=== PATIENT | female | born 1955 | race Caucasian/White ===

== ENCOUNTER → 2016-04-15 | Outpatient (CLI) | payer OTHER ==
--- NOTE | 2016-04-21 11:27 | MM ---
Reason for exam: screening (asymptomatic). Last mammogram was performed 3 years and 8 months ago. History: Patient is postmenopausal and is nulliparous. Benign excisional biopsy of the left breast, 2009. Physical Findings: A clinical breast exam by your physician is recommended on an annual basis and results should be correlated with mammographic findings. MG Screening Mammo w CAD Bilateral CC and MLO view(s) were taken. Prior study comparison: August 11, 2012, mammogram, performed at [place]. September 19, 2009, mammogram, performed at [place]. There are scattered fibroglandular densities. There is chronic nodularity in the right breast. No significant changes when compared with prior studies. ASSESSMENT: Benign, BI-RAD 2 RECOMMENDATION: Routine screening mammogram of both breasts in 1 year. Manage patient on a clinical basis.
== END ==
LOC: RADMAMWWP 14:51
PROVIDERS: ATTEND Family Medicine
DX: Z12.31 Encounter for screening mammogram for malignant neoplasm of breast (principal)

== ENCOUNTER → 2018-05-10 | Outpatient (CLI) | payer OTHER ==
--- NOTE | 2018-05-12 09:20 | MM ---
Reason for exam: screening (asymptomatic). Last mammogram was performed 2 years and 1 month ago. History: Patient is postmenopausal and is nulliparous. Benign excisional biopsy of the left breast, 2009. Physical Findings: A clinical breast exam by your physician is recommended on an annual basis and results should be correlated with mammographic findings. MG Screening Mammo w CAD Bilateral CC and MLO view(s) were taken. Prior study comparison: April 15, 2016, bilateral MG screening mammo w CAD. August 11, 2012, mammogram, performed at [place]. There are scattered fibroglandular densities. Previous mammotome biopsy in the left breast. There is chronic nodularity bilaterally. No significant changes when compared with prior studies. ASSESSMENT: Negative, BI-RAD 1 RECOMMENDATION: Routine screening mammogram of both breasts in 1 year.
== END | disposition home or self-care (01) ==
LOC: RADMAMWWP 13:57
PROVIDERS: ATTEND Family Medicine
DX: Z12.31 Encounter for screening mammogram for malignant neoplasm of breast (principal)
CPT/HCPCS: 77067

== ENCOUNTER 2020-08-26 09:48 | Day surgery (SDC) | payer OTHER ==
[2020-08-22 15:06] VITALS: BMI 38.0
[~2020-08-26 09:48] MED LIST: LACTATED RINGERS 1,000 ML IV SCH; LIDOCAINE 1% (10MG/ML) FOR IV START INTRADERMA PRN; ONDANSETRON 4 MG/2 ML VIAL IVP PRN
[2020-08-26 10:42] VITALS: TEMP 98.9
[2020-08-26] MEDS ORDERED: LIDOCAINE 1% (10MG/ML) FOR IV START INTRADERMA ONE (10:46)
[2020-08-26] MEDS ORDERED: LIDOCAINE 1% INJ 10MG/ML (20 ML MDV) ONE (11:03)
[2020-08-26] MEDS ORDERED: PROPOFOL 10 MG/ML 20 ML VIAL IV ONE (11:03)
--- NOTE | 2020-08-26 11:39 | P.PCN ---
Date of Procedure: 08/26/20 Description of Procedure: BRIEF HISTORY: Patient is a 64-year-old female presents for outpatient colonoscopy for evaluation of symptoms of hemorrhage of the anus and rectum. No prior colonoscopy. No family history of colon cancer. She reports intermittent bright red blood per rectum. PROCEDURE PERFORMED: Colonoscopy with polypectomy . PREOPERATIVE DIAGNOSIS: Hemorrhage of the anus and rectum normal, no prior colonoscopy. ESTIMATED BLOOD LOSS: Minimal. IV sedation per Anesthesia. PROCEDURE: After informed consent was obtained, the patient, was brought into the endoscopy unit. IV sedation was administered by Anesthesia under continuous monitoring. Digital rectal examination was normal, With nonthrombosed external hemorrhoids seen. Initially the Olympus CF-190 flexible video colonoscope was then inserted in the rectum, gradually advanced into the cecum without any difficulty. Careful examination was performed as the scope was gradually being withdrawn. Ileocecal valve and the appendiceal orifice were visualized and appeared normal. Prep was excellent. Mucosa of the cecum, ascending colon, transverse colon, descending colon, sigmoid colon, and rectum appeared normal, A few small diverticula noted in the sigmoid colon. A flat 4 mm ascending colon polyp was removed with cold snare polypectomy. Retroflexion was performed in the rectum and no lesions were seen, Moderate internal hemorrhoids noted. The patient tolerated the procedure well. IMPRESSION: Descending colon polyp removed with cold snare polypectomy. Mild sigmoid diverticulosis. Internal and external hemorrhoids. RECOMMENDATIONS: Findings of this examination were discussed with the patient and her family. Okay to resume diet. Okay to resume medications. Await pathology from polypectomy. Recommend repeat colonoscopy in 7 years for colon polyps pending pathology from polypectomy.
[2020-08-26 11:55] VITALS: BP 115/78; PULSE 67; RESP 18
== END 2020-08-26 12:22 | disposition home or self-care (01) ==
LOC: ORWHC2ENDO 09:48
PROVIDERS: ATTEND Internal Medicine
DX: K63.5 Polyp of colon (principal); K57.30 Diverticulosis of large intestine without perforation or abscess without bleeding; K64.4 Residual hemorrhoidal skin tags; K64.8 Other hemorrhoids; I48.91 Unspecified atrial fibrillation; I10 Essential (primary) hypertension; E78.5 Hyperlipidemia, unspecified; J44.9 Chronic obstructive pulmonary disease, unspecified; K21.9 Gastro-esophageal reflux disease without esophagitis; Z86.73 Personal history of transient ischemic attack (TIA), and cerebral infarction without residual deficits; G43.909 Migraine, unspecified, not intractable, without status migrainosus; I25.2 Old myocardial infarction; Z87.891 Personal history of nicotine dependence; F41.9 Anxiety disorder, unspecified; F32.9 Major depressive disorder, single episode, unspecified; F43.10 Post-traumatic stress disorder, unspecified; Z98.51 Tubal ligation status; Z98.890 Other specified postprocedural states; Z79.51 Long term (current) use of inhaled steroids; Z79.01 Long term (current) use of anticoagulants; Z79.82 Long term (current) use of aspirin; Z79.52 Long term (current) use of systemic steroids; Z79.899 Other long term (current) drug therapy
CPT/HCPCS: 88305; 45385; J2001; J2704

== ENCOUNTER → 2020-11-14 | Outpatient (CLI) | payer OTHER ==
--- NOTE | 2020-11-18 08:27 | MM ---
Reason for exam: screening (asymptomatic). Last mammogram was performed 2 years and 6 months ago. History: Patient is postmenopausal and is nulliparous. Benign excisional biopsy of the left breast, 2009. Physical Findings: A clinical breast exam by your physician is recommended on an annual basis and results should be correlated with mammographic findings. MG Screening Mammo w CAD Bilateral CC and MLO view(s) were taken. Prior study comparison: May 10, 2018, bilateral MG screening mammo w CAD. April 15, 2016, bilateral MG screening mammo w CAD. There are scattered fibroglandular densities. Previous mammotome biopsy in the left breast. No significant changes when compared with prior studies. ASSESSMENT: Benign, BI-RAD 2 RECOMMENDATION: Routine screening mammogram of both breasts in 1 year.
== END | disposition home or self-care (01) ==
LOC: RADMAMWWP 09:56
PROVIDERS: ATTEND Family Medicine
DX: Z12.31 Encounter for screening mammogram for malignant neoplasm of breast (principal); Z78.0 Asymptomatic menopausal state
CPT/HCPCS: 77067

== ENCOUNTER → 2022-02-15 | Outpatient (CLI) | payer OTHER ==
--- NOTE | 2022-02-15 10:39 | US ---
EXAMINATION TYPE: US duplex aorta DATE OF EXAM: 02/15/2022 COMPARISON: NONE CLINICAL HISTORY: Z13.6 SCREENING FOR CARDIOVASCULAR DISORDERS. TECHNIQUE: Multiple sonographic images of the abdominal aorta are obtained. 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 IMPRESSION: No visualized abdominal aortic aneurysm. Limited evaluation with nonvisualization of the bifurcation.
--- NOTE | 2022-02-15 10:40 | US ---
EXAMINATION TYPE: US carotid duplex BILAT DATE OF EXAM: 02/15/2022 COMPARISON: NONE CLINICAL HISTORY: Z13.6,R51.9 HEADACHE, UNSPECIFIED. TECHNIQUE: Carotid duplex ultrasound examination. Indirect Doppler criteria was utilized. 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 No elevated velo cities IMPRESSION: No ultrasound evidence of hemodynamically significant stenosis. Criteria for Assigning % of Stenosis / Diameter reduction (Estimation based on the indirect measurements of the internal carotid artery velocities (ICA PSV). 1. Normal (no stenosis)=ICA PSV < 125 cm/s: ratio < 2.0: ICA EDV<40 cm/s. 2. Less than 50% stenosis=ICA PSV < 125 cm/s: ratio < 2.0: ICA EDV<40 cm/s. 3. 50 to 69% stenosis=ICA PSV of 125 to 230 cm/s: ration 2.0 ? 4.0: ICA EDV 40-100 cm/s. 4. Greater than 70% stenosis to near occlusion= ICA PSV > 230 cm/s: ratio > 4.0: ICA EDV > 100 cm/s. 5. Near occlusion= ICA PSV velocities may be low or undetectable: variable ratio and ICA EDV. 6. Total occlusion=unable to detect flow.
== END | disposition home or self-care (01) ==
LOC: RADUSWWP 09:04
PROVIDERS: ATTEND Family Medicine
DX: Z13.6 Encounter for screening for cardiovascular disorders (principal); R51.9 Headache, unspecified
CPT/HCPCS: 93880; 93979

== ENCOUNTER 2022-03-13 13:15 | Inpatient (IN) | payer OTHER, MEDICARE ==
[2022-03-13] MEDS ORDERED: SODIUM CHLORIDE 0.9% 1,000 ML IV STA ×3 (13:23→17:59)
[2022-03-13] MEDS ORDERED: PANTOPRAZOLE 40 MG/10 ML VIAL IVP STA (13:23)
--- NOTE | 2022-03-13 13:37 | ED ---
General Adult HPI - General Chief complaint: Shortness of Breath Stated complaint: SOB Time Seen by Provider: 03/13/22 13:23 Source: patient, EMS, RN notes reviewed, old records reviewed Mode of arrival: EMS Limitations: no limitations - History of Present Illness Initial comments: Patient is a 66-year-old female with past medical history remarkable for atrial fibrillation on Xeralto, COPD, hypertension, CAD with prior IA who presents emergency Department complaining of one week history of multiple episodes of nonbloody diarrhea per day as well as increased coughing and mild shortness of breath. He is not on oxygen at home. Has been taking her medications. Endorses a productive cough of a dark simpson sputum. This is been ongoing for 1 week in addition to having diarrhea. Denies nausea or vomiting. Denies abdominal pain. Denies chest pain. Endorses some weakness and feels dehydrated. Hasn't been eating much due to lack of appetite. States she was vaccinated for COVID-19 flu, however has not tested herself recently. No known sick contacts. No fevers at home. States she is having up to 5 episodes of nonbloody diarrhea per day. Denies any urinary or vaginal complaints at this time. Presents for further evaluation at this time over concern for dehydration. - Related Data Home Medications Medication Instructions Recorded Confirmed Albuterol Inhaler [Ventolin Hfa 2 puff INHALATION RT-QID PRN 08/22/20 03/13/22 Inhaler] Aspirin [Adult Low Dose Aspirin EC] 81 mg PO DAILY 08/22/20 03/13/22 Atorvastatin [Lipitor] 40 mg PO HS 08/22/20 03/13/22 Budesonide/Formoterol Fumarate 2 puff INHALATION RT-BID 08/22/20 03/13/22 [Symbicort 80-4.5 Mcg Inhaler] Metoprolol Succinate [Toprol XL] 100 mg PO DAILY 08/22/20 03/13/22 Potassium Chloride [Klor-Con 20] 20 meq PO BID 08/22/20 03/13/22 Rivaroxaban [Xarelto] 20 mg PO W/SUPPER 08/22/20 03/13/22 Tiotropium 2.5 Mcg/Puff [Spiriva 2 puff INHALATION RT-DAILY 08/22/20 03/13/22 Respimat 2.5 Mcg] Triamterene-Hctz 37.5-25Mg 1 tab PO DAILY 08/22/20 03/13/22 [Maxzide 37.5-25] captopriL [Captopril] 50 mg PO BID 08/22/20 03/13/22 Acetaminophen [Tylenol Extra 1,000 mg PO Q6H PRN 03/13/22 03/13/22 Strength] amLODIPine [Norvasc] 5 mg PO DAILY 03/13/22 03/13/22 Allergies Allergy/AdvReac Type Severity Reaction Status Date / Time fluticasone AdvReac Cough Verified 03/13/22 15:48 [From [facility]] salmeterol AdvReac Cough Verified 03/13/22 15:48 [From [employer] [facility]] Review of Systems ROS Statement: Those systems with pertinent positive or pertinent negative responses have been documented in the HPI. Review of Systems: CONST: Denies fever EYES: Denies blurry vision ENT: Denies nasal congestion C/V: Denies Chest pain RESP: Endorses shortness of breath GI: Endorses diarrhea : Denies dysuria SKIN: Denies rash. MSK: Denies joint pain. NEURO: Denies headache ROS Other: All systems not noted in ROS Statement are negative. Past Medical History Past Medical History: Atrial Fibrillation, Asthma, Coronary Artery Disease (CAD), COPD, GERD/Reflux, Hyperlipidemia, Hypertension, Myocardial Infarction (IA), Osteoarthritis (OA), Skin Disorder Additional Past Medical History / Comment(s): migraines, stroke 2003-no residual effects, IBS, osteoporosis, psoriasis, "prediabetic"- dr watching, lower back pain, left shoulder torn rotator cuff Last Myocardial Infarction Date:: 1985 History of Any Multi-Drug Resistant Organisms: None Reported Past Surgical History: Heart Catheterization, Tubal Ligation Past Anesthesia/Blood Transfusion Reactions: No Reported Reaction Past Psychological History: Anxiety, Depression, PTSD Smoking Status: Former smoker Past Alcohol Use History: Occasional Past Drug Use History: None Reported - Past Family History Brother(s) Family Medical History: Cancer Sister(s) Family Medical History: Cancer, Deep Vein Thrombosis (DVT) Mother Family Medical History: Pulmonary Embolus General Exam - General Exam Comments Initial Comments: General: Appears in no acute distress. HEAD: Normal with no signs of head trauma. EYES: PERRLA, EOMI, conjunctiva normal, no discharge. ENT: Hearing grossly intact, normal oropharynx. Dry mucous membranes. RESPIRATORY: Bilateral end expiratory wheezing. No increased work of breathing. Saturating well on 6 L nasal cannula, and we'll continue to titrate her down. C/V: Irregular rate and rhythm. S1 and S2 auscultated. Mild bilateral symmetrical lower extremity pitting edema. Peripheral pulses are 2+ and intact throughout. ABD: Abd is soft, nontender, nondistended EXT: Normal range of motion, no obvious deformity SKIN: No rashes or lesions observed on exposed skin. NEURO: Alert and oriented 4. Limitations: no limitations Course Vital Signs 03/13/22 03/13/22 03/13/22 13:18 13:27 13:32 Temperature 98.0 F Pulse Rate 109 H 101 H Respiratory 20 18 18 Rate Blood Pressure 103/68 94/65 O2 Sat by Pulse 100 98 Oximetry 03/13/22 03/13/22 03/13/22 14:02 14:13 14:20 Temperature Pulse Rate 101 H 98 96 Respiratory 18 18 Rate Blood Pressure 91/63 102/66 O2 Sat by Pulse 98 82 L Oximetry 03/13/22 03/13/22 03/13/22 14:30 15:38 16:53 Temperature Pulse Rate 100 105 H 89 Respiratory 18 18 Rate Blood Pressure 94/69 81/64 O2 Sat by Pulse 94 L 95 Oximetry Medical Decision Making - Medical Decision Making Based on the patient's presentation and physical exam, I'm concerned for infectious process for current symptoms. Cannot rule out Covid or other intra- abdominal viral etiology for her current symptoms. Also appears to be having a COPD exacerbation. Appears to be in atrial fibrillation which she does have a history of. We will obtain broad workup, treatment for COPD exacerbation, and provide her with IV fluids as she is clinically dehydrated. She was in agreement this plan. EMS all ready provide the patient with 125 mg of Solu- Medrol, as well as a DuoNeb breathing treatment. She is saturating well at this time, we will continue to titrate her down off oxygen and she at baseline is not on oxygen. She was in agreement this plan. Vital signs within acceptable limits. Patient was evaluated in trauma bay 1. EKG shows atrial fibrillation with no signs of acute ischemia.Chest x-ray as interpreted by myself reveals suspected bilateral diffuse infiltrates that resembles an atypical pneumonia. Radiology concurs with this evaluation. Laboratory studies are remarkable for an undetectable troponin, BNP within acceptable limits, and a negative Covid and flu. Urinalysis still pending at this time. On reevaluation, patient is feeling improved, however still requiring 2 L nasal cannula oxygen. She did drop down with a good waveform to 80%'s when off oxygen, and therefore after discussion with the patient and her possibly missing some dosing of her blood thinning medication we will obtain a CT PE to rule out pulmonary embolism at this time. This also less further evaluate her lungs. She was in agreement with this plan. CT PE is interpreted by myself reveals no evidence of pulmonary embolism. The bilateral infiltrates are redemonstrated. On reevaluation, patient still has mildly soft blood pressures and still appears significantly dehydrated and therefore she will be given an additional liter fluid bolus. Her wheezing is improving. I discussed results with her. We will send an RSV swab which is still pending but she'll be covered for pneumonia at this time with Rocephin and azithromycin. We will continue to treat her COPD exacerbation with IV steroids as well as breathing treatments. We will closely monitor her fluid status, as she does have a history of heart failure and we do not want to volume overload her, however clinically she does appear significantly dehydrated. She was in agreement with this plan. Urine is still pending at this time. She requires admission to the hospital. I spoke with the admitting physician, Dr. Chi who was in agreement this plan. Pulmonology was consulted for the COPD exacerbation. Patient was admitted in stable condition. - Lab Data Result diagrams: 03/13/22 13:30 03/13/22 13:30 Lab Results 03/13/22 03/13/22 03/13/22 Range/Units 13:30 13:30 13:30 WBC 6.4 (3.8-10.6) k/uL RBC 4.23 (3.80-5.40) m/uL Hgb 14.8 (11.4-16.0) gm/dL Hct 44.9 (34.0-46.0) % MCV 106.0 H (80.0-100.0) fL MCH 35.0 (25.0-35.0) pg MCHC 33.1 (31.0-37.0) g/dL RDW 14.0 (11.5-15.5) % Plt Count 121 L (150-450) k/uL MPV 9.4 Neutrophils % 71 % Lymphocytes % 11 % Monocytes % 11 % Eosinophils % 1 % Basophils % 2 % Neutrophils # 4.5 (1.3-7.7) k/uL Lymphocytes # 0.7 L (1.0-4.8) k/uL Monocytes # 0.7 (0-1.0) k/uL Eosinophils # 0.0 (0-0.7) k/uL Basophils # 0.1 (0-0.2) k/uL Macrocytosis Moderate PT (9.0-12.0) sec INR (<1.2) APTT (22.0-30.0) sec Sodium 135 L (137-145) mmol/L Potassium 3.5 (3.5-5.1) mmol/L Chloride 95 L (98-107) mmol/L Carbon Dioxide 35 H (22-30) mmol/L Anion Gap 5 mmol/L BUN 33 H (7-17) mg/dL Creatinine 0.69 (0.52-1.04) mg/dL Est GFR (CKD-EPI)AfAm >90 (>60 ml/min/1.73 sqM) Est GFR (CKD-EPI)NonAf >90 (>60 ml/min/1.73 sqM) Glucose 110 H (74-99) mg/dL Plasma Lactic Acid Jerry 1.2 (0.7-2.0) mmol/L Calcium 8.1 L (8.4-10.2) mg/dL Total Bilirubin 0.9 (0.2-1.3) mg/dL AST 45 H (14-36) U/L ALT 26 (4-34) U/L Alkaline Phosphatase 63 (38-126) U/L Troponin I (0.000-0.034) ng/mL NT-Pro-B Natriuret Pep pg/mL Total Protein 6.2 L (6.3-8.2) g/dL Albumin 3.6 (3.5-5.0) g/dL Amylase 45 (30-110) U/L Lipase 144 (23-300) U/L Coronavirus (PCR) (Not Detectd) Influenza Type A RNA (Not Detectd) Influenza Type B (PCR) (Not Detectd) 03/13/22 03/13/22 03/13/22 Range/Units 13:30 13:30 13:30 WBC (3.8-10.6) k/uL RBC (3.80-5.40) m/uL Hgb (11.4-16.0) gm/dL Hct (34.0-46.0) % MCV (80.0-100.0) fL MCH (25.0-35.0) pg MCHC (31.0-37.0) g/dL RDW (11.5-15.5) % Plt Count (150-450) k/uL MPV Neutrophils % % Lymphocytes % % Monocytes % % Eosinophils % % Basophils % % Neutrophils # (1.3-7.7) k/uL Lymphocytes # (1.0-4.8) k/uL Monocytes # (0-1.0) k/uL Eosinophils # (0-0.7) k/uL Basophils # (0-0.2) k/uL Macrocytosis PT 10.5 (9.0-12.0) sec INR 1.0 (<1.2) APTT 24.9 (22.0-30.0) sec Sodium (137-145) mmol/L Potassium (3.5-5.1) mmol/L Chloride (98-107) mmol/L Carbon Dioxide (22-30) mmol/L Anion Gap mmol/L BUN (7-17) mg/dL Creatinine (0.52-1.04) mg/dL Est GFR (CKD-EPI)AfAm (>60 ml/min/1.73 sqM) Est GFR (CKD-EPI)NonAf (>60 ml/min/1.73 sqM) Glucose (74-99) mg/dL Plasma Lactic Acid Jerry (0.7-2.0) mmol/L Calcium (8.4-10.2) mg/dL Total Bilirubin (0.2-1.3) mg/dL AST (14-36) U/L ALT (4-34) U/L Alkaline Phosphatase (38-126) U/L Troponin I <0.012 (0.000-0.034) ng/mL NT-Pro-B Natriuret Pep pg/mL Total Protein (6.3-8.2) g/dL Albumin (3.5-5.0) g/dL Amylase (30-110) U/L Lipase (23-300) U/L Coronavirus (PCR) (Not Detectd) Influenza Type A RNA Not Detected (Not Detectd) Influenza Type B (PCR) Not Detected (Not Detectd) 03/13/22 03/13/22 Range/Units 13:30 13:30 WBC (3.8-10.6) k/uL RBC (3.80-5.40) m/uL Hgb (11.4-16.0) gm/dL Hct (34.0-46.0) % MCV (80.0-100.0) fL MCH (25.0-35.0) pg MCHC (31.0-37.0) g/dL RDW (11.5-15.5) % Plt Count (150-450) k/uL MPV Neutrophils % % Lymphocytes % % Monocytes % % Eosinophils % % Basophils % % Neutrophils # (1.3-7.7) k/uL Lymphocytes # (1.0-4.8) k/uL Monocytes # (0-1.0) k/uL Eosinophils # (0-0.7) k/uL Basophils # (0-0.2) k/uL Macrocytosis PT (9.0-12.0) sec INR (<1.2) APTT (22.0-30.0) sec Sodium (137-145) mmol/L Potassium (3.5-5.1) mmol/L Chloride (98-107) mmol/L Carbon Dioxide (22-30) mmol/L Anion Gap mmol/L BUN (7-17) mg/dL Creatinine (0.52-1.04) mg/dL Est GFR (CKD-EPI)AfAm (>60 ml/min/1.73 sqM) Est GFR (CKD-EPI)NonAf (>60 ml/min/1.73 sqM) Glucose (74-99) mg/dL Plasma Lactic Acid Jerry (0.7-2.0) mmol/L Calcium (8.4-10.2) mg/dL Total Bilirubin (0.2-1.3) mg/dL AST (14-36) U/L ALT (4-34) U/L Alkaline Phosphatase (38-126) U/L Troponin I (0.000-0.034) ng/mL NT-Pro-B Natriuret Pep 438 pg/mL Total Protein (6.3-8.2) g/dL Albumin (3.5-5.0) g/dL Amylase (30-110) U/L Lipase (23-300) U/L Coronavirus (PCR) Not Detected (Not Detectd) Influenza Type A RNA (Not Detectd) Influenza Type B (PCR) (Not Detectd) - EKG Data -: EKG Interpreted by Me EKG Comments: 12-lead Electrocardiogram Interpretation Note EKG was reviewed and interpreted by myself. 12-lead ECG performed at 1320 is interpreted by me as revealing atrial fibrillation at a rate of 101 beats per minute. [place] is normal. QRS durations 81 ms, QTc is 384 ms.. There were no ST or T wave abnormalities to suggest myocardial ischemia or injury. R wave progression across the precordium was satisfactory. By my interpretation this EKG is non-diagnostic for acute ischemia. No prior EKG in our EMR for comparison. Critical Care Time Critical Care Time: Yes Total Critical Care Time: 35 Critical Care Time: Upon my evaluation, this patient had a high probability of imminent or life- threatening deterioration due to COPD exacerbation, dehydration, pneumonia, which required my direct attention, intervention, and personal management. I have personally provided 35 minutes of critical care time exclusive of time spent on separately billable procedures. Time includes review of laboratory data, radiology results, discussion with consultants, and monitoring for potential decompensation. Interventions were performed as documented in my note. Disposition Clinical Impression: Pneumonia, Diarrhea, COPD exacerbation, Dehydration Disposition: ADMITTED IP TO THIS HOSP Condition: Stable Is patient prescribed a controlled substance at d/c from ED?: No Time of Disposition: 16:20
[2022-03-13] MEDS ORDERED: IPRATROPIUM-ALBUTEROL 3 ML NEB INHALATION STA (13:40)
[2022-03-13] MEDS ORDERED: ASPIRIN 81 MG PO STA (13:40)
[2022-03-13 13:46] LABS: Basophils # (A) 0.1 k/uL (0-0.2); Basophils % (A) 2 %; Eosinophils % (A) 1 %; HCT 44.9 % (34.0-46.0); HGB 14.8 gm/dL (11.4-16.0); Lymphocytes # (A) 0.7 k/uL (1.0-4.8); Lymphocytes % (A) 11 %; MCHC 33.1 g/dL (31.0-37.0); Macrocytosis Moderate; Mean Platelet Volume 9.4; Monocytes # (A) 0.7 k/uL (0-1.0); Monocytes % (A) 11 %; Neutrophils # (A) 4.5 k/uL (1.3-7.7); Neutrophils % (A) 71 %; Platelet Count 121 k/uL (150-450); RBC 4.23 m/uL (3.80-5.40); WBC 6.4 k/uL (3.8-10.6)
--- NOTE | 2022-03-13 13:56 | XR ---
EXAMINATION TYPE: XR chest 2V DATE OF EXAM: 03/13/2022 1:42 PM COMPARISON: None TECHNIQUE: XR chest 2V Frontal and lateral views of the chest. CLINICAL INDICATION:Female, 66 years old with history of abdominal pain; FINDINGS: Lungs/Pleura: Low lung volumes are present. There is no evidence of pleural effusion, focal consolida tion, or pneumothorax. Pulmonary vascularity: Diffuse haziness of lungs Heart/mediastinum: Cardiomediastinal silhouette is unremarkable. Musculoskeletal: No acute osseous pathology. IMPRESSION: Diffuse haziness of lungs which could be due to atelectasis versus atypical pneumonia versus pulmonar y vascular congestion.
[2022-03-13 13:58] LABS: Partial Thromboplastin Time 24.9 sec (22.0-30.0); Prothrombin Time 10.5 sec (9.0-12.0)
[2022-03-13 14:05] LABS: ALT 26 U/L (4-34); AST 45 U/L (14-36); African American GFR (CKD) >90 (>60 ml/min/1.73 sqM); Albumin 3.6 g/dL (3.5-5.0); Alkaline Phosphatase 63 U/L (38-126); Amylase 45 U/L (30-110); Anion Gap 5 mmol/L; Blood Urea Nitrogen 33 mg/dL (7-17); Calcium 8.1 mg/dL (8.4-10.2); Carbon Dioxide 35 mmol/L (22-30); Chloride 95 mmol/L (98-107); Glucose 110 mg/dL (74-99); Lipase 144 U/L (23-300); Non-African American GFR(CKD) >90 (>60 ml/min/1.73 sqM); Potassium 3.5 mmol/L (3.5-5.1); Sodium 135 mmol/L (137-145); Total Bilirubin 0.9 mg/dL (0.2-1.3); Total Protein 6.2 g/dL (6.3-8.2)
[2022-03-13] MEDS ORDERED: SODIUM CHLORIDE 0.9% 500 ML 500 ML IV STA ×2 (15:13→17:59)
--- NOTE | 2022-03-13 16:13 | CT ---
EXAMINATION TYPE: CT chest angio for PE DATE OF EXAM: 03/13/2022 COMPARISON: None HISTORY: Dyspnea, hypoxia, off thinners, hx asthma, copd. Pt states she has been sick for [address] DLP: 421.1 mGycm Automated exposure control for dose reduction was used. CONTRAST: Performed with IV Contrast, patient injected with 100 mL of Isovue 370. There are Three-D postprocessed images. There is coarsening of the pulmonary interstitial markings. No pleural effusion. Heart size is fairly normal. No pericardial effusion. There is some mild atelectasis at the posterior lung bases. There is no evidence of filling defect in the pulmonary arteries. There is normal contrast opacificat ion of the pulmonary arteries. Thoracic aorta is intact. No aneurysm or dissection. The ascending aorta measures 3.6 cm. There are a few enlarged mediastinal bronchial lymph nodes up to 1.5 cm. The thoracic spine is intact. No compression fracture. IMPRESSION: Interstitial infiltrates and atelectasis. Mild mediastinal and bronchial adenopathy is likely inflamm atory. This could be sarcoidosis. No evidence of pulmonary embolism.
[2022-03-13] MEDS ORDERED: NALOXONE 0.4 MG/ML 1 ML VIAL IV PRN (16:28)
[2022-03-13] MEDS ORDERED: SODIUM CHLORIDE 0.9% 1,000 ML IV SCH (16:30)
[2022-03-13] MEDS ORDERED: ALBUTEROL NEBULIZED 2.5 MG/3 ML INHALATION PRN (17:08)
[2022-03-13] MEDS: AZITHROMYCIN 500 MG in SODIUM CHLORIDE 0.9% 250 ML IVPB SCH (17:52)
[2022-03-13] MEDS: RIVAROXABAN 20 MG TAB PO SCH (17:59)
[2022-03-13] MEDS ORDERED: SODIUM CHLORIDE 0.9% 500 ML 500 ML IV ONE (18:02)
[2022-03-13] MEDS: IPRATROPIUM-ALBUTEROL 3 ML NEB INHALATION SCH ×3 (18:26→23:58)
[2022-03-13] MEDS: SYMBICORT 80-4.5 MCG INHALER INHALATION SCH (20:35)
[2022-03-13] MEDS ORDERED: methylPREDNISolone SOD SUCCI 40 MG/ML 1 ML VIAL IV SCH (21:00)
--- NOTE | 2022-03-13 21:40 | HP ---
HISTORY AND PHYSICAL CHIEF COMPLAINTS: Multiple chief complaints including weakness, shortness of breath, cough, and diarrhea. HISTORY OF PRESENT ILLNESS: This 66-year-old woman with a past history of asthma, CAD, COPD, GERD, being followed by [facility] in [place]. She was not feeling well over the past 1 week. The patient had cough, sputum, extreme weakness, diarrhea, dehydration. The patient came to [facility] and was admitted for evaluation and treatment. Chest x-ray showed interstitial infiltrate, possible viral pneumonia. RSV testing is pending at this time. There is no history of any fever, rigor, or chills at this time. PAST MEDICAL HISTORY: Atrial fibrillation, asthma, CAD, COPD. Rest of the history and rest of the chart is also reviewed. HOME MEDICATIONS: Also reviewed include Xarelto. Doses and rest of medications reviewed. ALLERGIES: Reviewed include fluticasone. FAMILY HISTORY: History of cancer. SOCIAL HISTORY: Previous history of smoking. Occasional alcohol intake. REVIEW OF SYSTEMS: A 14-point review is negative except as mentioned earlier. PHYSICAL EXAMINATION: VITAL SIGNS: Pulse is 105, blood pressure 94 to 69, and respirations 18. HEENT: Conjunctivae normal. NECK: No jugular venous distention. CARDIOVASCULAR: S1, S2 muffled RESPIRATIONS: Diminished at the bases, bilateral scattered rhonchi and crackles. ABDOMEN: Soft, obese. LEGS: No edema. NERVOUS SYSTEM: No focal deficits. LABS: WBC 6.2, hemoglobin 14.6 other labs are noted. ASSESSMENT: 1. Asthma, chronic obstructive pulmonary disease acute exacerbation with possible bilateral interstitial pneumonia. 2. Possible viral pneumonia. 3. Diarrhea, possible acute diarrheal disease. 4. History of asthma. 5. Gastroesophageal reflux disease. 6. Hypertension. 7. Hyperlipidemia. 8. Multiple medical issues. RECOMMENDATIONS: This 66-year-old woman presents with multiple complex medical issues, we will monitor the patient closely. Initiated intensive bronchodilators, steroids, and empiric antibiotics. Pulmonary consultation, otherwise resume the home medications once they are confirmed. PROGNOSIS: Guarded because of multiple complex medical issues. See orders for details. Further recommendations to follow. MMODL / IJN: [id number] /
[2022-03-13] MEDS: ATORVASTATIN 40 MG TAB PO SCH (21:48)
[2022-03-14] MEDS: IPRATROPIUM-ALBUTEROL 3 ML NEB INHALATION SCH ×6 (03:35→23:46)
[2022-03-14 04:01] LABS: Appearance,Urine Clear (Clear); Bilirubin,Urine Negative (Negative); Blood,Urine Negative (Negative); Color,Urine Yellow; Glucose,Urine (UA) Negative (Negative); Ketones,Urine Negative (Negative); Leukocyte Esterase,Urine Negative (Negative); Nitrite,Urine Negative (Negative); PH, Urine 6.5 (5.0-8.0); Protein,Urine Trace (Negative); Urobilinogen,Urine <2.0 mg/dL (<2.0)
[2022-03-14 04:15] LABS: Specific Gravity,Urine >1.050 (1.001-1.035)
[2022-03-14] MEDS: SYMBICORT 80-4.5 MCG INHALER INHALATION SCH ×2 (07:18→20:26)
[2022-03-14] MEDS ORDERED: TIOTROPIUM INHALATION SCH (08:00)
[2022-03-14 09:11] LABS: HCT 43.9 % (37.2-46.3); HGB 13.5 g/dL (12.0-15.0); MCH 33.7 pg (27.0-32.0); MCHC 30.8 g/dL (32.0-37.0); MCV 109.5 fL (80.0-97.0); Mean Platelet Volume 11.1 fL (9.5-12.2); NRBC Per 100 WBC 0 /100 WBCS (0.0-0.0); Platelet Count 108 X 10*3/uL (140-440); RBC 4.01 X 10*6/uL (4.10-5.20); RDW 14.1 % (11.5-14.5); WBC 3.91 X 10*3/uL (4.50-10.00)
[2022-03-14] MEDS: TRIAMTERENE-HCTZ 37.5-25MG 1 EACH TAB PO SCH (09:18)
[2022-03-14] MEDS: ASPIRIN 81 MG PO SCH (09:20)
[2022-03-14] MEDS: METOPROLOL SUCCINATE (ER) 100 MG TAB.ER.24H PO SCH (09:20)
[2022-03-14 10:14] LABS: Basophils # (A) 0.01 X 10*3/uL (0.00-0.10); Basophils % (A) 0.3 %; Eosinophils # (A) 0 X 10*3/uL (0.04-0.35); Eosinophils % (A) 0 %; Immature Grans, Automated 0.3 %; Lymphocytes # (A) 0.54 X 10*3/uL (0.90-5.00); Lymphocytes % (A) 13.8 %; Macrocytosis (M) 2+; Monocytes # (A) 0.18 X 10*3/uL (0.20-1.00); Monocytes % (A) 4.6 %; Neutrophils # (A) 3.17 X 10*3/uL (1.80-7.70)
[2022-03-14 10:30] LABS: African American GFR (CKD) 107.7 (60.0-200.0); Anion Gap 11.3 mmol/L (10.00-18.00); BUN/Creat Ratio 32.69 Ratio (12.00-20.00); Blood Urea Nitrogen 21.9 mg/dL (9.0-27.0); Calcium 7.9 mg/dL (8.7-10.3); Carbon Dioxide 24.4 mmol/L (20.0-27.5); Non-African American GFR(CKD) 92.9 (60.0-200.0); Potassium 4.2 mmol/L (3.5-5.5)
[2022-03-14] MEDS: AZITHROMYCIN 500 MG in SODIUM CHLORIDE 0.9% 250 ML IVPB SCH (10:39)
[2022-03-14] MEDS: amLODIPine 5 MG TAB PO SCH (12:03)
--- NOTE | 2022-03-14 16:02 | P.CNPUL ---
History of Present Illness Consult date: 03/14/22 Reason for consult: dyspnea, cough, COPD Chief complaint: Shortness of breath, cough, and weakness. History of present illness: Maintained on Xarelto, history of COPD, hypertension, previous [place] and history of coronary artery disease, patient presented to the hospital with 1 week history of multiple complaints including cough wheezing, shortness of breath, off as productive with slightly yellow phlegm, patient also had some intermittent episodes of nonbloody diarrhea. Patient denied any nausea or vomiting denied an y abdominal pain, denies any chest pain. She did feel weak and dehydrated. Patient has not had any recent contact with any sick individuals, workup in the ER included a CT angiogram of the chest, showed nonspecific interstitial changes and atelectasis, again the findings are very nonspecific. Patient had a relatively normal CBC normal WBC count, normal electrolytes, negative screening for COVID-19, negative screening for RSV and influenza A as well as influenza B. Patient was admitted and this consult was initiated. When I evaluated the patient clearly the patient had acute exacerbation of COPD, she had diffuse rhonchi and wheezes I laterally upon physical examination. Patient has been a heavy smoker and she continues to smoke. Never seen by a air cargo specialist in the past. Pro-calcitonin level is pending. Review of Systems CONST: Denies fever EYES: Denies blurry vision ENT: Denies nasal congestion C/V: Denies Chest pain RESP as noted in HPI GI: As noted in HPI : Denies dysuria SKIN: Denies rash. MSK: Denies joint pain. NEURO: Generalized weakness Past Medical History Past Medical History: Atrial Fibrillation, Asthma, Coronary Artery Disease (CAD), COPD, GERD/Reflux, Hyperlipidemia, Hypertension, Myocardial Infarction ([place]), Osteoarthritis (OA), Skin Disorder Additional Past Medical History / Comment(s): migraines, stroke 2004-no residual effects, IBS, osteoporosis, psoriasis, "prediabetic"- dr watching, lower back pain, left shoulder torn rotator cuff Last Myocardial Infarction Date:: 1985 History of Any Multi-Drug Resistant Organisms: None Reported Past Surgical History: Heart Catheterization, Tubal Ligation Past Anesthesia/Blood Transfusion Reactions: No Reported Reaction Past Psychological History: Anxiety, Depression, PTSD Smoking Status: Current some day smoker Past Alcohol Use History: Occasional Additional Past Alcohol Use History / Comment(s): quit smoking < 1 yr ago, smoked since age 20, 1 1/2 PPD Past Drug Use History: None Reported - Past Family History Brother(s) Family Medical History: Cancer Sister(s) Family Medical History: Cancer, Deep Vein Thrombosis (DVT) Mother Family Medical History: Pulmonary Embolus Medications and Allergies Home Medications Medication Instructions Recorded Confirmed Type Albuterol Inhaler [Ventolin Hfa 2 puff INHALATION RT-QID PRN 08/22/20 03/13/22 History Inhaler] Aspirin [Adult Low Dose Aspirin EC] 81 mg PO DAILY 08/22/20 03/13/22 History Atorvastatin [Lipitor] 40 mg PO HS 08/22/20 03/13/22 History Budesonide/Formoterol Fumarate 2 puff INHALATION RT-BID 08/22/20 03/13/22 History [Symbicort 80-4.5 Mcg Inhaler] Metoprolol Succinate [Toprol XL] 100 mg PO DAILY 08/22/20 03/13/22 History Potassium Chloride [Klor-Con 20] 20 meq PO BID 08/22/20 03/13/22 History Rivaroxaban [Xarelto] 20 mg PO W/SUPPER 08/22/20 03/13/22 History Tiotropium 2.5 Mcg/Puff [Spiriva 2 puff INHALATION RT-DAILY 08/22/20 03/13/22 History Respimat 2.5 Mcg] Triamterene-Hctz 37.5-25Mg 1 tab PO DAILY 08/22/20 03/13/22 History [Maxzide 37.5-25] captopriL [Captopril] 50 mg PO BID 08/22/20 03/13/22 History Acetaminophen [Tylenol Extra 1,000 mg PO Q6H PRN 03/13/22 03/13/22 History Strength] amLODIPine [Norvasc] 5 mg PO DAILY 03/13/22 03/13/22 History Allergies Allergy/AdvReac Type Severity Reaction Status Date / Time fluticasone AdvReac Cough Verified 03/13/22 15:48 [From [facility]hub] salmeterol AdvReac Cough Verified 03/13/22 15:48 [From [facility]] Physical Exam Vitals: Vital Signs Temp Pulse Pulse Resp BP BP Pulse Ox 03/14/22 15:44 90 03/14/22 15:36 93 L 03/14/22 15:32 96 03/14/22 11:39 97.8 F 99 18 90/60 90 L 03/14/22 11:37 94 03/14/22 11:22 90 03/14/22 09:14 91 115/72 90 L 03/14/22 07:36 94 03/14/22 07:21 93 L 03/14/22 07:19 85 03/14/22 05:00 97.7 F 87 16 95/56 91 L 03/14/22 03:50 100 03/14/22 03:40 102 H 03/14/22 00:15 101 H 03/13/22 23:58 95 03/13/22 21:00 16 03/13/22 20:42 98.4 F 95 16 93/63 97 03/13/22 20:35 97 03/13/22 19:37 84 22 96/62 94 L 03/13/22 18:47 97 03/13/22 18:28 96 03/13/22 17:49 96 18 86/59 95 03/13/22 16:53 89 18 81/64 95 Intake and Output 03/14/22 03/14/22 03/14/22 06:59 14:59 22:59 Intake Total 590 Balance 590 Intake: Oral 590 Other: Voiding Method Bedside Commode # Voids 2 Physical Exam: Revealed a 66-year-old female in no distress Head: Atraumatic normocephalic HEENT:[Neck is supple.] [No neck masses.] [No thyromegaly.] [No JVD.] Chest: Diffuse rhonchi and wheezes noted bilaterally Cardiac Exam: Irregular irregular rhythm. [Normal S1 and S2, no S3 gallop, no murmur.] Abdomen: [Soft, nontender, no megaly, no rebound, no guarding, normal bowel sounds.] Extremities: [No clubbing, no edema, no cyanosis.] Neurological Exam: [No focal neurologic deficit.] Alert oriented 3, no gross focal deficits. Psychiatric: Normal mood affect and normal mental status examination. Results - Laboratory Findings CBC and BMP: 03/14/22 04:50 03/14/22 04:50 PT/INR, D-dimer PT 10.5 sec (9.0-12.0) 03/13/22 13:30 INR 1.0 (<1.2) 03/13/22 13:30 Abnormal lab findings: Abnormal Labs 03/13/22 03/13/22 03/14/22 13:30 13:30 03:40 WBC RBC MCV 106.0 H MCH MCHC Plt Count 121 L Plt Count Comment Lymphocytes # 0.7 L Monocytes # Eosinophils # Sodium 135 L Chloride 95 L Carbon Dioxide 35 H BUN 33 H BUN/Creatinine Ratio Glucose 110 H Calcium 8.1 L AST 45 H Total Protein 6.2 L Ur Specific [place] >1.050 H Urine Protein Trace H 03/14/22 03/14/22 04:50 04:50 WBC 3.91 L RBC 4.01 L MCV 109.5 H MCH 33.7 H MCHC 30.8 L Plt Count 108 L Plt Count Comment DECREASED A Lymphocytes # 0.54 L Monocytes # 0.18 L Eosinophils # 0 L Sodium Chloride Carbon Dioxide BUN BUN/Creatinine Ratio 32.69 H Glucose 147 H Calcium 7.9 L AST Total Protein Ur Specific [place] Urine Protein - Diagnostic Findings CT scan - chest: image reviewed (As noted in HPI, nonspecific findings noted) Assessment and Plan Assessment: Impression: Acute hypoxic respiratory failure secondary to acute exacerbation of COPD Chronic atrial fibrillation Doubt underlying pneumonia Acute gastroenteritis GERD without esophagitis Benign essential hypertension Dyslipidemia recommendation: Agree with the present course of treatment including bronchodilators, Continue antibiotics empirically awaiting pro calcitonin level Check urine Legionella antigen Continue methylprednisolone Resume home meds DVT prophylaxis and GI prophylaxis We'll continue to follow. Time with Patient: Greater than 30
[2022-03-14] MEDS: methylPREDNISolone SOD SUCCI 40 MG/ML 1 ML VIAL IV SCH ×2 (17:07→23:26)
[2022-03-14] MEDS: RIVAROXABAN 20 MG TAB PO SCH (17:07)
[2022-03-14] MEDS: POTASSIUM CHLORIDE ER 20 MEQ TAB.ER PO SCH (19:59)
[2022-03-14] MEDS: ATORVASTATIN 40 MG TAB PO SCH (20:00)
--- NOTE | 2022-03-15 00:59 | PN ---
PROGRESS NOTE CHIEF COMPLAINT: Shortness of breath. HISTORY OF PRESENT ILLNESS: This 66-year-old woman was admitted with COPD and possible pneumonia, is being closely monitored. All the viral titers are negative including RSV, COVID, and influenza. Breathing is slightly better today. No chest pain. No palpitation. OBJECTIVE: VITAL SIGNS: Pulse is 99, blood pressure 90/50, respirations 18. HEENT: Conjunctivae normal. NECK: No JVD. CARDIOVASCULAR: S1, S2. RESPIRATIONS: Bilateral scattered rhonchi. ABDOMEN: Soft. NERVOUS SYSTEM: Nonfocal. LABS: Reviewed. ASSESSMENT: 1. Asthma/COPD acute exacerbation with possible bilateral interstitial pneumonia. 2. Possible viral pneumonia. 3. Diarrhea, possible acute diarrheal disease. 4. History of asthma. 5. GERD. 6. Hypertension. 7. Hyperlipidemia. 8. Multiple medical issues. RECOMMENDATIONS: Recommend to continue current management and continue the empiric antibiotics. Continue with steroids and bronchodilators. Repeat labs in the morning. Resume the home medications and prognosis guarded. Further recommendations to follow. MMODL / IJN: [id number] /
[2022-03-15] MEDS: IPRATROPIUM-ALBUTEROL 3 ML NEB INHALATION SCH ×5 (03:47→19:49)
[2022-03-15] MEDS: SYMBICORT 80-4.5 MCG INHALER INHALATION SCH ×2 (07:28→19:50)
[2022-03-15] MEDS ORDERED: FUROSEMIDE 10 MG/ML 4 ML VIAL IV STA (08:01)
--- NOTE | 2022-03-15 08:37 | P.PN ---
Subjective Progress Note Date: 03/15/22 Principal diagnosis: Shortness of breath. Maintained on Xarelto, history of COPD, hypertension, previous [place] and history of coronary artery disease, patient presented to the hospital with 1 week history of multiple complaints including cough wheezing, shortness of breath, off as productive with slightly yellow phlegm, patient also had some intermittent episodes of nonbloody diarrhea. Patient denied any nausea or vomiting denied any abdominal pain, denies any chest pain. She did feel weak and dehydrated. Patient has not had any recent contact with any sick individuals, workup in the ER included a CT angiogram of the chest, showed nonspecific interstitial changes and atelectasis, again the findings are very nonspecific. Patient had a relatively normal CBC normal WBC count, normal electrolytes, negative screening for COVID-19, negative screening for RSV and influenza A as well as influenza B. Patient was admitted and this consult was initiated. When I evaluated the patient clearly the patient had acute exacerbation of COPD, she had diffuse rhonchi and wheezes I laterally upon physical examination. Patient has been a heavy smoker and she continues to smoke. Never seen by a clinical documentation improvement specialist in the past. Pro-calcitonin level is pending. Progress note dated 03/15/2022. 66-year-old female admitted with a COPD exacerbation. She does have a history of COPD, hypertension, myocardial infarction, and coronary disease. Currently, the patient's on 2 L of oxygen. She does not receive any IV fluids currently. She is seen at the [facility] in [place], [place]. She is feeling better today. Not quite back to baseline. No new laboratory data today. The laboratory data from March 14 is reviewed. Blood cultures are negative. Objective - Vital Signs Vital signs: Vital Signs Temp 98 F 03/15/22 04:50 Pulse 96 03/15/22 07:41 Resp 16 03/15/22 04:50 BP 135/82 03/15/22 04:50 Pulse Ox 93 L 03/15/22 04:50 FiO2 Intake & Output 03/14/22 03/15/22 03/15/22 18:59 06:59 18:59 Intake Total 600 Balance 600 Intake: Oral 600 Other: Voiding Method Bedside Commode Bedside Commode # Voids 1 2 - Exam No acute distress, oriented 3. No audible wheezing or use of accessory mu scles. HEENT examination is grossly unremarkable. Neck supple. Full range of motion. No adenopathy thyromegaly or neck vein distention. Cardiovascular examination reveals regular rhythm rate. S1-S2 normal. No S3 or S4. No discernible murmur noted. Heart sounds are distant. Heart rate 90 bpm. Lungs reveal scattered bilateral rhonchi and expiratory wheezes. No crackles. Breath sounds equal. 2 L saturation is 93%. Abdomen soft bowel sounds are heard. No masses or tenderness. Extremities are intact. No cyanosis clubbing or edema. Skin is without rash or lesion. Neurologic examination is brief but nonfocal. - Labs CBC & Chem 7: 03/14/22 04:50 03/14/22 04:50 Labs: Abnormal Lab Results - Last 24 Hours (Table) 03/14/22 03/14/22 Range/Units 04:50 04:50 WBC 3.91 L (4.50-10.00) X 10*3/uL RBC 4.01 L (4.10-5.20) X 10*6/uL MCV 109.5 H (80.0-97.0) fL MCH 33.7 H (27.0-32.0) pg MCHC 30.8 L (32.0-37.0) g/dL Plt Count 108 L (140-440) X 10*3/uL Plt Count Comment DECREASED A Lymphocytes # 0.54 L (0.90-5.00) X 10*3/uL Monocytes # 0.18 L (0.20-1.00) X 10*3/uL Eosinophils # 0 L (0.04-0.35) X 10*3/uL BUN/Creatinine Ratio 32.69 H (12.00-20.00) Ratio Glucose 147 H (70-110) mg/dL Calcium 7.9 L (8.7-10.3) mg/dL Microbiology - Last 24 Hours (Table) 03/13/22 17:10 Blood Culture - Preliminary Blood No Growth after 24 hours 03/13/22 16:55 Blood Culture - Preliminary Blood No Growth after 24 hours Assessment and Plan Assessment: Acute exacerbation of COPD. Chronic atrial fibrillation. Possible underlying pneumonia. Acute gastroenteritis. GERD, without esophagitis. Essential hypertension. Hyperlipidemia. Plan: Plan dated 03/15/2022. The patient's currently on Symbicort, updrafts, with albuterol sulfate and ipratropium bromide, and also is on Solu-Medrol. In addition, the patient is on azithromycin, and Rocephin. Additional recommendations and suggestions are forthcoming. Hopeful discharge within the next 24-48 hours. She asked about home oxygen. That will be determined prior to discharge. Time with Patient: Less than 30
[2022-03-15 09:20] LABS: African American GFR (CKD) 106.1 (60.0-200.0); Albumin 3.6 g/dL (3.8-4.9); Albumin/Globulin Ratio 1.64 (1.60-3.17); Anion Gap 8.5 mmol/L (10.00-18.00); BUN/Creat Ratio 30.43 Ratio (12.00-20.00); Blood Urea Nitrogen 21.3 mg/dL (9.0-27.0); Calcium 9.1 mg/dL (8.7-10.3); Carbon Dioxide 28.5 mmol/L (20.0-27.5); Globulin 2.2 g/dL (1.6-3.3); Non-African American GFR(CKD) 91.6 (60.0-200.0); Potassium 4.4 mmol/L (3.5-5.5); Total Bilirubin 0.3 mg/dL (0.30-1.20); Total Protein 5.8 g/dL (6.2-8.2)
[2022-03-15 09:46] LABS: Basophils # (A) 0.02 X 10*3/uL (0.00-0.10); Basophils % (A) 0.2 %; Eosinophils # (A) 0 X 10*3/uL (0.04-0.35); Eosinophils % (A) 0 %; HCT 43.9 % (37.2-46.3); HGB 13.4 g/dL (12.0-15.0); Immature Grans, Automated 0.4 %; Lymphocytes # (A) 0.82 X 10*3/uL (0.90-5.00); Lymphocytes % (A) 9.1 %; MCH 33.6 pg (27.0-32.0); MCHC 30.5 g/dL (32.0-37.0); Monocytes # (A) 0.34 X 10*3/uL (0.20-1.00); Monocytes % (A) 3.8 %; NRBC Per 100 WBC 0 /100 WBCS (0.0-0.0); Neutrophils # (A) 7.82 X 10*3/uL (1.80-7.70); Neutrophils % (A) 86.5 %; Platelet Count 123 X 10*3/uL (140-440); RBC 3.99 X 10*6/uL (4.10-5.20); RDW 13.8 % (11.5-14.5); WBC 9.04 X 10*3/uL (4.50-10.00)
[2022-03-15] MEDS: amLODIPine 5 MG TAB PO SCH (10:09)
[2022-03-15] MEDS: POTASSIUM CHLORIDE ER 20 MEQ TAB.ER PO SCH ×2 (10:09→20:10)
[2022-03-15] MEDS: ASPIRIN 81 MG PO SCH (10:09)
[2022-03-15] MEDS: methylPREDNISolone SOD SUCCI 40 MG/ML 1 ML VIAL IV SCH ×2 (10:09→16:05)
[2022-03-15] MEDS: TRIAMTERENE-HCTZ 37.5-25MG 1 EACH TAB PO SCH (10:10)
[2022-03-15] MEDS: METOPROLOL SUCCINATE (ER) 100 MG TAB.ER.24H PO SCH (10:10)
[2022-03-15] MEDS: AZITHROMYCIN 500 MG in SODIUM CHLORIDE 0.9% 250 ML IVPB SCH (11:39)
--- NOTE | 2022-03-15 15:44 | P.PN ---
Subjective Progress Note Date: 03/15/22 This is a 66-year-old female who was recently admitted with shortness of breath with COPD acute exacerbation with possible pneumonia and being closely monitored. Testing has been negative and patient is maintained on IV steroids along with DuoNeb treatments and inhalers with pulmonary following. Patient is continued on 2 L via nasal cannula and reports she does not wear any oxygen at home. Patient reports she does not want to return home with oxygen as well. Patient does have an incentive spirometer at the bedside and encourage the patient to continue using at least 10 times every hour while awake. Education provided as patient was improperly using the incentive spirometer device. Patient is afebrile denies chest pain or worsening shortness of breath. Patient denies nausea or vomiting and is tolerating diet. Patient reports she has been up and walking around and encouraged increased activity as tolerated. Review of systems: Constitutional: No reports of fatigue, fever, or chills Cardiovascular: No reports of chest pain or palpitations Respiratory: reports of shortness of breath and cough GI: No reports of nausea, no reports of of vomiting, no diarrhea : No reports of dysuria or retention Neurovascular: No reports of generalized weakness All medications have been reviewed Active Medications Albuterol Sulfate (Albuterol Nebulized 2.5 Mg/3 Ml) 2.5 mg INHALATION RT-QID PRN PRN Reason: Shortness Of Breath Albuterol/Ipratropium (Ipratropium-Albuterol 3 Ml Neb) 3 ml INHALATION RT-Q4H [facility] Last Admin: 03/15/22 11:05 Dose: 3 ml Amlodipine Besylate (Amlodipine 5 Mg Tab) 5 mg PO DAILY [facility] Last Admin: 03/15/22 10:09 Dose: 5 mg Aspirin (Aspirin 81 Mg) 81 mg PO DAILY [facility] Last Admin: 03/15/22 10:09 Dose: 81 mg Atorvastatin Calcium (Atorvastatin 40 Mg Tab) 40 mg PO HS [facility] Last Admin: 03/14/22 20:00 Dose: 40 mg Budesonide/Formoterol Fumarate (Symbicort 80-4.5 Mcg Inhaler) 2 puff INHALATION RT-BID [facility] Last Admin: 03/15/22 07:28 Dose: 2 puff Captopril (Captopril 50 Mg Tab) 50 mg PO AC-BID [facility] Last Admin: 03/15/22 10:20 Dose: 50 mg Ceftriaxone Sodium 2 gm/ (Sodium Chloride) 50 mls @ 100 mls/hr IVPB Q24HR [facility]; Protocol Last Admin: 03/15/22 10:08 Dose: 100 mls/hr Methylprednisolone Sodium Succinate (Methylprednisolone Sod Succi 40 Mg/Ml 1 Ml Vial) 40 mg IV Q8HR [facility] Last Admin: 03/15/22 10:09 Dose: 40 mg Metoprolol Succinate (Metoprolol Succinate (Er) 100 Mg Tab.Er.24h) 100 mg PO DAILY [facility] Last Admin: 03/15/22 10:10 Dose: 100 mg Naloxone HCl (Naloxone 0.4 Mg/Ml 1 Ml Vial) 0.2 mg IV Q2M PRN PRN Reason: Opioid Reversal Potassium Chloride (Potassium Chloride Er 20 Meq Tab.Er) 20 meq PO BID [facility] Last Admin: 03/15/22 10:09 Dose: 20 meq Rivaroxaban (Rivaroxaban 20 Mg Tab) 20 mg PO W/SUPPER [facility]; Protocol Last Admin: 03/14/22 17:07 Dose: 20 mg Triamterene/Hydrochlorothiazide (Triamterene-Hctz 37.5-25mg 1 Each Tab) 1 each PO DAILY [facility] Last Admin: 03/15/22 10:10 Dose: 1 each PHYSICAL EXAMINATION: GENERAL: The patient is alert and oriented x4, Well developed, well nourished. HEENT: Pupils are round and equally reacting to light. EOMI. no scleral icterus. No conjunctival pallor. Normocephalic, atraumatic. No pharyngeal erythema. No thyromegaly. CARDIOVASCULAR: S1 and S2 muffled PULMONARY: diminished breath sounds bilaterally with scattered rhonchi and inspiratory and expiratory wheezing noted ABDOMEN: soft. Nontender on exam. obese. non-distended, normoactive bowel sounds. No palpable organomegaly. MUSCULOSKELETAL: No joint swelling or deformity. EXTREMITIES: No cyanosis, clubbing, or pedal edema. NEUROLOGICAL: Gross neurological examination did not reveal any focal deficits. SKIN: No rashes. Assessment: Asthma/COPD, acute exacerbation with possible bilateral interstitial pneumonia Possible viral pneumonia Diarrhea, possible acute diarrheal disease History of asthma Gastroesophageal reflux disease Hypertension Hyperlipidemia GI prophylaxis DVT prophylaxis Full code Plan: Recommend to continue with current medications and management with pulmonary services following closely. Patient is continued on DuoNeb treatments along with IV steroids showing some clinical improvement although continues to be dyspneic and continued on 2 L via nasal cannula. Patient does not wear oxygen in the outpatient setting. Will evaluate for home O2 although patient is refusing to have home O2 as she has not required it before. Patient also refusing any form of CPAP device. Patient does have a nebulizer at home and reports she is unsure if she follows with a pulmonary doctor outpatient. Will refer her to golf course superintendent on discharge. Encouraged increased activity as tolerated and continuing to use the incentive spirometer at least 10 times every hour while awake. Due to multiple complex medical issues, prognosis is guarded. Possible discharge in the next 24-48 hours. The impression and plan of care has been dictated by Nataliia Schmidt, Nurse Practitioner as directed. Dr. Romel MD I have performed a history and examination and MDM of this patient, discussed the same with the dictator, and agree with the dictator's assessment and plan as written ,documented as a scribe. Based on total visit time, I have performed more than 50% of the visit. Objective - Vital Signs Vital signs: Vital Signs Temp 98 F 03/15/22 04:50 Pulse 96 03/15/22 07:41 Resp 16 03/15/22 08:00 BP 135/82 03/15/22 04:50 Pulse Ox 93 L 03/15/22 04:50 FiO2 Intake & Output 03/14/22 03/15/22 03/15/22 18:59 06:59 18:59 Intake Total 600 Output Total 600 Balance 600 -600 Intake: Oral 600 Output: Urine 600 Other: Voiding Method Bedside Commode Bedside Commode # Voids 1 2 1 - Labs CBC & Chem 7: 03/15/22 05:03 03/15/22 05:03 Labs: Abnormal Lab Results - Last 24 Hours (Table) 03/15/22 03/15/22 Range/Units 05:03 05:03 RBC 3.99 L (4.10-5.20) X 10*6/uL MCV 110.0 H (80.0-97.0) fL MCH 33.6 H (27.0-32.0) pg MCHC 30.5 L (32.0-37.0) g/dL Plt Count 123 L (140-440) X 10*3/uL Neutrophils # 7.82 H (1.80-7.70) X 10*3/uL Lymphocytes # 0.82 L (0.90-5.00) X 10*3/uL Eosinophils # 0 L (0.04-0.35) X 10*3/uL Sodium 134 L (135-145) mmol/L Carbon Dioxide 28.5 H (20.0-27.5) mmol/L Anion Gap 8.50 L (10.00-18.00) mmol/L BUN/Creatinine Ratio 30.43 H (12.00-20.00) Ratio Glucose 136 H (70-110) mg/dL Total Protein 5.8 L (6.2-8.2) g/dL Albumin 3.6 L (3.8-4.9) g/dL Microbiology - Last 24 Hours (Table) 03/13/22 17:10 Blood Culture - Preliminary Blood No Growth after 24 hours 03/13/22 16:55 Blood Culture - Preliminary Blood No Growth after 24 hours
[2022-03-15] MEDS: RIVAROXABAN 20 MG TAB PO SCH (17:35)
[2022-03-15] MEDS ORDERED: guaiFENesin SYRUP 100MG/5ML 200 MG/10 ML CUP PO PRN (17:42)
[2022-03-15] MEDS: ATORVASTATIN 40 MG TAB PO SCH (20:10)
[2022-03-16] MEDS: methylPREDNISolone SOD SUCCI 40 MG/ML 1 ML VIAL IV SCH ×4 (00:05→23:20)
[2022-03-16] MEDS: IPRATROPIUM-ALBUTEROL 3 ML NEB INHALATION SCH ×7 (00:42→23:47)
[2022-03-16] MEDS: SYMBICORT 80-4.5 MCG INHALER INHALATION SCH ×2 (07:20→20:18)
--- NOTE | 2022-03-16 08:05 | P.PN ---
Subjective Progress Note Date: 03/16/22 Principal diagnosis: Shortness of breath. Maintained on Xarelto, history of COPD, hypertension, previous [place] and history of coronary artery disease, patient presented to the hospital with 1 week history of multiple complaints including cough wheezing, shortness of breath, off as productive with slightly yellow phlegm, patient also had some intermittent episodes of nonbloody diarrhea. Patient denied any nausea or vomiting denied any abdominal pain, denies any chest pain. She did feel weak and dehydrated. Patient has not had any recent contact with any sick individuals, workup in the ER included a CT angiogram of the chest, showed nonspecific interstitial changes and atelectasis, again the findings are very nonspecific. Patient had a relatively normal CBC normal WBC count, normal electrolytes, negative screening for COVID-19, negative screening for RSV and influenza A as well as influenza B. Patient was admitted and this consult was initiated. When I evaluated the patient clearly the patient had acute exacerbation of COPD, she had diffuse rhonchi and wheezes I laterally upon physical examination. Patient has been a heavy smoker and she continues to smoke. Never seen by a [employer] policy specialist in the past. Pro-calcitonin level is pending. Progress note dated 03/15/2022. 66-year-old female admitted with a COPD exacerbation. She does have a history of COPD, hypertension, myocardial infarction, and coronary disease. Currently, the patient's on 2 L of oxygen. She does not receive any IV fluids currently. She is seen at the [facility] in [place], [place]. She is feeling better today. Not quite back to baseline. No new laboratory data today. The laboratory data from March 14 is reviewed. Blood cultures are negative. Progress note dated 03/16/2022. Patient is seen today in room 520. She appears in no distress. She continues on 2 L. No IV fluids. The patient's pro-calcitonin level was 0.03. Antibiotics are discontinued. From our perspective, the patient could be considered for possible discharge today. She has no new complaints today. No new labs today. Laboratory data from March 15 was reviewed. Blood cultures are negative. Objective - Vital Signs Vital signs: Vital Signs Temp 97.5 F L 03/16/22 04:10 Pulse 80 03/16/22 07:37 Resp 16 03/16/22 04:10 BP 135/90 03/16/22 04:10 Pulse Ox 98 03/16/22 04:10 FiO2 Intake & Output 03/15/22 03/16/22 03/16/22 18:59 06:59 18:59 Intake Total 600 Output Total 600 Balance -600 600 Intake: Oral 600 Output: Urine 600 Other: Voiding Method Bedside Commode # Voids 1 2 # Bowel Movements 1 - Exam No acute distress, oriented 3. No audible wheezing or use of accessory muscle s. HEENT examination is grossly unremarkable. Neck supple. Full range of motion. No adenopathy thyromegaly or neck vein distention. Cardiovascular examination reveals regular rhythm rate. S1-S2 normal. No S3 or S4. No discernible murmur noted. Heart sounds are distant. Heart rate 80 bpm. Lungs reveal scattered bilateral rhonchi and expiratory wheezes. No crackles. Breath sounds equal. 2 L saturation is 98 %. Abdomen soft bowel sounds are heard. No masses or tenderness. Extremities are intact. No cyanosis clubbing or edema. Skin is without rash or lesion. Neurologic examination is brief but nonfocal. - Labs CBC & Chem 7: 03/15/22 05:03 03/15/22 05:03 Labs: Abnormal Lab Results - Last 24 Hours (Table) 03/15/22 03/15/22 Range/Units 05:03 05:03 RBC 3.99 L (4.10-5.20) X 10*6/uL MCV 110.0 H (80.0-97.0) fL MCH 33.6 H (27.0-32.0) pg MCHC 30.5 L (32.0-37.0) g/dL Plt Count 123 L (140-440) X 10*3/uL Neutrophils # 7.82 H (1.80-7.70) X 10*3/uL Lymphocytes # 0.82 L (0.90-5.00) X 10*3/uL Eosinophils # 0 L (0.04-0.35) X 10*3/uL Sodium 134 L (135-145) mmol/L Carbon Dioxide 28.5 H (20.0-27.5) mmol/L Anion Gap 8.50 L (10.00-18.00) mmol/L BUN/Creatinine Ratio 30.43 H (12.00-20.00) Ratio Glucose 136 H (70-110) mg/dL Total Protein 5.8 L (6.2-8.2) g/dL Albumin 3.6 L (3.8-4.9) g/dL Microbiology - Last 24 Hours (Table) 03/13/22 17:10 Blood Culture - Preliminary Blood No Growth after 48 hours 03/13/22 16:55 Blood Culture - Preliminary Blood No Growth after 48 hours Assessment and Plan Assessment: Acute exacerbation of COPD. Chronic atrial fibrillation. Doubt underlying pneumonia, pro-calcitonin level is 0.03. Acute gastroenteritis. GERD, without esophagitis. Essential hypertension. Hyperlipidemia. Plan: Plan dated 03/15/2022. The patient's currently on Symbicort, updrafts, with albuterol sulfate and ipratropium bromide, and also is on Solu-Medrol. In addition, the patient is on azithromycin, and Rocephin. Additional recommendations and suggestions are forthcoming. Hopeful discharge within the next 24-48 hours. She asked about home oxygen. That will be determined prior to discharge. Plan dated 03/16/2022. The patient's pro-calcitonin level was 0.03. Antibiotics can be discontinued. The patient's on 2 L. Very comfortable. The patient could be considered for discharge. We'll leave that up to the primary service. Labs, x-rays, and medications are reviewed. Follow-up in our office would be appropriate. Time with Patient: Less than 30
[2022-03-16] MEDS: amLODIPine 5 MG TAB PO SCH (09:11)
[2022-03-16] MEDS: POTASSIUM CHLORIDE ER 20 MEQ TAB.ER PO SCH ×2 (09:12→21:04)
[2022-03-16] MEDS: TRIAMTERENE-HCTZ 37.5-25MG 1 EACH TAB PO SCH (09:12)
[2022-03-16] MEDS: ASPIRIN 81 MG PO SCH (09:12)
[2022-03-16] MEDS: METOPROLOL SUCCINATE (ER) 100 MG TAB.ER.24H PO SCH (09:12)
[2022-03-16] MEDS: RIVAROXABAN 20 MG TAB PO SCH (18:04)
[2022-03-16] MEDS: ATORVASTATIN 40 MG TAB PO SCH (21:04)
--- NOTE | 2022-03-17 04:40 | P.PN ---
Subjective Progress Note Date: 03/16/22 This is a 66-year-old female who was recently admitted with shortness of breath with COPD acute exacerbation with possible pneumonia and being closely monitored. Testing has been negative and patient is maintained on IV steroids along with DuoNeb treatments and inhalers with pulmonary following. Patient is continued on 2 L via nasal cannula and reports she does not wear any oxygen at home. Patient reports she does not want to return home with oxygen as well. Patient does have an incentive spirometer at the bedside and encourage the patient to continue using at least 10 times every hour while awake. Education provided as patient was improperly using the incentive spirometer device. Patient is afebrile denies chest pain or worsening shortness of breath. Patient denies nausea or vomiting and is tolerating diet. Patient reports she has been up and walking around and encouraged increased activity as tolerated. 03/16/2022 Patient is seen in follow up and continues on duonebs along with IV steroids and pulmonary following. Procalcitonin is normal and antibiotics being discontinued. Patient has received 4 doses. Patient continues to be short of breath with exertion and continued on 2L via [place]. Will need home o2 eval. Patient reports she does not want oxygen on discharge. Encouraged increased activity and continued incentive spirometer use. Patient is afebrile and denies chest pain or palpitations. Patient is requesting social work assistance and case management is following. Review of systems: Constitutional: No reports of fatigue, fever, or chills Cardiovascular: No reports of chest pain or palpitations Respiratory: reports of shortness of breath with exertion GI: No reports of nausea, no reports of of vomiting, no diarrhea : No reports of dysuria or retention Neurovascular: No reports of generalized weakness All medications have been reviewed PHYSICAL EXAMINATION: GENERAL: The patient is alert and oriented x4, Well developed, well nourished. HEENT: Pupils are round and equally reacting to light. EOMI. no scleral icterus. No conjunctival pallor. Normocephalic, atraumatic. No pharyngeal erythema. No thyromegaly. CARDIOVASCULAR: S1 and S2 muffled PULMONARY: diminished breath sounds bilaterally with scattered rhonchi and faint expiratory wheezing noted ABDOMEN: soft. Nontender on exam. obese. non-distended, normoactive bowel sounds. No palpable organomegaly. MUSCULOSKELETAL: No joint swelling or deformity. EXTREMITIES: No cyanosis, clubbing, or pedal edema. NEUROLOGICAL: Gross neurological examination did not reveal any focal deficits. SKIN: No rashes. Assessment: Asthma/COPD, acute exacerbation Possible viral pneumonia, although suspicion is low procalcitonin is 0.03 Diarrhea, possible acute diarrheal disease, resolved History of asthma Gastroesophageal reflux disease Hypertension Hyperlipidemia anxiety/depression Continued tobacco use GI prophylaxis DVT prophylaxis Full code Plan: Recommend to continue with current medications and management with pulmonary services following closely. Patient is continued on DuoNeb treatments along with IV steroids showing some clinical improvement although continues to be dyspneic and continued on 2 L via nasal cannula. Patient does not wear oxygen in the outpatient setting. Will evaluate for home O2 although patient is refusing to have home O2 as she has not required it before. Patient will need a nebulizer at home on discharge to manage COPD as patient is continued on duonebs qid. Will refer her to home coordinator on discharge. Encouraged increa sed activity as tolerated and continuing to use the incentive spirometer at least 10 times every hour while awake. Due to multiple complex medical issues, prognosis is guarded. Patient having some social issues with her [employer] benefits and requesting social work assistance. Case management is following. Possible discharge in the next 24-48 hours. The impression and plan of care has been dictated by Nataliia Schmidt, Nurse Practitioner as directed. Dr. Romel MD I have performed a history and examination and MDM of this patient, discussed the same with the dictator, and agree with the dictator's assessment and plan as written ,documented as a scribe. Based on total visit time, I have performed more than 50% of the visit. Objective - Vital Signs Vital signs: Vital Signs Temp 98.4 F 03/16/22 18:59 Pulse 96 03/16/22 20:32 Resp 16 03/16/22 18:59 BP 116/70 03/16/22 18:59 Pulse Ox 93 L 03/16/22 18:59 FiO2 Intake & Output 03/16/22 03/16/22 03/17/22 06:59 18:59 06:59 Intake Total 600 Balance 600 Intake: Oral 600 Other: Voiding Method Bedside Commode Bedside Commode # Voids 2 1 1 # Bowel Movements 1 - Labs CBC & Chem 7: 03/15/22 05:03 03/15/22 05:03 Labs: Microbiology - Last 24 Hours (Table) 03/13/22 16:55 Blood Culture - Preliminary Blood No Growth after 72 hours 03/13/22 17:10 Blood Culture - Preliminary Blood No Growth after 72 hours
[2022-03-17] MEDS: IPRATROPIUM-ALBUTEROL 3 ML NEB INHALATION SCH ×5 (05:30→19:30)
[2022-03-17] MEDS: SYMBICORT 80-4.5 MCG INHALER INHALATION SCH ×2 (07:20→19:34)
[2022-03-17] MEDS: methylPREDNISolone SOD SUCCI 40 MG/ML 1 ML VIAL IV SCH ×3 (09:41→23:44)
[2022-03-17] MEDS: POTASSIUM CHLORIDE ER 20 MEQ TAB.ER PO SCH ×2 (09:41→20:40)
[2022-03-17] MEDS: ASPIRIN 81 MG PO SCH (09:41)
[2022-03-17] MEDS: amLODIPine 5 MG TAB PO SCH (09:41)
[2022-03-17] MEDS: TRIAMTERENE-HCTZ 37.5-25MG 1 EACH TAB PO SCH (09:43)
[2022-03-17] MEDS: METOPROLOL SUCCINATE (ER) 100 MG TAB.ER.24H PO SCH (09:43)
--- NOTE | 2022-03-17 11:09 | P.PN ---
Subjective Progress Note Date: 03/17/22 Principal diagnosis: Shortness of breath. Maintained on Xarelto, history of COPD, hypertension, previous [place] and history of coronary artery disease, patient presented to the hospital with 1 week history of multiple complaints including cough wheezing, shortness of breath, off as productive with slightly yellow phlegm, patient also had some intermittent episodes of nonbloody diarrhea. Patient denied any nausea or vomiting denied any abdominal pain, denies any chest pain. She did feel weak and dehydrated. Patient has not had any recent contact with any sick individuals, workup in the ER included a CT angiogram of the chest, showed nonspecific interstitial changes and atelectasis, again the findings are very nonspecific. Patient had a relatively normal CBC normal WBC count, normal electrolytes, negative screening for COVID-19, negative screening for RSV and influenza A as well as influenza B. Patient was admitted and this consult was initiated. When I evaluated the patient clearly the patient had acute exacerbation of COPD, she had diffuse rhonchi and wheezes I laterally upon physical examination. Patient has been a heavy smoker and she continues to smoke. Never seen by a emission specialist in the past. Pro-calcitonin level is pending. Progress note dated 03/15/2022. 66-year-old female admitted with a COPD exacerbation. She does have a history of COPD, hypertension, myocardial infarction, and coronary disease. Currently, the patient's on 2 L of oxygen. She does not receive any IV fluids currently. She is seen at the [facility] in [place], [place]. She is feeling better today. Not quite back to baseline. No new laboratory data today. The laboratory data from March 14 is reviewed. Blood cultures are negative. Progress note dated 03/16/2022. Patient is seen today in room 520. She appears in no distress. She continues on 2 L. No IV fluids. The patient's pro-calcitonin level was 0.03. Antibiotics are discontinued. From our perspective, the patient could be considered for possible discharge today. She has no new complaints today. No new labs today. Laboratory data from March 15 was reviewed. Blood cultures are negative. Progress note dated 03/17/2022. The patient is seen in room 520. The patient has no acute distress. She is on 2 L of oxygen. No IV fluids. Her pro-calcitonin level was very low. In my opinion, the patient could be considered for discharge. No new labs today. No recent chest x-ray to report. Objective - Vital Signs Vital signs: Vital Signs Temp 97.8 F 03/17/22 04:28 Pulse 80 03/17/22 10:56 Resp 15 03/17/22 04:28 BP 135/88 03/17/22 09:43 Pulse Ox 97 03/17/22 10:56 FiO2 Intake & Output 03/16/22 03/17/22 03/17/22 18:59 06:59 18:59 Other: Voiding Method Bedside Commode # Voids 1 1 # Bowel Movements 1 1 - Exam No acute distress, oriented 3. No audible wheezing or use of accessory muscles. Currently on 2 L of oxygen. HEENT examination is grossly unremarkable. Neck supple. Full range of motion. No adenopathy thyromegaly or neck vein distention. Cardiovascular examination reveals regular rhythm rate. S1-S2 normal. No S3 or S4. No discernible murmur noted. Heart sounds are distant. Heart rate 81 bpm. Lungs reveal scattered bilateral rhonchi and expiratory wheezes. No crackles. Breath sounds equal. 2 L saturation is 97 %. Abdomen soft bowel sounds are heard. No masses or tenderness. Extremities are intact. No cyanosis clubbing or edema. Skin is without rash or lesion. Neurologic examination is brief but nonfocal. - Labs CBC & Chem 7: 03/15/22 05:03 03/15/22 05:03 Labs: Microbiology - Last 24 Hours (Table) 03/13/22 16:55 Blood Culture - Preliminary Blood No Growth after 72 hours 03/13/22 17:10 Blood Culture - Preliminary Blood No Growth after 72 hours Assessment and Plan Assessment: Acute exacerbation of COPD. Chronic atrial fibrillation. Doubt underlying pneumonia, pro-calcitonin level is 0.03. Acute gastroenteritis. GERD, without esophagitis. Essential hypertension. Hyperlipidemia. Plan: Plan dated 03/15/2022. The patient's currently on Symbicort, updrafts, with albuterol sulfate and ipratropium bromide, and also is on Solu-Medrol. In addition, the patient is on azithromycin, and Rocephin. Additional recommendations and suggestions are forthcoming. Hopeful discharge within the next 24-48 hours. She asked about home oxygen. That will be determined prior to discharge. Plan dated 03/16/2022. The patient's pro-calcitonin level was 0.03. Antibiotics can be discontinued. The patient's on 2 L. Very comfortable. The patient could be considered for discharge. We'll leave that up to the primary service. Labs, x-rays, and medications are reviewed. Follow-up in our office would be appropriate. Plan dated 03/17/2022. I'm surprised the patient is still inpatient. In my opinion, she could've been discharged yesterday. Antibiotics were discontinued because of pro-calcitonin level was quite low. The patient remains on 2 L. Labs, x-rays, medications are reviewed. No additional recommendations are made. Prognosis is guarded. Time with Patient: Less than 30
[2022-03-17] MEDS: RIVAROXABAN 20 MG TAB PO SCH (16:37)
--- NOTE | 2022-03-17 19:33 | P.PN ---
Subjective Progress Note Date: 03/17/22 This is a 66-year-old female who was recently admitted with shortness of breath with COPD acute exacerbation with possible pneumonia and being closely monitored. Testing has been negative and patient is maintained on IV steroids along with DuoNeb treatments and inhalers with pulmonary following. Patient is continued on 2 L via nasal cannula and reports she does not wear any oxygen at home. Patient reports she does not want to return home with oxygen as well. Patient does have an incentive spirometer at the bedside and encourage the patient to continue using at least 10 times every hour while awake. Education provided as patient was improperly using the incentive spirometer device. Patient is afebrile denies chest pain or worsening shortness of breath. Patient denies nausea or vomiting and is tolerating diet. Patient reports she has been up and walking around and encouraged increased activity as tolerated. 03/16/2022 Patient is seen in follow up and continues on duonebs along with IV steroids and pulmonary following. Procalcitonin is normal and antibiotics being discontinued. Patient has received 4 doses. Patient continues to be short of breath with exertion and continued on 2L via NC. Will need home o2 eval. Patient reports she does not want oxygen on discharge. Encouraged increased activity and continued incentive spirometer use. Patient is afebrile and denies chest pain or palpitations. Patient is requesting social work assistance and case management is following. 03/17/2022 Patient is seen and evaluated in follow-up today continues to be followed by pulmonary. Patient continues on 2 L and per nursing documentation home O2 assessment patient will qualify for 2 L via nasal cannula to manage her COPD. Case management working on discharge planning and arrangements as patient goes to the [facility] and will require authorization for a nebulizer along with home oxygen to manage her COPD. Patient is afebrile denies chest pain or worsening shortness of breath. Review of systems: Constitutional: No reports of fatigue, fever, or chills Cardiovascular: No reports of chest pain or palpitations Respiratory: reports of shortness of breath with exertion GI: No reports of nausea, no reports of of vomiting, no diarrhea : No reports of dysuria or retention Neurovascular: No reports of generalized weakness All medications have been reviewed PHYSICAL EXAMINATION: GENERAL: The patient is alert and oriented x4, Well developed, well nourished. HEENT: Pupils are round and equally reacting to light. EOMI. no scleral icterus. No conjunctival pallor. Normocephalic, atraumatic. No pharyngeal erythema. No thyromegaly. CARDIOVASCULAR: S1 and S2 muffled PULMONARY: diminished breath sounds bilaterally with scattered rhonchi and noted ABDOMEN: soft. Nontender on exam. obese. non-distended, normoactive bowel sounds. No palpable organomegaly. MUSCULOSKELETAL: No joint swelling or deformity. EXTREMITIES: No cyanosis, clubbing, or pedal edema. NEUROLOGICAL: Gross neurological examination did not reveal any focal deficits. SKIN: No rashes. Assessment: Asthma/COPD, acute exacerbation Possible viral pneumonia, although suspicion is low procalcitonin is 0.03 Diarrhea, possible acute diarrheal disease, resolved History of asthma Gastroesophageal reflux disease Hypertension Hyperlipidemia anxiety/depression Continued tobacco use GI prophylaxis DVT prophylaxis Full code Plan: Recommend to continue with current medications and management with pulmonary services following closely. Patient is continued on DuoNeb treatments along with IV steroids showing some clinical improvement although continues to be dyspneic and continued on 2 L via nasal cannula. Patient does not wear oxygen in the outpatient setting. Will need home O2 on discharge of 2L to manage COPD. Patient will need a nebulizer at home on discharge to manage COPD as patient is continued on duonebs qid. Will refer her to export freight specialist on discharge. En couraged increased activity as tolerated and continuing to use the incentive spirometer at least 10 times every hour while awake. Due to multiple complex medical issues, prognosis is guarded. Case management is following and submitting paperwork to [facility] for oxygen and nebulizer. Patient will require paper scripts on discharge to fax to [facility] as well. Possible discharge in the next 24 hours. The impression and plan of care has been dictated by Nataliia Schmidt, Nurse Practitioner as directed. Dr. Romel MD I have performed a history and examination and MDM of this patient, discussed the same with the dictator, and agree with the dictator's assessment and plan as written ,documented as a scribe. Based on total visit time, I have performed more than 50% of the visit. Objective - Vital Signs Vital signs: Vital Signs Temp 97.8 F 03/17/22 04:28 Pulse 84 03/17/22 09:43 Resp 15 03/17/22 04:28 BP 135/88 03/17/22 09:43 Pulse Ox 94 L 03/17/22 04:28 FiO2 Intake & Output 03/16/22 03/17/22 03/17/22 18:59 06:59 18:59 Other: Voiding Method Bedside Commode # Voids 1 1 # Bowel Movements 1 1 - Labs CBC & Chem 7: 03/15/22 05:03 03/15/22 05:03 Labs: Microbiology - Last 24 Hours (Table) 03/13/22 16:55 Blood Culture - Preliminary Blood No Growth after 72 hours 03/13/22 17:10 Blood Culture - Preliminary Blood No Growth after 72 hours
[2022-03-17] MEDS ORDERED: ACETAMINOPHEN TAB 325 MG TAB PO PRN (20:26)
[2022-03-17] MEDS: ATORVASTATIN 40 MG TAB PO SCH (20:40)
--- NOTE | 2022-03-18 06:31 | P.PN ---
Subjective Progress Note Date: 03/18/22 Principal diagnosis: Shortness of breath. Maintained on Xarelto, history of COPD, hypertension, previous CO and history of coronary artery disease, patient presented to the hospital with 1 week history of multiple complaints including cough wheezing, shortness of breath, off as productive with slightly yellow phlegm, patient also had some intermittent episodes of nonbloody diarrhea. Patient denied any nausea or vomiting denied any abdominal pain, denies any chest pain. She did feel weak and dehydrated. Patient has not had any recent contact with any sick individuals, workup in the ER included a CT angiogram of the chest, showed nonspecific interstitial changes and atelectasis, again the findings are very nonspecific. Patient had a relatively normal CBC normal WBC count, normal electrolytes, negative screening for COVID-19, negative screening for RSV and influenza A as well as influenza B. Patient was admitted and this consult was initiated. When I evaluated the patient clearly the patient had acute exacerbation of COPD, she had diffuse rhonchi and wheezes I laterally upon physical examination. Patient has been a heavy smoker and she continues to smoke. Never seen by a environmental specialist in the past. Pro-calcitonin level is pending. Progress note dated 03/15/2022. 66-year-old female admitted with a COPD exacerbation. She does have a history of COPD, hypertension, myocardial infarction, and coronary disease. Currently, the patient's on 2 L of oxygen. She does not receive any IV fluids currently. She is seen at the [facility] in [place], [place]. She is feeling better today. Not quite back to baseline. No new laboratory data today. The laboratory data from March 14 is reviewed. Blood cultures are negative. Progress note dated 03/16/2022. Patient is seen today in room 520. She appears in no distress. She continues on 2 L. No IV fluids. The patient's pro-calcitonin level was 0.03. Antibiotics are discontinued. From our perspective, the patient could be considered for possible discharge today. She has no new complaints today. No new labs today. Laboratory data from March 15 was reviewed. Blood cultures are negative. Progress note dated 03/17/2022. The patient is seen in room 520. The patient has no acute distress. She is on 2 L of oxygen. No IV fluids. Her pro-calcitonin level was very low. In my opinion, the patient could be considered for discharge. No new labs today. No recent chest x-ray to report. Progress note dated 03/18/2022. The patient is again seen today in room 520. The nurse is present as well. This is a patient in my opinion who could've been discharged 2 days ago. She's very stable on 2 L. Apparently the hold up his been arranging for home oxygen. She's clinically stable. No significant shortness of breath, cough, wheezing, or phlegm production. She's not receiving any IV fluids. No new laboratory data. Blood cultures are negative. Objective - Vital Signs Vital signs: Vital Signs Temp 97.8 F 03/18/22 04:22 Pulse 90 03/18/22 04:22 Resp 16 03/18/22 04:22 BP 155/90 03/18/22 04:22 Pulse Ox 98 03/18/22 04:22 FiO2 Intake & Output 03/17/22 03/17/22 03/18/22 06:59 18:59 06:59 Output Total 2 Balance -2 Output: Urine 2 Other: Voiding Method Bedside Commode Bedside Commode # Voids 1 3 # Bowel Movements 1 - Exam No acute distress, oriented 3. No audible wheezing or use of accessory muscles. Currently on 2 L of oxygen. HEENT examination is grossly unremarkable. Neck supple. Full range of motion. No adenopathy thyromegaly or neck vein distention. Cardiovascular examination reveals regular rhythm rate. S1-S2 normal. No S3 or S4. No discernible murmur noted. Heart sounds are distant. Heart rate 90 bpm. Lungs reveal scattered bilateral rhonchi and expiratory wheezes. Breath sounds are much improved. Breath sounds are diminished throughout. No crackles. Breath sounds equal. 2 L saturation is 98 %. Abdomen soft bowel sounds are heard. No masses or tenderness. Extremities are intact. No cyanosis clubbing or edema. Skin is without rash or lesion. Neurologic examination is brief but nonfocal. - Labs CBC & Chem 7: 03/15/22 05:03 03/15/22 05:03 Labs: Microbiology - Last 24 Hours (Table) 03/13/22 17:10 Blood Culture - Preliminary Blood No Growth after 96 hours 03/13/22 16:55 Blood Culture - Preliminary Blood No Growth after 96 hours Assessment and Plan Assessment: Acute exacerbation of COPD. Chronic atrial fibrillation. Doubt underlying pneumonia, pro-calcitonin level is 0.03. Acute gastroenteritis. GERD, without esophagitis. Essential hypertension. Hyperlipidemia. Plan: Plan dated 03/15/2022. The patient's currently on Symbicort, updrafts, with albuterol sulfate and ipratropium bromide, and also is on Solu-Medrol. In addition, the patient is on azithromycin, and Rocephin. Additional recommendations and suggestions are forthcoming. Hopeful discharge within the next 24-48 hours. She asked about home oxygen. That will be determined prior to discharge. Plan dated 03/16/2022. The patient's pro-calcitonin level was 0.03. Antibiotics can be discontinued. The patient's on 2 L. Very comfortable. The patient could be considered for discharge. We'll leave that up to the primary service. Labs, x-rays, and medications are reviewed. Follow-up in our office would be appropriate. Plan dated 03/17/2022. I'm surprised the patient is still inpatient. In my opinion, she could've been discharged yesterday. Antibiotics were discontinued because of pro-calcitonin level was quite low. The patient remains on 2 L. Labs, x-rays, medications are reviewed. No additional recommendations are made. Prognosis is guarded. Plan dated 03/18/2022. The patient could be discharged. The patient's currently on Symbicort, albuterol sulfate and ipratropium bromide, and Solu-Medrol. I will convert the Solu-Medrol to prednisone 30 mg/d. Additional recommendations and suggestions are forthcoming. Again, no reason for this patient to still be in the hospital. Time with Patient: Less than 30
[2022-03-18] MEDS ORDERED: SYMBICORT 160-4.5 MCG INHALER INHALATION SCH (08:00)
[2022-03-18] MEDS: IPRATROPIUM-ALBUTEROL 3 ML NEB INHALATION SCH ×3 (08:23→15:52)
[2022-03-18] MEDS ORDERED: predniSONE 10 MG TAB PO SCH (09:00)
[2022-03-18] MEDS: ASPIRIN 81 MG PO SCH (09:03)
[2022-03-18] MEDS: TRIAMTERENE-HCTZ 37.5-25MG 1 EACH TAB PO SCH (09:04)
[2022-03-18] MEDS: POTASSIUM CHLORIDE ER 20 MEQ TAB.ER PO SCH (09:04)
[2022-03-18] MEDS: amLODIPine 5 MG TAB PO SCH (09:04)
[2022-03-18] MEDS: METOPROLOL SUCCINATE (ER) 100 MG TAB.ER.24H PO SCH (09:04)
[2022-03-18 11:37] VITALS: BP 133/88; RESP 18; TEMP 97.5
[2022-03-18 16:06] VITALS: PULSE 87
--- NOTE | 2022-03-21 15:37 | P.DS ---
Providers Date of admission: 03/13/22 16:30 Expected date of discharge: 03/18/22 Attending physician: Birdie Chi Consults: 03/13/22 16:28 Consult Physician Routine Consulting Provider: Brittany Jacob Consult Reason/Comments: pneumonia, copd exacerbation Do you want consulting provider notified?: Yes, Notify in am Primary care physician: [facility] Course: Final diagnosis Asthma/COPD, acute exacerbation Acute hypoxic respiratory failure secondary to above Possible viral pneumonia, although suspicion is low procalcitonin is 0.03 Diarrhea, possible acute diarrheal disease, resolved History of asthma Gastroesophageal reflux disease Hypertension Hyperlipidemia anxiety/depression Continued tobacco use GI prophylaxis DVT prophylaxis Full code Discharge disposition Patient is being discharged in a stable condition with guarded prognosis to home. Patient will follow-up with [facility] in the outpatient setting upon discharge. Patient is to follow up with pulmonary outpatient as scheduled. Patient will continue with 02 on discharge to manage her COPD. Total time taken is greater than 35 minutes. Hospital course This is a 66-year-old female who was recently admitted with shortness of breath with copd exacerbation. Patient was monitored and followed closely by pulmonary and will see her in the outpatient setting. Continue with 2L via NC and ne bulizers. Patient also encouraged to avoid tobacco use and exposure. Currently no reports of chest pain, worsening shortness of breath, or palpitations. Patient is afebrile. No reports of nausea or vomiting and patient is tolerating diet. Patient will be discharged home today with guarded prognosis. Physical exam: Gen: This is a 66 year old female who is awake alert and oriented x3 well de veloped, well nourished, obese. HEENT: Head is atraumatic, normocephalic. Pupils equal, round. Sclerae is anicteric. NECK: Supple. No JVD. No lymphadenopathy. No thyromegaly. LUNGS: diminished breath sounds bilaterally with course rhonchi. No intercostal retractions. HEART: Regular rate and rhythm. No murmur. ABDOMEN: Soft. Bowel sounds are present. No masses. No tenderness. EXTREMITIES: No pedal edema. No calf tenderness. NEUROLOGICAL: Patient is awake, alert and oriented x3. Cranial nerves 2 through 12 are grossly intact. Please refer to medication reconciliation sheet for a list of medications. The impression and plan of care has been dictated by Nataliia Schmidt, Nurse Practitioner as directed. Dr. Romel MD I have performed a history and examination and MDM of this patient, discussed the same with the dictator, and agree with the dictator's assessment and plan as written ,documented as a scribe. Based on total visit time, I have performed more than 50% of the visit. Patient Condition at Discharge: Stable Plan - Discharge Summary Discharge Rx Participant: No New Discharge Prescriptions: New Ipratropium-Albuterol Nebulize [Duoneb 0.5 mg-3 mg/3 ml Soln] 3 ml INHALATION RT-QID 30 Days #120 each predniSONE 10 mg PO DIRECTED #24 tab guaiFENesin SYRUP 100MG/5ML [Robitussin] 200 mg PO Q6HR PRN #120 ml PRN Reason: Cough Continue Rivaroxaban [Xarelto] 20 mg PO W/SUPPER Potassium Chloride [Klor-Con 20] 20 meq PO BID captopriL [Captopril] 50 mg PO BID Triamterene-Hctz 37.5-25Mg [Maxzide 37.5-25] 1 tab PO DAILY Atorvastatin [Lipitor] 40 mg PO HS Aspirin [Adult Low Dose Aspirin EC] 81 mg PO DAILY Albuterol Inhaler [Ventolin Hfa Inhaler] 2 puff INHALATION RT-QID PRN PRN Reason: Shortness Of Breath Metoprolol Succinate [Toprol XL] 100 mg PO DAILY Budesonide/Formoterol Fumarate [Symbicort 80-4.5 Mcg Inhaler] 2 puff INHALATION RT-BID Tiotropium 2.5 Mcg/Puff [Spiriva Respimat 2.5 Mcg] 2 puff INHALATION RT-DAILY amLODIPine [Norvasc] 5 mg PO DAILY Acetaminophen [Tylenol Extra Strength] 1,000 mg PO Q6H PRN PRN Reason: Fever And/ Or Pain Discharge Medication List Albuterol Inhaler [Ventolin Hfa Inhaler] 2 puff INHALATION RT-QID PRN 08/22/20 [History] Aspirin [Adult Low Dose Aspirin EC] 81 mg PO DAILY 08/22/20 [History] Atorvastatin [Lipitor] 40 mg PO HS 08/22/20 [History] Budesonide/Formoterol Fumarate [Symbicort 80-4.5 Mcg Inhaler] 2 puff INHALATION RT-BID 08/22/20 [History] Metoprolol Succinate [Toprol XL] 100 mg PO DAILY 08/22/20 [History] Potassium Chloride [Klor-Con 20] 20 meq PO BID 08/22/20 [History] Rivaroxaban [Xarelto] 20 mg PO W/SUPPER 08/22/20 [History] Tiotropium 2.5 Mcg/Puff [Spiriva Respimat 2.5 Mcg] 2 puff INHALATION RT-DAILY 08/22/20 [History] Triamterene-Hctz 37.5-25Mg [Maxzide 37.5-25] 1 tab PO DAILY 08/22/20 [History] captopriL [Captopril] 50 mg PO BID 08/22/20 [History] Acetaminophen [Tylenol Extra Strength] 1,000 mg PO Q6H PRN 03/13/22 [History] amLODIPine [Norvasc] 5 mg PO DAILY 03/13/22 [History] Ipratropium-Albuterol Nebulize [Duoneb 0.5 mg-3 mg/3 ml Soln] 3 ml INHALATION RT-QID 30 Days #120 each 03/18/22 [Rx] guaiFENesin SYRUP 100MG/5ML [Robitussin] 200 mg PO Q6HR PRN #120 ml 03/18/22 [Rx] predniSONE 10 mg PO DIRECTED #24 tab 03/18/22 [Rx] Follow up Appointment(s)/Referral(s): Brittany Jacob MD [STAFF PHYSICIAN] - 03/26/22 2:15 pm [facility] [NON-STAFF] - 1 Week [facility] [NON-STAFF] - 1 Week Nonstaff,Physician [REFERRING] - 1-2 days Patient Instructions/Handouts: Prednisone (By mouth), COPD (Chronic Obstructive Pulmonary Disease) (DC) Activity/Diet/Wound Care/Special Instructions: [employer] [place] will be setting pt up with home o2. PT must make an appt with the [employer] [facility] and keep the appt - pt has not been seen in the office for 3 years and in order for the pt to be eligible for benefits must be seen in the office. Discharge/Stand Alone Forms: Who Do I Call?, Community Resources, Help In The Home, Personal Manager Hris Discharge Disposition: HOME SELF-CARE
--- NOTE | 2022-03-21 22:24 | CDI ---
Documentation Clarification Form Date: 03/21/2022 10:17:01 PM From: Shante Dye Phone: Admit Date: 03/13/2022 04:30:00 PM Patient Name: Maria Del Carmen Ford Visit Number: [id number] Discharge Date: 03/18/2022 07:23:00 PM ATTENTION: The Clinical Documentation Specialists (CDI) and [facility] Coding Staff appreciate your assistance in clarifying documentation. Please respond to the clarification below the line at the bottom and electronically sign. The CDI & [facility] Coding staff will review the response and follow-up if needed. Please note: Queries are made part of the Legal Health Record. If you have any questions, please contact the author of this message via ITS. Dr. Jefry Eaton Your patient has the documented diagnosis of unspecified CHF ED Note. Additional information regarding the type and acuity of CHF is requested. History/Risk Factors: 83yo F, Asthma/AECOPD, AHRF, GERD, HTN, HLD, anxiety, depression, Hx smoker Clinical Indicators: VS/Pulse OX: 90 BNP: 438 Chest x ray: Heart/mediastinum: Cardiomediastinal silhouette is unremarkable. Treatment: closely monitor her fluid status; we do not want to volume overload her, however clinically she does appear significantly dehydrated. In your professional opinion, can you please clarify the type and acuity of CHF if known? [ ] Chronic Systolic Heart Failure (reduced EF) [ ] Chronic Diastolic Heart Failure (preserved EF) [ ] Chronic Systolic & Diastolic Heart Failure [ ] Other, please specify [ x ] Unable to determine (Template Last Revised: May 2020) MTDD
== END 2022-03-18 19:23 | disposition home or self-care (01) | DRG 190 ==
LOC: EC 13:15 → 4SSUR 16:30 → 5NMEDONC 18:15
PROVIDERS: ADMIT Hospitalist; ATTEND Hospitalist
DX: J44.1 Chronic obstructive pulmonary disease with (acute) exacerbation (principal); J96.01 Acute respiratory failure with hypoxia; I48.20 Chronic atrial fibrillation, unspecified; I11.0 Hypertensive heart disease with heart failure; E66.9 Obesity, unspecified; F32.A Depression, unspecified; Z68.39 Body mass index [BMI] 39.0-39.9, adult; I50.9 Heart failure, unspecified; E78.5 Hyperlipidemia, unspecified; E86.0 Dehydration; I25.10 Atherosclerotic heart disease of native coronary artery without angina pectoris; R63.0 Anorexia; K52.9 Noninfective gastroenteritis and colitis, unspecified; K21.9 Gastro-esophageal reflux disease without esophagitis; F41.9 Anxiety disorder, unspecified; Z20.822 Contact with and (suspected) exposure to COVID-19; Z79.899 Other long term (current) drug therapy; I25.2 Old myocardial infarction; Z79.82 Long term (current) use of aspirin; Z79.51 Long term (current) use of inhaled steroids; Z79.01 Long term (current) use of anticoagulants; Z88.8 Allergy status to other drugs, medicaments and biological substances; Z86.73 Personal history of transient ischemic attack (TIA), and cerebral infarction without residual deficits; Z87.891 Personal history of nicotine dependence
CPT/HCPCS: 36415; 71046; 71275; 80048; 80053; 81003; 82150; 83605; 83690; 83880; 84145; 84484; 85025; 85610; 85730; 87040; 87449; 87502; 87634; 87635; 93005; 94640; 94760; 96361; 96365; 96366; 96367; 96368; 96375; 99291

== ENCOUNTER → 2023-01-26 | Outpatient (CLI) | payer MEDICARE, OTHER ==
[2023-01-26 15:17] LABS: African American GFR (CKD) >90 (>60 ml/min/1.73 sqM); Blood Urea Nitrogen 18 mg/dL (7-17); Non-African American GFR(CKD) >90 (>60 ml/min/1.73 sqM)
--- NOTE | 2023-01-31 13:31 | CT ---
EXAMINATION TYPE: CT chest w con DATE OF EXAM: 01/26/2023 COMPARISON: 03/13/2022 HISTORY: 67-year-old female R5 9.0, Enlarged lymph nodes TECHNIQUE: Contiguous axial scanning of the chest after the administration of 100 cc mL of Isovue 300 . Coronal/sagittal reconstructions performed. CT DLP: 411.8mGycm. Automatic exposure control utilized for a dose reduction. FINDINGS: The heart is borderline enlarged without pericardial effusion. LAD and circumflex coronary calcificat ions are present. Ectatic ascending aorta at 3.8 cm. Mild atherosclerotic arch calcifications with conventional arch ve ssel branching anatomy. 9 mm hypodense nodule right lobe of the thyroid gland. Lower right paratracheal lymph node 1.4 cm versus 1.3 cm, previously. Right hilar node 1.5 cm, unchanged. Subcarinal node 1.0 cm, not significantly changed. Right-sided bronchial nodes measuring up to 1.4 cm, unchanged. Otherwise, no progressive thoracic lymphadenopathy is identified. Mild to moderate diffuse bronchial wall thickening. Moderate emphysematous change primarily in the up per lungs. Unchanged 4 mm right midlung pulmonary nodule. Unchanged 5 mm peripheral right basilar pulmonary nodule. Strandy areas of scarring or atelectasis in the lower lungs. No consolidation or pleural effusion. Visualized upper abdomen shows an arterial blush along the anterior left liver lobe suggesting vascul ar shunting. Bones: Mild to moderate degenerative disc disease mid to lower thoracic spine. IMPRESSION: 1. COPD with moderate emphysema. Bronchial wall thickening could reflect a prominent component of chr onic bronchitis versus superimposed acute bronchitis. 2. Scattered nonenlarged and borderline to mildly enlarged mediastinal and right hilar lymph nodes, r elatively unchanged, measuring up to 1.5 cm. Probably reactive/post inflammatory. Recommend additiona l annual surveillance follow-up. 3. A couple pulmonary nodules measuring up to 5 mm are also unchanged suggestive of a benign etiology .
== END | disposition home or self-care (01) ==
LOC: RADCTMAIN 14:13
PROVIDERS: ATTEND Internal Medicine
DX: J43.9 Emphysema, unspecified (principal); J98.09 Other diseases of bronchus, not elsewhere classified; R91.8 Other nonspecific abnormal finding of lung field; R59.0 Localized enlarged lymph nodes
CPT/HCPCS: 71260; 82565; 84520

== ENCOUNTER 2023-10-01 01:45 | Inpatient (IN) | payer OTHER, MEDICARE ==
--- NOTE | 2023-10-01 01:59 | ED ---
SOB HPI - General Chief Complaint: Shortness of Breath Stated Complaint: SHONDA Time Seen by Provider: 10/01/23 01:57 Source: patient, EMS, RN notes reviewed, old records reviewed Mode of arrival: EMS Limitations: no limitations - History of Present Illness Initial Comments: This is a 67-year-old female to ER for severe shortness of breath unable to catch her breath at home with low oxygen levels. Patient's oxygen continue to decline over the last 4 days she became more significantly tired and feels like she was working really hard to breathe. She herself has no chest pain or fevers. No travel history or sick contacts. No other complaint MD Complaint: shortness of breath, cough, "asthma attack" -: hour(s) Severity: severe Severity scale (1-10): 9 Quality: aching Consistency: constant Improves With: nothing Worsens With: nothing Known History Of: COPD, asthma Context: recent URI, recent illness Associated Symptoms: cough Treatments Prior to Arrival: none - Related Data Home Oxygen Therapy: Yes Home Medications Medication Instructions Recorded Confirmed Albuterol Inhaler [Ventolin Hfa 2 puff INHALATION RT-QID PRN 08/22/20 10/01/23 Inhaler] Aspirin [Adult Low Dose Aspirin EC] 81 mg PO DAILY 08/22/20 10/01/23 Budesonide/Formoterol Fumarate 2 puff INHALATION RT-BID 08/22/20 10/01/23 [Symbicort 80-4.5 Mcg Inhaler] Potassium Chloride [Klor-Con 20] 20 meq PO BID 08/22/20 10/01/23 Rivaroxaban [Xarelto] 20 mg PO W/SUPPER 08/22/20 10/01/23 Tiotropium 2.5 Mcg/Puff [Spiriva 2 puff INHALATION RT-DAILY 08/22/20 10/01/23 Respimat 2.5 Mcg] Acetaminophen [Tylenol Extra 1,000 mg PO Q6H PRN 03/13/22 10/01/23 Strength] Atorvastatin [Lipitor] 40 mg PO DAILY 10/01/23 10/01/23 PARoxetine HCL 40 mg PO HS 10/01/23 10/01/23 Previous Rx's Medication Instructions Recorded Empagliflozin [Jardiance] 10 mg PO DAILY #30 tablet 10/04/23 Empagliflozin [Jardiance] 10 mg PO DAILY #30 tablet 10/04/23 Furosemide [Lasix] 40 mg PO DAILY #30 tablet 10/04/23 Ipratropium-Albuterol Nebulize 3 ml INHALATION RT-Q2H PRN each 10/04/23 [Duoneb 0.5 mg-3 mg/3 ml Soln] Metoprolol Succinate (ER) [Toprol 100 mg PO DAILY #0 tab 10/04/23 XL] predniSONE See Taper PO DIRECTED #30 tab 10/04/23 Allergies Allergy/AdvReac Type Severity Reaction Status Date / Time fluticasone AdvReac Cough Verified 10/01/23 12:14 [From [facility]] salmeterol AdvReac Cough Verified 10/01/23 12:14 [From [facility]] Review of Systems ROS Statement: Those systems with pertinent positive or pertinent negative responses have been documented in the HPI. ROS Other: All systems not noted in ROS Statement are negative. Past Medical History Past Medical History: Atrial Fibrillation, Asthma, Coronary Artery Disease (CAD), COPD, GERD/Reflux, Hyperlipidemia, Hypertension, Myocardial Infarction ([place]), Osteoarthritis (OA), Skin Disorder Additional Past Medical History / Comment(s): migraines, stroke 2003-no residual effects, IBS, osteoporosis, psoriasis, "prediabetic"- dr watching, lower back pain, left shoulder torn rotator cuff Last Myocardial Infarction Date:: 1985 History of Any Multi-Drug Resistant Organisms: None Reported Past Surgical History: Heart Catheterization, Tubal Ligation Past Anesthesia/Blood Transfusion Reactions: No Reported Reaction Past Psychological History: Anxiety, Depression, PTSD Smoking Status: Current some day smoker Past Alcohol Use History: Occasional Past Drug Use History: None Reported - Past Family History Brother(s) Family Medical History: Cancer Sister(s) Family Medical History: Cancer, Deep Vein Thrombosis (DVT) Mother Family Medical History: Pulmonary Embolus General Exam Limitations: no limitations General appearance: alert, anxious, in distress Head exam: Present: atraumatic, normocephalic, normal inspection Eye exam: Present: normal appearance, PERRL, EOMI. Absent: scleral icterus, conjunctival injection, periorbital swelling ENT exam: Present: normal exam, mucous membranes moist Neck exam: Present: normal inspection. Absent: tenderness, meningismus, lymphadenopathy Respiratory exam: Present: respiratory distress, wheezes, accessory muscle use, decreased breath sounds, prolonged expiratory. Absent: rales, rhonchi, stridor Cardiovascular Exam: Present: regular rate, normal rhythm, normal heart sounds. Absent: systolic murmur, diastolic murmur, rubs, gallop, clicks GI/Abdominal exam: Present: soft, normal bowel sounds. Absent: distended, tend erness, guarding, rebound, rigid Extremities exam: Present: normal inspection, full ROM, normal capillary refill. Absent: tenderness, pedal edema, joint swelling, calf tenderness Back exam: Present: normal inspection Neurological exam: Present: alert, oriented X3, CN II-XII intact Psychiatric exam: Present: normal affect, normal mood Skin exam: Present: warm, dry, intact, normal color. Absent: rash Course Vital Signs 10/01/23 10/01/23 10/01/23 01:47 01:55 02:39 Temperature 97.6 F Pulse Rate 88 90 75 Respiratory 20 20 20 Rate Blood Pressure 119/83 103/68 O2 Sat by Pulse 96 98 92 L Oximetry 10/01/23 10/01/23 10/01/23 02:44 02:54 02:55 Temperature Pulse Rate 80 82 85 Respiratory Rate Blood Pressure O2 Sat by Pulse 92 L Oximetry 10/01/23 10/01/23 10/01/23 03:04 03:26 04:00 Temperature Pulse Rate 87 75 80 Respiratory 20 18 Rate Blood Pressure 114/71 139/91 O2 Sat by Pulse 92 L 94 L Oximetry 10/01/23 10/01/23 10/01/23 04:46 04:54 05:50 Temperature Pulse Rate 84 84 80 Respiratory 20 Rate Blood Pressure 132/90 O2 Sat by Pulse 92 L Oximetry 10/01/23 10/01/23 10/01/23 06:55 07:29 07:32 Temperature Pulse Rate 76 86 Respiratory 20 Rate Blood Pressure 114/82 O2 Sat by Pulse 93 L 95 Oximetry 10/01/23 10/01/23 10/01/23 07:39 08:00 10:00 Temperature Pulse Rate 81 77 92 Respiratory 20 27 H Rate Blood Pressure 116/91 116/91 O2 Sat by Pulse 94 L 94 L Oximetry 10/01/23 10/01/23 10/01/23 11:07 11:09 11:16 Temperature Pulse Rate 80 76 Respiratory Rate Blood Pressure O2 Sat by Pulse 95 Oximetry 10/01/23 10/01/23 12:00 13:49 Temperature Pulse Rate 83 82 Respiratory 12 18 Rate Blood Pressure 95/65 108/97 O2 Sat by Pulse 94 L 94 L Oximetry - Reevaluation(s) Reevaluation #1: 10/01/23 02:35 Records reviewed Reevaluation #2: 10/01/23 02:35 Symptoms unchanged 10/01/23 02:35 Both significant short of breath with hypoxia Reevaluation #3: 10/01/23 02:36 Patient informed of results questions answered Reevaluation #4: Was pt. sent in by a medical professional or institution (, [facility], [facility] POINTER, urgent care, hospital, or [place] [facility] facility...) When possible be specific @ -no Did you speak to anyone other than the patient for history (EMS, parent, family, police, friend...)? What history was obtained from this source @ -no Did you review nursing and triage notes (agree or disagree)? Why? @ -agree Are old charts reviewed (outside hosp., previous admission, EMS record, old EKG, old radiological studies, urgent care reports/EKG's, [place] [facility] facility records)? Report findings @ -yes Differential Diagnosis (chest pain, altered mental status, abdominal pain women, abdominal pain men, vaginal bleeding, weakness, fever, dyspnea, syncope, headac he, dizziness, GI bleed, back pain, seizure, CVA, palpatations, mental health, musculoskeletal)? @ -prior EKG interpreted by me (3pts min.). @ -yes X-rays interpreted by me (1pt min.). @ -yes negative for acute disease CT interpreted by me (1pt min.). @ -no U/S interpreted by me (1pt. min.). @ -no What testing was considered but not performed or refused? (CT, X-rays, U/S, labs)? Why? @ -none What meds were considered but not given or refused? Why? @ -none Did you discuss the management of the patient with other professionals (professionals i.e. [facility] Chu, [facility] POINTER, lab, RT, psych nurse, addiction social worker, online merchandiser, teacher, branch officer, case preparer and liner)? Give summary @ -no Was smoking cessation discussed for >3mins.? @ -no Was critical care preformed (if so, how long)? @ -yes31 Were there social determinants of health that impacted care today? How? (Homelessness, low income, unemployed, alcoholism, drug addiction, transportation, low edu. Level, literacy, decrease access to med. care, care home, rehab)? @ -none Was there de-escalation of care discussed even if they declined (Discuss DNR or withdrawal of care, Hospice)? DNR status @ -no What co-morbidities impacted this encounter? (DM, HTN, Smoking, COPD, CAD, Cancer, CVA, ARF, Chemo, Hep., AIDS, mental health diagnosis, sleep apnea, mo rbid obesity)? @ -none Was patient admitted / discharged? Hospital course, mention meds given and r oute, prescriptions, significant lab abnormalities, going to OR and other pertinent info. @ - 68 female to ER for evaluation of severe COPD exacerbation. Patient is in acute respiratory distress and will admit for further evaluation and monitoring Admitted Undiagnosed new problem with uncertain prognosis? @ -no Drug Therapy requiring intensive monitoring for toxicity (Heparin, Nitro, Insulin, Cardizem)? @ -no Were any procedures done? @ -no Diagnosis/symptom? @ -COPD exacerbation acute respiratory distress Acute, or Chronic, or Acute on Chronic? @ -Acute Uncomplicated (without systemic symptoms) or Complicated (systemic symptoms)? @ -Complicated Side effects of treatment? @ -no Exacerbation, Progression, or Severe Exacerbation? @ -exacerbation Poses a threat to life or bodily function? How? (Chest pain, [place], [place], pneumonia, PE, COPD, DKA, ARF, appy, cholecystitis, CVA, Diverticulitis, Homicidal, Suicidal, threat to staff... and all critical care pts) @ -yes significant respiratory distress Reevaluation #5: Differential Dyspnea: Coronary syndrome, arrhythmia, tamponade, asthma, COPD, pulmonary embolism, pneumonia, pneumothorax, pulmonary effusion, anaphylaxis, diabetic ketoacidosis, flailed chest, pulmonary contusion, diaphragmatic rupture, anemia, neuromuscular, this is not meant to be an all-inclusive list. - Consultations Consultation #1: Spoke with sound who agrees to admit this patient Medical Decision Making - Medical Decision Making 68 female to ER for evaluation of severe COPD exacerbation. Patient is in acute respiratory distress and will admit for further evaluation and monitoring - Lab Data Result diagrams: 10/04/23 07:05 10/04/23 07:05 Lab Results 10/01/23 10/01/23 10/01/23 Range/Units 02:00 02:00 02:00 WBC 10.1 (3.8-10.6) k/uL RBC 3.52 L (3.80-5.40) m/uL Hgb 11.7 (11.4-16.0) gm/dL Hct 37.1 (34.0-46.0) % MCV 105.3 H (80.0-100.0) fL MCH 33.2 (25.0-35.0) pg MCHC 31.6 (31.0-37.0) g/dL RDW 14.8 (11.5-15.5) % Plt Count 217 (150-450) k/uL MPV 9.0 Neutrophils % 81 % Lymphocytes % 9 % Monocytes % 6 % Eosinophils % 4 % Basophils % 0 % Neutrophils # 8.1 H (1.3-7.7) k/uL Lymphocytes # 0.9 L (1.0-4.8) k/uL Monocytes # 0.6 (0-1.0) k/uL Eosinophils # 0.4 (0-0.7) k/uL Basophils # 0.0 (0-0.2) k/uL Hypochromasia Slight Macrocytosis Moderate PT 14.9 H (10.0-12.5) sec INR 1.4 H (<1.2) APTT 33.7 H (22.0-30.0) sec Sodium 139 (137-145) mmol/L Potassium 4.2 (3.5-5.1) mmol/L Chloride 108 H (98-107) mmol/L Carbon Dioxide 26 (22-30) mmol/L Anion Gap 5 mmol/L BUN 30 H (7-17) mg/dL Creatinine 0.69 (0.52-1.04) mg/dL Est GFR (CKD-EPI)AfAm >90 (>60 ml/min/1.73 sqM) Est GFR (CKD-EPI)NonAf >90 (>60 ml/min/1.73 sqM) Glucose 119 H (74-99) mg/dL Plasma Lactic Acid Jerry (0.7-2.0) mmol/L Calcium 8.3 L (8.4-10.2) mg/dL Magnesium 1.9 (1.6-2.3) mg/dL Total Bilirubin 1.1 (0.2-1.3) mg/dL AST 29 (14-36) U/L ALT 25 (4-34) U/L Alkaline Phosphatase 86 (38-126) U/L Troponin I (0.000-0.034) ng/mL NT-Pro-B Natriuret Pep 1640 pg/mL Total Protein 6.5 (6.3-8.2) g/dL Albumin 4.1 (3.5-5.0) g/dL 10/01/23 10/01/23 Range/Units 02:12 02:12 WBC (3.8-10.6) k/uL RBC (3.80-5.40) m/uL Hgb (11.4-16.0) gm/dL Hct (34.0-46.0) % MCV (80.0-100.0) fL MCH (25.0-35.0) pg MCHC (31.0-37.0) g/dL RDW (11.5-15.5) % Plt Count (150-450) k/uL MPV Neutrophils % % Lymphocytes % % Monocytes % % Eosinophils % % Basophils % % Neutrophils # (1.3-7.7) k/uL Lymphocytes # (1.0-4.8) k/uL Monocytes # (0-1.0) k/uL Eosinophils # (0-0.7) k/uL Basophils # (0-0.2) k/uL Hypochromasia Macrocytosis PT (10.0-12.5) sec INR (<1.2) APTT (22.0-30.0) sec Sodium (137-145) mmol/L Potassium (3.5-5.1) mmol/L Chloride (98-107) mmol/L Carbon Dioxide (22-30) mmol/L Anion Gap mmol/L BUN (7-17) mg/dL Creatinine (0.52-1.04) mg/dL Est GFR (CKD-EPI)AfAm (>60 ml/min/1.73 sqM) Est GFR (CKD-EPI)NonAf (>60 ml/min/1.73 sqM) Glucose (74-99) mg/dL Plasma Lactic Acid Jerry 0.8 (0.7-2.0) mmol/L Calcium (8.4-10.2) mg/dL Magnesium (1.6-2.3) mg/dL Total Bilirubin (0.2-1.3) mg/dL AST (14-36) U/L ALT (4-34) U/L Alkaline Phosphatase (38-126) U/L Troponin I <0.012 (0.000-0.034) ng/mL NT-Pro-B Natriuret Pep pg/mL Total Protein (6.3-8.2) g/dL Albumin (3.5-5.0) g/dL - EKG Data -: EKG Interpreted by Me (EKG is A-fib 83 QRS 95 QTc 402) - Radiology Data Radiology results: report reviewed (Chest x-ray is negative for acute disease), image reviewed Critical Care Time Critical Care Time: Yes Total Critical Care Time: 31 Disposition Clinical Impression: COPD exacerbation, Acute respiratory distress syndrome in adult Disposition: ADMITTED IP TO THIS HOSP Condition: Stable Is patient prescribed a controlled substance at d/c from ED?: No
[2023-10-01] MEDS: SODIUM CHLORIDE 0.9% 1,000 ML IV STA (02:36)
[2023-10-01] MEDS: SODIUM CHLORIDE 0.9% 500 ML 500 ML IV STA (02:37)
[2023-10-01] MEDS ORDERED: NALOXONE 0.4 MG/ML 1 ML VIAL IV PRN (02:37)
[2023-10-01] MEDS ORDERED: NALOXONE 0.4 MG/ML 1 ML VIAL IVP PRN (02:37)
[2023-10-01] MEDS ORDERED: ONDANSETRON 4 MG/2 ML VIAL IVP PRN (02:37)
[2023-10-01] MEDS ORDERED: MORPHINE SULFATE 4 MG/ML SYRINGE IV PRN (02:37)
[2023-10-01 02:41] LABS: Basophils % (A) 0 %; Eosinophils # (A) 0.4 k/uL (0-0.7); Eosinophils % (A) 4 %; HCT 37.1 % (34.0-46.0); HGB 11.7 gm/dL (11.4-16.0); Hypochromasia Slight; Lymphocytes # (A) 0.9 k/uL (1.0-4.8); Lymphocytes % (A) 9 %; MCH 33.2 pg (25.0-35.0); MCHC 31.6 g/dL (31.0-37.0); MCV 105.3 fL (80.0-100.0); Macrocytosis Moderate; Monocytes # (A) 0.6 k/uL (0-1.0); Monocytes % (A) 6 %; Neutrophils # (A) 8.1 k/uL (1.3-7.7); Neutrophils % (A) 81 %; Platelet Count 217 k/uL (150-450); RBC 3.52 m/uL (3.80-5.40); RDW 14.8 % (11.5-15.5); WBC 10.1 k/uL (3.8-10.6)
[2023-10-01] MEDS: IPRATROPIUM-ALBUTEROL 3 ML NEB INHALATION STA (02:43)
[2023-10-01] MEDS: IPRATROPIUM 0.5 MG/2.5 ML NEBU INHALATION STA (02:43)
[2023-10-01] MEDS: ALBUTEROL NEBULIZED 2.5 MG/3 ML INHALATION STA (02:43)
[2023-10-01 02:44] LABS: ALT 25 U/L (4-34); AST 29 U/L (14-36); African American GFR (CKD) >90 (>60 ml/min/1.73 sqM); Albumin 4.1 g/dL (3.5-5.0); Alkaline Phosphatase 86 U/L (38-126); Anion Gap 5 mmol/L; Blood Urea Nitrogen 30 mg/dL (7-17); Calcium 8.3 mg/dL (8.4-10.2); Carbon Dioxide 26 mmol/L (22-30); Chloride 108 mmol/L (98-107); Glucose 119 mg/dL (74-99); INR 1.4 (<1.2); Magnesium 1.9 mg/dL (1.6-2.3); Non-African American GFR(CKD) >90 (>60 ml/min/1.73 sqM); Partial Thromboplastin Time 33.7 sec (22.0-30.0); Potassium 4.2 mmol/L (3.5-5.1); Prothrombin Time 14.9 sec (10.0-12.5); Sodium 139 mmol/L (137-145); Total Bilirubin 1.1 mg/dL (0.2-1.3); Total Protein 6.5 g/dL (6.3-8.2)
[2023-10-01] MEDS: methylPREDNISolone SOD SUCCI 125 MG/2 ML VIAL IV STA (02:47)
[2023-10-01] MEDS: SODIUM CHLORIDE 0.9% 1,000 ML IV SCH (02:50)
[2023-10-01 02:53] LABS: NT-Pro-B-Type Natriuretic Pept 1640 pg/mL
--- NOTE | 2023-10-01 02:54 | XR ---
EXAM: XR Chest, 1 View CLINICAL HISTORY: ITS.REASON XR Reason: sob TECHNIQUE: Frontal view of the chest. COMPARISON: No relevant prior studies available. FINDINGS: Lungs: Pulmonary vascular congestion. Cardiomegaly. Small bilateral pleural effusions. No consolidation. Pleural space: See above. Heart: Cardiomegaly. Mediastinum: Unremarkable. Normal mediastinal contour. Bones/joints: Unremarkable. No acute fracture. IMPRESSION: Pulmonary vascular congestion. Cardiomegaly. Small bilateral pleural effusions.
--- NOTE | 2023-10-01 04:19 | P.HPIM ---
History of Present Illness H&P Date: 10/01/23 Patient is a 67-year-old female with a PMH of COPD with chronic hypoxic respiratory failure on 2 L nasal cannula oxygen continuously at home, A-fib on Xarelto, hypertension, hyperlipidemia, CAD who presents to the emergency room with complaints of shortness of breath. Patient reports she has been feeling progressively more short of breath over the past 4 to 5 days and checked her SpO2 which was 64% at home. She denied experiencing chest discomfort, fever, chills, cough, nausea, vomiting, abdominal pain, diarrhea. Reports compliance with all her inhalers at home. The patient also reported noticing some lower extremity edema over the past several weeks. Chest x-ray in the emergency room revealed pulmonary vascular congestion with cardiomegaly with EKG showing A-fib at [address]/T wave changes noted as reviewed by me. Laboratory evaluation was remarkable for MCV 105.3, BUN 30, glucose 100, proBNP 1640, and troponin less than 0.012. ED documentation reviewed and case discussed with ED provider. Review of systems: Pertinent positives and negatives as discussed in HPI, a complete review of systems was performed and all other systems are negative. Physical examination: Vital signs reviewed General: non toxic, no distress, appears at stated age, morbidly obese Derm: no unusual rashes/lesions, warm Head: atraumatic, normocephalic, symmetric Eyes: EOMI, no lid lag, anicteric sclera, pupils equal round reactive to light ENT: Nose and ears atraumatic Neck: No cervical lymphadenopathy, trachea midline, supple Mouth: no lip lesion, mucus membranes moist Cardiovascular: S1S2 reg, no murmur, positive dorsalis pedis pulse bilateral, 1+ bilateral lower extremity pitting edema Lungs: Wheezing with bibasilar rales appreciated, no accessory muscle use Abdominal: soft, nontender to palpation, no guarding Ext: muscle strength 5 out of 5 in all 4 extremities grossly, no gross muscle atrophy, no contractures, Neuro: CN II-XI grossly intact, no gross focal neuro deficits Psych: Alert, oriented, appropriate affect Assessment: Acute on chronic hypoxic respiratory failure, likely multifactorial secondary to acute COPD and CHF exacerbations Fluid overload, likely newly diagnosed CHF Macrocytosis Chronic conditions: A-fib, hypertension, hyperlipidemia, CAD Imaging: Chest x-ray in the emergency room revealed pulmonary vascular congestion with cardiomegaly with EKG showing A-fib at [address]/T wave changes noted as reviewed by me. Data Review: Laboratory evaluation was remarkable for MCV 105.3, BUN 30, glucose 100, proBNP 1640, and troponin less than 0.012. Plan: Continue with Solu-Medrol 60 mg every 8 hourly for now Initiate Lasix 40 mg IV every 12 hourly Obtain echocardiogram Cardiac monitoring Hold off on IV fluids DuoNebs [id number] and as needed Cardiology and pulmonary consulted Intake and output Daily weights Check B12 and folate levels Resume home medications once reconciled DVT prophylaxis: Xarelto The patient is admitted with an anticipated greater than 2 midnight stay for evaluation of hypoxic respiratory failure CODE STATUS: Full Code Discussed with: Patient Anticipated discharge place: Home Past Medical History Past Medical History: Atrial Fibrillation, Asthma, Coronary Artery Disease (CAD), COPD, GERD/Reflux, Hyperlipidemia, Hypertension, Myocardial Infarction ([place]), Osteoarthritis (OA), Skin Disorder Additional Past Medical History / Comment(s): migraines, stroke 2003-no residual effects, IBS, osteoporosis, psoriasis, "prediabetic"- dr watching, lower back pain, left shoulder torn rotator cuff Last Myocardial Infarction Date:: 1985 History of Any Multi-Drug Resistant Organisms: None Reported Past Surgical History: Heart Catheterization, Tubal Ligation Past Anesthesia/Blood Transfusion Reactions: No Reported Reaction Past Psychological History: Anxiety, Depression, PTSD Smoking Status: Current some day smoker Past Alcohol Use History: Occasional Past Drug Use History: None Reported - Past Family History Brother(s) Family Medical History: Cancer Sister(s) Family Medical History: Cancer, Deep Vein Thrombosis (DVT) Mother Family Medical History: Pulmonary Embolus Medications and Allergies Home Medications Medication Instructions Recorded Confirmed Type Albuterol Inhaler [Ventolin Hfa 2 puff INHALATION RT-QID PRN 08/22/20 03/13/22 History Inhaler] Aspirin [Adult Low Dose Aspirin EC] 81 mg PO DAILY 08/22/20 03/13/22 History Atorvastatin [Lipitor] 40 mg PO HS 08/22/20 03/13/22 History Budesonide/Formoterol Fumarate 2 puff INHALATION RT-BID 08/22/20 03/13/22 History [Symbicort 80-4.5 Mcg Inhaler] Metoprolol Succinate [Toprol XL] 100 mg PO DAILY 08/22/20 03/13/22 History Potassium Chloride [Klor-Con 20] 20 meq PO BID 08/22/20 03/13/22 History Rivaroxaban [Xarelto] 20 mg PO W/SUPPER 08/22/20 03/13/22 History Tiotropium 2.5 Mcg/Puff [Spiriva 2 puff INHALATION RT-DAILY 08/22/20 03/13/22 History Respimat 2.5 Mcg] Triamterene-Hctz 37.5-25Mg 1 tab PO DAILY 08/22/20 03/13/22 History [Maxzide 37.5-25] captopriL [Captopril] 50 mg PO BID 08/22/20 03/13/22 History Acetaminophen [Tylenol Extra 1,000 mg PO Q6H PRN 03/13/22 03/13/22 History Strength] amLODIPine [Norvasc] 5 mg PO DAILY 03/13/22 03/13/22 History Ipratropium-Albuterol Nebulize 3 ml INHALATION RT-QID 30 Days 03/18/22 Rx [Duoneb 0.5 mg-3 mg/3 ml Soln] #120 each guaiFENesin SYRUP 100MG/5ML 200 mg PO Q6HR PRN #120 ml 03/18/22 Rx [Robitussin] predniSONE 10 mg PO DIRECTED #24 tab 03/18/22 Rx Allergies Allergy/AdvReac Type Severity Reaction Status Date / Time fluticasone AdvReac Cough Verified 03/13/22 15:48 [facility] sal[facility]ol AdvReac Cough [facility]/13[facility]22 15[facility] Physical Exam Vitals: Vital Signs Temp Pulse Resp BP Pulse Ox 10/01/23 03:26 75 20 114/71 92 L 10/01/23 03:04 87 10/01/23 02:55 85 10/01/23 02:54 82 10/01/23 02:44 80 10/01/23 02:39 75 20 103/68 92 L 10/01/23 01:55 90 20 98 10/01/23 01:47 97.6 F 88 20 119/83 96 Intake and Output 09/30/23 09/30/23 10/01/23 14:59 22:59 06:59 Other: Weight 93.894 kg Results CBC & Chem 7: 10/01/23 02:00 10/01/23 02:00 Labs: Abnormal Lab Results - Last 24 Hours (Table) 10/01/23 10/01/23 10/01/23 Range/Units 02:00 02:00 02:00 RBC 3.52 L (3.80-5.40) m/uL MCV 105.3 H (80.0-100.0) fL Neutrophils # 8.1 H (1.3-7.7) k/uL Lymphocytes # 0.9 L (1.0-4.8) k/uL PT 14.9 H (10.0-12.5) sec INR 1.4 H (<1.2) APTT 33.7 H (22.0-30.0) sec Chloride 108 H (98-107) mmol/L BUN 30 H (7-17) mg/dL Glucose 119 H (74-99) mg/dL Calcium 8.3 L (8.4-10.2) mg/dL
[2023-10-01] MEDS: ALBUTEROL NEBULIZED 2.5 MG/3 ML INHALATION SCH (04:45)
[2023-10-01] MEDS: FUROSEMIDE 10 MG/ML 4 ML VIAL IV SCH (04:51)
[2023-10-01] MEDS ORDERED: methylPREDNISolone SOD SUCCI 125 MG/2 ML VIAL IV SCH (06:00)
[2023-10-01] MEDS ORDERED: IPRATROPIUM-ALBUTEROL 3 ML NEB INHALATION PRN (08:20)
[2023-10-01] MEDS: PANTOPRAZOLE 40 MG/10 ML VIAL IV SCH (08:43)
[2023-10-01] MEDS: methylPREDNISolone SOD SUCCI 125 MG/2 ML VIAL IV SCH (08:47)
[2023-10-01] MEDS: METOPROLOL SUCCINATE (ER) 100 MG TAB.ER.24H PO SCH (10:01)
[2023-10-01] MEDS: ALPRAZolam 0.5 MG TAB PO STA (10:01)
[2023-10-01] MEDS: DAPAGLIFLOZIN PROPANEDIOL 10 MG TABLET PO SCH (10:02)
--- NOTE | 2023-10-01 10:16 | P.CRDCN ---
History of Present Illness History of present illness: HISTORY OF PRESENT ILLNESS: This is a 67-year-old female with a past medical history significant for COPD with home oxygen use, coronary artery disease, atrial fibrillation, CVA, congestive heart failure, and former nicotine dependence. Patient does not follow with a spring upholsterer. We have been asked to see the patient in consultation for congestive heart failure. Patient examined at the bedside in the emergency room. Patient states she presented to the hospital with a chief complaint of shortness of breath. She states that she checked her oxygen levels at home and they were in the 60s. She states her shortness of breath has been worse with exertion. She also states that has been worse over the past few days secondary to the heat and humidity outside. She states she is usually compliant with a low-sodium diet but over the past week she states that she has not been cooking and just eating sandwiches with lunch meat that are high in sodium. The patient was started on IV Lasix and also IV Solu-Medrol. Patient's vital signs are stable. Bedside telemetry reveals atrial fibrillation with controlled ventricular rate. The patient states she is a former cigarette smoker and quit smoking a few months ago. DIAGNOSTICS: - EKG reveals atrial fibrillation with controlled ventricular rate. - Chest xray pulmonary vascular congestion. Cardiomegaly. Small bilateral pleural effusions.. - Laboratory data: WBC 10.1. Hemoglobin 11.7. Platelet count 217. Sodium 139. Potassium 4.2. BUN 30. Creatinine 0.69. Troponin negative x 2. proBNP 1640. - Current home cardiac medication list has not been updated at the time of dictation REVIEW OF SYSTEMS: At the time of my exam: CONSTITUTIONAL: Denies fever or chills. HEENT: Denies blurred vision, vision changes, or eye pain. Denies hemoptysis CARDIOVASCULAR: Denies chest pain. Denies orthopnea. Denies PND. Denies palp itations RESPIRATORY: Reports shortness of breath. GASTROINTESTINAL: Denies abdominal pain. Denies nausea or vomiting. HEMATOLOGIC: Denies bleeding disorders. GENITOURINARY: Denies any blood in urine. SKIN: Denies pruitis. Denies rash. PHYSICAL EXAM: VITAL SIGNS: Reviewed. GENERAL: Well-developed in no acute distress. HEENT: Head is normocephalic. Pupils are equal, round. Sclerae anicteric. Mucous membranes of the mouth are moist. Neck supple. No JVD or thyromegaly LUNGS: Respirations even and unlabored. Lungs with decreased air exchange and bibasilar crackles HEART: Irregular rate and rhythm. S1 and S2 heard. Soft systolic murmur noted. ABDOMEN: Soft. Nondistended. Nontender. EXTREMITIES: Normal range of motion. No clubbing or cyanosis. Peripheral pulses intact. 1-2+ bilateral pitting lower extremity edema NEUROLOGIC: Awake and alert. Oriented x 3. ASSESSMENT: Shortness of breath Acute on chronic heart failure, type unknown, echo pending, suspect preserved EF Acute exacerbation of COPD Chronic hypoxic respiratory failure on home oxygen History of nonobstructive CAD, per patient, details unknown History of myocardial infarction without stenting, 1985 per patient History of CVA Former nicotine dependence, patient states she quit smoking a few months ago Noncompliance with low-sodium/cardiac diet Morbid obesity: BMI 40.4 PLAN: Obtain 2D echo to assess cardiac structure and function Continue IV Lasix 40 mg every 12 hours Daily weights, accurate intake and output, and monitoring of kidney function Resume Xarelto, metoprolol, and atorvastatin Add Farxiga 10 mg daily Compliance with low-sodium diet reinforced Further recommendations pending patient course Nurse practitioner note has been reviewed by physician. Signing provider agrees with the documented findings, assessment, and plan of care documented by DIRECTOR OF PATIENT CARE as a scribe. Past Medical History Past Medical History: Atrial Fibrillation, Asthma, Coronary Artery Disease (CAD), COPD, GERD/Reflux, Hyperlipidemia, Hypertension, Myocardial Infarction ([place]), Osteoarthritis (OA), Skin Disorder Additional Past Medical History / Comment(s): migraines, stroke 2003-no residual effects, IBS, osteoporosis, psoriasis, "prediabetic"- dr watching, lower back pain, left shoulder torn rotator cuff Last Myocardial Infarction Date:: 1985 History of Any Multi-Drug Resistant Organisms: None Reported Past Surgical History: Heart Catheterization, Tubal Ligation Past Anesthesia/Blood Transfusion Reactions: No Reported Reaction Past Psychological History: Anxiety, Depression, PTSD Smoking Status: Current some day smoker Past Alcohol Use History: Occasional Past Drug Use History: None Reported - Past Family History Brother(s) Family Medical History: Cancer Sister(s) Family Medical History: Cancer, Deep Vein Thrombosis (DVT) Mother Family Medical History: Pulmonary Embolus Medications and Allergies Home Medications Medication Instructions Recorded Confirmed Type Albuterol Inhaler [Ventolin Hfa 2 puff INHALATION RT-QID PRN 08/22/20 03/13/22 History Inhaler] Aspirin [Adult Low Dose Aspirin EC] 81 mg PO DAILY 08/22/20 03/13/22 History Atorvastatin [Lipitor] 40 mg PO HS 08/22/20 03/13/22 History Budesonide/Formoterol Fumarate 2 puff INHALATION RT-BID 08/22/20 03/13/22 History [Symbicort 80-4.5 Mcg Inhaler] Metoprolol Succinate [Toprol XL] 100 mg PO DAILY 08/22/20 03/13/22 History Potassium Chloride [Klor-Con 20] 20 meq PO BID 08/22/20 03/13/22 History Rivaroxaban [Xarelto] 20 mg PO W/SUPPER 08/22/20 03/13/22 History Tiotropium 2.5 Mcg/Puff [Spiriva 2 puff INHALATION RT-DAILY 08/22/20 03/13/22 History Respimat 2.5 Mcg] Triamterene-Hctz 37.5-25Mg 1 tab PO DAILY 08/22/20 03/13/22 History [Maxzide 37.5-25] captopriL [Captopril] 50 mg PO BID 08/22/20 03/13/22 History Acetaminophen [Tylenol Extra 1,000 mg PO Q6H PRN 03/13/22 03/13/22 History Strength] amLODIPine [Norvasc] 5 mg PO DAILY 03/13/22 03/13/22 History Ipratropium-Albuterol Nebulize 3 ml INHALATION RT-QID 30 Days 03/18/22 Rx [Duoneb 0.5 mg-3 mg/3 ml Soln] #120 each guaiFENesin SYRUP 100MG/5ML 200 mg PO Q6HR PRN #120 ml 03/18/22 Rx [Robitussin] predniSONE 10 mg PO DIRECTED #24 tab 03/18/22 Rx Allergies Allergy/AdvReac Type Severity Reaction Status Date / Time fluticasone AdvReac Cough Verified 03/13/22 15:48 [From [facility]] salmeterol AdvReac Cough Verified 03/13/22 15:48 [From [facility]] Physical Exam Vitals: Vital Signs Temp Pulse Resp BP Pulse Ox 06/22/24 08:00 77 20 116/91 94 L 10/01/23 07:39 81 10/01/23 07:32 95 10/01/23 07:29 86 10/01/23 06:55 76 20 114/82 93 L 10/01/23 05:50 80 20 132/90 92 L 10/01/23 04:54 84 10/01/23 04:46 84 10/01/23 04:00 80 18 139/91 94 L 10/01/23 03:26 75 20 114/71 92 L 10/01/23 03:04 87 10/01/23 02:55 85 10/01/23 02:54 82 10/01/23 02:44 80 92 L 10/01/23 02:39 75 20 103/68 92 L 10/01/23 01:55 90 20 98 10/01/23 01:47 97.6 F 88 20 119/83 96 Intake and Output 09/30/23 10/01/23 10/01/23 22:59 06:59 14:59 Other: Weight 93.894 kg Results 10/01/23 02:00 10/01/23 02:00 Cardiac Enzymes 10/01/23 10/01/23 10/01/23 Range/Units 02:00 02:12 04:20 AST 29 (14-36) U/L Troponin I <0.012 <0.012 (0.000-0.034) ng/mL Coagulation 10/01/23 Range/Units 02:00 PT 14.9 H (10.0-12.5) sec APTT 33.7 H (22.0-30.0) sec CBC 10/01/23 Range/Units 02:00 WBC 10.1 (3.8-10.6) k/uL RBC 3.52 L (3.80-5.40) m/uL Hgb 11.7 (11.4-16.0) gm/dL Hct 37.1 (34.0-46.0) % Plt Count 217 (150-450) k/uL Comprehensive Metabolic Panel 10/01/23 Range/Units 02:00 Sodium 139 (137-145) mmol/L Potassium 4.2 (3.5-5.1) mmol/L Chloride 108 H (98-107) mmol/L Carbon Dioxide 26 (22-30) mmol/L BUN 30 H (7-17) mg/dL Creatinine 0.69 (0.52-1.04) mg/dL Glucose 119 H (74-99) mg/dL Calcium 8.3 L (8.4-10.2) mg/dL AST 29 (14-36) U/L ALT 25 (4-34) U/L Alkaline Phosphatase 86 (38-126) U/L Total Protein 6.5 (6.3-8.2) g/dL Albumin 4.1 (3.5-5.0) g/dL Current Medications Generic Name Dose Route Start Last Admin Trade Name Freq PRN Reason Stop Dose Admin Albuterol/Ipratropium 3 ml 10/01/23 12:00 Ipratropium-Albuterol 3 Ml Neb INHALATION RT-QID CARLITA Albuterol/Ipratropium 3 ml 10/01/23 08:20 Ipratropium-Albuterol 3 Ml Neb INHALATION RT-Q2H PRN Shortness Of Breath Or Wheezing Budesonide/Formoterol Fumarate 2 puff 10/01/23 20:00 Symbicort 160-4.5 Mcg Inhaler INHALATION RT-BID CARLITA Furosemide 40 mg 10/01/23 04:18 10/01/23 08:51 Furosemide 10 Mg/Ml 4 Ml Vial IV 40 mg Q12HR CARLITA Administration Methylprednisolone Sodium Succinate 60 mg 10/01/23 09:00 10/01/23 08:47 Methylprednisolone Sod Succi 125 Mg/2 Ml Vial IV 60 mg Q8H CARLITA Administration Morphine Sulfate 4 mg 10/01/23 02:37 Morphine Sulfate 4 Mg/Ml Syringe IV Q4HR PRN Severe Pain (Scale 7 to 10) Naloxone HCl 0.2 mg 10/01/23 02:37 Naloxone 0.4 Mg/Ml 1 Ml Vial IV Q2M PRN Opioid Reversal Naloxone HCl 0.2 mg 10/01/23 02:37 Naloxone 0.4 Mg/Ml 1 Ml Vial IVP Q2M PRN Opioid Reversal Ondansetron HCl 4 mg 10/01/23 02:37 Ondansetron 4 Mg/2 Ml Vial IVP Q8HR PRN Nausea And Vomiting Pantoprazole Sodium 40 mg 10/01/23 09:00 10/01/23 08:43 Pantoprazole 40 Mg/10 Ml Vial IV 40 mg DAILY CARLITA Administration Intake and Output 09/30/23 10/01/23 10/01/23 22:59 06:59 14:59 Other: Weight 93.894 kg 10/01/23 02:00 10/01/23 02:00
[2023-10-01] MEDS: IPRATROPIUM-ALBUTEROL 3 ML NEB INHALATION SCH (11:07)
--- NOTE | 2023-10-01 12:24 | P.CNPUL ---
History of Present Illness Consult date: 10/01/23 Requesting physician: Sofía Greco Reason for consult: dyspnea, COPD, hypoxemia Chief complaint: Shortness of breath, hypoxemia History of present illness: This is a pleasant 67-year-old female patient who has a known history of oxygen dependent chronic obstructive pulmonary disease, former heavy smoker, obesity, atrial fibrillation anticoagulated with Xarelto, coronary artery disease, hyp ertension, hyperlipidemia. She presented to the emergency room early this morning with worsening shortness of breath over the past several days and low O2 saturations in the 60s. She had her home oxygen checked by the company and it was felt to be working fine. She also felt that the oxygen she was receiving was getting too warm from the external heat of the day. Chest x-ray reveals pulmonary vascular congestion with cardiomegaly and small pleural effusions. White count 10.217. Sodium 139. Potassium 4.2. Bicarb 26. BUN 30. Creatinine 0.69. Troponins were negative x 3. proBNP 1640. Seen today in consultation in the emergency department. She is currently sitting up on the stretcher. Awake and alert in no acute distress. She is requiring 10 L high flow nasal cannula to maintain O2 saturations in the 90s. He has been afebrile. Hemodynamically stable. Review of Systems REVIEW OF SYSTEMS: CONSTITUTIONAL: Denies any recent significant weight loss or weight gain. EYES: Denies change in vision. EARS, NOSE, MOUTH, THROAT: Denies headaches, denies sore throat. CARDIOVASCULAR: Denies chest pain, palpitations or syncopal episodes. RESPIRATORY: Positive for shortness of breath, cough, congestion or hemoptysis. GASTROINTESTINAL: Denies change in appetite, denies abdominal pain GENITOURINARY: Denies hematuria, denies infections. MUSKULOSKELETAL: Denies pain, denies swelling. INTEGUMENTARY: Denies rash, denies eczema. NEUROLOGICAL: Denies recent memory loss, no recent seizure activity. PSYCHIATRIC: Denies anxiety, denies depression. HEMATOLOGIC/LYMPHATIC: Denies anemia, denies enlarged lymph nodes. Past Medical History Past Medical History: Atrial Fibrillation, Asthma, Coronary Artery Disease (CAD), COPD, GERD/Reflux, Hyperlipidemia, Hypertension, Myocardial Infarction ([place]), Osteoarthritis (OA), Skin Disorder Additional Past Medical History / Comment(s): migraines, stroke 2003-no residual effects, IBS, osteoporosis, psoriasis, "prediabetic"- dr ruano, lower back pain, left shoulder torn rotator cuff Last Myocardial Infarction Date:: 1985 History of Any Multi-Drug Resistant Organisms: None Reported Past Surgical History: Heart Catheterization, Tubal Ligation Past Anesthesia/Blood Transfusion Reactions: No Reported Reaction Past Psychological History: Anxiety, Depression, PTSD Smoking Status: Current some day smoker Past Alcohol Use History: Occasional Past Drug Use History: None Reported - Past Family History Brother(s) Family Medical History: Cancer Sister(s) Family Medical History: Cancer, Deep Vein Thrombosis (DVT) Mother Family Medical History: Pulmonary Embolus Medications and Allergies Home Medications Medication Instructions Recorded Confirmed Type Albuterol Inhaler [Ventolin Hfa 2 puff INHALATION RT-QID PRN 08/22/20 03/13/22 History Inhaler] Aspirin [Adult Low Dose Aspirin EC] 81 mg PO DAILY 08/22/20 03/13/22 History Atorvastatin [Lipitor] 40 mg PO HS 08/22/20 03/13/22 History Budesonide/Formoterol Fumarate 2 puff INHALATION RT-BID 08/22/20 03/13/22 History [Symbicort 80-4.5 Mcg Inhaler] Metoprolol Succinate [Toprol XL] 100 mg PO DAILY 08/22/20 03/13/22 History Potassium Chloride [Klor-Con 20] 20 meq PO BID 08/22/20 03/13/22 History Rivaroxaban [Xarelto] 20 mg PO W/SUPPER 08/22/20 03/13/22 History Tiotropium 2.5 Mcg/Puff [Spiriva 2 puff INHALATION RT-DAILY 08/22/20 03/13/22 History Respimat 2.5 Mcg] Triamterene-Hctz 37.5-25Mg 1 tab PO DAILY 08/22/20 03/13/22 History [Maxzide 37.5-25] captopriL [Captopril] 50 mg PO BID 08/22/20 03/13/22 History Acetaminophen [Tylenol Extra 1,000 mg PO Q6H PRN 03/13/22 03/13/22 History Strength] amLODIPine [Norvasc] 5 mg PO DAILY 03/13/22 03/13/22 History Ipratropium-Albuterol Nebulize 3 ml INHALATION RT-QID 30 Days 03/18/22 Rx [Duoneb 0.5 mg-3 mg/3 ml Soln] #120 each guaiFENesin SYRUP 100MG/5ML 200 mg PO Q6HR PRN #120 ml 03/18/22 Rx [Robitussin] predniSONE 10 mg PO DIRECTED #24 tab 03/18/22 Rx Allergies Allergy/AdvReac Type Severity Reaction Status Date / Time fluticasone AdvReac Cough Verified 03/13/22 15:48 [From [facility]] salmeterol AdvReac Cough Verified 03/13/22 15:48 [facility]] Physical Exam Vitals: Vital Signs Temp Pulse Resp BP Pulse Ox 10/01/23 12:00 83 12 95/65 94 L 10/01/23 11:16 76 10/01/23 11:09 95 10/01/23 11:07 80 10/01/23 10:00 92 27 H 116/91 94 L 10/01/23 08:00 77 20 116/91 94 L 10/01/23 07:39 81 10/01/23 07:32 95 10/01/23 07:29 86 10/01/23 06:55 76 20 114/82 93 L 10/01/23 05:50 80 20 132/90 92 L 10/01/23 04:54 84 10/01/23 04:46 84 10/01/23 04:00 80 18 139/91 94 L 10/01/23 03:26 75 20 114/71 92 L 10/01/23 03:04 87 10/01/23 02:55 85 10/01/23 02:54 82 10/01/23 02:44 80 92 L 10/01/23 02:39 75 20 103/68 92 L 10/01/23 01:55 90 20 98 10/01/23 01:47 97.6 F 88 20 119/83 96 Intake and Output 09/30/23 10/01/23 10/01/23 22:59 06:59 14:59 Output Total 500 Balance -500 Output: Urine 500 Other: Weight 93.894 kg GENERAL EXAM: Alert, does not 67-year-old female, on 10 L high flow nasal cannula, fairly comfortable in no apparent distress. HEAD: Normocephalic. EYES: Normal reaction of pupils, equal size. NOSE: Clear with pink turbinates. THROAT: No erythema or exudates. NECK: No masses, no JVD. CHEST: No chest wall deformity. LUNGS: Equal air entry with faint crackles in the posterior bases. CVS: S1 and S2 normal with no audible murmur, regular rhythm. ABDOMEN: No hepatosplenomegaly, normal bowel sounds, no guarding or rigidity. SPINE: No scoliosis or deformity SKIN: No rashes CENTRAL NERVOUS SYSTEM: No focal deficits, tone is normal in all 4 extremities. EXTREMITIES: There is no peripheral edema. No clubbing, no cyanosis. Peripheral pulses are intact. Results - Laboratory Findings CBC and BMP: 10/01/23 02:00 10/01/23 02:00 PT/INR, D-dimer PT 14.9 sec (10.0-12.5) H 10/01/23 02:00 INR 1.4 (<1.2) H 10/01/23 02:00 Abnormal lab findings: Abnormal Labs 10/01/23 10/01/23 10/01/23 02:00 02:00 02:00 RBC 3.52 L MCV 105.3 H Neutrophils # 8.1 H Lymphocytes # 0.9 L PT 14.9 H INR 1.4 H APTT 33.7 H Chloride 108 H BUN 30 H Glucose 119 H Calcium 8.3 L - Diagnostic Findings Chest x-ray: image reviewed Assessment and Plan Assessment: Acute on chronic hypoxemic respiratory failure secondary to a mild exacerbation of suspected systolic versus diastolic congestive heart failure Acute on chronic hypoxic respiratory failure secondary to an acute exacerbation of chronic obstructive pulmonary disease Severe oxygen dependent chronic obstructive pulmonary disease with an FEV1 value 42% of predicted Former heavy smoker Coronary artery disease Atrial fibrillation anticoagulated with Xarelto Hypertension Hyperlipidemia History of anxiety/depression/PTSD Plan: The patient was seen and evaluated Chest x-ray, labs and medications reviewed Initiated on IV diuretics Initiated on DuoNeb inhalations, Symbicort Initiated on IV Solu-Medrol Anticoagulated with Xarelto Titrate down the FiO2 as tolerated Echocardiogram pending We will continue to follow and make further recommendations based on her clinical status I have personally seen and examined the patient, performed the documentation and the assessment and plan as written. Number of minutes spent on the visit: 20.
[2023-10-01 16:32] LABS: Glucose,Whole Blood 155 mg/dL (70-110)
[2023-10-01] MEDS: RIVAROXABAN 20 MG TAB PO SCH (17:37)
[2023-10-01 19:51] LABS: Glucose,Whole Blood 190 mg/dL (70-110)
[2023-10-01] MEDS: ATORVASTATIN 40 MG TAB PO SCH (20:09)
[2023-10-01] MEDS: PARoxetine 20 MG TAB PO SCH (20:09)
[2023-10-01] MEDS: SYMBICORT 160-4.5 MCG INHALER INHALATION SCH (21:04)
[2023-10-02 05:55] LABS: Glucose,Whole Blood 229 mg/dL (70-110)
[2023-10-02] MEDS ORDERED: DEXTROSE 50% SYRINGE 50 ML IVP PRN ×2 (06:31)
[2023-10-02] MEDS: INSULIN ASPART (NovoLOG) 100 UNIT/ML VIAL SQ SCH (06:56)
[2023-10-02 07:15] LABS: Basophils % (A) 0 %; Eosinophils % (A) 0 %; HCT 32.6 % (34.0-46.0); HGB 10.4 gm/dL (11.4-16.0); Hypochromasia Slight; Lymphocytes # (A) 0.5 k/uL (1.0-4.8); Lymphocytes % (A) 3 %; MCH 33.7 pg (25.0-35.0); MCHC 31.8 g/dL (31.0-37.0); MCV 105.9 fL (80.0-100.0); Macrocytosis Moderate; Mean Platelet Volume 9.1; Monocytes # (A) 0.7 k/uL (0-1.0); Monocytes % (A) 4 %; Neutrophils # (A) 16.8 k/uL (1.3-7.7); Neutrophils % (A) 93 %; Platelet Count 224 k/uL (150-450); RBC 3.08 m/uL (3.80-5.40); RDW 14.7 % (11.5-15.5); WBC 18.1 k/uL (3.8-10.6)
[2023-10-02 07:38] LABS: ALT 18 U/L (4-34); AST 17 U/L (14-36); African American GFR (CKD) >90 (>60 ml/min/1.73 sqM); Albumin 3.7 g/dL (3.5-5.0); Alkaline Phosphatase 88 U/L (38-126); Anion Gap 4 mmol/L; Blood Urea Nitrogen 26 mg/dL (7-17); Calcium 8.3 mg/dL (8.4-10.2); Carbon Dioxide 35 mmol/L (22-30); Chloride 95 mmol/L (98-107); Glucose 193 mg/dL (74-99); Non-African American GFR(CKD) >90 (>60 ml/min/1.73 sqM); Potassium 3.7 mmol/L (3.5-5.1); Sodium 134 mmol/L (137-145); Total Bilirubin 0.9 mg/dL (0.2-1.3)
[2023-10-02] MEDS: ASPIRIN 81 MG PO SCH (07:41)
--- NOTE | 2023-10-02 10:03 | P.PN ---
Subjective HISTORY OF PRESENT ILLNESS: This is a 67-year-old female with a past medical history significant for COPD with home oxygen use, coronary artery disease, atrial fibrillation, CVA, congestive heart failure, and former nicotine dependence. 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 We have been asked to see the patient in consultation for congestive heart failure. Patient examined at the bedside in the emergency room. Patient states she presented to the hospital with a chief complaint of shortness of breath. She states that she checked her oxygen levels at home and they were in the 60s. She states her shortness of breath has been worse with exertion. She also states that has been worse over the past few days secondary to the heat and humidity outside. She states she is usually compliant with a low-sodium diet but over the past week she states that she has not been cooking and just eating sandwiches with lunch meat that are high in sodium. The patient was started on IV Lasix and also IV Solu-Medrol. Patient's vital signs are stable. Bedside telemetry reveals atrial fibrillation with controlled ventricular rate. The patient states she is a former cigarette smoker and quit smoking a few months ago. DIAGNOSTICS: - EKG reveals atrial fibrillation with controlled ventricular rate. - Chest xray pulmonary vascular congestion. Cardiomegaly. Small bilateral pleural effusions.. - Laboratory data: WBC 10.1. Hemoglobin 11.7. Platelet count 217. Sodium 139. Potassium 4.2. BUN 30. Creatinine 0.69. Troponin negative x 2. proBNP 1640. - Current home cardiac medication list has not been updated at the time of dictation 10/02/2023 Patient examined this morning the bedside. Patient continues to report shortness of breath although improved from yesterday. She denies chest pain or pressure. She remains on IV Lasix 40 mg every 12 hours. Creatinine stable today 0.67. Telemetry reveals atrial fibrillation in the 80s. PHYSICAL EXAM: VITAL SIGNS: Reviewed. GENERAL: Well-developed in no acute distress. HEENT: Head is normocephalic. Pupils are equal, round. Sclerae anicteric. Mucous membranes of the mouth are moist. Neck supple. No JVD or thyromegaly LUNGS: Respirations even and unlabored. Lungs with decreased air exchange and bibasilar crackles HEART: Irregular rate and rhythm. S1 and S2 heard. Soft systolic murmur noted. ABDOMEN: Soft. Nondistended. Nontender. EXTREMITIES: Normal range of motion. No clubbing or cyanosis. Peripheral pulses intact. 1+ bilateral pitting lower extremity edema, worse at the ankles NEUROLOGIC: Awake and alert. Oriented x 3. ASSESSMENT: Shortness of breath Acute on chronic heart failure, type unknown, echo pending, suspect preserved EF Paroxysmal atrial fibrillation with controlled ventricular rate Acute exacerbation of COPD Chronic hypoxic respiratory failure on home oxygen History of nonobstructive CAD, per patient, details unknown History of myocardial infarction without stenting, 1985 per patient History of CVA Former nicotine dependence, patient states she quit smoking a few months ago Noncompliance with low-sodium/cardiac diet Morbid obesity: BMI 40.4 PLAN: 2D echo pending. Await results. Continue IV Lasix 40 mg every 12 hours Daily weights, accurate intake and output, and monitoring of kidney function Compliance with low-sodium diet reinforced Patient expressing frustration with cardiac/low sodium diet and requesting further information. Will consult CHF navigator to speak with patient tomorrow. Further recommendations pending patient course Nurse practitioner note has been reviewed by physician. Signing provider agrees with the documented findings, assessment, and plan of care documented by L[employer] BE[employer] COLOR SCANNER OPERATOR as a scribe. Objective - Vital Signs Vital signs: Vital Signs Temp 97.4 F L 10/02/23 07:37 Pulse 72 10/02/23 09:12 Resp 20 10/02/23 07:37 BP 118/73 10/02/23 07:37 Pulse Ox 93 L 10/02/23 09:12 FiO2 Intake & Output 10/01/23 10/02/23 10/02/23 18:59 06:59 18:59 Intake Total 240 10 Output Total 500 700 Balance -260 -690 Weight 96.978 kg Intake: IV 10 Invasive Line 1 10 Oral 240 Output: Urine 500 700 Other: Voiding Method External Catheter External Catheter - Labs CBC & Chem 7: 10/02/23 06:36 10/02/23 06:36 Labs: Abnormal Lab Results - Last 24 Hours (Table) 10/01/23 10/01/23 10/02/23 Range/Units 16:31 19:49 05:54 WBC (3.8-10.6) k/uL RBC (3.80-5.40) m/uL Hgb (11.4-16.0) gm/dL Hct (34.0-46.0) % MCV (80.0-100.0) fL Neutrophils # (1.3-7.7) k/uL Lymphocytes # (1.0-4.8) k/uL Sodium (137-145) mmol/L Chloride (98-107) mmol/L Carbon Dioxide (22-30) mmol/L BUN (7-17) mg/dL Glucose (74-99) mg/dL POC Glucose (mg/dL) 155 H 190 H 229 H (70-110) mg/dL Calcium (8.4-10.2) mg/dL Total Protein (6.3-8.2) g/dL 10/02/23 10/02/23 Range/Units 06:36 06:36 WBC 18.1 H (3.8-10.6) k/uL RBC 3.08 L (3.80-5.40) m/uL Hgb 10.4 L (11.4-16.0) gm/dL Hct 32.6 L (34.0-46.0) % MCV 105.9 H (80.0-100.0) fL Neutrophils # 16.8 H (1.3-7.7) k/uL Lymphocytes # 0.5 L (1.0-4.8) k/uL Sodium 134 L (137-145) mmol/L Chloride 95 L (98-107) mmol/L Carbon Dioxide 35 H (22-30) mmol/L BUN 26 H (7-17) mg/dL Glucose 193 H (74-99) mg/dL POC Glucose (mg/dL) (70-110) mg/dL Calcium 8.3 L (8.4-10.2) mg/dL Total Protein 6.0 L (6.3-8.2) g/dL
[2023-10-02 11:46] LABS: Glucose,Whole Blood 160 mg/dL (70-110)
--- NOTE | 2023-10-02 11:46 | P.PN ---
Subjective Progress Note Date: 10/02/23 Principal diagnosis: Acute on chronic congestive heart failure, acute exacerbation of COPD, chronic hypoxic respiratory failure This is a pleasant 67-year-old female patient who has a known history of oxygen dependent chronic obstructive pulmonary disease, former heavy smoker, obesity, atrial fibrillation anticoagulated with Xarelto, coronary artery disease, hypertension, hyperlipidemia. She presented to the emergency room early this morning with worsening shortness of breath over the past several days and low O2 saturations in the 60s. She had her home oxygen checked by the company and it was felt to be working fine. She also felt that the oxygen she was receiving w as getting too warm from the external heat of the day. Chest x-ray reveals pulmonary vascular congestion with cardiomegaly and small pleural effusions. White count 10.217. Sodium 139. Potassium 4.2. Bicarb 26. BUN 30. Creatinine 0.69. Troponins were negative x 3. proBNP 1640. Seen today in consultation in the emergency department. She is currently sitting up on the stretcher. Awake and alert in no acute distress. She is requiring 10 L high flow nasal cannula to maintain O2 saturations in the 90s. He has been afebrile. Hemodynamically stable. Patient was reevaluated today on 10/02/2023, patient is feeling better today, breathing easier compared to yesterday. Remains on Lasix at 40 mg IV push every 12 hours, renal functioning remains normal. Her monitor shows atrial fibrilla tion with relatively controlled rateWBC count is 18.1 hemoglobin 10.4 electrolytes are normal bicarb is 35 BUN 26 creatinine 0.6 patient will have a repeat/follow-up chest x-ray in the next 24 hours to follow-up on her congestive heart failure. Patient is being followed by cardiology, echocardiogram is pending Objective - Vital Signs Vital signs: Vital Signs Temp 97.4 F L 10/02/23 07:37 Pulse 70 10/02/23 11:29 Resp 20 10/02/23 07:37 BP 118/73 10/02/23 07:37 Pulse Ox 93 L 10/02/23 09:12 FiO2 Intake & Output 10/01/23 10/02/23 10/02/23 18:59 06:59 18:59 Intake Total 240 10 Output Total 706 012 3471 Balance -940 -722 -0865 Weight 96.978 kg Intake: IV 10 Invasive Line 1 10 Oral 240 Output: Urine 035 848 3469 Other: Voiding Method External Catheter External Catheter - Exam GENERAL EXAM: revealed a 68-year-old female, in no distress, on O2, On 4 L nasal cannula, she was on 8 L yesterday HEAD: Normocephalic. EYES: Normal reaction of pupils, equal size. NOSE: Clear with pink turbinates. THROAT: No erythema or exudates. NECK: No masses, no JVD. CHEST: No chest wall deformity. LUNGS: Crackles persist at the bases with expiratory rhonchi no wheezing. CVS: S1 and S2 normal with no audible murmur, regular rhythm. ABDOMEN: No hepatosplenomegaly, normal bowel sounds, no guarding or rigidity. SKIN: No rashes CENTRAL NERVOUS SYSTEM: Alert oriented x 3 no gross focal deficit Psychiatric: Normal mood affect and no mental status examination EXTREMITIES: Trace of bipedal edema no clubbing no cyanosis - Labs CBC & Chem 7: 10/02/23 06:36 10/02/23 06:36 Labs: Abnormal Lab Results - Last 24 Hours (Table) 10/01/23 10/01/23 10/02/23 Range/Units 16:31 19:49 05:54 WBC (3.8-10.6) k/uL RBC (3.80-5.40) m/uL Hgb (11.4-16.0) gm/dL Hct (34.0-46.0) % MCV (80.0-100.0) fL Neutrophils # (1.3-7.7) k/uL Lymphocytes # (1.0-4.8) k/uL Sodium (137-145) mmol/L Chloride (98-107) mmol/L Carbon Dioxide (22-30) mmol/L BUN (7-17) mg/dL Glucose (74-99) mg/dL POC Glucose (mg/dL) 155 H 190 H 229 H (70-110) mg/dL Calcium (8.4-10.2) mg/dL Total Protein (6.3-8.2) g/dL 10/02/23 10/02/23 Range/Units 06:36 06:36 WBC 18.1 H (3.8-10.6) k/uL RBC 3.08 L (3.80-5.40) m/uL Hgb 10.4 L (11.4-16.0) gm/dL Hct 32.6 L (34.0-46.0) % MCV 105.9 H (80.0-100.0) fL Neutrophils # 16.8 H (1.3-7.7) k/uL Lymphocytes # 0.5 L (1.0-4.8) k/uL Sodium 134 L (137-145) mmol/L Chloride 95 L (98-107) mmol/L Carbon Dioxide 35 H (22-30) mmol/L BUN 26 H (7-17) mg/dL Glucose 193 H (74-99) mg/dL POC Glucose (mg/dL) (70-110) mg/dL Calcium 8.3 L (8.4-10.2) mg/dL Total Protein 6.0 L (6.3-8.2) g/dL Assessment and Plan Assessment: Impression: Acute on chronic hypoxic respiratory failure, multifactorial Acute systolic versus diastolic congestive heart failure Acute exacerbation of COPD History of severe COPD, O2 dependent with FEV1 of 42% Ex-smoker Underlying coronary artery disease Chronic atrial fibrillation maintained on Xarelto Benign essential hypertension Dyslipidemia History of depression, generalized anxiety disorder, and PTSD. Recommendation: Continue diuretics Continue bronchodilators Continue anticoagulation therapy Continue IV Solu-Medrol Titrate FiO2 accordingly maintaining O2 sats above 90% Follow-up chest x-ray in a.m. Will continue to follow Time with Patient: Less than 30
--- NOTE | 2023-10-02 12:25 | P.PN ---
Subjective Progress Note Date: 10/02/23 Hospital Course: 67-year-old female with a PMH of COPD with chronic hypoxic respiratory failure on 2 L nasal cannula oxygen continuously at home, A-fib on Xarelto, hypertension, hyperlipidemia, CAD who presents to the emergency room with complaints of shortness of breath. Chest x-ray in the emergency room revealed pulmonary vascular congestion with cardiomegaly with EKG showing A-fib at [address]/T wave changes noted. Laboratory evaluation was remarkable for MCV 105.3, BUN 30, glucose 100, proBNP 1640, and troponin less than 0.012. Started on IV Lasix, IV steroids, bronchodilators. Cardiology and pulmonology consulted. Echocardiogram pending. Subjective: Patient seen and examined at bedside. No acute events overnight. Her birthday is today. She claims that her shortness of breath is improved. Pertinent positives and negatives as discussed above, a complete review of systems was performed and all other systems are negative. Vitals Signs Reviewed. General: Nontoxic, no distress, appears at stated age Derm: Warm, dry Head: Atraumatic, normocephalic, symmetric Eyes: EOMI, no lid lag, anicteric sclera Mouth: No lip lesion, mucus membranes moist Cardiovascular: S1S2 reg, no murmur Lungs: Bibasilar rales, no accessory muscle use, supplemental oxygen Abdominal: Soft, nontender to palpation, no guarding, no appreciable organomegaly Ext: No gross muscle atrophy, 2+ pitting edema, no contractures Neuro: CN II-XI grossly intact, no focal neuro deficits Psych: Alert, oriented, appropriate affect Data Reviewed Today: Pertinent Labs: WBC 18.1, hemoglobin 10.4, sodium 134, bicarb 35, creatinine 0.67, blood sugars range between 1 60-2 29 Imaging: No new imaging Assessment and Plan: Patient has severely ill, needs close monitoring Acute on chronic CHF exacerbation, unknown EF Acute on chronic hypoxic respiratory failure Acute COPD exacerbation mild leukocytosis, likely steroid-induced and reactive -Cardiology note reviewed, continue Lasix 40 mg IV every 12 hours, continue to monitor renal function and electrolytes -Pulmonology note reviewed, continue Solu-Medrol 60 IV every 8 hours, Symbicort twice daily, DuoNebs every 2 hours as needed, 4 times daily scheduled, Spiriva daily -Continue to wean oxygen -Echocardiogram pending -Repeat chest x-ray tomorrow Type 2 diabetes -Continue Farxiga 10 mg daily -Sliding scale insulin, monitor for hypoglycemia History of CAD History of CVA Former nicotine dependence Morbidly obese Paroxysmal atrial fibrillation, rate controlled Hypertension Dyslipidemia Depression -Continue aspirin 81 mg, atorvastatin 40 mg, metoprolol succinate 100 mg daily, Xarelto 20 mg daily, paroxetine 40 mg daily DVT ppx: Xarelto Code status: Full code Anticipated discharge place: Pending clinical course Anticipated discharge time: Pending clinical course Objective - Vital Signs Vital signs: Vital Signs Temp 97.4 F L 10/02/23 07:37 Pulse 70 10/02/23 12:14 Resp 20 10/02/23 07:37 BP 118/73 10/02/23 07:37 Pulse Ox 93 L 10/02/23 09:12 FiO2 Intake & Output 10/01/23 10/02/23 10/02/23 18:59 06:59 18:59 Intake Total 240 10 Output Total 990 101 3088 Balance -811 -939 -8500 Weight 96.978 kg Intake: IV 10 Invasive Line 1 10 Oral 240 Output: Urine 142 601 3783 Other: Voiding Method External Catheter External Catheter - Labs CBC & Chem 7: 10/02/23 06:36 10/02/23 06:36 Labs: Abnormal Lab Results - Last 24 Hours (Table) 10/01/23 10/01/23 10/02/23 Range/Units 16:31 19:49 05:54 WBC (3.8-10.6) k/uL RBC (3.80-5.40) m/uL Hgb (11.4-16.0) gm/dL Hct (34.0-46.0) % MCV (80.0-100.0) fL Neutrophils # (1.3-7.7) k/uL Lymphocytes # (1.0-4.8) k/uL Sodium (137-145) mmol/L Chloride (98-107) mmol/L Carbon Dioxide (22-30) mmol/L BUN (7-17) mg/dL Glucose (74-99) mg/dL POC Glucose (mg/dL) 155 H 190 H 229 H (70-110) mg/dL Calcium (8.4-10.2) mg/dL Total Protein (6.3-8.2) g/dL 10/02/23 10/02/23 10/02/23 Range/Units 06:36 06:36 11:43 WBC 18.1 H (3.8-10.6) k/uL RBC 3.08 L (3.80-5.40) m/uL Hgb 10.4 L (11.4-16.0) gm/dL Hct 32.6 L (34.0-46.0) % MCV 105.9 H (80.0-100.0) fL Neutrophils # 16.8 H (1.3-7.7) k/uL Lymphocytes # 0.5 L (1.0-4.8) k/uL Sodium 134 L (137-145) mmol/L Chloride 95 L (98-107) mmol/L Carbon Dioxide 35 H (22-30) mmol/L BUN 26 H (7-17) mg/dL Glucose 193 H (74-99) mg/dL POC Glucose (mg/dL) 160 H (70-110) mg/dL Calcium 8.3 L (8.4-10.2) mg/dL Total Protein 6.0 L (6.3-8.2) g/dL
[2023-10-02 16:50] LABS: Glucose,Whole Blood 188 mg/dL (70-110)
[2023-10-02 20:05] LABS: Glucose,Whole Blood 250 mg/dL (70-110)
[2023-10-02] MEDS: ACETAMINOPHEN TAB 325 MG TAB PO PRN (20:40)
[2023-10-03 06:11] LABS: Glucose,Whole Blood 139 mg/dL (70-110)
--- NOTE | 2023-10-03 08:24 | XR ---
EXAMINATION TYPE: XR chest 1V portable DATE OF EXAM: 10/03/2023 6:53 AM CLINICAL INDICATION:Female, 68 years old with history of CHF; COMPARISON: Chest radiographs from 10/01/2023 TECHNIQUE: XR chest 1V portable Frontal view of the chest. FINDINGS: Lungs/Pleura: Improved aeration of the lungs. There is no evidence of pleural effusion, focal consoli dation, or pneumothorax. Pulmonary vascularity: Decreasing pulmonary interstitial markings. Heart/mediastinum: Cardiomediastinal silhouette is unremarkable. Musculoskeletal: No acute osseous pathology. IMPRESSION: Improved pulmonary vascular congestion.
[2023-10-03] MEDS: TIOTROPIUM 2.5 MCG INHALER INHALATION SCH (09:48)
[2023-10-03 09:52] LABS: African American GFR (CKD) 88 (>60 ml/min/1.73 sqM); Anion Gap 7 mmol/L; Blood Urea Nitrogen 28 mg/dL (7-17); Calcium 8.6 mg/dL (8.4-10.2); Carbon Dioxide 36 mmol/L (22-30); Chloride 91 mmol/L (98-107); Glucose 249 mg/dL (74-99); Magnesium 1.8 mg/dL (1.6-2.3); Non-African American GFR(CKD) 76 (>60 ml/min/1.73 sqM); Potassium 3.2 mmol/L (3.5-5.1); Sodium 134 mmol/L (137-145)
[2023-10-03 09:56] LABS: Basophils % (A) 0 %; Eosinophils # (A) 0.1 k/uL (0-0.7); Eosinophils % (A) 0 %; HCT 37.8 % (34.0-46.0); HGB 11.7 gm/dL (11.4-16.0); Hypochromasia Slight; Lymphocytes # (A) 0.5 k/uL (1.0-4.8); Lymphocytes % (A) 3 %; MCH 32.8 pg (25.0-35.0); MCHC 31.1 g/dL (31.0-37.0); MCV 105.6 fL (80.0-100.0); Macrocytosis Moderate; Mean Platelet Volume 9.4; Monocytes # (A) 0.6 k/uL (0-1.0); Monocytes % (A) 3 %; Neutrophils # (A) 16.8 k/uL (1.3-7.7); Neutrophils % (A) 93 %; Platelet Count 282 k/uL (150-450); RBC 3.58 m/uL (3.80-5.40); RDW 14.6 % (11.5-15.5)
[2023-10-03] MEDS: POTASSIUM CHLORIDE ER 20 MEQ TAB.ER PO STA (10:07)
--- NOTE | 2023-10-03 11:15 | P.PN ---
Subjective HISTORY OF PRESENT ILLNESS: This is a 67-year-old female with a past medical history significant for COPD with home oxygen use, coronary artery disease, atrial fibrillation, CVA, congestive heart failure, and former nicotine dependence. 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 We have been asked to see the patient in consultation for congestive heart failure. Patient examined at the bedside in the emergency room. Patient states she presented to the hospital with a chief complaint of shortness of breath. She states that she checked her oxygen levels at home and they were in the 60s. She states her shortness of breath has been worse with exertion. She also states that has been worse over the past few days secondary to the heat and humidity outside. She states she is usually compliant with a low-sodium diet but over the past week she states that she has not been cooking and just eating sandwiches with lunch meat that are high in sodium. The patient was started on IV Lasix and also IV Solu-Medrol. Patient's vital signs are stable. Bedside telemetry reveals atrial fibrillation with controlled ventricular rate. The patient states she is a former cigarette smoker and quit smoking a few months ago. DIAGNOSTICS: - EKG reveals atrial fibrillation with controlled ventricular rate. - Chest xray pulmonary vascular congestion. Cardiomegaly. Small bilateral pleural effusions.. - Laboratory data: WBC 10.1. Hemoglobin 11.7. Platelet count 217. Sodium 139. Potassium 4.2. BUN 30. Creatinine 0.69. Troponin negative x 2. proBNP 1640. - Current home cardiac medication list has not been updated at the time of dictation 10/02/2023 Patient examined this morning the bedside. Patient continues to report shortness of breath although improved from yesterday. She denies chest pain or pressure. She remains on IV Lasix 40 mg every 12 hours. Creatinine stable today 0.67. Telemetry reveals atrial fibrillation in the 80s. 10/03/2023 Patient examined this morning at bedside. Patient continues to report shortness of breath. She denies any chest pain or pressure. She remains on IV diuretics. Creatinine today remained stable at 0.81. Chest x-ray today reveals improved pulmonary vascular congestion. PHYSICAL EXAM: VITAL SIGNS: Reviewed. GENERAL: Well-developed in no acute distress. HEENT: Head is normocephalic. Pupils are equal, round. Sclerae anicteric. Mucous membranes of the mouth are moist. Neck supple. No JVD or thyromegaly LUNGS: Respirations even and unlabored. Lungs with decreased air exchange and bibasilar crackles HEART: Irregular rate and rhythm. S1 and S2 heard. Soft systolic murmur noted. ABDOMEN: Soft. Nondistended. Nontender. EXTREMITIES: Normal range of motion. No clubbing or cyanosis. Peripheral pulses intact. 1+ bilateral pitting lower extremity edema, worse at the ankles NEUROLOGIC: Awake and alert. Oriented x 3. ASSESSMENT: Shortness of breath Acute on chronic heart failure, type unknown, echo pending, suspect preserved EF Paroxysmal atrial fibrillation with controlled ventricular rate Acute exacerbation of COPD Chronic hypoxic respiratory failure on home oxygen History of nonobstructive CAD, per patient, details unknown History of myocardial infarction without stenting, 1986 per patient History of CVA Former nicotine dependence, patient states she quit smoking a few months ago Noncompliance with low-sodium/cardiac diet Morbid obesity: BMI 40.4 Hypokalemia PLAN: 2D echo pending. Await results. Continue IV Lasix 40 mg every 12 hours Daily weights, accurate intake and output, and monitoring of kidney function Compliance with low-sodium diet reinforced Patient expressing frustration yesterday with cardiac/low sodium diet and requesting further information. Will consult CHF navigator to speak with patient. Further recommendations pending patient course Nurse practitioner note has been reviewed by physician. Signing provider agrees with the documented findings, assessment, and plan of care documented by CATALOGUE ILLUSTRATOR as a scribe. Objective - Vital Signs Vital signs: Vital Signs Temp 97.8 F 10/03/23 08:00 Pulse 82 10/03/23 09:48 Resp 18 10/03/23 08:00 BP 98/65 10/03/23 08:00 Pulse Ox 98 10/03/23 09:35 FiO2 Intake & Output 10/02/23 10/03/23 10/03/23 18:59 06:59 18:59 Intake Total 118 480 Output Total 3025 1050 1200 Balance -2907 -5600 -720 Weight 95.3 kg Intake: Oral 118 480 Output: Urine 3025 1050 1200 Other: Voiding Method External Catheter External Catheter External Catheter - Labs CBC & Chem 7: 10/03/23 08:32 10/03/23 08:32 Labs: Abnormal Lab Results - Last 24 Hours (Table) 10/02/23 10/02/23 10/02/23 Range/Units 11:43 16:41 20:04 WBC (3.8-10.6) k/uL RBC (3.80-5.40) m/uL MCV (80.0-100.0) fL Neutrophils # (1.3-7.7) k/uL Lymphocytes # (1.0-4.8) k/uL Sodium (137-145) mmol/L Potassium (3.5-5.1) mmol/L Chloride (98-107) mmol/L Carbon Dioxide (22-30) mmol/L BUN (7-17) mg/dL Glucose (74-99) mg/dL POC Glucose (mg/dL) 160 H 188 H 250 H (70-110) mg/dL 10/03/23 10/03/23 10/03/23 Range/Units 06:09 08:32 08:32 WBC 18.0 H (3.8-10.6) k/uL RBC 3.58 L (3.80-5.40) m/uL MCV 105.6 H (80.0-100.0) fL Neutrophils # 16.8 H (1.3-7.7) k/uL Lymphocytes # 0.5 L (1.0-4.8) k/uL Sodium 134 L (137-145) mmol/L Potassium 3.2 L (3.5-5.1) mmol/L Chloride 91 L (98-107) mmol/L Carbon Dioxide 36 H (22-30) mmol/L BUN 28 H (7-17) mg/dL Glucose 249 H (74-99) mg/dL POC Glucose (mg/dL) 139 H (70-110) mg/dL
--- NOTE | 2023-10-03 11:43 | CA ---
Transthoracic Echo Report Name: Maria Del Carmen Ford Age: 67 Gender: F : 1955 Exam Date: 10/01/2023 15:28 Exam Location: [place] [facility] Ht (in): 60 Wt (lb): 207 Ordering Physician: Maurilio Carias DO Attending/Referring Phys: [id number], Aretha [employer] Therapy Director Shana Lopez RDCS Procedure CPT: Indications: chf Cardiac Hx: Technical Quality: Fair Contrast 1: Total Dose (mL): Contrast 2: Total Dose (mL): MEASUREMENTS (Male / Female) Normal Values 2D ECHO LV Diastolic Diameter PLAX 3.8 cm 4.2 - 5.9 / 3.9 - 5.3 cm LV Systolic Diameter PLAX 2.4 cm IVS Diastolic Thickness 1.2 cm 0.6 - 1.0 / 0.6 - 0.9 cm LVPW Diastolic Thickness 1.0 cm 0.6 - 1.0 / 0.6 - 0.9 cm LV Relative Wall Thickness 0.6 RV Internal Dim ED PLAX 3.2 cm LVOT Diameter 1.9 cm LA Volume 57.3 cm??? 18 - 58 / 22 - 52 cm??? LA Volume Index 28.0 cm???/m??? 16 - 28 cm???/m??? Ascending Aorta Diameter 3.6 cm DOPPLER AV Peak Velocity 139.7 cm/s AV Peak Gradient 7.8 mmHg AV Mean Velocity 93.0 cm/s AV Mean Gradient 3.9 mmHg AV Velocity Time Integral 25.4 cm LVOT Peak Velocity 105.8 cm/s LVOT Peak Gradient 4.5 mmHg LVOT Velocity Time Integral 17.9 cm LVOT Stroke Volume 49.1 cm??? LVOT Stroke Volume Index 25.9 ml/m??? LVOT Cardiac Index 2062.7 cm???/min???m??? AV Area Cont Eq vti 1.9 cm??? AV Area Cont Eq pk 2.1 cm??? TR Peak Velocity 282.3 cm/s TR Peak Gradient 31.9 mmHg Right Atrial Pressure 10.0 mmHg Pulmonary Artery Systolic Pressu 41.9 mmHg Right Ventricular Systolic Press 41.9 mmHg PV Peak Velocity 74.6 cm/s PV Peak Gradient 2.2 mmHg FINDINGS Left Ventricle Left ventricular ejection fraction is estimated at 55-60 %. Mildly increased septal wall thickness. Mildly increased posterior wall thickness. Left ventricular cavity size normal. No obvious regional wall motion abnormalities. Right Ventricle Mild right ventricular dilatation with mildly reduced function. Mildly elevated right ventricular systolic pressure. Septal shudder noticed. Right Atrium Mild to moderate right atrial dilatation. Left Atrium Mildly increased left atrial volume. Mildly increased left atrial area. Mitral Valve Mitral valve thickened. No evidence for mitral valve prolapse. No mitral stenosis. Trace mitral regurgitation. Aortic Valve Trileaflet aortic valve. No aortic stenosis. Trace aortic regurgitation. Tricuspid Valve Structurally normal tricuspid valve. No tricuspid stenosis. Mild tricuspid regurgitation. Pulmonic Valve Pulmonic valve not well visualized. No pulmonic stenosis. No pulmonic regurgitation. Pericardium No pericardial effusion. Epicardial fat Aorta Normal size aortic root and proximal ascending aorta. CONCLUSIONS Left ventricular ejection fraction is estimated at 55-60 %. Mild concentric LVH No obvious regional wall motion abnormalities. Mild right ventricular dilatation with mildly reduced function. Elevated RVSP at 42 mmHg No significant mitral valve or aortic valve pathology Previewed by: Dr Boy Obando (Electronically Signed) Final Date: 03 October 2023 11:42
[2023-10-03 11:48] LABS: Glucose,Whole Blood 144 mg/dL (70-110)
--- NOTE | 2023-10-03 13:17 | P.PN ---
Subjective Progress Note Date: 10/03/23 Hospital Course: 67-year-old female with a PMH of COPD with chronic hypoxic respiratory failure on 2 L nasal cannula oxygen continuously at home, A-fib on Xarelto, hypertension, hyperlipidemia, CAD who presents to the emergency room with complaints of shortness of breath. Chest x-ray in the emergency room revealed pulmonary vascular congestion with cardiomegaly with EKG showing A-fib at [address]/T wave changes noted. Laboratory evaluation was remarkable for MCV 105.3, BUN 30, glucose 100, proBNP 1640, and troponin less than 0.012. Started on IV Lasix, IV steroids, bronchodilators. Cardiology and pulmonology consulted. Echocardiogram showed LVEF 55 to 60%, mild RV dilatation with mildly reduced function, elevated RVSP at 42 mmHg. Subjective: Patient seen and examined at bedside. No acute events overnight. She claims that her shortness of breath is improved. Pertinent positives and negatives as discussed above, a complete review of systems was performed and all other systems are negative. Vitals Signs Reviewed. General: Nontoxic, no distress, appears at stated age Derm: Warm, dry Head: Atraumatic, normocephalic, symmetric Eyes: EOMI, no lid lag, anicteric sclera Mouth: No lip lesion, mucus membranes moist Cardiovascular: S1S2 reg, no murmur Lungs: Bibasilar rales, no accessory muscle use, supplemental oxygen Abdominal: Soft, nontender to palpation, no guarding, no appreciable organomegaly Ext: No gross muscle atrophy, 2+ pitting edema, no contractures Neuro: CN II-XI grossly intact, no focal neuro deficits Psych: Alert, oriented, appropriate affect Data Reviewed Today: Pertinent Labs: WBC 18, hemoglobin 11.7, potassium 3.2, creatinine 0.81, magnesium 1.8 Imaging: X-ray independently interpreted, shows similar bilateral interstitial opacities Assessment and Plan: Patient has severely ill, needs close monitoring Acute on chronic CHF exacerbation, unknown EF Acute on chronic hypoxic respiratory failure Acute COPD exacerbation mild leukocytosis, likely steroid-induced and reactive -Cardiology note reviewed, continue Lasix 40 mg IV every 12 hours, continue to monitor renal function and electrolytes -Discussed management with pulmonology, continue Solu-Medrol 60 IV every 8 hours, Symbicort twice daily, DuoNebs every 2 hours as needed, 4 times daily scheduled, Spiriva daily -Continue to wean oxygen Type 2 diabetes -Continue Farxiga 10 mg daily -Sliding scale insulin, monitor for hypoglycemia History of CAD History of CVA Former nicotine dependence Morbidly obese Paroxysmal atrial fibrillation, rate controlled Hypertension Dyslipidemia Depression -Continue aspirin 81 mg, atorvastatin 40 mg, metoprolol succinate 100 mg daily, Xarelto 20 mg daily, paroxetine 40 mg daily DVT ppx: Xarelto Code status: Full code Anticipated discharge place: Pending clinical course Anticipated discharge time: Pending clinical course Objective - Vital Signs Vital signs: Vital Signs Temp 97.8 F 10/03/23 08:00 Pulse 78 10/03/23 12:26 Resp 20 10/03/23 11:39 BP 108/73 10/03/23 11:39 Pulse Ox 93 L 10/03/23 11:39 FiO2 Intake & Output 10/02/23 10/03/23 10/03/23 18:59 06:59 18:59 Intake Total 118 720 Output Total 3025 1050 1750 Balance -2907 -1050 -1030 Weight 95.3 kg Intake: Oral 118 720 Output: Urine 3025 1050 1750 Other: Voiding Method External Catheter External Catheter External Catheter - Labs CBC & Chem 7: 10/03/23 08:32 10/03/23 08:32 Labs: Abnormal Lab Results - Last 24 Hours (Table) 10/02/23 10/02/23 10/03/23 Range/Units 16:41 20:04 06:09 WBC (3.8-10.6) k/uL RBC (3.80-5.40) m/uL MCV (80.0-100.0) fL Neutrophils # (1.3-7.7) k/uL Lymphocytes # (1.0-4.8) k/uL Sodium (137-145) mmol/L Potassium (3.5-5.1) mmol/L Chloride (98-107) mmol/L Carbon Dioxide (22-30) mmol/L BUN (7-17) mg/dL Glucose (74-99) mg/dL POC Glucose (mg/dL) 188 H 250 H 139 H (70-110) mg/dL 10/03/23 10/03/23 10/03/23 Range/Units 08:32 08:32 11:47 WBC 18.0 H (3.8-10.6) k/uL RBC 3.58 L (3.80-5.40) m/uL MCV 105.6 H (80.0-100.0) fL Neutrophils # 16.8 H (1.3-7.7) k/uL Lymphocytes # 0.5 L (1.0-4.8) k/uL Sodium 134 L (137-145) mmol/L Potassium 3.2 L (3.5-5.1) mmol/L Chloride 91 L (98-107) mmol/L Carbon Dioxide 36 H (22-30) mmol/L BUN 28 H (7-17) mg/dL Glucose 249 H (74-99) mg/dL POC Glucose (mg/dL) 144 H (70-110) mg/dL
--- NOTE | 2023-10-03 14:38 | P.PN ---
Subjective Progress Note Date: 10/03/23 Principal diagnosis: COPD exacerbation. This is a pleasant 67-year-old female patient who has a known history of oxygen dependent chronic obstructive pulmonary disease, former heavy smoker, obesity, atrial fibrillation anticoagulated with Xarelto, coronary artery disease, hypert ension, hyperlipidemia. She presented to the emergency room early this morning with worsening shortness of breath over the past several days and low O2 saturations in the 60s. She had her home oxygen checked by the company and it was felt to be working fine. She also felt that the oxygen she was receiving was getting too warm from the external heat of the day. Chest x-ray reveals pulmonary vascular congestion with cardiomegaly and small pleural effusions. White count 10.217. Sodium 139. Potassium 4.2. Bicarb 26. BUN 30. Creatinine 0.69. Troponins were negative x 3. proBNP 1640. Seen today in consultation in the emergency department. She is currently sitting up on the stretcher. Awake and alert in no acute distress. She is requiring 10 L high flow nasal cannula to maintain O2 saturations in the 90s. He has been afebrile. Hemodynamically stable. Patient was reevaluated today on 10/02/2023, patient is feeling better today, breathing easier compared to yesterday. Remains on Lasix at 40 mg IV push every 12 hours, renal functioning remains normal. Her monitor shows atrial fibrillation with relatively controlled rateWBC count is 18.1 hemoglobin 10.4 electrolytes are normal bicarb is 35 BUN 26 creatinine 0.6 patient will have a repeat/follow-up chest x-ray in the next 24 hours to follow-up on her congestive heart failure. Patient is being followed by cardiology, echocardiogram is pending Progress note dated October 03, 2023. This is a 68-year-old female seen today in room 360. The patient is not receiving any IV fluids. She is on oxygen by nasal cannula at 4 L. Clinically, she states that she is starting to feel better. Her breathing is improved. She was seen in consultation 2 days ago. Current laboratory data includes a white count 18, hemoglobin 11.7, hematocrit 37.8, platelet count 282,000. Sodium 134, potassium 3.2, chloride 91, CO2 36, BUN 28, and creatinine 0.81. Glucose is 144. Calcium 8.6, and magnesium 1.8. Chest x-ray from today shows improved pulmonary vascular congestion. Objective - Vital Signs Vital signs: Vital Signs Temp 97.8 F 10/03/23 08:00 Pulse 78 10/03/23 12:26 Resp 20 10/03/23 11:39 BP 108/73 10/03/23 11:39 Pulse Ox 93 L 10/03/23 11:39 FiO2 Intake & Output 10/02/23 10/03/23 10/03/23 18:59 06:59 18:59 Intake Total 118 830 Output Total 3025 1050 1750 Balance -2907 -1050 -920 Weight 95.3 kg Intake: Oral 118 830 Output: Urine 3025 1050 1750 Other: Voiding Method External Catheter External Catheter External Catheter - Exam No acute distress, oriented 3. 4 L saturation is 93%. The patient is not manifesting any signs or symptoms of respiratory difficulty or distress. HEENT examination is grossly unremarkable. Mucous membranes are moist. No oral lesions. Neck supple. Full range of motion. No adenopathy thyromegaly or neck vein distention. Cardiovascular examination reveals regular rhythm rate. S1-S2 normal. No S3 or S4. No discernible murmur noted. Heart rate is 78 bpm. Heart sounds are distant. Lungs reveal bibasilar crackles. No wheezes or rhonchi. Sounds are equal bilaterally. 4 L saturation is 93%. Abdomen soft bowel sounds are heard. No masses or tenderness. Extremities are intact. No cyanosis or clubbing. Minimal lower extremity edema. Skin is without rash or lesion. Neurologic examination is brief but nonfocal. - Labs CBC & Chem 7: 10/03/23 08:32 10/03/23 08:32 Labs: Abnormal Lab Results - Last 24 Hours (Table) 10/01/23 10/02/23 10/02/23 Range/Units 04:25 16:41 20:04 WBC (3.8-10.6) k/uL RBC (3.80-5.40) m/uL MCV (80.0-100.0) fL Neutrophils # (1.3-7.7) k/uL Lymphocytes # (1.0-4.8) k/uL Sodium (137-145) mmol/L Potassium (3.5-5.1) mmol/L Chloride (98-107) mmol/L Carbon Dioxide (22-30) mmol/L BUN (7-17) mg/dL Glucose (74-99) mg/dL POC Glucose (mg/dL) 188 H 250 H (70-110) mg/dL RBC Folate 821 H (280 - 791) ng/mL 10/03/23 10/03/23 10/03/23 Range/Units 06:09 08:32 08:32 WBC 18.0 H (3.8-10.6) k/uL RBC 3.58 L (3.80-5.40) m/uL MCV 105.6 H (80.0-100.0) fL Neutrophils # 16.8 H (1.3-7.7) k/uL Lymphocytes # 0.5 L (1.0-4.8) k/uL Sodium 134 L (137-145) mmol/L Potassium 3.2 L (3.5-5.1) mmol/L Chloride 91 L (98-107) mmol/L Carbon Dioxide 36 H (22-30) mmol/L BUN 28 H (7-17) mg/dL Glucose 249 H (74-99) mg/dL POC Glucose (mg/dL) 139 H (70-110) mg/dL RBC Folate (280 - 791) ng/mL 10/03/23 Range/Units 11:47 WBC (3.8-10.6) k/uL RBC (3.80-5.40) m/uL MCV (80.0-100.0) fL Neutrophils # (1.3-7.7) k/uL Lymphocytes # (1.0-4.8) k/uL Sodium (137-145) mmol/L Potassium (3.5-5.1) mmol/L Chloride (98-107) mmol/L Carbon Dioxide (22-30) mmol/L BUN (7-17) mg/dL Glucose (74-99) mg/dL POC Glucose (mg/dL) 144 H (70-110) mg/dL RBC Folate (280 - 791) ng/mL Assessment and Plan Assessment: Acute on chronic hypoxemic respiratory failure, multifactorial. Acute systolic versus diastolic congestive heart failure. Acute exacerbation of chronic obstructive pulmonary disease. History of severe COPD, oxygen dependent, with an FEV1 percent of 42. History of previous tobacco use. History of coronary artery disease. Chronic atrial fibrillation. Benign essential hypertension. Hyperlipidemia. History of depression, anxiety, and PTSD. Plan: Plan dated October 03, 2023. The patient appears to be doing better. Her chest x-ray shows improved vascular congestion. Labs, x-rays, and medications are all reviewed. The patient continues on diuretics, bronchodilators, and anticoagulation. The patient also continues on corticosteroids. We will continue to follow and make recommendations along the way. The patient is overall prognosis remains guarded. The patient has a number of questions today, and they are all answered. Time with Patient: Less than 30
[2023-10-03 15:26] VITALS: RESP 18
[2023-10-03 16:18] LABS: Glucose,Whole Blood 192 mg/dL (70-110)
[2023-10-03 20:00] LABS: Glucose,Whole Blood 220 mg/dL (70-110)
[2023-10-04 06:02] LABS: Glucose,Whole Blood 128 mg/dL (70-110)
[2023-10-04 08:25] LABS: Basophils % (A) 0 %; Eosinophils % (A) 0 %; HCT 38.4 % (34.0-46.0); HGB 11.9 gm/dL (11.4-16.0); Hypochromasia Slight; Lymphocytes % (A) 6 %; MCV 106.3 fL (80.0-100.0); Macrocytosis Moderate; Mean Platelet Volume 9.1; Monocytes # (A) 1.2 k/uL (0-1.0); Monocytes % (A) 8 %; Neutrophils # (A) 13.6 k/uL (1.3-7.7); Neutrophils % (A) 85 %; Platelet Count 252 k/uL (150-450); RBC 3.61 m/uL (3.80-5.40); RDW 14.7 % (11.5-15.5); WBC 15.9 k/uL (3.8-10.6)
[2023-10-04 08:29] VITALS: TEMP 97.7
[2023-10-04 08:44] LABS: African American GFR (CKD) >90 (>60 ml/min/1.73 sqM); Anion Gap 4 mmol/L; Blood Urea Nitrogen 28 mg/dL (7-17); Calcium 8.3 mg/dL (8.4-10.2); Carbon Dioxide 38 mmol/L (22-30); Chloride 93 mmol/L (98-107); Glucose 116 mg/dL (74-99); Non-African American GFR(CKD) >90 (>60 ml/min/1.73 sqM); Potassium 3.1 mmol/L (3.5-5.1); Sodium 135 mmol/L (137-145)
[2023-10-04] MEDS: POTASSIUM CHLORIDE ER 20 MEQ TAB.ER PO STA (10:27)
--- NOTE | 2023-10-04 11:42 | P.PN ---
Subjective HISTORY OF PRESENT ILLNESS: This is a 67-year-old female with a past medical history significant for COPD with home oxygen use, coronary artery disease, atrial fibrillation, CVA, congestive heart failure, and former nicotine dependence. Patient does not follow with a public relations writer. We have been asked to see the patient in consultation for congestive heart failure. Patient examined at the bedside in the emergency room. Patient states she presented to the hospital with a chief complaint of shortness of breath. She states that she checked her oxygen levels at home and they were in the 60s. She states her shortness of breath has been worse with exertion. She also states that has been worse over the past few days secondary to the heat and humidity outside. She states she is usually compliant with a low-sodium diet but over the past week she states that she has not been cooking and just eating sandwiches with lunch meat that are high in sodium. The patient was started on IV Lasix and also IV Solu-Medrol. Patient's vital signs are stable. Bedside telemetry reveals atrial fibrillation with controlled ventricular rate. The patient states she is a former cigarette smoker and quit smoking a few months ago. DIAGNOSTICS: - EKG reveals atrial fibrillation with controlled ventricular rate. - Chest xray pulmonary vascular congestion. Cardiomegaly. Small bilateral pleural effusions.. - Laboratory data: WBC 10.1. Hemoglobin 11.7. Platelet count 217. Sodium 139. Potassium 4.2. BUN 30. Creatinine 0.69. Troponin negative x 2. proBNP 1640. - Current home cardiac medication list has not been updated at the time of dictation 10/02/2023 Patient examined this morning the bedside. Patient continues to report shortness of breath although improved from yesterday. She denies chest pain or pressure. She remains on IV Lasix 40 mg every 12 hours. Creatinine stable today 0.67. Telemetry reveals atrial fibrillation in the 80s. 10/03/2023 Patient examined this morning at bedside. Patient continues to report shortness of breath. She denies any chest pain or pressure. She remains on IV diuretics. Creatinine today remained stable at 0.81. Chest x-ray today reveals improved pulmonary vascular congestion. 10/04/2023 Patient examined this morning the bedside. Patient currently denies chest pain or pressure. She denies shortness of breath. She remains on IV diuretics. Echocardiogram completed revealing ejection fraction 55 to 60% PHYSICAL EXAM: VITAL SIGNS: Reviewed. GENERAL: Well-developed in no acute distress. HEENT: Head is normocephalic. Pupils are equal, round. Sclerae anicteric. Mucous membranes of the mouth are moist. Neck supple. No JVD or thyromegaly LUNGS: Respirations even and unlabored. Lungs diminished bilaterally HEART: Irregular rate and rhythm. S1 and S2 heard. Soft systolic murmur noted. ABDOMEN: Soft. Nondistended. Nontender. EXTREMITIES: Normal range of motion. No clubbing or cyanosis. Peripheral pulses intact. Trace bilateral lower extremity edema. NEUROLOGIC: Awake and alert. Oriented x 3. ASSESSMENT: Shortness of breath Acute on chronic heart failure with preserved EF Paroxysmal atrial fibrillation with controlled ventricular rate Acute exacerbation of COPD Chronic hypoxic respiratory failure on home oxygen History of nonobstructive CAD, per patient, details unknown History of myocardial infarction without stenting, 1985 per patient History of CVA Former nicotine dependence, patient states she quit smoking a few months ago Noncompliance with low-sodium/cardiac diet Morbid obesity: BMI 40.4 Hypokalemia PLAN: Discontinue IV Lasix. Begin oral Lasix. Compliance with low-sodium diet reinforced Patient to meet with CHF educator today prior to discharge Patient is stable for discharge home today from a cardiac standpoint Patient to follow up with Dr. Irwin post discharge Nurse practitioner note has been reviewed by physician. Signing provider agrees with the documented findings, assessment, and plan of care documented by TECHNICAL PROGRAMS MANAGER as a scribe. Objective - Vital Signs Vital signs: Vital Signs Temp 97.7 F 10/04/23 08:26 Pulse 100 10/04/23 09:27 Resp 18 10/04/23 09:27 BP 124/82 10/04/23 08:26 Pulse Ox 90 L 10/04/23 08:48 FiO2 Intake & Output 10/03/23 10/04/23 10/04/23 18:59 06:59 18:59 Intake Total 1550 Output Total 2250 1500 350 Balance -700 -1500 -350 Weight 92.8 kg Intake: Oral 1550 Output: Urine 2250 1500 350 Other: Voiding Method External Catheter External Catheter External Catheter # Voids 1 # Bowel Movements 1 - Labs CBC & Chem 7: 10/04/23 07:05 10/04/23 07:05 Labs: Abnormal Lab Results - Last 24 Hours (Table) 06/10/03/23 10/03/23 Range/Units 04:25 11:47 16:12 WBC (3.8-10.6) k/uL RBC (3.80-5.40) m/uL MCV (80.0-100.0) fL Neutrophils # (1.3-7.7) k/uL Monocytes # (0-1.0) k/uL Sodium (137-145) mmol/L Potassium (3.5-5.1) mmol/L Chloride (98-107) mmol/L Carbon Dioxide (22-30) mmol/L BUN (7-17) mg/dL Glucose (74-99) mg/dL POC Glucose (mg/dL) 144 H 192 H (70-110) mg/dL Calcium (8.4-10.2) mg/dL RBC Folate 821 H (280 - 791) ng/mL 10/03/23 10/04/23 10/04/23 Range/Units 19:58 06:01 07:05 WBC 15.9 H (3.8-10.6) k/uL RBC 3.61 L (3.80-5.40) m/uL MCV 106.3 H (80.0-100.0) fL Neutrophils # 13.6 H (1.3-7.7) k/uL Monocytes # 1.2 H (0-1.0) k/uL Sodium (137-145) mmol/L Potassium (3.5-5.1) mmol/L Chloride (98-107) mmol/L Carbon Dioxide (22-30) mmol/L BUN (7-17) mg/dL Glucose (74-99) mg/dL POC Glucose (mg/dL) 220 H 128 H (70-110) mg/dL Calcium (8.4-10.2) mg/dL RBC Folate (280 - 791) ng/mL 10/04/23 Range/Units 07:05 WBC (3.8-10.6) k/uL RBC (3.80-5.40) m/uL MCV (80.0-100.0) fL Neutrophils # (1.3-7.7) k/uL Monocytes # (0-1.0) k/uL Sodium 135 L (137-145) mmol/L Potassium 3.1 L (3.5-5.1) mmol/L Chloride 93 L (98-107) mmol/L Carbon Dioxide 38 H (22-30) mmol/L BUN 28 H (7-17) mg/dL Glucose 116 H (74-99) mg/dL POC Glucose (mg/dL) (70-110) mg/dL Calcium 8.3 L (8.4-10.2) mg/dL RBC Folate (280 - 791) ng/mL
[2023-10-04 11:43] LABS: Glucose,Whole Blood 131 mg/dL (70-110)
[2023-10-04 11:51] VITALS: BP 117/76; PULSE 96
--- NOTE | 2023-10-04 11:55 | P.PN ---
Subjective Progress Note Date: 10/04/23 Principal diagnosis: COPD exacerbation. This is a pleasant 67-year-old female patient who has a known history of oxygen dependent chronic obstructive pulmonary disease, former heavy smoker, obesity, atrial fibrillation anticoagulated with Xarelto, coronary artery disease, hypert ension, hyperlipidemia. She presented to the emergency room early this morning with worsening shortness of breath over the past several days and low O2 saturations in the 60s. She had her home oxygen checked by the company and it was felt to be working fine. She also felt that the oxygen she was receiving was getting too warm from the external heat of the day. Chest x-ray reveals pulmonary vascular congestion with cardiomegaly and small pleural effusions. White count 10.217. Sodium 139. Potassium 4.2. Bicarb 26. BUN 30. Creatinine 0.69. Troponins were negative x 3. proBNP 1640. Seen today in consultation in the emergency department. She is currently sitting up on the stretcher. Awake and alert in no acute distress. She is requiring 10 L high flow nasal cannula to maintain O2 saturations in the 90s. He has been afebrile. Hemodynamically stable. Patient was reevaluated today on 10/02/2023, patient is feeling better today, breathing easier compared to yesterday. Remains on Lasix at 40 mg IV push every 12 hours, renal functioning remains normal. Her monitor shows atrial fibrillation with relatively controlled rateWBC count is 18.1 hemoglobin 10.4 electrolytes are normal bicarb is 35 BUN 26 creatinine 0.6 patient will have a repeat/follow-up chest x-ray in the next 24 hours to follow-up on her congestive heart failure. Patient is being followed by cardiology, echocardiogram is pending Progress note dated October 03, 2023. This is a 68-year-old female seen today in room 360. The patient is not receiving any IV fluids. She is on oxygen by nasal cannula at 4 L. Clinically, she states that she is starting to feel better. Her breathing is improved. She was seen in consultation 2 days ago. Current laboratory data includes a white count 18, hemoglobin 11.7, hematocrit 37.8, platelet count 282,000. Sodium 134, potassium 3.2, chloride 91, CO2 36, BUN 28, and creatinine 0.81. Glucose is 144. Calcium 8.6, and magnesium 1.8. Chest x-ray from today shows improved pulmonary vascular congestion. Progress note dated October 04, 2023. 68-year-old female seen today in room 360. Currently, the patient is on oxygen by nasal cannula at 4 L. The patient is not receiving any IV fluids. She is feeling much improved. In fact, I told her that she could be considered for possible discharge. Will leave that up to the primary service, but from the pulmonary standpoint, she is doing much better. Current labs include a white count 15.9, hemoglobin 11.9, hematocrit 38.4, and a platelet count of 252,000. Sodium 135, potassium 3.1, chloride 93, CO2 38, BUN 28, and creatinine 0.68. Glucose is 131. Calcium is 8.3. Objective - Vital Signs Vital signs: Vital Signs Temp 97.7 F 10/04/23 08:26 Pulse 96 10/04/23 11:50 Resp 18 10/04/23 11:50 BP 117/76 10/04/23 11:50 Pulse Ox 97 10/04/23 11:50 FiO2 Intake & Output 10/03/23 10/04/23 10/04/23 18:59 06:59 18:59 Intake Total 1550 Output Total 2250 1500 350 Balance -700 -1500 -350 Weight 92.8 kg Intake: Oral 1550 Output: Urine 2250 1500 350 Other: Voiding Method External Catheter External Catheter External Catheter # Voids 1 # Bowel Movements 1 - Exam No acute distress, oriented 3. 4 L saturation is 97 %. The patient is not manifesting any signs or symptoms of respiratory difficulty or distress. HEENT examination is grossly unremarkable. Mucous membranes are moist. No oral lesions. Neck supple. Full range of motion. No adenopathy thyromegaly or neck vein distention. Cardiovascular examination reveals regular rhythm rate. S1-S2 normal. No S3 or S4. No discernible murmur noted. Heart rate is 90 bpm. Heart sounds are distant. Lungs reveal bibasilar crackles. No wheezes or rhonchi. Sounds are equal bilaterally. 4 L saturation is 97 %. Abdomen soft bowel sounds are heard. No masses or tenderness. Extremities are intact. No cyanosis or clubbing. Minimal lower extremity edema. Skin is without rash or lesion. Neurologic examination is brief but nonfocal. - Labs CBC & Chem 7: 10/04/23 07:05 10/04/23 07:05 Labs: Abnormal Lab Results - Last 24 Hours (Table) 10/01/23 10/03/23 10/03/23 Range/Units 04:25 16:12 19:58 WBC (3.8-10.6) k/uL RBC (3.80-5.40) m/uL MCV (80.0-100.0) fL Neutrophils # (1.3-7.7) k/uL Monocytes # (0-1.0) k/uL Sodium (137-145) mmol/L Potassium (3.5-5.1) mmol/L Chloride (98-107) mmol/L Carbon Dioxide (22-30) mmol/L BUN (7-17) mg/dL Glucose (74-99) mg/dL POC Glucose (mg/dL) 192 H 220 H (70-110) mg/dL Calcium (8.4-10.2) mg/dL RBC Folate 821 H (280 - 791) ng/mL 10/04/23 10/04/23 10/04/23 Range/Units 06:01 07:05 07:05 WBC 15.9 H (3.8-10.6) k/uL RBC 3.61 L (3.80-5.40) m/uL MCV 106.3 H (80.0-100.0) fL Neutrophils # 13.6 H (1.3-7.7) k/uL Monocytes # 1.2 H (0-1.0) k/uL Sodium 135 L (137-145) mmol/L Potassium 3.1 L (3.5-5.1) mmol/L Chloride 93 L (98-107) mmol/L Carbon Dioxide 38 H (22-30) mmol/L BUN 28 H (7-17) mg/dL Glucose 116 H (74-99) mg/dL POC Glucose (mg/dL) 128 H (70-110) mg/dL Calcium 8.3 L (8.4-10.2) mg/dL RBC Folate (280 - 791) ng/mL 10/04/23 Range/Units 11:42 WBC (3.8-10.6) k/uL RBC (3.80-5.40) m/uL MCV (80.0-100.0) fL Neutrophils # (1.3-7.7) k/uL Monocytes # (0-1.0) k/uL Sodium (137-145) mmol/L Potassium (3.5-5.1) mmol/L Chloride (98-107) mmol/L Carbon Dioxide (22-30) mmol/L BUN (7-17) mg/dL Glucose (74-99) mg/dL POC Glucose (mg/dL) 131 H (70-110) mg/dL Calcium (8.4-10.2) mg/dL RBC Folate (280 - 791) ng/mL Assessment and Plan Assessment: Acute on chronic hypoxemic respiratory failure, multifactorial. Acute systolic versus diastolic congestive heart failure. Acute exacerbation of chronic obstructive pulmonary disease. History of severe COPD, oxygen dependent, with an FEV1 percent of 42. History of previous tobacco use. History of coronary artery disease. Chronic atrial fibrillation. Benign essential hypertension. Hyperlipidemia. History of depression, anxiety, and PTSD. Plan: Plan dated October 03, 2023. The patient appears to be doing better. Her chest x-ray shows improved vascular congestion. Labs, x-rays, and medications are all reviewed. The patient c ontinues on diuretics, bronchodilators, and anticoagulation. The patient also continues on corticosteroids. We will continue to follow and make recommendations along the way. The patient is overall prognosis remains guarded. The patient has a number of questions today, and they are all answered. Plan dated October 04, 2023. The patient is seen today in room 360. She continues on oxygen at 4 L. Clinically, she is doing much better. She feels much improved. I told her, that she might be considered for possible discharge. Certainly, she is significantly improved from the pulmonary standpoint. She is currently on updrafts with albuterol sulfate ipratropium bromide, Symbicort 160/4.5, 2 puffs twice a day, and Solu-Medrol, 60 mg every 8 hours, which will be discontinued in favor of prednisone 40 mg a day. We will continue to follow. Prognosis is guarded. Time with Patient: Less than 30
--- NOTE | 2023-10-04 12:00 | P.DS ---
Providers Date of admission: 10/01/23 02:37 Expected date of discharge: 10/04/23 Attending physician: Sofía Greco MD Consults: 10/01/23 02:37 Consult Physician Routine Consulting Provider: Brittany Jacob Consult Reason/Comments: known,hypoxia Do you want consulting provider notified?: Yes 10/01/23 03:41 Consult Physician Routine Consulting Provider: Elli Irwin Consult Reason/Comments: chf Do you want consulting provider notified?: Yes Primary care physician: [facility] Course: 67-year-old female with a PMH of COPD with chronic hypoxic respiratory failure on 2 L nasal cannula oxygen continuously at home, A-fib on Xarelto, hypertension, hyperlipidemia, CAD who presents to the emergency room with complaints of shortness of breath. Chest x-ray in the emergency room revealed pulmonary vascular congestion with cardiomegaly with EKG showing A-fib at [address]/T wave changes noted. Laboratory evaluation was remarkable for MCV 105.3, BUN 30, glucose 100, proBNP 1640, and troponin less than 0.012. Started on IV Lasix, IV steroids, bronchodilators. Cardiology and pulmonology consulted. Echocardiogram showed LVEF 55 to 60%, mild RV dilatation with mildly reduced function, elevated RVSP at 42 mmHg. 10/03 Patient was seen and examined. No acute events overnight. Breathing improved. At baseline 2-4L NC. Looking forward to going home. Mobility has been an issue so patient will require a commode on discharge. CBC WBC 15.9, RBC 3.61, MCV 106.3. BMP Na 135, K 3.1, Cl 93, bicarb 38, BUN 28, glu 116, Ca 8.3. Mag 2.0. KCl 40 meq PO x 1 ordered. Discussed with Fatou NAVARRO, cleared for discharge on Lasix 40 mg PO QD. Other prescribed medications include Prednisone taper and Farxiga. Follow up with PCP within 1-2 days, Cardiology and Pulmonary within 1 week of discharge. Repeat BMP in 3 days to be followed up with PCP. General: Nontoxic, no distress, appears at stated age Derm: Warm, dry Head: Atraumatic, normocephalic, symmetric Eyes: EOMI, no lid lag, anicteric sclera Mouth: No lip lesion, mucus membranes moist Cardiovascular: S1S2 reg, no murmur Lungs: Decreased BS BL, no accessory muscle use, supplemental oxygen Abdominal: Soft, nontender to palpation, no guarding, no appreciable organomegaly Ext: No gross muscle atrophy, 2+ pitting edema, no contractures Neuro: no focal neuro deficits Psych: Alert, oriented, appropriate affect Discharge Diagnosis: Acute on chronic CHF exacerbation, EF 55-60% Acute on chronic hypoxic respiratory failure Hypokalemia likely due to lasix HypoCl metabolic alkaosis likely due to forced diuresis Acute COPD exacerbation mild leukocytosis, likely steroid-induced and reactive Diabetes mellitus History of CAD History of CVA Former nicotine dependence Morbidly obese Paroxysmal atrial fibrillation, rate controlled Hypertension Dyslipidemia Depression This complex discharge took 35 minutes to complete. Patient Condition at Discharge: Stable Plan - Discharge Summary New Discharge Prescriptions: New Ipratropium-Albuterol Nebulize [Duoneb 0.5 mg-3 mg/3 ml Soln] 3 ml INHALATION RT-Q2H PRN each PRN Reason: Shortness Of Breath Or Wheezing predniSONE See Taper PO DIRECTED #30 tab Metoprolol Succinate (ER) [Toprol XL] 100 mg PO DAILY #0 tab Dapagliflozin Propanediol [Farxiga] 10 mg PO DAILY #30 tab Furosemide [Lasix] 40 mg PO DAILY #30 tablet Continue Rivaroxaban [Xarelto] 20 mg PO W/SUPPER Potassium Chloride [Klor-Con 20] 20 meq PO BID Aspirin [Adult Low Dose Aspirin EC] 81 mg PO DAILY Albuterol Inhaler [Ventolin Hfa Inhaler] 2 puff INHALATION RT-QID PRN PRN Reason: Shortness Of Breath Atorvastatin [Lipitor] 40 mg PO DAILY Budesonide/Formoterol Fumarate [Symbicort 80-4.5 Mcg Inhaler] 2 puff INHALATION RT-BID Tiotropium 2.5 Mcg/Puff [Spiriva Respimat 2.5 Mcg] 2 puff INHALATION RT-DAILY Acetaminophen [Tylenol Extra Strength] 1,000 mg PO Q6H PRN PRN Reason: Fever And/ Or Pain PARoxetine HCL 40 mg PO HS Discontinued captopriL [Captopril] 100 mg PO BID Triamterene-Hctz 37.5-25Mg [Maxzide 37.5-25] 1 tab PO DAILY Metoprolol Succinate [Toprol XL] 200 mg PO DAILY amLODIPine [Norvasc] 5 mg PO DAILY Discharge Medication List Albuterol Inhaler [Ventolin Hfa Inhaler] 2 puff INHALATION RT-QID PRN 08/22/20 [History] Aspirin [Adult Low Dose Aspirin EC] 81 mg PO DAILY 08/22/20 [History] Budesonide/Formoterol Fumarate [Symbicort 80-4.5 Mcg Inhaler] 2 puff INHALATION RT-BID 08/22/20 [History] Potassium Chloride [Klor-Con 20] 20 meq PO BID 08/22/20 [History] Rivaroxaban [Xarelto] 20 mg PO W/SUPPER 08/22/20 [History] Tiotropium 2.5 Mcg/Puff [Spiriva Respimat 2.5 Mcg] 2 puff INHALATION RT-DAILY 08/22/20 [History] Acetaminophen [Tylenol Extra Strength] 1,000 mg PO Q6H PRN 03/13/22 [History] Atorvastatin [Lipitor] 40 mg PO DAILY 10/01/23 [History] PARoxetine HCL 40 mg PO HS 10/01/23 [History] Dapagliflozin Propanediol [Farxiga] 10 mg PO DAILY #30 tab 10/04/23 [Rx] Furosemide [Lasix] 40 mg PO DAILY #30 tablet 10/04/23 [Rx] Ipratropium-Albuterol Nebulize [Duoneb 0.5 mg-3 mg/3 ml Soln] 3 ml INHALATION RT-Q2H PRN each 10/04/23 [Rx] Metoprolol Succinate (ER) [Toprol XL] 100 mg PO DAILY #0 tab 10/04/23 [Rx] predniSONE See Taper PO DIRECTED #30 tab 10/04/23 [Rx] Follow up Appointment(s)/Referral(s): Brittany Jacob MD [STAFF PHYSICIAN] - 1 Week Moe Marin MD [STAFF PHYSICIAN] - 1 Week [facility] [NON-[facility]FF[facility] - [facility] - 1-2 days Activity/Diet/Wound Care/Special Instructions: Patient needs bedside commode due to inability to access toilet facilities s econdary to urinary frequency/urgency due to diuretic therapy for CHF Discharge Disposition: HOME SELF-CARE
[2023-10-05] MEDS ORDERED: predniSONE 20 MG TAB PO SCH (09:00)
== END 2023-10-04 15:34 | disposition home health service (06) | DRG 291 ==
LOC: EC 01:45 → 3SCARD 02:37
PROVIDERS: ADMIT Internal Medicine; ATTEND Internal Medicine
DX: I11.0 Hypertensive heart disease with heart failure (principal); I50.33 Acute on chronic diastolic (congestive) heart failure; J96.21 Acute and chronic respiratory failure with hypoxia; J44.1 Chronic obstructive pulmonary disease with (acute) exacerbation; Z68.41 Body mass index [BMI] 40.0-44.9, adult; E87.3 Alkalosis; T50.1X5A Adverse effect of loop [high-ceiling] diuretics, initial encounter; T38.0X5A Adverse effect of glucocorticoids and synthetic analogues, initial encounter; E66.01 Morbid (severe) obesity due to excess calories; E87.6 Hypokalemia; D72.829 Elevated white blood cell count, unspecified; E11.9 Type 2 diabetes mellitus without complications; I25.10 Atherosclerotic heart disease of native coronary artery without angina pectoris; I48.0 Paroxysmal atrial fibrillation; E78.5 Hyperlipidemia, unspecified; F32.A Depression, unspecified; F41.9 Anxiety disorder, unspecified; K21.9 Gastro-esophageal reflux disease without esophagitis; M19.90 Unspecified osteoarthritis, unspecified site; K58.9 Irritable bowel syndrome, unspecified; M81.0 Age-related osteoporosis without current pathological fracture; L40.9 Psoriasis, unspecified; F43.10 Post-traumatic stress disorder, unspecified; D75.89 Other specified diseases of blood and blood-forming organs; Z91.119 Patient's noncompliance with dietary regimen due to unspecified reason; Z88.6 Allergy status to analgesic agent; Z88.8 Allergy status to other drugs, medicaments and biological substances; Z99.81 Dependence on supplemental oxygen; Z86.73 Personal history of transient ischemic attack (TIA), and cerebral infarction without residual deficits; Z79.899 Other long term (current) drug therapy; Z79.82 Long term (current) use of aspirin; Z79.51 Long term (current) use of inhaled steroids; Z79.01 Long term (current) use of anticoagulants; Z87.891 Personal history of nicotine dependence; I25.2 Old myocardial infarction
CPT/HCPCS: 36415; 71045; 80048; 80053; 82607; 82747; 83036; 83605; 83735; 83880; 84484; 85025; 85610; 85730; 93005; 93306; 94640; 94760; 96374; 96375; 96376; 99291

== ENCOUNTER 2023-12-07 12:29 | Observation (INO) | payer OTHER, MEDICARE ==
--- NOTE | 2023-12-07 14:21 | ED ---
General Adult HPI - General Source: patient, RN notes reviewed Mode of arrival: EMS Limitations: no limitations <Carla Chavez - Last Filed: 12/07/23 14:20> <Jefry Short - Last Filed: 12/07/23 18:06> - General Chief complaint: Abdominal Pain Stated complaint: SHONDA Time Seen by Provider: 12/07/23 14:20 - History of Present Illness Initial comments: Note: 68-year-old female presented to the ER with a chief complaint of shortness of breath. Patient also is endorsing epigastric abdominal pain.'s been ongoing for the past couple of days. Reports peripheral edema. Patient does normally wear 4 L of nasal cannula oxygen. No fevers or chills. History of CHF and OK. (Carla Chavez) 68 history of A-fib, CHF, COPD with increased dyspnea and epigastric discomfort. No wilfredo chest pain. No fever. Patient does report minor cough and bilateral lower extremity edema. She is on Xarelto. She has had increased oxygen requirement. (Jefry Short) - Related Data Home Medications Medication Instructions Recorded Confirmed Albuterol Inhaler [Ventolin Hfa 2 puff INHALATION RT-QID PRN 08/22/20 12/07/23 Inhaler] Potassium Chloride [Klor-Con 20] 20 meq PO BID 08/22/20 12/07/23 Rivaroxaban [Xarelto] 20 mg PO W/SUPPER 08/22/20 12/07/23 Tiotropium 2.5 Mcg/Puff [Spiriva 2 puff INHALATION RT-DAILY 08/22/20 12/07/23 Respimat 2.5 Mcg] Atorvastatin [Lipitor] 40 mg PO DAILY 10/01/23 12/07/23 PARoxetine HCL 40 mg PO DAILY 10/01/23 12/07/23 Budesonide/Formoterol Fumarate 2 puff INHALATION RT-BID 12/07/23 12/07/23 [Breyna 160-4.5 Mcg Inhaler] Carboxymethylcellulose Sodium 1 drop BOTH EYES QID PRN 12/07/23 12/07/23 [Refresh Tears] Previous Rx's Medication Instructions Recorded Empagliflozin [Jardiance] 10 mg PO DAILY #30 tablet 10/04/23 Ipratropium-Albuterol Nebulize 3 ml INHALATION RT-Q2H PRN each 10/04/23 [Duoneb 0.5 mg-3 mg/3 ml Soln] Metoprolol Succinate (ER) [Toprol 100 mg PO DAILY #0 tab 10/04/23 XL] Allergies Allergy/AdvReac Type Severity Reaction Status Date / Time fluticasone AdvReac Cough Verified 12/07/23 17:22 [From Wix[facility] Inhub] salmeterol AdvReac Cough Verified 12/07/23 17:22 [From [facility]ix[facility] In[facility]] Review of Systems ROS Other: All systems not noted in ROS Statement are negative. <Carla Chavez - Last Filed: 12/07/23 14:20> ROS Other: All systems not noted in ROS Statement are negative. <Jefry Short - Last Filed: 12/07/23 18:06> ROS Statement: Those systems with pertinent positive or pertinent negative responses have been documented in the HPI. Past Medical History Past Medical History: Atrial Fibrillation, Asthma, Coronary Artery Disease (CAD), COPD, GERD/Reflux, Hyperlipidemia, Hypertension, Myocardial Infarction (OK), Osteoarthritis (OA), Skin Disorder Additional Past Medical History / Comment(s): migraines, stroke 2003-no residual effects, IBS, osteoporosis, psoriasis, "prediabetic"- dr watching, lower back pain, left shoulder torn rotator cuff Last Myocardial Infarction Date:: 1985 History of Any Multi-Drug Resistant Organisms: None Reported Past Surgical History: Heart Catheterization, Tubal Ligation Past Anesthesia/Blood Transfusion Reactions: No Reported Reaction Past Psychological History: Anxiety, Depression, PTSD Smoking Status: Current some day smoker Past Alcohol Use History: Occasional Past Drug Use History: None Reported - Past Family History Brother(s) Family Medical History: Cancer Sister(s) Family Medical History: Cancer, Deep Vein Thrombosis (DVT) Mother Family Medical History: Pulmonary Embolus <Carla Chavez - Last Filed: 12/07/23 14:20> General Exam Limitations: no limitations <Carla Chavez - Last Filed: 12/07/23 14:20> General appearance: alert, in no apparent distress Head exam: Present: atraumatic, normocephalic Eye exam: Present: normal appearance, PERRL ENT exam: Present: normal exam Neck exam: Present: normal inspection. Absent: tenderness, meningismus Respiratory exam: Present: respiratory distress (mild), wheezes, decreased breath sounds Cardiovascular Exam: Present: tachycardia, irregular rhythm GI/Abdominal exam: Present: soft. Absent: distended, tenderness Extremities exam: Present: pedal edema Neurological exam: Present: alert, oriented X3 Psychiatric exam: Present: normal affect, normal mood Skin exam: Present: warm, dry, intact. Absent: cyanosis, diaphoretic <Jefry Short - Last Filed: 12/07/23 18:06> - General Exam Comments Initial Comments: Visual Physical Exam Vital signs reviewed General: Well-appearing, nontoxic, no acute distress. Head: Normocephalic, atraumatic Eyes: PERRLA, EOMI ENT: Airway patent Chest: Nonlabored breathing Skin: No visual rash, normal skin tone Neuro: Alert and oriented 3 Musculoskeletal: No gross abnormalities (Carla Chavez) Course Vital Signs 12/07/23 12:30 Temperature 97.8 F Pulse Rate 89 Respiratory 22 Rate Blood Pressure 137/98 O2 Sat by Pulse 99 Oximetry Medical Decision Making <Carla Chavez - Last Filed: 12/07/23 14:20> - Lab Data Result diagrams: 12/07/23 15:31 12/07/23 15:31 <Jefry Short - Last Filed: 12/07/23 18:06> - Medical Decision Making I performed the quick note portion of this chart. Electronically signed by Carla Chavez PA-C (Carla Chavez) Was pt. sent in by a medical professional or institution (CASSY Chu, LINOTYPE WORKER, urgent care, hospital, or snf...) When possible be specific @ -[No] Did you speak to anyone other than the patient for history (EMS, parent, family, police, friend...)? What history was obtained from this source @ -[No] Did you review nursing and triage notes (agree or disagree)? Why? @ -[I reviewed and agree with nursing and triage notes] Were old charts reviewed (outside hosp., previous admission, EMS record, old EKG, old radiological studies, urgent care reports/EKG's, snf records)? Report findings @ -[No old charts were reviewed] Differential Dyspnea: Coronary syndrome, arrhythmia, tamponade, asthma, COPD, pulmonary embolism, pneumonia, pneumothorax, pulmonary effusion, anaphylaxis, diabetic ketoacidosis, flailed chest, pulmonary contusion, diaphragmatic rupture, anemia, neuromuscular, this is not meant to be an all-inclusive list. EKG interpreted by me (3pts min.). @ -Atrial fibrillation with RVR rate of 108 QRS duration 84, QTc 394, no ST segment elevation. X-rays interpreted by me (1pt min.). @ -Chest x-ray negative for acute cardiopulmonary findings CT interpreted by me (1pt min.). @ -[None done] U/S interpreted by me (1pt. min.). @ -[None done] What testing was considered but not performed or refused? (CT, X-rays, U/S, lab s)? Why? @ -[None] What meds were considered but not given or refused? Why? @ -[None] Did you discuss the management of the patient with other professionals (professionals i.e. , PA, LINOTYPE WORKER, lab, RT, psych nurse, sexual assault social worker, editorial assistant, teacher, electoral officer, skilled nursing case manager)? Give summary @ -[No] Was smoking cessation discussed for >3mins.? @ -[No] Was critical care preformed (if so, how long)? @ -[No] Were there social determinants of health that impacted care today? How? (Homelessness, low income, unemployed, alcoholism, drug addiction, transportation, low edu. Level, literacy, decrease access to med. care, correction, rehab)? @ -[No] Was there de-escalation of care discussed even if they declined (Discuss DNR or withdrawal of care, Hospice)? DNR status @ -[No] What co-morbidities impacted this encounter? (DM, HTN, Smoking, COPD, CAD, Cancer, CVA, ARF, Chemo, Hep., AIDS, mental health diagnosis, sleep apnea, morbid obesity)? @ -COPD CHF, atrial fibrillation Was patient admitted / discharged? Hospital course, mention meds given and route, prescriptions, significant lab abnormalities, going to OR and other pertinent info. @ -68-year-old presents with increased dyspnea, increased oxygen requirement. Patient has peripheral edema, decreased air entry in and wheezing on auscultatio n. Treated for accommodation of COPD and CHF. Laboratory testing does reveal elevation in BNP at 2200. Patient will be kept in observation. Case discussed with sound physician group. Undiagnosed new problem with uncertain prognosis? @ -[No] Drug Therapy requiring intensive monitoring for toxicity (Heparin, Nitro, Insulin, Cardizem)? @ -[No] Were any procedures done? @ -[No] Diagnosis/symptom? @ -[COPD, CHF Acute, or Chronic, or Acute on Chronic? @ -[Acute on chronic Uncomplicated (without systemic symptoms) or Complicated (systemic symptoms)? @ -[default] Side effects of treatment? @ -[No] Exacerbation, Progression, or Severe Exacerbation? @ -[No] Poses a threat to life or bodily function? How? (Chest pain, USA, OK, pneumonia, PE, COPD, DKA, ARF, appy, cholecystitis, CVA, Diverticulitis, Homicidal, Suicidal, threat to staff... and all critical care pts) @ -Moderate risk, COPD CHF (Jefry Short) - Lab Data Lab Results 12/07/23 12/07/23 12/07/23 Range/Units 15:31 15:31 15:31 WBC 10.4 (3.8-10.6) k/uL RBC 4.15 (3.80-5.40) m/uL Hgb 12.7 (11.4-16.0) gm/dL Hct 41.5 (34.0-46.0) % MCV 99.8 D (80.0-100.0) fL MCH 30.5 (25.0-35.0) pg MCHC 30.5 L (31.0-37.0) g/dL RDW 15.5 (11.5-15.5) % Plt Count 269 (150-450) k/uL MPV 8.9 Neutrophils % 78 % Lymphocytes % 12 % Monocytes % 5 % Eosinophils % 4 % Basophils % 1 % Neutrophils # 8.1 H (1.3-7.7) k/uL Lymphocytes # 1.2 (1.0-4.8) k/uL Monocytes # 0.6 (0-1.0) k/uL Eosinophils # 0.4 (0-0.7) k/uL Basophils # 0.1 (0-0.2) k/uL Hypochromasia Marked Poikilocytosis Slight Macrocytosis Slight PT 11.7 (10.0-12.5) sec INR 1.1 (<1.2) APTT 25.4 (22.0-30.0) sec Sodium 140 (137-145) mmol/L Potassium 4.6 (3.5-5.1) mmol/L Chloride 105 (98-107) mmol/L Carbon Dioxide 30 (22-30) mmol/L Anion Gap 5 mmol/L BUN 19 H (7-17) mg/dL Creatinine 0.92 (0.52-1.04) mg/dL Est GFR (CKD-EPI)AfAm 75 (>60 ml/min/1.73 sqM) Est GFR (CKD-EPI)NonAf 65 (>60 ml/min/1.73 sqM) Glucose 120 H (74-99) mg/dL Plasma Lactic Acid Jerry (0.7-2.0) mmol/L Calcium 9.7 (8.4-10.2) mg/dL Total Bilirubin 0.9 (0.2-1.3) mg/dL AST 56 H (14-36) U/L ALT 75 H (4-34) U/L Alkaline Phosphatase 88 (38-126) U/L Troponin I (0.000-0.034) ng/mL NT-Pro-B Natriuret Pep 2230 pg/mL Total Protein 6.5 (6.3-8.2) g/dL Albumin 4.2 (3.5-5.0) g/dL Influenza Type A (PCR) (Not Detectd) Influenza Type B (PCR) (Not Detectd) RSV (PCR) (Not Detectd) SARS-CoV-2 (PCR) (Not Detectd) 12/07/23 12/07/23 12/07/23 Range/Units 15:31 15:31 15:31 WBC (3.8-10.6) k/uL RBC (3.80-5.40) m/uL Hgb (11.4-16.0) gm/dL Hct (34.0-46.0) % MCV (80.0-100.0) fL MCH (25.0-35.0) pg MCHC (31.0-37.0) g/dL RDW (11.5-15.5) % Plt Count (150-450) k/uL MPV Neutrophils % % Lymphocytes % % Monocytes % % Eosinophils % % Basophils % % Neutrophils # (1.3-7.7) k/uL Lymphocytes # (1.0-4.8) k/uL Monocytes # (0-1.0) k/uL Eosinophils # (0-0.7) k/uL Basophils # (0-0.2) k/uL Hypochromasia Poikilocytosis Macrocytosis PT (10.0-12.5) sec INR (<1.2) APTT (22.0-30.0) sec Sodium (137-145) mmol/L Potassium (3.5-5.1) mmol/L Chloride (98-107) mmol/L Carbon Dioxide (22-30) mmol/L Anion Gap mmol/L BUN (7-17) mg/dL Creatinine (0.52-1.04) mg/dL Est GFR (CKD-EPI)AfAm (>60 ml/min/1.73 sqM) Est GFR (CKD-EPI)NonAf (>60 ml/min/1.73 sqM) Glucose (74-99) mg/dL Plasma Lactic Acid Jerry 1.8 (0.7-2.0) mmol/L Calcium (8.4-10.2) mg/dL Total Bilirubin (0.2-1.3) mg/dL AST (14-36) U/L ALT (4-34) U/L Alkaline Phosphatase (38-126) U/L Troponin I <0.012 (0.000-0.034) ng/mL NT-Pro-B Natriuret Pep pg/mL Total Protein (6.3-8.2) g/dL Albumin (3.5-5.0) g/dL Influenza Type A (PCR) Not Detected (Not Detectd) Influenza Type B (PCR) Not Detected (Not Detectd) RSV (PCR) Not Detected (Not Detectd) SARS-CoV-2 (PCR) Not Detected (Not Detectd) Disposition <Carla Chavez - Last Filed: 12/07/23 14:20> Is patient prescribed a controlled substance at d/c from ED?: No Time of Disposition: 18:06 <Jefry Short - Last Filed: 12/07/23 18:06> Clinical Impression: CHF (congestive heart failure), COPD exacerbation Disposition: ADMITTED IP TO THIS HOSP Condition: Stable [facility] [[facility] - 1-2 days
[2023-12-07 15:55] LABS: Basophils # (A) 0.1 k/uL (0-0.2); Basophils % (A) 1 %; Eosinophils # (A) 0.4 k/uL (0-0.7); Eosinophils % (A) 4 %; HCT 41.5 % (34.0-46.0); HGB 12.7 gm/dL (11.4-16.0); Hypochromasia Marked; Lymphocytes # (A) 1.2 k/uL (1.0-4.8); Lymphocytes % (A) 12 %; MCH 30.5 pg (25.0-35.0); MCHC 30.5 g/dL (31.0-37.0); Macrocytosis Slight; Mean Platelet Volume 8.9; Monocytes # (A) 0.6 k/uL (0-1.0); Monocytes % (A) 5 %; Neutrophils # (A) 8.1 k/uL (1.3-7.7); Neutrophils % (A) 78 %; Platelet Count 269 k/uL (150-450); Poikilocytosis Slight; RBC 4.15 m/uL (3.80-5.40); RDW 15.5 % (11.5-15.5); WBC 10.4 k/uL (3.8-10.6)
[2023-12-07 15:56] LABS: INR 1.1 (<1.2); MCV 99.8 fL (80.0-100.0); Partial Thromboplastin Time 25.4 sec (22.0-30.0); Prothrombin Time 11.7 sec (10.0-12.5)
[2023-12-07 16:13] LABS: ALT 75 U/L (4-34); AST 56 U/L (14-36); African American GFR (CKD) 75 (>60 ml/min/1.73 sqM); Albumin 4.2 g/dL (3.5-5.0); Alkaline Phosphatase 88 U/L (38-126); Anion Gap 5 mmol/L; Blood Urea Nitrogen 19 mg/dL (7-17); Calcium 9.7 mg/dL (8.4-10.2); Carbon Dioxide 30 mmol/L (22-30); Chloride 105 mmol/L (98-107); Glucose 120 mg/dL (74-99); Non-African American GFR(CKD) 65 (>60 ml/min/1.73 sqM); Potassium 4.6 mmol/L (3.5-5.1); Sodium 140 mmol/L (137-145); Total Bilirubin 0.9 mg/dL (0.2-1.3); Total Protein 6.5 g/dL (6.3-8.2)
[2023-12-07 16:21] LABS: NT-Pro-B-Type Natriuretic Pept 2230 pg/mL
--- NOTE | 2023-12-07 17:47 | XR ---
EXAMINATION TYPE: XR chest 2V DATE OF EXAM: 12/07/2023 COMPARISON: 10/03/2023 INDICATION: Difficulty breathing TECHNIQUE: Frontal and lateral views of the chest are obtained. FINDINGS: The heart size is prominent. The pulmonary vasculature is normal. The lungs are clear. Underinflation findings the diaphragms is present compatible with COPD. IMPRESSION: 1. No acute pulmonary process.
[2023-12-07] MEDS ORDERED: NALOXONE 0.4 MG/ML 1 ML VIAL IVP PRN (18:01)
[2023-12-07] MEDS ORDERED: IPRATROPIUM-ALBUTEROL 3 ML NEB INHALATION PRN (18:01)
[2023-12-07] MEDS: methylPREDNISolone SOD SUCCI 125 MG/2 ML VIAL IV SCH (18:41)
[2023-12-07] MEDS: FUROSEMIDE 10 MG/ML 4 ML VIAL IV STA (18:41)
[2023-12-07] MEDS: ALBUTEROL NEBULIZED 2.5 MG/3 ML INHALATION STA (19:25)
[2023-12-07] MEDS: IPRATROPIUM-ALBUTEROL 3 ML NEB INHALATION STA (19:25)
[2023-12-07] MEDS: IPRATROPIUM-ALBUTEROL 3 ML NEB INHALATION SCH (19:26)
[2023-12-07] MEDS: ALPRAZolam 0.25 MG TAB PO STA (20:39)
[2023-12-08] MEDS ORDERED: ACETAMINOPHEN TAB 325 MG TAB ONE (03:51)
[2023-12-08] MEDS: PANTOPRAZOLE 40 MG TABLET PO SCH (06:15)
[2023-12-08] MEDS: methylPREDNISolone SOD SUCCI 125 MG/2 ML VIAL IV SCH (06:15)
[2023-12-08] MEDS: INSULIN ASPART (NovoLOG) 100 UNIT/ML VIAL SQ SCH ×2 (06:18→20:27)
[2023-12-08 06:19] LABS: Glucose,Whole Blood 143 mg/dL (70-110)
[2023-12-08] MEDS: SYMBICORT 160-4.5 MCG INHALER INHALATION SCH (07:47)
[2023-12-08] MEDS: TIOTROPIUM 2.5 MCG INHALER INHALATION SCH (07:57)
[2023-12-08 08:09] LABS: ALT 57 U/L (4-34); AST 36 U/L (14-36); African American GFR (CKD) 69 (>60 ml/min/1.73 sqM); Albumin 3.7 g/dL (3.5-5.0); Albumin/Globulin Ratio 1.9; Alkaline Phosphatase 83 U/L (38-126); Anion Gap 4 mmol/L; Blood Urea Nitrogen 26 mg/dL (7-17); Calcium 9.2 mg/dL (8.4-10.2); Carbon Dioxide 31 mmol/L (22-30); Chloride 98 mmol/L (98-107); Glucose 143 mg/dL (74-99); Non-African American GFR(CKD) 60 (>60 ml/min/1.73 sqM); Potassium 3.8 mmol/L (3.5-5.1); Sodium 133 mmol/L (137-145); Total Bilirubin 0.8 mg/dL (0.2-1.3); Total Protein 5.7 g/dL (6.3-8.2)
[2023-12-08] MEDS: PARoxetine 20 MG TAB PO SCH (09:12)
[2023-12-08] MEDS: ATORVASTATIN 40 MG TAB PO SCH (09:12)
[2023-12-08] MEDS: POTASSIUM CHLORIDE ER 20 MEQ TAB.ER PO SCH (09:12)
[2023-12-08] MEDS: METOPROLOL SUCCINATE (ER) 100 MG TAB.ER.24H PO SCH (09:12)
[2023-12-08 10:07] LABS: HCT 37.5 % (34.0-46.0); HGB 11.5 gm/dL (11.4-16.0); Hypochromasia Marked; MCH 30.4 pg (25.0-35.0); MCHC 30.6 g/dL (31.0-37.0); MCV 99.4 fL (80.0-100.0); Macrocytosis Slight; Platelet Count 220 k/uL (150-450); Poikilocytosis Slight; RBC 3.77 m/uL (3.80-5.40); RDW 15.5 % (11.5-15.5); WBC 6.1 k/uL (3.8-10.6)
[2023-12-08 10:53] LABS: African American GFR (CKD) 58 (>60 ml/min/1.73 sqM); Anion Gap 6 mmol/L; Blood Urea Nitrogen 26 mg/dL (7-17); Calcium 9.2 mg/dL (8.4-10.2); Carbon Dioxide 32 mmol/L (22-30); Chloride 100 mmol/L (98-107); Glucose 145 mg/dL (74-99); Non-African American GFR(CKD) 51 (>60 ml/min/1.73 sqM); Potassium 3.5 mmol/L (3.5-5.1); Sodium 138 mmol/L (137-145)
--- NOTE | 2023-12-08 11:45 | P.CNPUL ---
History of Present Illness Consult date: 12/08/23 Requesting physician: King Bailey Reason for consult: dyspnea, COPD Chief complaint: Shortness of breath, dyspnea on exertion History of present illness: This is a very pleasant 68-year-old female patient who follows at the [facility] for her primary care needs. She also follows with Dr. Jacob in our office for her end-stage oxygen dependent chronic obstructive pulmonary disease. FEV1 value 42% of predicted, she does have a 47-year smoking history but has since quit. She is maintained on Symbicort, Spiriva and albuterol in the outpatient setting. She is normally on oxygen at 4 L at home. She does have a history of atrial fibrillation anticoagulated with Xarelto, coronary artery disease, hypertension, hyperlipidemia, obesity. He presented here to the emergency room yesterday with a several day history of chest pressure, increasing shortness of breath, dyspnea on exertion. No significant cough or congestion. No fever or chills. No hemoptysis. Chest x-ray reveals evidence of COPD and possible early infiltrate of the right lower lobe. White count 6.1. Hemoglobin 11.5. Platelets 220. Sodium 133. Potassium 3.8. Bicarb 31. BUN 26. Creatinine 0.99. Glucose 143. Viral screen was negative. proBNP 2230. Troponin negative x 1. Has been initiated on DuoNeb inhalations, Symbicort, Solu-Medrol. Anticoagulated with Xarelto. She is seen in consultation on the regular medical floor. Currently sitting up in bed. Awake and alert in no acute distress. Maintaining O2 saturations in the 90s on 4 L/min per nasal cannula. No IV fluids. Review of Systems REVIEW OF SYSTEMS: CONSTITUTIONAL: Denies any recent significant weight loss or weight gain. EYES: Denies change in vision. EARS, NOSE, MOUTH, THROAT: Denies headaches, denies sore throat. CARDIOVASCULAR: Denies chest pain, palpitations or syncopal episodes. RESPIRATORY: Positive for shortness of breath, no cough, congestion or hemoptysis. GASTROINTESTINAL: Denies change in appetite, denies abdominal pain GENITOURINARY: Denies hematuria, denies infections. MUSKULOSKELETAL: Denies pain, denies swelling. INTEGUMENTARY: Denies rash, denies eczema. NEUROLOGICAL: Denies recent memory loss, no recent seizure activity. PSYCHIATRIC: Denies anxiety, denies depression. HEMATOLOGIC/LYMPHATIC: Denies anemia, denies enlarged lymph nodes. Past Medical History Past Medical History: Atrial Fibrillation, Asthma, Coronary Artery Disease (CAD), COPD, GERD/Reflux, Hyperlipidemia, Hypertension, Myocardial Infarction (SD), Osteoarthritis (OA), Skin Disorder Additional Past Medical History / Comment(s): migraines, stroke 2003-no residual effects, IBS, osteoporosis, psoriasis, "prediabetic"- dr watching, lower back pain Last Myocardial Infarction Date:: 1985 History of Any Multi-Drug Resistant Organisms: None Reported Past Surgical History: Heart Catheterization, Tubal Ligation Past Anesthesia/Blood Transfusion Reactions: No Reported Reaction Past Psychological History: Anxiety, Depression, PTSD Smoking Status: Former smoker Past Alcohol Use History: Occasional Past Drug Use History: None Reported - Past Family History Brother(s) Family Medical History: Cancer Sister(s) Family Medical History: Cancer, Deep Vein Thrombosis (DVT) Mother Family Medical History: Pulmonary Embolus Medications and Allergies Home Medications Medication Instructions Recorded Confirmed Type Albuterol Inhaler [Ventolin Hfa 2 puff INHALATION RT-QID PRN 08/22/20 12/07/23 History Inhaler] Potassium Chloride [Klor-Con 20] 20 meq PO BID 08/22/20 12/07/23 History Rivaroxaban [Xarelto] 20 mg PO W/SUPPER 08/22/20 12/07/23 History Tiotropium 2.5 Mcg/Puff [Spiriva 2 puff INHALATION RT-DAILY 08/22/20 12/07/23 History Respimat 2.5 Mcg] Atorvastatin [Lipitor] 40 mg PO DAILY 10/01/23 12/07/23 History PARoxetine HCL 40 mg PO DAILY 10/01/23 12/07/23 History Empagliflozin [Jardiance] 10 mg PO DAILY #30 tablet 10/04/23 12/07/23 Rx Ipratropium-Albuterol Nebulize 3 ml INHALATION RT-Q2H PRN each 10/04/23 12/07/23 Rx [Duoneb 0.5 mg-3 mg/3 ml Soln] Metoprolol Succinate (ER) [Toprol 100 mg PO DAILY #0 tab 10/04/23 12/07/23 Rx XL] Budesonide/Formoterol Fumarate 2 puff INHALATION RT-BID 12/07/23 12/07/23 Histor y [Breyna 160-4.5 Mcg Inhaler] Carboxymethylcellulose Sodium 1 drop BOTH EYES QID PRN 12/07/23 12/07/23 History [Refresh Tears] Allergies Allergy/AdvReac Type Severity Reaction Status Date / Time fluticasone AdvReac Cough Verified 12/07/23 17:22 [From Wixela Inhub] salmeterol AdvReac Cough Verified 12/07/23 17:22 [From Ksxela Inhub] Physical Exam Vitals: Vital Signs Temp Pulse Pulse Resp BP BP Pulse Ox 12/08/23 11:28 88 12/08/23 08:01 88 12/08/23 07:47 84 12/08/23 07:00 97.6 F 86 16 153/91 98 12/08/23 03:35 97.7 F 90 18 138/82 98 12/07/23 21:22 97.7 F 108 H 16 4 L 12/07/23 20:43 98.7 F 97 22 122/85 95 12/07/23 19:34 91 18 99 12/07/23 19:26 91 18 12/07/23 18:42 112 H 20 102/73 92 L 12/07/23 12:30 97.8 F 89 22 137/98 99 Intake and Output 12/07/23 12/08/23 12/08/23 22:59 06:59 14:59 Intake Total 110 Balance 110 Intake: Oral 110 Other: Voiding Method Bedside Commode Toilet Bedside Commode # Voids 1 Weight 93.894 kg GENERAL EXAM: Alert, liters nasal cannula, fairly comfortable in no apparent distress. HEAD: Normocephalic. EYES: Normal reaction of pupils, equal size. NOSE: Clear with pink turbinates. THROAT: No erythema or exudates. NECK: No masses, no JVD. CHEST: No chest wall deformity. LUNGS: Equal air entry with few scattered rhonchi, diminished. CVS: S1 and S2 normal with no audible murmur, regular rhythm. ABDOMEN: No hepatosplenomegaly, normal bowel sounds, no guarding or rigidity. SPINE: No scoliosis or deformity SKIN: No rashes CENTRAL NERVOUS SYSTEM: No focal deficits, tone is normal in all 4 extremities. EXTREMITIES: There is trace peripheral edema. No clubbing, no cyanosis. Peripheral pulses are intact. Results - Laboratory Findings CBC and BMP: 12/08/23 03:30 12/08/23 07:40 PT/INR, D-dimer PT 11.7 sec (10.0-12.5) 12/07/23 15:31 INR 1.1 (<1.2) 12/07/23 15:31 Abnormal lab findings: Abnormal Labs 12/07/23 12/07/23 12/08/23 15:31 15:31 03:30 RBC 3.77 L MCHC 30.5 L 30.6 L Neutrophils # 8.1 H Sodium Carbon Dioxide BUN 19 H Creatinine Glucose 120 H POC Glucose (mg/dL) AST 56 H ALT 75 H Total Protein 12/08/23 12/08/23 12/08/23 03:30 06:18 07:40 RBC MCHC Neutrophils # Sodium 133 L Carbon Dioxide 32 H 31 H BUN 26 H 26 H Creatinine 1.14 H Glucose 145 H 143 H POC Glucose (mg/dL) 143 H AST ALT 57 H Total Protein 5.7 L - Diagnostic Findings Chest x-ray: image reviewed Assessment and Plan Assessment: Acute on chronic hypoxic respiratory failure secondary to an acute exacerbation of oxygen dependent chronic obstructive pulmonary disease and possible early right lower lobe infiltrate. Procalcitonin pending. Chronic hypoxemic respiratory failure secondary to end-stage chronic obstructive pulmonary disease, FEV1 value of 42% of predicted. On home oxygen at 4 L/min per nasal cannula History of former heavy tobacco dependence of greater than 47 years Chronic atrial fibrillation, anticoagulated with Xarelto Coronary artery disease Hypertension Hyperlipidemia History of anxiety/depression/PTSD Plan: The patient was seen and evaluated Chest x-ray, labs and medications reviewed Continue Symbicort, DuoNeb inhalations Continue Solu-Medrol Check a procalcitonin Titrate the FiO2 as tolerated Increase her activity as tolerated We will continue to follow and make further recommendations based on her clinical status This patient was seen independently by the pulmonary nurse practitioner addressing pulmonary issues I have personally seen and examined the patient, performed the documentation and the assessment and plan as written. Number of minutes spent on the visit: 35.
[2023-12-08 12:25] LABS: Glucose,Whole Blood 159 mg/dL (70-110)
--- NOTE | 2023-12-08 13:47 | P.PN ---
Subjective Progress Note Date: 12/08/23 Principal diagnosis: sob patient feeling better today, denies having significant shortness of breath or chest pain. No fevers or chills. Objective - Vital Signs Vital signs: Vital Signs Temp 97.6 F 12/08/23 07:00 Pulse 88 12/08/23 11:37 Resp 16 12/08/23 07:00 BP 153/91 12/08/23 07:00 Pulse Ox 98 12/08/23 07:00 FiO2 Intake & Output 12/07/23 12/08/23 12/08/23 18:59 06:59 18:59 Intake Total 110 Balance 110 Weight 93.894 kg 93.894 kg Intake: Oral 110 Other: Voiding Method Bedside Commode Toilet Bedside Commode # Voids 1 - Labs CBC & Chem 7: 12/08/23 03:30 12/08/23 07:40 Labs: Abnormal Lab Results - Last 24 Hours (Table) 12/07/23 12/07/23 12/08/23 Range/Units 15:31 15:31 03:30 RBC 3.77 L (3.80-5.40) m/uL MCHC 30.5 L 30.6 L (31.0-37.0) g/dL Neutrophils # 8.1 H (1.3-7.7) k/uL Sodium (137-145) mmol/L Carbon Dioxide (22-30) mmol/L BUN 19 H (7-17) mg/dL Creatinine (0.52-1.04) mg/dL Glucose 120 H (74-99) mg/dL POC Glucose (mg/dL) (70-110) mg/dL AST 56 H (14-36) U/L ALT 75 H (4-34) U/L Total Protein (6.3-8.2) g/dL 12/08/23 12/08/23 12/08/23 Range/Units 03:30 06:18 07:40 RBC (3.80-5.40) m/uL MCHC (31.0-37.0) g/dL Neutrophils # (1.3-7.7) k/uL Sodium 133 L (137-145) mmol/L Carbon Dioxide 32 H 31 H (22-30) mmol/L BUN 26 H 26 H (7-17) mg/dL Creatinine 1.14 H (0.52-1.04) mg/dL Glucose 145 H 143 H (74-99) mg/dL POC Glucose (mg/dL) 143 H (70-110) mg/dL AST (14-36) U/L ALT 57 H (4-34) U/L Total Protein 5.7 L (6.3-8.2) g/dL 12/08/23 Range/Units 12:24 RBC (3.80-5.40) m/uL MCHC (31.0-37.0) g/dL Neutrophils # (1.3-7.7) k/uL Sodium (137-145) mmol/L Carbon Dioxide (22-30) mmol/L BUN (7-17) mg/dL Creatinine (0.52-1.04) mg/dL Glucose (74-99) mg/dL POC Glucose (mg/dL) 159 H (70-110) mg/dL AST (14-36) U/L ALT (4-34) U/L Total Protein (6.3-8.2) g/dL Assessment and Plan Plan: Acute on chronic hypoxic respiratory failure secondary to an acute exacerbation of oxygen dependent chronic obstructive pulmonary disease and possible early right lower lobe infiltrate. seen by pulmonary resume oxygen, 4 L currently which is her baseline Continue on steroids IV, bronchodilators Check pro calcitonin Chronic Atrial fibrillation, anticoagulated with Xarelto Coronary artery disease Hypertension Hyperlipidemia History of anxiety/depression/PTSD all stable Resume meds anticipate discharge in a.m.
[2023-12-08 16:51] LABS: Glucose,Whole Blood 220 mg/dL (70-110)
[2023-12-08] MEDS: RIVAROXABAN 20 MG TAB PO SCH (17:44)
[2023-12-08 20:18] LABS: Glucose,Whole Blood 199 mg/dL (70-110)
[2023-12-08] MEDS ORDERED: INSULIN ASPART (NovoLOG) 100 UNIT/ML VIAL SQ SCH (21:00)
[2023-12-09 02:53] VITALS: TEMP 97.6
[2023-12-09 06:03] LABS: Glucose,Whole Blood 180 mg/dL (70-110)
[2023-12-09] MEDS: predniSONE 20 MG TAB PO SCH (08:41)
[2023-12-09] MEDS: ACETAMINOPHEN TAB 325 MG TAB PO PRN (08:41)
[2023-12-09 12:25] LABS: Glucose,Whole Blood 187 mg/dL (70-110)
--- NOTE | 2023-12-09 12:48 | P.PN ---
Subjective Progress Note Date: 12/09/23 This is a very pleasant 68-year-old female patient who follows at [facility] for her primary care needs. She also follows with Dr. Jacob in our office for her end-stage oxygen dependent chronic obstructive pulmonary disease. FEV1 value 42% of predicted, she does have a 47-year smoking history but has since quit. She is maintained on Symbicort, Spiriva and albuterol in the outpatient setting. She is normally on oxygen at 4 L at home. She does have a history of atrial fibrillation anticoagulated with Xarelto, coronary artery disease, hypertension, hyperlipidemia, obesity. He presented here to the emergency room yesterday with a several day history of chest pressure, increasing shortness of breath, dyspnea on exertion. No significant cough or congestion. No fever or chills. No hemoptysis. Chest x-ray reveals evidence of COPD and possible early infiltrate of the right lower lobe. White count 6.1. Hemoglobin 11.5. Platelets 220. Sodium 133. Potassium 3.8. B icarb 31. BUN 26. Creatinine 0.99. Glucose 143. Viral screen was negative. proBNP 2230. Troponin negative x 1. Has been initiated on DuoNeb inhalations, Symbicort, Solu-Medrol. Anticoagulated with Xarelto. She is seen in consultation on the regular medical floor. Currently sitting up in bed. Awake and alert in no acute distress. Maintaining O2 saturations in the 90s on 4 L/min per nasal cannula. No IV fluids. The patient is seen today December 09, 2023 in follow-up on the regular medical floor. She is currently sitting up in bed. Awake and alert in no acute distress. Breathing a bit easier today compared to yesterday. She is maintaining good O2 saturations in the 90s on 4 L/min per nasal cannula. No IV fluids. Her procalcitonin was 0.04. Her antibiotics were discontinued. She remains on DuoNeb ventilations, Symbicort, Solu-Medrol. Anticoagulated with Xarelto. Glucose 187. Objective - Vital Signs Vital signs: Vital Signs Temp 97.6 F 12/09/23 07:00 Pulse 100 12/09/23 11:55 Resp 17 12/09/23 07:00 BP 156/93 12/09/23 07:00 Pulse Ox 98 12/09/23 08:35 FiO2 Intake & Output 12/08/23 12/09/23 12/09/23 18:59 06:59 18:59 Intake Total 346 240 118 Balance 346 240 118 Intake: Oral 346 240 118 Other: Voiding Method Toilet Toilet Bedside Commode Bedside Commode # Voids 6 3 # Bowel Movements 1 - Exam GENERAL EXAM: Alert, C8-year-old female, on 4 L nasal cannula, comfortable in no apparent distress. HEAD: Normocephalic. EYES: Normal reaction of pupils, equal size. NOSE: Clear with pink turbinates. THROAT: No erythema or exudates. NECK: No masses, no JVD. CHEST: No chest wall deformity. LUNGS: Equal air entry with no crackles, wheeze, rhonchi or dullness. Diminished. CVS: S1 and S2 normal with no audible murmur, regular rhythm. ABDOMEN: No hepatosplenomegaly, normal bowel sounds, no guarding or rigidity. SPINE: No scoliosis or deformity SKIN: No rashes CENTRAL NERVOUS SYSTEM: No focal deficits, tone is normal in all 4 extremities. EXTREMITIES: There is no peripheral edema. No clubbing, no cyanosis. Peripheral pulses are intact. - Labs CBC & Chem 7: 12/08/23 03:30 12/08/23 07:40 Labs: Abnormal Lab Results - Last 24 Hours (Table) 12/08/23 12/08/23 12/09/23 Range/Units 16:49 20:17 06:02 POC Glucose (mg/dL) 220 H 199 H 180 H (70-110) mg/dL 12/09/23 Range/Units 12:24 POC Glucose (mg/dL) 187 H (70-110) mg/dL Assessment and Plan Assessment: Acute on chronic hypoxic respiratory failure secondary to an acute exacerbation of oxygen dependent chronic obstructive pulmonary disease. Procalcitonin negative. Chronic hypoxemic respiratory failure secondary to end-stage chronic obstructive pulmonary disease, FEV1 value of 42% of predicted. On home oxygen at 4 L/min per nasal cannula History of former heavy tobacco dependence of greater than 47 years Chronic atrial fibrillation, anticoagulated with Xarelto Coronary artery disease Hypertension Hyperlipidemia History of anxiety/depression/PTSD Plan: The patient was seen and evaluated Labs and medications reviewed Procalcitonin negative Cleared for discharge from the pulmonary standpoint Complete a prednisone taper Continue her home pulmonary medications Follow-up in our office in 1 week This patient was seen independently by the pulmonary nurse practitioner addressing pulmonary issues I have personally seen and examined the patient, performed the documentation and the assessment and plan as written. Number of minutes spent on the visit: 25.
--- NOTE | 2023-12-09 14:07 | P.DS ---
Providers Date of admission: 12/07/23 18:02 Expected date of discharge: 12/09/23 Attending physician: King Bailey MD Consults: 12/08/23 04:29 Consult Physician Urgent Consulting Provider: Andrew Nazario Consult Reason/Comments: copd Do you want consulting provider notified?: Yes Primary care physician: [facility] Hospital Course: 68-year-old female with history of atrial fibrillation anticoagulated with Xarelto, coronary artery disease, hypertension, hyperlipidemia, obesity, who follows at the [facility] for her primary care needs, follows with Dr. Jacob for her end-stage oxygen dependent chronic obstructive pulmonary disease, on 4L at baseline, presented here to the emergency room yesterday with a several day history of chest pressure, increasing shortness of breath, dyspnea on exertion. No significant cough or congestion. No fever or chills. No hemoptysis. Evaluation in the ER with chest x-ray reveals evidence of COPD and possible early infiltrate of the right lower lobe According to ER reading. White count 6.1. Hemoglobin 11.5. Platelets 220. Sodium 133. Potassium 3.8. Bicarb 31. BUN 26. Creatinine 0.99. Glucose 143. Viral screen was negative. proBNP 2230. Troponin negative x 1. Patient was initiated on DuoNeb inhalations, Symbicort, Solu-Medrol. she was seen by pulmonary service who agreed with the echo lowe. over the course of admission patient continued to feel better. Currently at her baseline. Only requiring 4 L of oxygen which is her baseline. She will be discharged home in stable condition. Discharge diagnoses Acute on chronic hypoxic respiratory failure Acute exacerbation of oxygen dependent chronic obstructive pulmonary disease. No Pneumonia Atrial fibrillation, anticoagulated with Xarelto Coronary artery disease Hypertension Hyperlipidemia History of anxiety/depression/PTSD patient was seen and examined on the day of discharge 12/08 Time for discharge 35 minutes. Patient Condition at Discharge: Stable Plan - Discharge Summary New Discharge Prescriptions: New methylPREDNISolone Dose Pack [Medrol Dose Pack] 4 mg PO DIRECTED 10 Days #21 tab Continue Rivaroxaban [Xarelto] 20 mg PO W/SUPPER Potassium Chloride [Klor-Con 20] 20 meq PO BID Albuterol Inhaler [Ventolin Hfa Inhaler] 2 puff INHALATION RT-QID PRN PRN Reason: Shortness Of Breath Atorvastatin [Lipitor] 40 mg PO DAILY Ipratropium-Albuterol Nebulize [Duoneb 0.5 mg-3 mg/3 ml Soln] 3 ml INHALATION RT-Q2H PRN each PRN Reason: Shortness Of Breath Or Wheezing Metoprolol Succinate (ER) [Toprol XL] 100 mg PO DAILY #0 tab Budesonide/Formoterol Fumarate [Breyna 160-4.5 Mcg Inhaler] 2 puff INHALATION RT-BID Tiotropium 2.5 Mcg/Puff [Spiriva Respimat 2.5 Mcg] 2 puff INHALATION RT-DAILY PARoxetine HCL 40 mg PO DAILY Empagliflozin [Jardiance] 10 mg PO DAILY #30 tablet Carboxymethylcellulose Sodium [Refresh Tears] 1 drop BOTH EYES QID PRN PRN Reason: Dry Eye(S) Discharge Medication List Albuterol Inhaler [Ventolin Hfa Inhaler] 2 puff INHALATION RT-QID PRN 08/22/20 [History] Potassium Chloride [Klor-Con 20] 20 meq PO BID 08/22/20 [History] Rivaroxaban [Xarelto] 20 mg PO W/SUPPER 08/22/20 [History] Tiotropium 2.5 Mcg/Puff [Spiriva Respimat 2.5 Mcg] 2 puff INHALATION RT-DAILY 08/22/20 [History] Atorvastatin [Lipitor] 40 mg PO DAILY 10/01/23 [History] PARoxetine HCL 40 mg PO DAILY 10/01/23 [History] Empagliflozin [Jardiance] 10 mg PO DAILY #30 tablet 10/04/23 [Rx] Ipratropium-Albuterol Nebulize [Duoneb 0.5 mg-3 mg/3 ml Soln] 3 ml INHALATION RT-Q2H PRN each 10/04/23 [Rx] Metoprolol Succinate (ER) [Toprol XL] 100 mg PO DAILY #0 tab 10/04/23 [Rx] Budesonide/Formoterol Fumarate [Breyna 160-4.5 Mcg Inhaler] 2 puff INHALATION RT-BID 12/07/23 [History] Carboxymethylcellulose Sodium [Refresh Tears] 1 drop BOTH EYES QID PRN 12/07/23 [History] methylPREDNISolone Dose Pack [Medrol Dose Pack] 4 mg PO DIRECTED 10 Days #21 tab 12/09/23 [Rx] Follow up Appointment(s)/Referral(s): Brittany Jacob MD [STAFF PHYSICIAN] - 01/03/24 9:15 am [facility] [Primary Care Provider] - 1-2 days
[2023-12-09 15:37] VITALS: BP 150/94; PULSE 98; RESP 16
== END 2023-12-09 15:52 | disposition home or self-care (01) ==
LOC: EC 12:29 → 6NMEDSUR 18:02
PROVIDERS: ADMIT Internal Medicine; ATTEND Internal Medicine
DX: J44.1 Chronic obstructive pulmonary disease with (acute) exacerbation (principal); J96.21 Acute and chronic respiratory failure with hypoxia; I48.20 Chronic atrial fibrillation, unspecified; I11.0 Hypertensive heart disease with heart failure; I50.9 Heart failure, unspecified; I25.10 Atherosclerotic heart disease of native coronary artery without angina pectoris; E78.5 Hyperlipidemia, unspecified; Z99.81 Dependence on supplemental oxygen; E66.9 Obesity, unspecified; Z68.41 Body mass index [BMI] 40.0-44.9, adult; R10.13 Epigastric pain; I25.2 Old myocardial infarction; F43.10 Post-traumatic stress disorder, unspecified; F32.A Depression, unspecified; F41.9 Anxiety disorder, unspecified; Z79.01 Long term (current) use of anticoagulants; Z79.84 Long term (current) use of oral hypoglycemic drugs; Z79.51 Long term (current) use of inhaled steroids; Z79.899 Other long term (current) drug therapy; Z11.52 Encounter for screening for COVID-19; Z11.59 Encounter for screening for other viral diseases; Z87.891 Personal history of nicotine dependence
CPT/HCPCS: 36415; 71046; 80048; 80053; 83605; 83880; 84145; 84484; 85025; 85027; 85610; 85730; 87636; 93005; 94640; 94760; 96374; 96375; 96376; 99285

== ENCOUNTER 2024-01-20 05:35 | Emergency (ER) | payer OTHER, MEDICARE ==
[2024-01-20 05:43] VITALS: TEMP 97.7
[2024-01-20 06:08] LABS: Anisocytosis Slight; Basophils # (A) 0.1 k/uL (0-0.2); Basophils % (A) 1 %; Eosinophils # (A) 0.3 k/uL (0-0.7); Eosinophils % (A) 2 %; HCT 40.6 % (34.0-46.0); HGB 12.8 gm/dL (11.4-16.0); Hypochromasia Moderate; Lymphocytes # (A) 1.4 k/uL (1.0-4.8); Lymphocytes % (A) 12 %; MCH 30.5 pg (25.0-35.0); MCHC 31.5 g/dL (31.0-37.0); MCV 96.6 fL (80.0-100.0); Macrocytosis Slight; Mean Platelet Volume 9.1; Monocytes # (A) 0.6 k/uL (0-1.0); Monocytes % (A) 5 %; Neutrophils # (A) 8.8 k/uL (1.3-7.7); Neutrophils % (A) 78 %; Platelet Count 223 k/uL (150-450); RDW 17.1 % (11.5-15.5); WBC 11.2 k/uL (3.8-10.6)
--- NOTE | 2024-01-20 06:30 | ED ---
SOB HPI - General Chief Complaint: Shortness of Breath Stated Complaint: SHONDA Time Seen by Provider: 01/20/24 05:50 Source: EMS, RN notes reviewed Mode of arrival: EMS Limitations: no limitations, physical limitation (Use of walker and O2 dependent) - History of Present Illness Initial Comments: This is a 68-year-old female arriving via EMS with history of COPD, A-fib, heart failure, asthma complaining of dizziness following a nosebleed x 1 hour. Geovanna ent endorses blowing her nose earlier this morning causing bleeding from her right nostril that would not stop despite use of nasal packing with tissue. Patient endorses use of home O2 via nasal cannula and Xarelto due to her medical history of A-fib, COPD and heart failure. Patient endorses independent living with occasional help arriving. Patient endorses chronic difficulty navigating around home due to constant shortness of breath with all activity and associated non-radiating heaviness in mid chest. Patient endorses regular use of Lasix for pulmonary edema only for the past 1 month. Patient states her mid chest pressure and shortness of breath is no worse than any other day today. States difference today was nosebleed and subsequent dizziness and weakness due to uncontrolled bleeding. Patient states bleeding has since been controlled upon arrival via EMS. Patient endorses frustration with living independently due to limitations, especially shortness of breath with activity and mobilization difficulty. Patient states she is considering moving to care home. Patient also mentions some urgency with urination. Patient denies fever, chills, body aches, hemoptysis, sweating, N/V/D, constipation. Onset/Timin -: minutes(s) - Related Data Home Medications Medication Instructions Recorded Confirmed Albuterol Inhaler [Ventolin Hfa 2 puff INHALATION RT-QID PRN 08/22/20 12/07/23 Inhaler] Potassium Chloride [Klor-Con 20] 20 meq PO BID 08/22/20 12/07/23 Rivaroxaban [Xarelto] 20 mg PO W/SUPPER 08/22/20 12/07/23 Tiotropium 2.5 Mcg/Puff [Spiriva 2 puff INHALATION RT-DAILY 08/22/20 12/07/23 Respimat 2.5 Mcg] Atorvastatin [Lipitor] 40 mg PO DAILY 10/01/23 12/07/23 PARoxetine HCL 40 mg PO DAILY 10/01/23 12/07/23 Budesonide/Formoterol Fumarate 2 puff INHALATION RT-BID 12/07/23 12/07/23 [Breyna 160-4.5 Mcg Inhaler] Carboxymethylcellulose Sodium 1 drop BOTH EYES QID PRN 12/07/23 12/07/23 [Refresh Tears] Previous Rx's Medication Instructions Recorded Empagliflozin [Jardiance] 10 mg PO DAILY #30 tablet 10/04/23 Ipratropium-Albuterol Nebulize 3 ml INHALATION RT-Q2H PRN each 10/04/23 [Duoneb 0.5 mg-3 mg/3 ml Soln] Metoprolol Succinate (ER) [Toprol 100 mg PO DAILY #0 tab 10/04/23 XL] methylPREDNISolone Dose Pack 4 mg PO DIRECTED 10 Days #21 tab 12/09/23 [Medrol Dose Pack] Nitrofurantoin Monohyd/M-Cryst 100 mg PO Q12HR #14 cap 01/20/24 [Macrobid] Allergies Allergy/AdvReac Type Severity Reaction Status Date / Time fluticasone AdvReac Cough Verified 12/07/23 17:22 [From [facility]] salmeterol AdvReac Cough Verified 12/07/23 17:22 [From [facility]] Review of Systems ROS Statement: Those systems with pertinent positive or pertinent negative responses have been documented in the HPI. ROS Other: All systems not noted in ROS Statement are negative. Past Medical History Past Medical History: Atrial Fibrillation, Asthma, Coronary Artery Disease (CAD), Heart Failure, COPD, GERD/Reflux, Hyperlipidemia, Hypertension, Myocardia l Infarction (ND), Osteoarthritis (OA), Skin Disorder Additional Past Medical History / Comment(s): migraines, stroke 2003-no residual effects, IBS, osteoporosis, psoriasis, "prediabetic"- dr watching, lower back pain Last Myocardial Infarction Date:: 1985 History of Any Multi-Drug Resistant Organisms: None Reported Past Surgical History: Heart Catheterization, Tubal Ligation Past Anesthesia/Blood Transfusion Reactions: No Reported Reaction Past Psychological History: Anxiety, Depression, PTSD Smoking Status: Former smoker Past Alcohol Use History: Occasional Past Drug Use History: None Reported - Past Family History Brother(s) Family Medical History: Cancer Sister(s) Family Medical History: Cancer, Deep Vein Thrombosis (DVT) Mother Family Medical History: Pulmonary Embolus General Exam Limitations: no limitations General appearance: alert, in no apparent distress Head exam: Present: atraumatic, normocephalic, normal inspection Eye exam: Present: normal appearance, PERRL, EOMI. Absent: scleral icterus, conjunctival injection, periorbital swelling ENT exam: Present: normal exam, mucous membranes dry (Dry nasal canals and oropharynx noted. Dried blood noted in anterior aspect of right nare. Some bloody postnasal drip noted.) Neck exam: Present: normal inspection. Absent: tenderness, meningismus, lymphadenopathy Respiratory exam: Present: decreased breath sounds (Slightly diminished breath sounds in all comer. Negative expiratory wheezing, rhonchi, rales, crackles). Absent: respiratory distress, wheezes, rales, rhonchi, stridor Cardiovascular Exam: Present: regular rate, normal rhythm, normal heart sounds. Absent: systolic murmur, diastolic murmur, rubs, gallop, clicks GI/Abdominal exam: Present: soft, normal bowel sounds. Absent: distended, tenderness, guarding, rebound, rigid Extremities exam: Present: normal inspection, full ROM, normal capillary refill. Absent: tenderness, pedal edema, joint swelling, calf tenderness Back exam: Present: normal inspection Neurological exam: Present: alert, oriented X3, CN II-XII intact Psychiatric exam: Present: normal affect, normal mood Skin exam: Present: warm, dry, intact, normal color. Absent: rash Course Vital Signs 01/20/24 01/20/24 01/20/24 05:37 05:57 06:15 Temperature 97.7 F Pulse Rate 91 94 Respiratory 18 20 22 Rate Blood Pressure 116/96 104/81 O2 Sat by Pulse 96 98 Oximetry 01/20/24 01/20/24 08:24 08:41 Temperature Pulse Rate 80 89 Respiratory Rate Blood Pressure O2 Sat by Pulse Oximetry Medical Decision Making - Medical Decision Making Was pt. sent in by a medical professional or institution (, PA, BATCH PLANT SUPERVISOR, urgent care, hospital, or care home...) When possible be specific @ -No Did you speak to anyone other than the patient for history (EMS, parent, family, police, friend...)? What history was obtained from this source @ -EMS. Advised that patient was having dizziness and shortness of breath following epistaxis episode. Did you review nursing and triage notes (agree or disagree)? Why? @ -I reviewed and agree with nursing and triage notes Were old charts reviewed (outside hosp., previous admission, EMS record, old EKG, old radiological studies, urgent care reports/EKG's, care home records)? Report findings @ -No old charts were reviewed Differential Diagnosis (chest pain, altered mental status, abdominal pain women, abdominal pain men, vaginal bleeding, weakness, fever, dyspnea, syncope, headache, dizziness, GI bleed, back pain, seizure, CVA, palpatations, mental health, musculoskeletal)? @ -Differential Dizziness: Benign paroxysmal positional Vertigo, Meniere's disease, otitis media, acoustic neuroma, vertebrobasilar insufficiency, cerebellar stroke, encephalitis, hypovolemic, arrhythmia, coronary artery syndrome, anemia, this is not meant to be an all-inclusive list Differential Dyspnea: Coronary syndrome, arrhythmia, tamponade, asthma, COPD, pulmonary embolism, pneumonia, pneumothorax, pulmonary effusion, anaphylaxis, diabetic ketoacidosis, flailed chest, pulmonary contusion, diaphragmatic rupture, anemia, neuromuscular, this is not meant to be an all-inclusive list. EKG interpreted by me (3pts min.). @ -A-fib without ST elevation, ST depression, T wave inversion. Ventricular rat e 87 bpm, no ARNULFO interval, QRS duration 77 ms, QT/QTc 346/391 ms. X-rays interpreted by me (1pt min.). @ -Chest x-ray shows no focal consolidations, pulmonary edema or blunting of costophrenic angle. Cardiomegaly noted CT interpreted by me (1pt min.). @ -None done U/S interpreted by me (1pt. min.). @ -None done What testing was considered but not performed or refused? (CT, X-rays, U/S, labs)? Why? @ -None What meds were considered but not given or refused? Why? @ -None Did you discuss the management of the patient with other professionals (professionals i.e. , PA, BATCH PLANT SUPERVISOR, lab, RT, psych nurse, renal social worker, drop count associate, teacher, chief development officer, case management assistant)? Give summary @ -No Was smoking cessation discussed for >3mins.? @ -No Was critical care preformed (if so, how long)? @ -No Were there social determinants of health that impacted care today? How? (Homelessness, low income, unemployed, alcoholism, drug addiction, transportation, low edu. Level, literacy, decrease access to med. care, fpc, rehab)? @ -No Was there de-escalation of care discussed even if they declined (Discuss DNR or withdrawal of care, Hospice)? DNR status @ -No What co-morbidities impacted this encounter? (DM, HTN, Smoking, COPD, CAD, Cancer, CVA, ARF, Chemo, Hep., AIDS, mental health diagnosis, sleep apnea, morbi d obesity)? @ -None Was patient admitted / discharged? Hospital course, mention meds given and route , prescriptions, significant lab abnormalities, going to OR and other pertinent info. @ -Discharged. Patient lab work shows elevated white blood cell, lactic acid and BMP. CKD also noted. UA shows both leukocytes and bacteria. Chest x-ray unremarkable no. Shortness of breath treated with breathing treatments and IV steroids, UTI treated with Rocephin IV. Discussed with patient that [facility] will be unable to provide [facility] to [facility] facility. Advised to consider Medicaid for change in living facility. Also advised wheelchair for easier mobility [place] without exacerbating chest pain and dyspnea. Outpatient order for wheelchair and Macrobid provided. @ -No Drug Therapy requiring intensive monitoring for toxicity (Heparin, Nitro, Insulin, Cardizem)? @ -No Were any procedures done? @ -No Diagnosis/symptom? @ -CHF exacerbation, UTI, chest pain and shortness of breath with exertion Acute, or Chronic, or Acute on Chronic? @ -Acute on chronic Uncomplicated (without systemic symptoms) or Complicated (systemic symptoms)? @ -Complicated Side effects of treatment? @ -No Exacerbation, Progression, or Severe Exacerbation? @ -Exacerbation Poses a threat to life or bodily function? How? (Chest pain, USA, ND, pneumonia, PE, COPD, DKA, ARF, appy, cholecystitis, CVA, Diverticulitis, Homicidal, Suicidal, threat to staff... and all critical care pts) @ -No - Lab Data Result diagrams: 01/20/24 05:54 01/20/24 05:54 Lab Results 01/20/24 01/20/24 01/20/24 Range/Units 05:54 05:54 05:54 WBC 11.2 H (3.8-10.6) k/uL RBC 4.20 (3.80-5.40) m/uL Hgb 12.8 (11.4-16.0) gm/dL Hct 40.6 (34.0-46.0) % MCV 96.6 (80.0-100.0) fL MCH 30.5 (25.0-35.0) pg MCHC 31.5 (31.0-37.0) g/dL RDW 17.1 H (11.5-15.5) % Plt Count 223 (150-450) k/uL MPV 9.1 Neutrophils % 78 % Lymphocytes % 12 % Monocytes % 5 % Eosinophils % 2 % Basophils % 1 % Neutrophils # 8.8 H (1.3-7.7) k/uL Lymphocytes # 1.4 (1.0-4.8) k/uL Monocytes # 0.6 (0-1.0) k/uL Eosinophils # 0.3 (0-0.7) k/uL Basophils # 0.1 (0-0.2) k/uL Hypochromasia Moderate Anisocytosis Slight Macrocytosis Slight PT 14.2 H (10.0-12.5) sec INR 1.4 H (<1.2) APTT 29.8 (22.0-30.0) sec Sodium 141 (137-145) mmol/L Potassium 3.5 (3.5-5.1) mmol/L Chloride 103 (98-107) mmol/L Carbon Dioxide 31 H (22-30) mmol/L Anion Gap 7 mmol/L BUN 32 H (7-17) mg/dL Creatinine 1.33 H (0.52-1.04) mg/dL Est GFR (CKD-EPI)AfAm 48 (>60 ml/min/1.73 sqM) Est GFR (CKD-EPI)NonAf 42 (>60 ml/min/1.73 sqM) Glucose 122 H (74-99) mg/dL Lactic Ac Sepsis Rflx Plasma Lactic Acid Jerry (0.7-2.0) mmol/L Calcium 9.1 (8.4-10.2) mg/dL Total Bilirubin 0.7 (0.2-1.3) mg/dL AST 38 H (14-36) U/L ALT 39 H (4-34) U/L Alkaline Phosphatase 92 (38-126) U/L Troponin I (0.000-0.034) ng/mL NT-Pro-B Natriuret Pep 1520 pg/mL Total Protein 6.1 L (6.3-8.2) g/dL Albumin 3.9 (3.5-5.0) g/dL Urine Color Urine Appearance (Clear) Urine pH (5.0-8.0) Ur Specific [place] (1.001-1.035) Urine Protein (Negative) Urine Glucose (UA) (Negative) Urine Ketones (Negative) Urine Blood (Negative) Urine Nitrite (Negative) Urine Bilirubin (Negative) Urine Urobilinogen (<2.0) mg/dL Ur Leukocyte Esterase (Negative) Urine RBC (0-5) /hpf Urine WBC (0-5) /hpf Ur Squamous Epith Cells (0-4) /hpf Urine Bacteria (None) /hpf Hyaline Casts (0-2) /lpf Urine Mucus (None) /hpf 01/20/24 01/20/24 01/20/24 Range/Units 05:54 05:54 06:52 WBC (3.8-10.6) k/uL RBC (3.80-5.40) m/uL Hgb (11.4-16.0) gm/dL Hct (34.0-46.0) % MCV (80.0-100.0) fL MCH (25.0-35.0) pg MCHC (31.0-37.0) g/dL RDW (11.5-15.5) % Plt Count (150-450) k/uL MPV Neutrophils % % Lymphocytes % % Monocytes % % Eosinophils % % Basophils % % Neutrophils # (1.3-7.7) k/uL Lymphocytes # (1.0-4.8) k/uL Monocytes # (0-1.0) k/uL Eosinophils # (0-0.7) k/uL Basophils # (0-0.2) k/uL Hypochromasia Anisocytosis Macrocytosis PT (10.0-12.5) sec INR (<1.2) APTT (22.0-30.0) sec Sodium (137-145) mmol/L Potassium (3.5-5.1) mmol/L Chloride (98-107) mmol/L Carbon Dioxide (22-30) mmol/L Anion Gap mmol/L BUN (7-17) mg/dL Creatinine (0.52-1.04) mg/dL Est GFR (CKD-EPI)AfAm (>60 ml/min/1.73 sqM) Est GFR (CKD-EPI)NonAf (>60 ml/min/1.73 sqM) Glucose (74-99) mg/dL Lactic Ac Sepsis Rflx Y Plasma Lactic Acid Jerry 2.2 H* (0.7-2.0) mmol/L Calcium (8.4-10.2) mg/dL Total Bilirubin (0.2-1.3) mg/dL AST (14-36) U/L ALT (4-34) U/L Alkaline Phosphatase (38-126) U/L Troponin I <0.012 (0.000-0.034) ng/mL NT-Pro-B Natriuret Pep pg/mL Total Protein (6.3-8.2) g/dL Albumin (3.5-5.0) g/dL Urine Color Urine Appearance (Clear) Urine pH (5.0-8.0) Ur Specific [place] (1.001-1.035) Urine Protein (Negative) Urine Glucose (UA) (Negative) Urine Ketones (Negative) Urine Blood (Negative) Urine Nitrite (Negative) Urine Bilirubin (Negative) Urine Urobilinogen (<2.0) mg/dL Ur Leukocyte Esterase (Negative) Urine RBC (0-5) /hpf Urine WBC (0-5) /hpf Ur Squamous Epith Cells (0-4) /hpf Urine Bacteria (None) /hpf Hyaline Casts (0-2) /lpf Urine Mucus (None) /hpf 01/20/24 Range/Units 07:07 WBC (3.8-10.6) k/uL RBC (3.80-5.40) m/uL Hgb (11.4-16.0) gm/dL Hct (34.0-46.0) % MCV (80.0-100.0) fL MCH (25.0-35.0) pg MCHC (31.0-37.0) g/dL RDW (11.5-15.5) % Plt Count (150-450) k/uL MPV Neutrophils % % Lymphocytes % % Monocytes % % Eosinophils % % Basophils % % Neutrophils # (1.3-7.7) k/uL Lymphocytes # (1.0-4.8) k/uL Monocytes # (0-1.0) k/uL Eosinophils # (0-0.7) k/uL Basophils # (0-0.2) k/uL Hypochromasia Anisocytosis Macrocytosis PT (10.0-12.5) sec INR (<1.2) APTT (22.0-30.0) sec Sodium (137-145) mmol/L Potassium (3.5-5.1) mmol/L Chloride (98-107) mmol/L Carbon Dioxide (22-30) mmol/L Anion Gap mmol/L BUN (7-17) mg/dL Creatinine (0.52-1.04) mg/dL Est GFR (CKD-EPI)AfAm (>60 ml/min/1.73 sqM) Est GFR (CKD-EPI)NonAf (>60 ml/min/1.73 sqM) Glucose (74-99) mg/dL Lactic Ac Sepsis Rflx Plasma Lactic Acid Jerry (0.7-2.0) mmol/L Calcium (8.4-10.2) mg/dL Total Bilirubin (0.2-1.3) mg/dL AST (14-36) U/L ALT (4-34) U/L Alkaline Phosphatase (38-126) U/L Troponin I (0.000-0.034) ng/mL NT-Pro-B Natriuret Pep pg/mL Total Protein (6.3-8.2) g/dL Albumin (3.5-5.0) g/dL Urine Color Light Yellow Urine Appearance Clear (Clear) Urine pH 6.0 (5.0-8.0) Ur Specific [place] 1.025 (1.001-1.035) Urine Protein 1+ H (Negative) Urine Glucose (UA) 4+ H (Negative) Urine Ketones Negative (Negative) Urine Blood Negative (Negative) Urine Nitrite Negative (Negative) Urine Bilirubin Negative (Negative) Urine Urobilinogen <2.0 (<2.0) mg/dL Ur Leukocyte Esterase Moderate H (Negative) Urine RBC <1 (0-5) /hpf Urine WBC 49 H (0-5) /hpf Ur Squamous Epith Cells 8 H (0-4) /hpf Urine Bacteria Rare H (None) /hpf Hyaline Casts 25 H (0-2) /lpf Urine Mucus Rare H (None) /hpf Disposition Clinical Impression: UTI (urinary tract infection), Chest pain, CHF (congestive heart failure), Epistaxis not due to trauma Disposition: HOME SELF-CARE Condition: Fair Instructions (If sedation given, give patient instructions): Heart Failure (ER), Urinary Tract Infection in Women (ED), Nosebleed (ED) Prescriptions: Nitrofurantoin Monohyd/M-Cryst [Macrobid] 100 mg PO Q12HR #14 cap Is patient prescribed a controlled substance at d/c from ED?: No Referrals: WILFREDO GEE DO [REFERRING] - 1-2 days [facility] [Primary Care Provider] - 1-2 days Forms: Who Do I Call?, Adult Foster Group Home List, Assisted Living Facilities, Personal Coal Getter Time of Disposition: 08:54
[2024-01-20 06:32] LABS: INR 1.4 (<1.2); Partial Thromboplastin Time 29.8 sec (22.0-30.0); Prothrombin Time 14.2 sec (10.0-12.5)
[2024-01-20 06:35] LABS: NT-Pro-B-Type Natriuretic Pept 1520 pg/mL
[2024-01-20 06:44] VITALS: BP 104/81; RESP 22
[2024-01-20 06:50] LABS: ALT 39 U/L (4-34); AST 38 U/L (14-36); African American GFR (CKD) 48 (>60 ml/min/1.73 sqM); Albumin 3.9 g/dL (3.5-5.0); Alkaline Phosphatase 92 U/L (38-126); Anion Gap 7 mmol/L; Blood Urea Nitrogen 32 mg/dL (7-17); Calcium 9.1 mg/dL (8.4-10.2); Carbon Dioxide 31 mmol/L (22-30); Chloride 103 mmol/L (98-107); Glucose 122 mg/dL (74-99); Non-African American GFR(CKD) 42 (>60 ml/min/1.73 sqM); Potassium 3.5 mmol/L (3.5-5.1); Sodium 141 mmol/L (137-145); Total Bilirubin 0.7 mg/dL (0.2-1.3); Total Protein 6.1 g/dL (6.3-8.2)
--- NOTE | 2024-01-20 07:13 | XR ---
EXAMINATION TYPE: XR chest 2V DATE OF EXAM: 01/20/2024 COMPARISON: Prior chest x-ray December 07, 2023 HISTORY: Difficulty in breathing TECHNIQUE: Frontal and lateral views of the chest are obtained. FINDINGS: Underlying emphysematous change is redemonstrated. There is no suspicious new focal air sp demarcus opacity, pleural effusion, or pneumothorax seen. Cardiomegaly redemonstrated. The osseous struc tures are intact. IMPRESSION: Chronic emphysematous change and cardiomegaly without suspicious acute pulmonary process . [facility], Workstation: [facility], 01/20/2024 7:10 AM
[2024-01-20 07:25] LABS: Appearance,Urine Clear (Clear); Color,Urine Light Yellow; Glucose,Urine (UA) 4+ (Negative); Protein,Urine 1+ (Negative); Specific Gravity,Urine 1.025 (1.001-1.035)
[2024-01-20 07:26] LABS: Bacteria,Urine Rare /hpf; Bilirubin,Urine Negative (Negative); Blood,Urine Negative (Negative); Hyaline Casts,Urine 25 /lpf (0-2); Ketones,Urine Negative (Negative); Leukocyte Esterase,Urine Moderate (Negative); Mucus,Urine Rare /hpf; Nitrite,Urine Negative (Negative); RBC,Urine <1 /hpf (0-5); Squamous Epithelial Cell,Urine 8 /hpf (0-4); Urobilinogen,Urine <2.0 mg/dL (<2.0); WBC,Urine 49 /hpf (0-5)
[2024-01-20] MEDS: ALBUTEROL NEBULIZED 2.5 MG/3 ML INHALATION STA (08:23)
[2024-01-20 08:42] VITALS: PULSE 89
[2024-01-20] MEDS: methylPREDNISolone SOD SUCCI 40 MG/ML 1 ML VIAL IV SCH (09:20)
[2024-01-20] MEDS: PARoxetine 20 MG TAB PO SCH (09:20)
[2024-01-20] MEDS: ATORVASTATIN 40 MG TAB PO SCH (09:20)
[2024-01-20] MEDS: METOPROLOL SUCCINATE (ER) 100 MG TAB.ER.24H PO SCH (09:20)
[2024-01-20] MEDS: POTASSIUM CHLORIDE ER 20 MEQ TAB.ER PO SCH (09:21)
[2024-01-20] MEDS: DAPAGLIFLOZIN PROPANEDIOL 5 MG TABLET PO SCH (09:39)
[2024-01-20] MEDS ORDERED: IPRATROPIUM 0.5 MG/2.5 ML NEBU INHALATION SCH (12:00)
[2024-01-20] MEDS ORDERED: IPRATROPIUM-ALBUTEROL 3 ML NEB INHALATION PRN (12:42)
--- NOTE | 2024-01-20 12:54 | P.HPIM ---
History of Present Illness H&P Date: 01/20/24 Chief Complaint: Epistaxis/shortness of breath 68-year-old female arriving via EMS with history of COPD, A-fib, heart failure, asthma complaining of dizziness following a nosebleed x 1 hour. Patient endorses blowing her nose earlier this morning causing bleeding from her right nostril that would not stop despite use of nasal packing with tissue. Patient endorses use of home O2 via nasal cannula and Xarelto due to her medical history of A-fib, COPD and heart failure. Patient endorses independent living with occasional help arriving. Patient endorses chronic difficulty navigating around home due to constant shortness of breath with all activity and associated non-r adiating heaviness in mid chest. Patient endorses regular use of Lasix for pulmonary edema only for the past 1 month. Patient states her mid chest pressure and shortness of breath is no worse than any other day today. States difference today was nosebleed and subsequent dizziness and weakness due to uncontrolled bleeding. Patient states bleeding has since been controlled upon arrival via EMS. Patient endorses frustration with living independently due to limitations, especially shortness of breath with activity and mobilization difficulty. Patient states she is considering moving to long term. Patient also mentions some urgency with urination. Patient denies fever, chills, body aches, hemoptysis, sweating, N/V/D, constipation. Blood work completed in ED reveals WBC of 11.2, hemoglobin of 12.8 and platelet count of 223, sodium 141, potassium 3.5, BUNs/creatinine 32/1.33 and blood glucose of 122, lactic acid elevated at 2.2 and BNP of 1520, troponin less than 0.012 UA reveals leukocytosis rare bacteria and WBCs A-fib without ST elevation, ST depression, T wave inversion. Ventricular rate 87 bpm, no ARNULFO interval, QRS duration 77 ms, QT/QTc 346/391 ms. Chest x-ray shows no focal consolidations, pulmonary edema or blunting of costophrenic angle. Cardiomegaly noted Patient was evaluated in ED and epistaxis resolved briefly and patient continued to complain of shortness of breath despite bronchodilator nebulizer treatment -Patient is admitted for further treatment of COPD exacerbation and persistent epistaxis Review of Systems REVIEW OF SYSTEMS: CONSTITUTIONAL: Persistent nosebleed. HEENT: No recent visual problems or hearing problems. Denied any sore throat. CARDIOVASCULAR: No chest pain, orthopnea, PND, no palpitations, no syncope. PULMONARY: Complains of shortness of breath, no cough, no hemoptysis. GASTROINTESTINAL: No diarrhea, no nausea, no vomiting, no abdominal pain. NEUROLOGICAL: No headaches, no weakness, no numbness. HEMATOLOGICAL: Denies any bleeding or petechiae. GENITOURINARY: Denies any burning micturition, frequency, or urgency. MUSCULOSKELETAL/RHEUMATOLOGICAL: Denies any joint pain, swelling, or any muscle pain. ENDOCRINE: Denies any polyuria or polydipsia. The rest of the 14-point review of systems is negative. Past Medical History Past Medical History: Atrial Fibrillation, Asthma, Coronary Artery Disease (CAD), Heart Failure, COPD, GERD/Reflux, Hyperlipidemia, Hypertension, Myocardial Infarction ([place]), Osteoarthritis (OA), Skin Disorder Additional Past Medical History / Comment(s): migraines, stroke 2003-no residual effects, IBS, osteoporosis, psoriasis, "prediabetic"- dr watching, lower back pain Last Myocardial Infarction Date:: 1985 History of Any Multi-Drug Resistant Organisms: None Reported Past Surgical History: Heart Catheterization, Tubal Ligation Past Anesthesia/Blood Transfusion Reactions: No Reported Reaction Past Psychological History: Anxiety, Depression, PTSD Smoking Status: Former smoker Past Alcohol Use History: Occasional Past Drug Use History: None Reported - Past Family History Brother(s) Family Medical History: Cancer Sister(s) Family Medical History: Cancer, Deep Vein Thrombosis (DVT) Mother Family Medical History: Pulmonary Embolus Medications and Allergies Home Medications Medication Instructions Recorded Confirmed Type Albuterol Inhaler [Ventolin Hfa 2 puff INHALATION RT-QID PRN 08/22/20 12/07/23 History Inhaler] Potassium Chloride [Klor-Con 20] 20 meq PO BID 08/22/20 12/07/23 History Rivaroxaban [Xarelto] 20 mg PO W/SUPPER 08/22/20 12/07/23 History Tiotropium 2.5 Mcg/Puff [Spiriva 2 puff INHALATION RT-DAILY 08/22/20 12/07/23 History Respimat 2.5 Mcg] Atorvastatin [Lipitor] 40 mg PO DAILY 10/01/23 12/07/23 History PARoxetine HCL 40 mg PO DAILY 10/01/23 12/07/23 History Empagliflozin [Jardiance] 10 mg PO DAILY #30 tablet 10/04/23 12/07/23 Rx Ipratropium-Albuterol Nebulize 3 ml INHALATION RT-Q2H PRN each 10/04/23 12/07/23 Rx [Duoneb 0.5 mg-3 mg/3 ml Soln] Metoprolol Succinate (ER) [Toprol 100 mg PO DAILY #0 tab 10/04/23 12/07/23 Rx XL] Budesonide/Formoterol Fumarate 2 puff INHALATION RT-BID 12/07/23 12/07/23 History [Breyna 160-4.5 Mcg Inhaler] Carboxymethylcellulose Sodium 1 drop BOTH EYES QID PRN 12/07/23 12/07/23 History [Refresh Tears] methylPREDNISolone Dose Pack 4 mg PO DIRECTED 10 Days #21 tab 12/09/23 Rx [Medrol Dose Pack] Nitrofurantoin Monohyd/M-Cryst 100 mg PO Q12HR #14 cap 01/20/24 Rx [Macrobid] Allergies Allergy/AdvReac Type Severity Reaction Status Date / Time fluticasone AdvReac Cough Verified 12/07/23 17:22 [From [facility]] salmeterol AdvReac Cough Verified 12/07/23 17:22 [From [facility]] Physical Exam Vitals: Vital Signs Temp Pulse Resp BP Pulse Ox 01/20/24 08:41 89 01/20/24 08:24 80 01/20/24 06:15 94 22 104/81 98 01/20/24 05:57 20 01/20/24 05:37 97.7 F 91 18 116/96 96 Intake and Output 01/19/24 01/20/24 01/20/24 22:59 06:59 14:59 Other: Weight 90.718 kg General appearance: alert, in no apparent distress Head exam: Present: atraumatic, normocephalic, normal inspection Eye exam: Present: normal appearance, PERRL, EOMI. Absent: scleral icterus, conjunctival injection, periorbital swelling ENT exam: Present: normal exam, mucous membranes dry (Dry nasal canals and oropharynx noted. Dried blood noted in anterior aspect of right nare. Some bloody postnasal drip noted.) Neck exam: Present: normal inspection. Absent: tenderness, meningismus, lymphadenopathy Respiratory exam: Present: decreased breath sounds (Slightly diminished breath sounds in all comer. Negative expiratory wheezing, rhonchi, rales, crackles). Absent: respiratory distress, wheezes, rales, rhonchi, stridor Cardiovascular Exam: Present: regular rate, normal rhythm, normal heart sounds. Absent: systolic murmur, diastolic murmur, rubs, gallop, clicks GI/Abdominal exam: Present: soft, normal bowel sounds. Absent: distended, tenderness, guarding, rebound, rigid Extremities exam: Present: normal inspection, full ROM, normal capillary refill. Absent: tenderness, pedal edema, joint swelling, calf tenderness Back exam: Present: normal inspection Neurological exam: Present: alert, oriented X3, CN II-XII intact Psychiatric exam: Present: normal affect, normal mood Skin exam: Present: warm, dry, intact, normal color. Absent: rash Results CBC & Chem 7: 01/20/24 05:54 01/20/24 05:54 Labs: Abnormal Lab Results - Last 24 Hours (Table) 01/20/24 01/20/24 01/20/24 Range/Units 05:54 05:54 05:54 WBC 11.2 H (3.8-10.6) k/uL RDW 17.1 H (11.5-15.5) % Neutrophils # 8.8 H (1.3-7.7) k/uL PT 14.2 H (10.0-12.5) sec INR 1.4 H (<1.2) Carbon Dioxide 31 H (22-30) mmol/L BUN 32 H (7-17) mg/dL Creatinine 1.33 H (0.52-1.04) mg/dL Glucose 122 H (74-99) mg/dL Plasma Lactic Acid Jerry (0.7-2.0) mmol/L AST 38 H (14-36) U/L ALT 39 H (4-34) U/L Total Protein 6.1 L (6.3-8.2) g/dL Urine Protein (Negative) Urine Glucose (UA) (Negative) Ur Leukocyte Esterase (Negative) Urine WBC (0-5) /hpf Ur Squamous Epith Cells (0-4) /hpf Urine Bacteria (None) /hpf Hyaline Casts (0-2) /lpf Urine Mucus (None) /hpf 01/20/24 01/20/24 Range/Units 05:54 07:07 WBC (3.8-10.6) k/uL RDW (11.5-15.5) % Neutrophils # (1.3-7.7) k/uL PT (10.0-12.5) sec INR (<1.2) Carbon Dioxide (22-30) mmol/L BUN (7-17) mg/dL Creatinine (0.52-1.04) mg/dL Glucose (74-99) mg/dL Plasma Lactic Acid Jerry 2.2 H* (0.7-2.0) mmol/L AST (14-36) U/L ALT (4-34) U/L Total Protein (6.3-8.2) g/dL Urine Protein 1+ H (Negative) Urine Glucose (UA) 4+ H (Negative) Ur Leukocyte Esterase Moderate H (Negative) Urine WBC 49 H (0-5) /hpf Ur Squamous Epith Cells 8 H (0-4) /hpf Urine Bacteria Rare H (None) /hpf Hyaline Casts 25 H (0-2) /lpf Urine Mucus Rare H (None) /hpf Assessment and Plan Assessment: 1. Dyspnea/acute exacerbation COPD -Patient has been placed on bronchodilator nebulizer treatments; will start on prednisone 40 mg daily for 5 days -We will resume home inhaler therapy -O2 per nasal cannula with plans to titrate or wean keeping O2 saturation above 92% 2. Persistent epistaxis; patient takes Xarelto; reports chronic nosebleeds, this episode being the worst -Will hold his Xarelto and consult ENT 3. Acute renal injury; slow IV fluid hydration with normal saline at 50 cc an hour will monitor strict AILEEN's, daily weights, renal function electrolytes; ; avoid nephrotoxins and hypotension 4. Lactic acidosis; likely related with acute renal injury/dehydration; will monitor lactic acid levels 5. Elevated BNP; chest x-ray does not reveal any congestion or fluid overload; given mild SAGAR, elevated BNP seems chronic and insignificant -We will continue to monitor strict AILEEN's, daily weights, low-salt and fluid restricted diet 6. UTI/cystitis ; patient placed on Rocephin 1 g IV daily; blood cultures and urine cultures obtained with plans to adjust antibiotics once final culture results are available 7. Atrial fibrillation; patient takes Xarelto 20 mg daily; remains rate controlled on Toprol-XL 100 mg daily 8. Hyperlipidemia; Lipitor 40 mg p.o. nightly 9. Hypertension: metoprolol XL 100 mg daily 10. Diabetes mellitus type 2; patient takes Jardiance; monitor Accu-Cheks before every meal and at bedtime with insulin sliding scale DVT prophylaxis; SCDs only given Nosebleed CODE STATUS; full code
[2024-01-20] MEDS ORDERED: predniSONE 20 MG TAB PO SCH (13:00)
[2024-01-20] MEDS ORDERED: RIVAROXABAN 15 MG TAB PO SCH (17:30)
[2024-01-20] MEDS ORDERED: SYMBICORT 160-4.5 MCG INHALER INHALATION SCH (20:00)
== END 2024-01-20 13:33 | disposition home or self-care (01) ==
LOC: EC 05:35
DX: N39.0 Urinary tract infection, site not specified (principal); I50.9 Heart failure, unspecified; R04.0 Epistaxis; R07.9 Chest pain, unspecified; Z87.891 Personal history of nicotine dependence; Z86.73 Personal history of transient ischemic attack (TIA), and cerebral infarction without residual deficits; Z88.8 Allergy status to other drugs, medicaments and biological substances
CPT/HCPCS: 36415; 94640; 93005; 83880; 80053; 83605; 84484; 85025; 85610; 85730; 81001; 87086; 71046; 99285; 96365; 96375; J0696; J2919

== ENCOUNTER 2024-01-20 14:41 | Inpatient (IN) | payer OTHER, MEDICARE ==
[2024-01-20] MEDS: OXYMETAZOLINE 0.05% NASL SPRAY 1 SPRAY BOTTLE NASAL STA (16:01)
[2024-01-20] MEDS: BACITRACIN OINT 1 EACH PACKET TOPICAL ONE (18:24)
[2024-01-20] MEDS ORDERED: NALOXONE 0.4 MG/ML 1 ML VIAL IV PRN (18:41)
[2024-01-20] MEDS: LORazepam 2 MG/ML INJ IM STA (18:41)
[2024-01-20] MEDS: AMOXIC-POT CLAV 875-125MG 1 EACH TAB PO STA (18:43)
--- NOTE | 2024-01-20 18:46 | ED ---
ENT HPI - General Chief complaint: ENT Stated complaint: Nose bleed Time Seen by Provider: 01/20/24 15:30 Source: patient, RN notes reviewed Mode of arrival: wheelchair Limitations: no limitations - History of Present Illness Initial comments: 68-year-old female with history of atrial fibrillation, CHF, COPD on Xarelto presenting for epistaxis since this morning. She woke up at 4 AM this morning with a right-sided nosebleed. She was seen in ER earlier today where nosebleed stopped after clamping and patient was discharged. She reports bleeding started again after she blew her nose which prompted her to return to the ER. Denies trauma or injury. - Related Data Home Medications Medication Instructions Recorded Confirmed Albuterol Inhaler [Ventolin Hfa 2 puff INHALATION RT-QID PRN 08/22/20 12/07/23 Inhaler] Potassium Chloride [Klor-Con 20] 20 meq PO BID 08/22/20 12/07/23 Rivaroxaban [Xarelto] 20 mg PO W/SUPPER 08/22/20 12/07/23 Tiotropium 2.5 Mcg/Puff [Spiriva 2 puff INHALATION RT-DAILY 08/22/20 12/07/23 Respimat 2.5 Mcg] Atorvastatin [Lipitor] 40 mg PO DAILY 10/01/23 12/07/23 PARoxetine HCL 40 mg PO DAILY 10/01/23 12/07/23 Budesonide/Formoterol Fumarate 2 puff INHALATION RT-BID 12/07/23 12/07/23 [Breyna 160-4.5 Mcg Inhaler] Carboxymethylcellulose Sodium 1 drop BOTH EYES QID PRN 12/07/23 12/07/23 [Refresh Tears] Acetaminophen Tab [Tylenol Tab] 1,000 mg PO Q6HR PRN 01/20/24 01/20/24 Furosemide [Lasix] 40 mg PO DAILY 01/20/24 01/20/24 Ipratropium-Albuterol Nebulize 3 ml INHALATION RT-QID PRN 01/20/24 01/20/24 [Duoneb 0.5 mg-3 mg/3 ml Soln] Previous Rx's Medication Instructions Recorded Empagliflozin [Jardiance] 10 mg PO DAILY #30 tablet 10/04/23 Metoprolol Succinate (ER) [Toprol 100 mg PO DAILY #0 tab 10/04/23 XL] Allergies Allergy/AdvReac Type Severity Reaction Status Date / Time fluticasone AdvReac Cough Verified 01/20/24 19:47 [From [facility]] salmeterol AdvReac Cough Verified 01/20/24 19:47 [From [facility]] Review of Systems ROS Statement: Those systems with pertinent positive or pertinent negative responses have been documented in the HPI. ROS Other: All systems not noted in ROS Statement are negative. Past Medical History Past Medical History: Atrial Fibrillation, Asthma, Coronary Artery Disease (CAD), Heart Failure, COPD, GERD/Reflux, Hyperlipidemia, Hypertension, Myocardial Infarction ([place]), Osteoarthritis (OA), Skin Disorder Additional Past Medical History / Comment(s): migraines, stroke 2003-no residual effects, IBS, osteoporosis, psoriasis, "prediabetic"- dr watching, lower back pain Last Myocardial Infarction Date:: 1985 History of Any Multi-Drug Resistant Organisms: None Reported Past Surgical History: Heart Catheterization, Tubal Ligation Past Anesthesia/Blood Transfusion Reactions: No Reported Reaction Past Psychological History: Anxiety, Depression, PTSD Smoking Status: Former smoker Past Alcohol Use History: Occasional Past Drug Use History: None Reported - Past Family History Brother(s) Family Medical History: Cancer Sister(s) Family Medical History: Cancer, Deep Vein Thrombosis (DVT) Mother Family Medical History: Pulmonary Embolus General Exam Limitations: no limitations General appearance: alert, in no apparent distress Head exam: Present: atraumatic, normocephalic, normal inspection Eye exam: Present: normal appearance, PERRL, EOMI. Absent: scleral icterus, conjunctival injection, periorbital swelling ENT exam: Present: mucous membranes moist, other (Active bleeding from bilateral naris, cannot visualize site of bleeding) Neck exam: Present: normal inspection. Absent: tenderness, meningismus, lymphadenopathy Respiratory exam: Present: normal lung sounds bilaterally. Absent: respiratory distress, wheezes, rales, rhonchi, stridor Cardiovascular Exam: Present: regular rate, irregular rhythm, normal heart sounds. Absent: systolic murmur, diastolic murmur, rubs, gallop, clicks Neurological exam: Present: alert, oriented X3 Psychiatric exam: Present: normal affect, normal mood Skin exam: Present: warm, dry, intact, normal color. Absent: rash Course Vital Signs 01/20/24 01/20/24 01/20/24 15:06 18:00 19:13 Temperature 98.3 F 97.2 F L 97.1 F L Pulse Rate 94 103 H 102 H Respiratory 18 18 18 Rate Blood Pressure 117/71 173/100 167/101 O2 Sat by Pulse 93 L 93 L 93 L Oximetry 01/20/24 20:22 Temperature Pulse Rate 80 Respiratory 20 Rate Blood Pressure O2 Sat by Pulse 97 Oximetry Medical Decision Making - Medical Decision Making Was pt. sent in by a medical professional or institution (, CASSY, FRONT COUNTER ATTENDANT, urgent care, hospital, or snf...) When possible be specific @ -No Did you speak to anyone other than the patient for history (EMS, parent, family, police, friend...)? What history was obtained from this source @ -No Did you review nursing and triage notes (agree or disagree)? Why? @ -I reviewed and agree with nursing and triage notes Were old charts reviewed (outside hosp., previous admission, EMS record, old EKG, old radiological studies, urgent care reports/EKG's, snf records)? Report findings @ -No old charts were reviewed Differential Diagnosis (chest pain, altered mental status, abdominal pain women, abdominal pain men, vaginal bleeding, weakness, fever, dyspnea, syncope, headache, dizziness, GI bleed, back pain, seizure, CVA, palpatations, mental health, musculoskeletal)? @ -Anterior epistaxis, posterior epistasis, foreign body EKG interpreted by me (3pts min.). @ -None X-rays interpreted by me (1pt min.). @ -None done CT interpreted by me (1pt min.). @ -None done U/S interpreted by me (1pt. min.). @ -None done What testing was considered but not performed or refused? (CT, X-rays, U/S, labs)? Why? @ -None What meds were considered but not given or refused? Why? @ -None Did you discuss the management of the patient with other professionals (professionals i.e. CASSY Chu, FRONT COUNTER ATTENDANT, lab, RT, psych nurse, social work assistant, senior sql server dba, teacher, chief sustainability officer, trimming caser)? Give summary @ -I discussed case with [facility] who accepts admission for epistaxis with bilateral nasal packing with consultation to ENT service Was smoking cessation discussed for >3mins.? @ -No Was critical care preformed (if so, how long)? @ -No Were there social determinants of health that impacted care today? How? (Homelessness, low income, unemployed, alcoholism, drug addiction, transporta tion, low edu. Level, literacy, decrease access to med. care, shelter, rehab)? @ -No Was there de-escalation of care discussed even if they declined (Discuss DNR or withdrawal of care, Hospice)? DNR status @ -No What co-morbidities impacted this encounter? (DM, HTN, Smoking, COPD, CAD, Cancer, CVA, ARF, Chemo, Hep., AIDS, mental health diagnosis, sleep apnea, morbid obesity)? @ -None Was patient admitted / discharged? Hospital course, mention meds given and route, prescriptions, significant lab abnormalities, going to OR and other pertinent info. @ -Admitted. This is a 68-year-old female with history of atrial fibrillation on Xarelto, CHF, and COPD presenting for epistaxis x 1 day. Patient was seen earlier today in the ER for same complaint lab work was performed, patient was ultimately discharged as epistaxis resolved on its own. Patient returned after she blew her nose and bleeding restarted. Afrin spray was applied first with no success. First, Merocel packing placed in right nostril and patient was observed. Upon reevaluation, bleeding continued through left side. Then, packing was placed in left nostril. Bacitracin was placed on packing before placement. Patient was started on Augmentin for bacterial prophylaxis. Patient was admitted to medicine with consultation to ENT as patient has bilateral packing in place and has several cardiac and pulmonary risk factors. Will hold Xarelto. Patient is agreeable to this plan. Case was discussed with my ED attending Dr. Hernandez. Undiagnosed new problem with uncertain prognosis? @ -No Drug Therapy requiring intensive monitoring for toxicity (Heparin, Nitro, Insulin, Cardizem)? @ -No Were any procedures done? @ -Bilateral nasal packing performed Diagnosis/symptom? @ -Epistaxis with bilateral nasal packing Acute, or Chronic, or Acute on Chronic? @ -Acute Uncomplicated (without systemic symptoms) or Complicated (systemic symptoms)? @ -Complicated Side effects of treatment? @ -No Exacerbation, Progression, or Severe Exacerbation? @ -No Poses a threat to life or bodily function? How? (Chest pain, [place], [place], pneumonia, PE, COPD, DKA, ARF, appy, cholecystitis, CVA, Diverticulitis, Homicidal, Suicidal, threat to staff... and all critical care pts) @ -Possibly Disposition Clinical Impression: Epistaxis Disposition: ADMITTED IP TO THIS HOSP [facility] - 1-2 days Time of Disposition: 18:46
[2024-01-20] MEDS: ACETAMINOPHEN TAB 325 MG TAB PO PRN (20:17)
[2024-01-21] MEDS: MORPHINE SULFATE 4 MG/ML SYRINGE IV PRN (01:17)
[2024-01-21] MEDS ORDERED: ALBUTEROL HFA INHALER INHALATION PRN (07:54)
[2024-01-21] MEDS ORDERED: ARTIFICIAL TEARS-HYPROMELLOSE DROPS 15 ML BTL BOTH EYES PRN (07:54)
[2024-01-21] MEDS: DAPAGLIFLOZIN PROPANEDIOL 5 MG TABLET PO SCH (08:18)
[2024-01-21] MEDS: POTASSIUM CHLORIDE ER 20 MEQ TAB.ER PO SCH (08:18)
[2024-01-21] MEDS: FUROSEMIDE 40 MG TAB PO SCH (08:18)
[2024-01-21] MEDS: ATORVASTATIN 40 MG TAB PO SCH (08:18)
[2024-01-21] MEDS: METOPROLOL SUCCINATE (ER) 100 MG TAB.ER.24H PO SCH (10:01)
[2024-01-21] MEDS: PARoxetine 20 MG TAB PO SCH (10:01)
[2024-01-21] MEDS: SYMBICORT 160-4.5 MCG INHALER INHALATION SCH (11:12)
[2024-01-21] MEDS: IPRATROPIUM-ALBUTEROL 3 ML NEB INHALATION PRN (11:15)
--- NOTE | 2024-01-21 12:56 | P.HPIM ---
History of Present Illness This is a pleasant 68 years old female with past medical history of multiple medical problems including history of atrial fibrillation on Xarelto, CHF, currently euvolemic. She follows up with Dr. Irwin. She has history of COPD her weeder thinner is Dr. Wynn, she is on 4 L oxygen via nasal cannula. She denies trauma or falling. Patient presents because of episodes of epistaxis started Tuesday morning at 3:00 AM, she woke up and blew her nose after the start of bleeding, she used personal packing with no much help so she came to the emergency room. Bilateral nasal packing has to be placed. Patient on Xarelto at home which is held now She was admitted with a ENT consultation Because she cannot use nasal cannula she was placed on Ventimask/nonrebreather, she is currently denies any dyspnea. Although she has chronic shortness of breath and mild dry coughing, there is no recent worsening and on examination there is no evidence of wheezing or basal crepitation. Also has no leg edema. No chest pain. No other GI/ symptoms. She states she quit smoking about 2 months ago. Also she saw her weeder thinner Dr. Wynn about 2 months ago. She denies alcohol or illicit drugs. She has a chronic headache which is told it is related to her degenerative cervical disc disease, she states she is using Tylenol Extra Strength but she denies using any NSAIDs Motrin or any other blood thinner On examination she is hemodynamically stable. She is tachycardic with heart rate around 118-122. She is afebrile. No labs during this admission, however labs done yesterday morning showing WBC of 11.2, rest of CBC is unremarkable. INR is 1.4 INR is 1.3, baseline 0.8-0.9. High lactic acid came back to normal. Troponin x 2 are negative. Liver enzymes mildly elevated but bilirubin is normal. Urine analysis showing glucosuria but no ketonuria. However there is infection suspected in her urine analysis. Echo on 09/2023 showing ejection fraction 55 to 60% Review of Systems Review of systems CONSTITUTIONAL: No fever, no malaise, no fatigue. HEENT: No recent visual problems or hearing problems. Denied any sore throat. CARDIOVASCULAR: No orthopnea, PND, no palpitations, no syncope. PULMONARY: No shortness of breath, no cough, no hemoptysis. GASTROINTESTINAL: No diarrhea, no nausea, no vomiting, no abdominal pain. Normoactive bowel sounds. NEUROLOGICAL: No headaches, no weakness, no numbness. HEMATOLOGICAL: Denies any bleeding or petechiae. GENITOURINARY: Denies any burning micturition, frequency, or urgency. MUSCULOSKELETAL/RHEUMATOLOGICAL: Denies any joint pain, swelling, or any muscle pain. ENDOCRINE: Denies any polyuria or polydipsia. Past Medical History Past Medical History: Atrial Fibrillation, Asthma, Coronary Artery Disease (CAD), Heart Failure, COPD, GERD/Reflux, Hyperlipidemia, Hypertension, My ocardial Infarction ([place]), Osteoarthritis (OA), Skin Disorder Additional Past Medical History / Comment(s): migraines, stroke 2003-no residual effects, IBS, osteoporosis, psoriasis, "prediabetic"- dr watching, lower back pain Last Myocardial Infarction Date:: 1985 History of Any Multi-Drug Resistant Organisms: None Reported Past Surgical History: Heart Catheterization, Tubal Ligation Past Anesthesia/Blood Transfusion Reactions: No Reported Reaction Past Psychological History: Anxiety, Depression, PTSD Smoking Status: Former smoker Past Alcohol Use History: Occasional Additional Past Alcohol Use History / Comment(s): quit smoking < 1 yr ago, smoked since age 20, 1 1/2 PPD Past Drug Use History: None Reported - Past Family History Brother(s) Family Medical History: Cancer Sister(s) Family Medical History: Cancer, Congestive Heart Failure (CHF), Deep Vein Thrombosis (DVT) Mother Family Medical History: Pulmonary Embolus Medications and Allergies Home Medications Medication Instructions Recorded Confirmed Type Albuterol Inhaler [Ventolin Hfa 2 puff INHALATION RT-QID PRN 08/22/20 01/20/24 History Inhaler] Potassium Chloride [Klor-Con 20] 20 meq PO BID 08/22/20 01/20/24 History Rivaroxaban [Xarelto] 20 mg PO W/SUPPER 08/22/20 01/20/24 History Tiotropium 2.5 Mcg/Puff [Spiriva 2 puff INHALATION RT-DAILY 08/22/20 01/20/24 History Respimat 2.5 Mcg] Atorvastatin [Lipitor] 40 mg PO DAILY 10/01/23 01/20/24 History PARoxetine HCL 40 mg PO HS 10/01/23 01/20/24 History Empagliflozin [Jardiance] 10 mg PO DAILY #30 tablet 10/04/23 01/20/24 Rx Metoprolol Succinate (ER) [Toprol 100 mg PO DAILY #0 tab 10/04/23 01/20/24 Rx XL] Budesonide/Formoterol Fumarate 2 puff INHALATION RT-BID 12/07/23 01/20/24 History [Breyna 160-4.5 Mcg Inhaler] Carboxymethylcellulose Sodium 1 drop BOTH EYES QID PRN 12/07/23 01/20/24 History [Refresh Tears] Acetaminophen Tab [Tylenol Tab] 1,000 mg PO Q6HR PRN 01/20/24 01/20/24 History Furosemide [Lasix] 40 mg PO DAILY 01/20/24 01/20/24 History Ipratropium-Albuterol Nebulize 3 ml INHALATION RT-QID PRN 01/20/24 01/20/24 History [Duoneb 0.5 mg-3 mg/3 ml Soln] Allergies Allergy/AdvReac Type Severity Reaction Status Date / Time fluticasone AdvReac Cough Verified 01/20/24 19:47 [From [employer]] salmeterol AdvReac Cough Verified 01/20/24 19:47 [From [employer] [facility]] Physical Exam Vitals: Vital Signs Temp Pulse Pulse Resp BP BP Pulse Ox 01/21/24 07:00 97.5 F L 86 16 136/80 100 01/21/24 02:11 98.2 F 96 18 133/92 96 01/20/24 22:59 98.0 F 107 H 18 148/93 100 01/20/24 21:56 105 H 18 153/103 100 01/20/24 20:22 80 20 97 01/20/24 19:13 97.1 F L 102 H 18 167/101 93 L 01/20/24 18:00 97.2 F L 103 H 18 173/100 93 L 01/20/24 15:06 98.3 F 94 18 117/71 93 L Intake and Output 01/20/24 01/21/24 01/21/24 22:59 06:59 14:59 Other: # Voids 2 1 Weight 90.718 kg GENERAL: The patient is alert and oriented x3, not in any acute distress. Well developed, well nourished. Obese -HEENT: Pupils are round and equally reacting to light. EOMI. No scleral icterus. No conjunctival pallor. Normocephalic, atraumatic. No pharyngeal erythema. No thyromegaly. Bilateral nasal packing is in place with no active bleeding CARDIOVASCULAR: S1 and S2 present. No murmurs, rubs, or gallops. PULMONARY: Chest is clear to auscultation, no wheezing , no crackles. ABDOMEN: Soft, nontender, nondistended, normoactive bowel sounds. No palpable organomegaly. MUSCULOSKELETAL: No joint swelling or deformity. EXTREMITIES: No cyanosis, clubbing, or pedal edema. NEUROLOGICAL: Gross neurological examination did not reveal any focal deficits. SKIN: No rashes. no petechiae. Thrombosis Risk Factor Assmnt - Choose All That Apply Each Factor Represents 1 point: Abnormal pulmonary function (COPD), Obesity (BMI >25) Each Risk Factor Represents 2 Points: Age 61-74 years Each Risk Factor Represents 3 Points: Family history of DVT/PE Thrombosis Risk Factor Assessment Total Risk Factor Score: 7 Thrombosis Risk Factor Assessment Level: High Risk Assessment and Plan Assessment: Bilateral epistaxis status post bilateral nasal packing Acute kidney injury could be secondary to above A-fib with RVR, present on admission Chronic CHF without acute exacerbation. ejection fraction is preserved COPD without acute exacerbation Chronic hypoxic respiratory failure Chronic leukocytosis Obesity with BMI 39.1 Plan: Keep holding Xarelto ENT consult for epistaxis We will resume Xarelto once his been cleared by ENT service Resume her heartache medication. Start the patient on normal saline 75 mL/h and check creatinine tomorrow Repeat urine analysis and check a bladder scan. Labs and medication were reviewed.. Continue same treatment. Continue with symptomatic treatment. Resume home medication. Monitor labs and vitals. DVT and GI prophylaxis. Further recommendations as per clinical course of the patient DVT prophylaxis: Subcuta Xarelto is on hold GI Prophylaxis: Pepcid PT/OT: Pending Prognosis is guarded
--- NOTE | 2024-01-21 13:30 | XR ---
EXAMINATION TYPE: XR chest 2V DATE OF EXAM: 01/21/2024 COMPARISON: 01/20/2024 HISTORY: Shortness of breath TECHNIQUE: Frontal and lateral views of the chest are obtained. FINDINGS: There is mild cardiomegaly. There is mild increase in interstitial markings possibly reflecting mild pulmonary vascular congestion. There is no airspace consolidation to suggest acute pneumonia or pulmo nary edema. The osseous structures are intact. There is no pneumothorax or pleural effusion. IMPRESSION: 1. Mild cardiomegaly and diffuse interstitial prominence possibly reflecting mild pulmonary vessel co ngestion. Correlate for CHF. 2. No airspace consolidation, pleural effusion or pneumothorax. [facility], , 01/21/2024 1:28 PM
[2024-01-21 15:48] LABS: Appearance,Urine Clear (Clear); Bilirubin,Urine Negative (Negative); Blood,Urine Negative (Negative); Color,Urine Colorless; Glucose,Urine (UA) 3+ (Negative); Ketones,Urine Negative (Negative); Leukocyte Esterase,Urine Negative (Negative); Nitrite,Urine Negative (Negative); PH, Urine 5.5 (5.0-8.0); Protein,Urine Negative (Negative); Urobilinogen,Urine <2.0 mg/dL (<2.0)
[2024-01-21] MEDS: ACETAMINOPHEN TAB 500 MG TAB PO PRN (17:58)
[2024-01-21] MEDS: SODIUM CHLORIDE 0.9% 1,000 ML IV SCH (18:04)
[2024-01-21] MEDS: FAMOTIDINE 20 MG/2 ML VIAL IV SCH (21:27)
[2024-01-22 09:50] LABS: Basophils # (A) 0.09 X 10*3/uL (0.00-0.10); Basophils % (A) 0.8 %; Eosinophils # (A) 0.33 X 10*3/uL (0.04-0.35); Eosinophils % (A) 2.8 %; HGB 11.3 g/dL (12.0-15.0); Lymphocytes # (A) 1.71 X 10*3/uL (0.90-5.00); Lymphocytes % (A) 14.3 %; MCH 29.4 pg (27.0-32.0); MCHC 29.7 g/dL (32.0-37.0); MCV 98.7 FL (80.0-97.0); Mean Platelet Volume 11.2 FL (9.5-12.2); Monocytes # (A) 1.02 X 10*3/uL (0.20-1.00); Monocytes % (A) 8.6 %; NRBC Per 100 WBC 0 X 10*3/uL (0.00-0.01); Neutrophils # (A) 8.74 X 10*3/uL (1.80-7.70); Neutrophils % (A) 73.2 %; Platelet Count 195 X 10*3/uL (140-440); RBC 3.85 X 10*6/uL (4.10-5.20); RDW 16.7 % (11.5-14.5); WBC 11.92 X 10*3/uL (4.50-10.00)
[2024-01-22 11:12] LABS: NT-Pro-B-Type Natriuretic Pept 2429 pg/mL (0-125)
[2024-01-22 11:14] LABS: BUN/Creat Ratio 26.92 Ratio (12.00-20.00); Blood Urea Nitrogen 32.3 mg/dL (9.0-27.0); Calcium 8.9 mg/dL (8.7-10.3); Carbon Dioxide 22.6 mmol/L (21.6-31.8); Chloride 105 mmol/L (96-109); Glucose 102 mg/dL (70-110); Potassium 4.1 mmol/L (3.5-5.5); Sodium 145 mmol/L (135-145)
[2024-01-22] MEDS ORDERED: FAMOTIDINE 20 MG/2 ML VIAL IV SCH (13:16)
[2024-01-22] MEDS: OXYMETAZOLINE 0.05% NASL SPRAY 1 SPRAY BOTTLE NASAL STA (14:58)
[2024-01-22] MEDS: OXYMETAZOLINE 0.05% NASL SPRAY 1 SPRAY BOTTLE NASAL SCH (15:36)
--- NOTE | 2024-01-22 18:41 | CONS ---
CONSULTATION REASON FOR CONSULTATION: Epistaxis. HISTORY OF PRESENT ILLNESS: The patient is a pleasant 68-year-old female, who was recently seen in the [facility] Department on 01/20/2024, for bleeding from the right side of her nose. The patient stated that the bleeding started at home and she was not able to get it stop. At the time that she was initially seen in the emergency room, the emergency room department was able to get the bleeding stopped without packing the nose and subsequently they sent the patient home. On 01/21/2024, the patient states that she blew her nose and the bleeding resumed, this time it was coming from both nostrils. She subsequently returned to the emergency room at [facility]. The emergency room department physician evaluated the patient and decided to pack both sides of her nose with Merocel nasal tampons and admit the patient. The patient denies any previous history of similar nosebleeds. She states that she quit smoking approximately 10-12 months ago. Prior to that time, she had a history of smoking half to one pack of cigarettes per day. PAST MEDICAL HISTORY: Reveals she has a history of hypertension, COPD/emphysema, and type 2 diabetes mellitus. CURRENT MEDICATIONS: Include: 1. Xarelto. 2. Paxil. 3. Albuterol. 4. Ventolin. 5. Spiriva. 6. Toprol-XL. 7. Jardiance. 8. Breyna. 9. Lipitor. 10.Lasix. REVIEW OF SYSTEMS: CARDIOVASCULAR SYSTEM: Positive for hypertension, congestive heart failure, and atrial fibrillation. RESPIRATORY SYSTEM: Positive for COPD/emphysema. The patient is on supplemental O2 at home and while she is asleep. METABOLIC/ENDOCRINE SYSTEM: Positive for hypercholesterolemia. Also positive for type 2 diabetes mellitus. PHYSICAL EXAMINATION: GENERAL: This patient is a 68-year-old female, who I examined in consultation on 01/21/2024. I spent approximately 30 minutes with this patient. The patient is alert, cooperative and is in no acute distress and is not actively bleeding at this time. HEENT: This patient is normocephalic. Tympanic membranes are normal. Middle ear spaces are free of any fluid or infection. Pupils equal, round, and reactive to light and accommodation. Extraocular movements within normal limits. Intranasal examination reveals both nares are packed with Merocel nasal tampons. Examination of oropharynx reveals no evidence of any bleeding down the posterior pharyngeal wall. The remainder of the head and neck exam is unremarkable. CHEST/CARDIOVASCULAR: Lung sounds are distant, but the lung comer are clear with no rales or rhonchi. The patient is in regular sinus rhythm. S1, S2 are present without any S3 or S4s. Peripheral pulses are bilaterally symmetrical. ABDOMEN: There is no evidence of any masses, megaly, or tenderness. The abdomen is soft. The remainder of physical exam is unremarkable. IMPRESSION: Bilateral anterior-posterior epistaxis, most likely beginning initially on the right side of the naris. PLAN: I am going to maintain the packing in the patient's nose until further notice. In addition to this, I would like for her to stay off Xarelto until further notice. I will see the patient on a daily basis and advise the admitting staff of when I feel it is safe for them to resume Xarelto as well as keep them apprised of her progress. I want to take this opportunity to thank you for allowing me to assist you in the care of your patient. If I can be of any further assistance, please feel free to call my office. MMODL / IJN: [id number] / DANIELLE
--- NOTE | 2024-01-22 18:47 | PN ---
PROGRESS NOTE SUBJECTIVE: The patient is afebrile and vital signs are stable. She has not had any further active bleeding. The nasal packing is intact. I spent approximately 15 minutes with the patient on 01/22/2024. OBJECTIVE: The nasal packing (Merocel sponge) was removed without incident in a usual and customary fashion. The left naris was generously sprayed with Afrin nasal spray. Examination of the posterior pharynx did not reveal any evidence of any active bleeding down the posterior pharyngeal wall. A mustache dressing was applied and taped to the bridge of the patient's nose. The remainder of the head and neck /physical exam is unchanged since her last visit. ASSESSMENT: Bilateral epistaxis. PLAN: I will see the patient tomorrow and re-evaluate her. I have advised nursing staff that it is okay to resume the Xarelto tomorrow, Tuesday01/23/2024. MMODL / IJN: [id number] / MTDD
--- NOTE | 2024-01-22 23:03 | P.PN ---
Subjective This is a pleasant 68 years old female with past medical history of multiple medical problems including history of atrial fibrillation on Xarelto, CHF, currently euvolemic. She follows up with Dr. Irwin. She has history of COPD her hog trader is Dr. Wynn, she is on 4 L oxygen via nasal cannula. She denies trauma or falling. Patient presents because of episodes of epistaxis started Tuesday morning at 3:00 AM, she woke up and blew her nose after the start of bleeding, she used personal packing with no much help so she came to the emergency room. Bilateral nasal packing has to be placed. Patient on Xarelto at home which is held now She was admitted with a ENT consultation Because she cannot use nasal cannula she was placed on Ventimask/nonrebreather, she is currently denies any dyspnea. Although she has chronic shortness of vik ath and mild dry coughing, there is no recent worsening and on examination there is no evidence of wheezing or basal crepitation. Also has no leg edema. No chest pain. No other GI/ symptoms. She states she quit smoking about 2 months ago. Also she saw her hog trader Dr. Wynn about 2 months ago. She denies alcohol or illicit drugs. She has a chronic headache which is told it is related to her degenerative cervical disc disease, she states she is using Tylenol Extra Strength but she de nies using any NSAIDs Motrin or any other blood thinner On examination she is hemodynamically stable. She is tachycardic with heart rate around 118-122. She is afebrile. No labs during this admission, however labs done yesterday morning showing WBC of 11.2, rest of CBC is unremarkable. INR is 1.4 INR is 1.3, baseline 0.8-0.9. High lactic acid came back to normal. Troponin x 2 are negative. Liver enzymes mildly elevated but bilirubin is normal. Urine analysis showing glucosuria but no ketonuria. However there is infection suspected in her urine analysis. Echo on 09/2023 showing ejection fraction 55 to 60% 01/21 Patient with no more epistaxis, nasal packing in place Patient evaluated by ENT service, pack removed, no evidence of nasal bleeding ENT service cleared the patient to resume Xarelto tomorrow Creatinine stable at 1.2 Objective - Vital Signs Vital signs: Vital Signs Temp 98.6 F 01/22/24 08:15 Pulse 84 01/22/24 09:37 Resp 16 01/22/24 08:15 BP 148/90 01/22/24 08:15 Pulse Ox 100 01/22/24 09:28 FiO2 40 01/22/24 09:28 Intake & Output 01/21/24 01/22/24 01/22/24 18:59 06:59 18:59 Intake Total 598 480 236 Output Total 50 Balance 548 480 236 Intake: Oral 598 480 236 Output: Post Void Residual 50 Other: # Voids 1 - Exam GENERAL: The patient is alert and oriented x3, not in any acute distress. Well d eveloped, well nourished. HEENT: Pupils are round and equally reacting to light. EOMI. No scleral icterus. No conjunctival pallor. Normocephalic, atraumatic. No pharyngeal erythema. No thyromegaly. CARDIOVASCULAR: S1 and S2 present. No murmurs, rubs, or gallops. PULMONARY: Chest is clear to auscultation, no wheezing , no crackles. ABDOMEN: Soft, nontender, nondistended, normoactive bowel sounds. No palpable organomegaly. MUSCULOSKELETAL: No joint swelling or deformity. EXTREMITIES: No cyanosis, clubbing, or pedal edema. NEUROLOGICAL: Gross neurological examination did not reveal any focal deficits. SKIN: No rashes. no petechiae. - Labs CBC & Chem 7: 01/22/24 05:53 01/22/24 05:53 Labs: Abnormal Lab Results - Last 24 Hours (Table) 01/21/24 Range/Units 15:08 Urine Glucose (UA) 3+ H (Negative) Assessment and Plan Assessment: Bilateral epistaxis status post bilateral nasal packing Acute kidney injury could be secondary to above A-fib with RVR, present on admission Chronic CHF without acute exacerbation. ejection fraction is preserved COPD without acute exacerbation Chronic hypoxic respiratory failure Chronic leukocytosis Obesity with BMI 39.1 Plan: K resume Xarelto on 01/22 ENT consult for epistaxis is noted We will resume Xarelto once his been cleared by ENT service Resume her heartache medication. Start the patient on normal saline 75 mL/h and check creatinine tomorrow Repeat urine analysis and check a bladder scan. Labs and medication were reviewed.. Continue same treatment. Continue with symptomatic treatment. Resume home medication. Monitor labs and vitals. DVT and GI prophylaxis. Further recommendations as per clinical course of the patient DVT prophylaxis: Subcuta Xarelto is on hold GI Prophylaxis: Pepcid PT/OT: Pending Prognosis is guarded
[2024-01-23] MEDS: FAMOTIDINE 20 MG TAB PO SCH (09:39)
[2024-01-23 11:21] LABS: Anisocytosis Slight; Basophils % (A) 0 %; Eosinophils # (A) 0.2 k/uL (0-0.7); Eosinophils % (A) 3 %; HGB 11.7 gm/dL (11.4-16.0); Hypochromasia Marked; Lymphocytes # (A) 0.6 k/uL (1.0-4.8); Lymphocytes % (A) 7 %; MCH 29.7 pg (25.0-35.0); MCHC 30.1 g/dL (31.0-37.0); MCV 98.7 fL (80.0-100.0); Macrocytosis Slight; Mean Platelet Volume 8.4; Monocytes # (A) 0.6 k/uL (0-1.0); Monocytes % (A) 6 %; Neutrophils # (A) 7.3 k/uL (1.3-7.7); Neutrophils % (A) 83 %; Platelet Count 178 k/uL (150-450); RBC 3.95 m/uL (3.80-5.40); RDW 16.8 % (11.5-15.5); WBC 8.8 k/uL (3.8-10.6)
[2024-01-23 11:33] LABS: African American GFR (CKD) 65 (>60 ml/min/1.73 sqM); Anion Gap 6 mmol/L; Blood Urea Nitrogen 26 mg/dL (7-17); Carbon Dioxide 32 mmol/L (22-30); Chloride 103 mmol/L (98-107); Glucose 148 mg/dL (74-99); Non-African American GFR(CKD) 56 (>60 ml/min/1.73 sqM); Potassium 3.6 mmol/L (3.5-5.1); Sodium 141 mmol/L (137-145)
--- NOTE | 2024-01-23 13:11 | XR ---
EXAMINATION TYPE: XR chest 1V DATE OF EXAM: 01/23/2024 COMPARISON: 01/21/2024 HISTORY: Shortness of breath TECHNIQUE: Single frontal view of the chest is obtained. FINDINGS: There is no focal air space opacity, pleural effusion, or pneumothorax seen. The cardiac silhouette size is mildly enlarged. No overt failure. The osseous structures are intact. Coarsened interstitium. Atherosclerotic change aorta. Prominence of the pulmonary arteries can be associated wi th pulmonary arterial hypertension. IMPRESSION: No acute process. Correlate for chronic interstitial lung disease\bronchitis. [facility], , 01/23/2024 1:09 PM
[2024-01-23] MEDS: RIVAROXABAN 20 MG TAB PO SCH (17:14)
[2024-01-23] MEDS: FUROSEMIDE 10 MG/ML 4 ML VIAL IV STA (17:14)
--- NOTE | 2024-01-23 21:22 | P.PN ---
Subjective This is a pleasant 68 years old female with past medical history of multiple medical problems including history of atrial fibrillation on Xarelto, CHF, currently euvolemic. She follows up with Dr. Irwin. She has history of COPD her manager travel is Dr. Wynn, she is on 4 L oxygen via nasal cannula. She denies trauma or falling. Patient presents because of episodes of epistaxis started Tuesday morning at 3:00 AM, she woke up and blew her nose after the start of bleeding, she used personal packing with no much help so she came to the emergency room. Bilateral nasal packing has to be placed. Patient on Xarelto at home which is held now She was admitted with a ENT consultation Because she cannot use nasal cannula she was placed on Ventimask/nonrebreather, she is currently denies any dyspnea. Although she has chronic shortness of vik ath and mild dry coughing, there is no recent worsening and on examination there is no evidence of wheezing or basal crepitation. Also has no leg edema. No chest pain. No other GI/ symptoms. She states she quit smoking about 2 months ago. Also she saw her manager travel Dr. Wynn about 2 months ago. She denies alcohol or illicit drugs. She has a chronic headache which is told it is related to her degenerative cervical disc disease, she states she is using Tylenol Extra Strength but she de nies using any NSAIDs Motrin or any other blood thinner On examination she is hemodynamically stable. She is tachycardic with heart rate around 118-122. She is afebrile. No labs during this admission, however labs done yesterday morning showing WBC of 11.2, rest of CBC is unremarkable. INR is 1.4 INR is 1.3, baseline 0.8-0.9. High lactic acid came back to normal. Troponin x 2 are negative. Liver enzymes mildly elevated but bilirubin is normal. Urine analysis showing glucosuria but no ketonuria. However there is infection suspected in her urine analysis. Echo on 09/2023 showing ejection fraction 55 to 60% 01/21 Patient with no more epistaxis, nasal packing in place Patient evaluated by ENT service, pack removed, no evidence of nasal bleeding ENT service cleared the patient to resume Xarelto tomorrow Creatinine stable at 1.2 01/22 Patient will bilateral intranasal PET scan were discontinued yesterday by ENT service team, she has external nasal packing which is in place, no soaked with blood, no bleeding which is stopped now, Xarelto was resumed tonight per ENT team recommendation Patient today however she did not feel comfortable, she is complaining from little tachypnea and exertional dyspnea, she is on mask for mouth breather as she has nasal packing, she is requiring 8 liters per minute, compared to 4 L/min at home via nasal cannula. Chest x-ray is suspicious for prominence of interstitial markings, CHF exacerbation is suspected, 1 dose of IV Lasix provided. Patient continued on oral Lasix 40 mg daily, proBNP is elevated. Cardiology team consulted who requested stress test tomorrow. Bronchitis also suspected per radiologist, we will check pro- Calcitonin on consult manager travel as well. Review of systems CONSTITUTIONAL: No fever, no malaise, no fatigue. HEENT: No recent visual problems or hearing problems. Denied any sore throat. CARDIOVASCULAR: No orthopnea, PND, no palpitations, no syncope. GENITOURINARY: Denies any burning micturition, frequency, or urgency. MUSCULOSKELETAL/RHEUMATOLOGICAL: Denies any joint pain, swelling, or any muscle pain. ENDOCRINE: Denies any polyuria or polydipsia. Active Medications Generic Name Dose Route Start Last Admin Trade Name Freq PRN Reason Stop Dose Admin Acetaminophen 650 mg 01/20/24 18:41 01/21/24 08:18 Acetaminophen Tab 325 Mg Tab PO 650 mg Q6HR PRN Administration Mild Pain or Fever > 100.5 Acetaminophen 1,000 mg 01/21/24 07:54 01/23/24 15:20 Acetaminophen Tab 500 Mg Tab PO 1,000 mg Q6HR PRN Administration Headache Albuterol/Ipratropium 3 ml 01/21/24 07:54 01/23/24 20:23 Ipratropium-Albuterol 3 Ml Neb INHALATION 3 ml RT-QID PRN Administration Shortness Of Breath Or Wheezing Aminophylline 100 mg 01/24/24 06:00 Aminophylline 500 Mg/20 Ml Vial IV 01/24/24 13:00 ONCE PRN Patient Response Artificial Tears 1 drops 01/21/24 07:54 Artificial Tears-Hypromellose Drops 15 Ml Btl BOTH EYES QID PRN Dry Eye(s) Atorvastatin Calcium 40 mg 01/21/24 09:00 01/23/24 09:40 Atorvastatin 40 Mg Tab PO 40 mg DAILY CARLITA Administration Budesonide/Formoterol Fumarate 2 puff 01/21/24 08:00 01/23/24 20:22 Symbicort 160-4.5 Mcg Inhaler INHALATION 2 puff RT-BID CARLITA Administration Caffeine Citrate 60 mg 01/24/24 06:00 Caffeine Citrate 60 Mg/3 Ml Vial IV 01/24/24 13:00 ONCE PRN Patient Response Dapagliflozin 5 mg 01/21/24 09:00 01/23/24 09:40 Dapagliflozin Propanediol 5 Mg Tablet PO 5 mg DAILY CARLITA Administration Famotidine 20 mg 01/23/24 09:00 01/23/24 09:39 Famotidine 20 Mg Tab PO 20 mg DAILY CARLITA Administration Cefazolin Sodium 1,000 mg/ 50 mls @ 100 mls/hr 01/21/24 16:00 01/23/24 21:02 Sodium Chloride IVPB 100 mls/hr Q8HR CARLITA Administration Protocol Metoprolol Succinate 100 mg 01/21/24 09:00 01/23/24 09:40 Metoprolol Succinate (Er) 100 Mg Tab.Er.24h PO 100 mg DAILY CARLITA Administration Morphine Sulfate 4 mg 01/20/24 18:41 01/21/24 01:17 Morphine Sulfate 4 Mg/Ml Syringe IV 4 mg Q4HR PRN Administration Severe Pain (Scale 7 to 10) Naloxone HCl 0.2 mg 01/20/24 18:41 Naloxone 0.4 Mg/Ml 1 Ml Vial IV Q2M PRN Opioid Reversal Oxymetazoline HCl 2 spray 01/22/24 16:00 01/23/24 21:03 Oxymetazoline 0.05% Nasl Gaston 1 Gaston Bottle NASAL 2 spray TID CARLITA Administration Paroxetine HCl 40 mg 01/21/24 21:00 01/23/24 21:03 Paroxetine 20 Mg Tab PO 40 mg HS CARLITA Administration Potassium Chloride 20 meq 01/21/24 09:00 01/23/24 21:03 Potassium Chloride Er 20 Meq Tab.Er PO 20 meq BID CARLITA Administration Regadenoson 0.4 mg 01/24/24 06:00 Regadenoson 0.4 Mg/5 Ml Syringe IV 01/24/24 13:00 ONCE PRN Per Protocol Rivaroxaban 20 mg 01/23/24 17:30 01/23/24 17:14 Rivaroxaban 20 Mg Tab PO 20 mg W/SUPPER CARLITA Administration Protocol Objective - Vital Signs Vital signs: Vital Signs Temp 97.7 F 01/23/24 15:00 Pulse 93 01/23/24 20:34 Resp 16 01/23/24 15:00 BP 118/76 01/23/24 15:00 Pulse Ox 99 01/23/24 16:15 FiO2 35 01/23/24 16:15 Intake & Output 01/23/24 01/23/24 01/24/24 06:59 18:59 06:59 Intake Total 240 354 Balance 240 354 Intake: Oral 240 354 Other: # Voids 4 7 # Bowel Movements 1 1 - Exam GENERAL: The patient is alert and oriented x3, not in any acute distress. Well developed, well nourished. HEENT: Pupils are round and equally reacting to light. EOMI. No scleral icterus. No conjunctival pallor. Normocephalic, atraumatic. No pharyngeal erythema. No thyromegaly. CARDIOVASCULAR: S1 and S2 present. No murmurs, rubs, or gallops. PULMONARY: Chest is clear to auscultation, no wheezing , no crackles. ABDOMEN: Soft, nontender, nondistended, normoactive bowel sounds. No palpable organomegaly. MUSCULOSKELETAL: No joint swelling or deformity. EXTREMITIES: No cyanosis, clubbing, or pedal edema. NEUROLOGICAL: Gross neurological examination did not reveal any focal deficits. SKIN: No rashes. no petechiae. - Labs CBC & Chem 7: 01/23/24 11:11 01/23/24 11:11 Labs: Abnormal Lab Results - Last 24 Hours (Table) 01/23/24 01/23/24 Range/Units 11:11 11:11 MCHC 30.1 L (31.0-37.0) g/dL RDW 16.8 H (11.5-15.5) % Lymphocytes # 0.6 L (1.0-4.8) k/uL Carbon Dioxide 32 H (22-30) mmol/L BUN 26 H (7-17) mg/dL Glucose 148 H (74-99) mg/dL Assessment and Plan Assessment: Bilateral epistaxis status post bilateral nasal packing which is removed. Bleeding stopped now Acute kidney injury could be secondary to above, Dyspnea could be acute CHF versus coronary artery disease versus bronchitis A-fib with RVR, present on admission Acute on chronic CHF without acute exacerbation. ejection fraction is preserved COPD without acute exacerbation Acute on chronic chronic hypoxic respiratory failure Chronic leukocytosis Obesity with BMI 39.1 Plan: Status post IV Lasix x 1 Check pro- Calcitonin Cardiology consult is requested, patient planned for stress test in the morning resumed Xarelto on 01/22 continue with oxygen ENT consult for epistaxis which is stopped now Pulmonary team consult Resume her heartache medication. Start the patient on normal saline 75 mL/h and check creatinine tomorrow Repeat urine analysis and check a bladder scan. Labs and medication were reviewed.. Continue same treatment. Continue with symptomatic treatment. Resume home medication. Monitor labs and vitals. DVT and GI prophylaxis. Further recommendations as per clinical course of the patient DVT prophylaxis: Xarelto GI Prophylaxis: Pepcid PT/OT: Pending Prognosis is guarded
--- NOTE | 2024-01-23 23:04 | PN ---
PROGRESS NOTE DATE OF SERVICE: 01/23/2024 SUBJECTIVE: Vital signs are stable. The patient has not had any active bleeding since the removal of the Merocel nasal packing from the left side of her nose yesterday. I advised the nursing staff that the patient's Xarelto could be restarted today, Tuesday01/23/2024. I am seeing the patient today on 01/23/2024, and I spent approximately 15 minutes with the patient today. OBJECTIVE: HEENT: The patient is normocephalic. Intranasal examination of the left naris reveals no evidence of any active bleeding since the packing has been removed. The Merocel nasal packing on the right side was subsequently removed without incident in the usual fashion. After removing the packing, the right nasal passage was generously sprayed with Afrin nasal spray to vasoconstrict the mucous membranes. Inspection of the oropharynx did not reveal any evidence of any bleeding down the posterior pharyngeal wall. The patient stated that she is able to breathe through both nares without any obstruction. ASSESSMENT: Bilateral anterior-posterior epistaxis. PLAN: I would recommend against discharging this patient today, Tuesday01/23/2024. I would prefer the patient stay in the hospital until tomorrow, 01/24/2024. By doing so, I will be able to make sure that the patient is not going to go home and start actively bleeding and be required to be returned to the hospital. Therefore, I would ask that the patient not be discharged before 1 p.m. 01/24/2024, so that I may have a chance to inspect her/examine her prior to her discharge and also give her both verbal and written discharge instructions while she is home. I will see the patient on followup in my office approximately a week after discharge. The nurses will be instructed to give the patient any remaining supplies such as eye patches, tape, Afrin nasal spray, etc., to take home with her. Again, please do not discharge this patient before I see her tomorrow at approximately 1 p.m., 01/24/2024. MUSA / BREANNA: [id number] / [email or web address]
--- NOTE | 2024-01-24 02:32 | P.CNPUL ---
History of Present Illness Consult date: 01/24/24 Requesting physician: Raymond E Reji Reason for consult: dyspnea Chief complaint: Epistaxis History of present illness: Patient is a 68-year-old female with past medical history significant for COPD, chronic oxygen dependence, atrial fibrillation anticoagulated on Xarelto, coronary artery disease, hypertension, hyperlipidemia, obesity. Patient actually presented the emergency department back on 01/20/2024. Reportedly blew her nose and started to have profuse epistaxis bilateral nares. She is anticoagulated on Xarelto for her atrial fibrillation. She was packed in the emergency department. She has been evaluated by ENT. We were consulted as the patient is reporting worsening exertional dyspnea. She is known to have severe COPD with an FEV1 42% of predicted. She is normally maintained on 4 L/min nasal cannula at home. She is currently being evaluated on the observation unit. She has a face tent on with 8 L blow-by. Bilateral nares are packed. No further epistaxis. She denie s any wheezing, chest tightness, fevers, cough, sputum production, chest pain. Denies sick contacts. She does report some associated epigastric discomfort which last 10 to 15 minutes mostly with exertion. She becomes lightheaded with exertion as well. No significant lower extremity edema. Recent echocardiogram available September, showing preserved left ventricular ejection fraction of 55 to 60%. Mild elevated RVSP of 40 to. No significant valvular abnormalities reported. Chest x-ray does not show any acute cardiopulmonary process, some chronic interstitial changes. No pleural effusions, pneumothoraces, or focal infiltrates. CBC: WBC count 8.8, hemoglobin 11.7, hematocrit 39, platelets 178. BMP: Sodium 141, potassium 3.6, chloride 103, serum bicarb 32, BUN 26, creatinine 1.04, glucose 148. NT proBNP was elevated at 2429. EKG: Atrial fibrillation with controlled ventricular response, rate 87 bpm, nonspecific ST/T wave changes. Patient is currently being worked up by cardiology, reportedly going to undergo a Lexiscan stress test in the morning. Review of Systems Constitutional: Denies chills, Denies fever, Denies poor appetite, Denies weight gain, Denies weight loss Ears, nose, mouth and throat: Reports epistaxis, Denies post-nasal drip, Denies sinus pain, Denies sinus pressure, Denies sore throat Cardiovascular: Reports chest pain, Reports dyspnea on exertion, Reports irregul ar heart beat, Reports lightheadedness, Denies palpitations, Denies paroxysmal nocturnal dyspnea, Denies syncope Respiratory: Denies cough, Denies excessive sputum, Denies hemoptysis, Denies respiratory infections, Denies wheezing Gastrointestinal: Denies abdominal pain, Denies change in bowel habits, Denies constipation, Denies diarrhea, Denies nausea, Denies vomiting Genitourinary: Denies dysuria Musculoskeletal: Denies limitation of motion Integumentary: Denies rash Neurological: Denies balance difficulties, Denies confusion, Denies headaches, Denies paralysis, Denies paresthesias, Denies seizures, Denies syncope, Denies visual changes Psychiatric: Denies anxiety, Denies depression Past Medical History Past Medical History: Atrial Fibrillation, Asthma, Coronary Artery Disease (CAD), Heart Failure, COPD, GERD/Reflux, Hyperlipidemia, Hypertension, Myocardial Infarction ([place]), Osteoarthritis (OA), Skin Disorder Additional Past Medical History / Comment(s): migraines, stroke 2003-no residual effects, IBS, osteoporosis, psoriasis, "prediabetic"- dr watching, lower back pain Last Myocardial Infarction Date:: 1985 History of Any Multi-Drug Resistant Organisms: None Reported Past Surgical History: Heart Catheterization, Tubal Ligation Past Anesthesia/Blood Transfusion Reactions: No Reported Reaction Past Psychological History: Anxiety, Depression, PTSD Smoking Status: Former smoker Past Alcohol Use History: Occasional Additional Past Alcohol Use History / Comment(s): quit smoking < 1 yr ago, smoked since age 20, 1 1/2 PPD Past Drug Use History: None Reported - Past Family History Brother(s) Family Medical History: Cancer Sister(s) Family Medical History: Cancer, Congestive Heart Failure (CHF), Deep Vein Thrombosis (DVT) Mother Family Medical History: Pulmonary Embolus Medications and Allergies Home Medications Medication Instructions Recorded Confirmed Type Albuterol Inhaler [Ventolin Hfa 2 puff INHALATION RT-QID PRN 08/22/20 01/20/24 History Inhaler] Potassium Chloride [Klor-Con 20] 20 meq PO BID 08/22/20 01/20/24 History Rivaroxaban [Xarelto] 20 mg PO W/SUPPER 08/22/20 01/20/24 History Tiotropium 2.5 Mcg/Puff [Spiriva 2 puff INHALATION RT-DAILY 08/22/20 01/20/24 History Respimat 2.5 Mcg] Atorvastatin [Lipitor] 40 mg PO DAILY 10/01/23 01/20/24 History PARoxetine HCL 40 mg PO HS 10/01/23 01/20/24 History Empagliflozin [Jardiance] 10 mg PO DAILY #30 tablet 10/04/23 01/20/24 Rx Metoprolol Succinate (ER) [Toprol 100 mg PO DAILY #0 tab 10/04/23 01/20/24 Rx XL] Budesonide/Formoterol Fumarate 2 puff INHALATION RT-BID 12/07/23 01/20/24 History [Breyna 160-4.5 Mcg Inhaler] Carboxymethylcellulose Sodium 1 drop BOTH EYES QID PRN 12/07/23 01/20/24 History [Refresh Tears] Acetaminophen Tab [Tylenol Tab] 1,000 mg PO Q6HR PRN 01/20/24 01/20/24 History Furosemide [Lasix] 40 mg PO DAILY 01/20/24 01/20/24 History Ipratropium-Albuterol Nebulize 3 ml INHALATION RT-QID PRN 01/20/24 01/20/24 History [Duoneb 0.5 mg-3 mg/3 ml Soln] Allergies Allergy/AdvReac Type Severity Reaction Status Date / Time fluticasone AdvReac Cough Ver[facility]/20[facility]24 [facility] salmeterol AdvReac Cough Verified 01/20/24 19:47 [From [facility]] Physical Exam Vitals: Vital Signs Temp Pulse Pulse Resp BP Pulse Ox FiO2 01/23/24 20:34 93 01/23/24 20:23 96 01/23/24 19:13 98.9 F 92 19 115/79 100 01/23/24 16:22 79 01/23/24 16:15 99 35 01/23/24 16:13 79 01/23/24 15:00 97.7 F 92 16 118/76 97 01/23/24 08:52 101 H 01/23/24 08:39 102 H 99 35 01/23/24 07:00 97.7 F 72 16 111/68 100 Intake and Output 01/23/24 01/23/24 01/24/24 14:59 22:59 06:59 Intake Total 236 118 Balance 236 118 Intake: Oral 236 118 Other: # Voids 7 2 # Bowel Movements 1 1 GENERAL EXAM: Alert, 68-year-old obese female, with bilateral nasal packing and face tent with blow-by oxygen, comfortable in no apparent distress. HEAD: Normocephalic and atraumatic EYES: Normal reaction of pupils, equal size. NOSE: Nasal packing bilateral naris, no further bleeding THROAT: No erythema or exudates. NECK: No masses, no JVD. CHEST: No chest wall deformity. LUNGS: Equal air entry with no crackles, wheeze, rhonchi or dullness. On 8 L blow-by face tent, no conversational dyspnea or accessory muscle use.. CVS: S1 and S2 normal with no audible murmur, irregular rhythm. No extra heart sounds ABDOMEN: No hepatosplenomegaly, active bowel sounds, no guarding or rigidity. SPINE: No scoliosis or deformity SKIN: No rashes CENTRAL NERVOUS SYSTEM: No focal deficits, tone is normal in all 4 extremities. EXTREMITIES: There is no peripheral edema, clubbing, or cyanosis. Peripheral pulses are intact. Missing digits 2 and 3 on left hand Results - Laboratory Findings CBC and BMP: 01/24/24 05:32 01/24/24 05:32 Abnormal lab findings: Abnormal Labs 01/21/24 01/22/24 01/22/24 15:08 05:53 05:53 WBC 11.92 H RBC 3.85 L Hgb 11.3 L MCV 98.7 H MCHC 29.7 L RDW 16.7 H Neutrophils # 8.74 H Lymphocytes # Monocytes # 1.02 H Carbon Dioxide Anion Gap 17.40 H BUN 32.3 H Est GFR (CKD-EPI) 50 L BUN/Creatinine Ratio 26.92 H Glucose NT-Pro-B Natriuret Pep 2429 H Urine Glucose (UA) 3+ H 01/23/24 01/23/24 11:11 11:11 WBC RBC Hgb MCV MCHC 30.1 L RDW 16.8 H Neutrophils # Lymphocytes # 0.6 L Monocytes # Carbon Dioxide 32 H Anion Gap BUN 26 H Est GFR (CKD-EPI) BUN/Creatinine Ratio Glucose 148 H NT-Pro-B Natriuret Pep Urine Glucose (UA) - Diagnostic Findings Chest x-ray: image reviewed Assessment and Plan Assessment: Epistaxis, without current bleeding. Nares remain packed. ENT following. Acute on chronic dyspnea Severe chronic obstructive pulmonary disease, with an FEV1 41% of predicted, appears stable on my examination Chronic hypoxemic respiratory failure, normally maintained on 4 L/min nasal cannula while at home Chronic atrial fibrillation, on anticoagulated on Xarelto, which has been resumed History of coronary artery disease History of hypertension History of hyperlipidemia Obesity, with a BMI of 39.1 kg/m Plan: Patient's medications, labs, chest x-ray were reviewed There is nasal packing, no further bleeding noted. Xarelto has been resumed. Patient continues on face tent 8 L blow-by supplemental oxygen COPD appears stable on my evaluation. COPD maintenance medications are already reordered She is being worked up by cardiology, and reportedly undergoing Lexiscan stress test in the morning Patient can continue to follow-up with Dr. Wynn on hospital discharge I have personally seen and examined the patient, performed the documentation and the assessment and plan as written. Number of minutes spent on the visit:20 Joint evaluation done along with the [employer]. Evaluation was done >30 min. The patient is known to have advanced COPD with an FEV1 of 41% of predicted and she is oxygen dependent. She is coming in with worsening shortness of breath. I reviewed the chest x-ray and there is no evidence of any pneumonia. She has diminished breath sounds bilaterally and there is no clear indication for an underlying COPD exacerbation. She is having chest pain. She was supposed to complete a cardiac stress test yet she was unable to perform the test as the patient became tachycardic and she went into atrial fibrillation with rapid ventricular response. Currently she is on amiodarone running at 1 mg/min. Her heart rate is under better control. She is anticoagulated with Xarelto. I reviewed the rest of the medications. She is on metoprolol 150 mg p.o. once a day. She is also on Symbicort on outpatient basis and Spiriva. While in the hospital, she is still on Symbicort. Rest of the home medications have been resumed. On her labs, the white cell count is at 10 with a hemoglobin of 10.7 and proBNP level is 2429. Assistant [employer] on the case. Will check cardiac enzymes. LAsix 20 mg IV x1. Will continue to follow. Time with Patient: Greater than 30
[2024-01-24] MEDS ORDERED: CAFFEINE CITRATE 60 MG/3 ML VIAL IV PRN (06:00)
[2024-01-24] MEDS ORDERED: REGADENOSON 0.4 MG/5 ML SYRINGE IV PRN (06:00)
[2024-01-24] MEDS ORDERED: AMINOPHYLLINE 500 MG/20 ML VIAL IV PRN (06:00)
--- NOTE | 2024-01-24 07:27 | P.CRDCN ---
History of Present Illness Consult date: 01/23/24 Reason for Consult (text): Shortness of breath History of present illness: This is a 68-year-old female patient of Dr. Irwin with past medical history of stage III COPD, chronic hypoxic respiratory failure on home O2, chronic atrial fibrillation, history of CVA in 2003, hyperlipidemia, hypertension. We have been asked to evaluate patient for shortness of breath. Patient presented to the hospital on 01/20/2024 due to epistaxis as her second ER visit for the same. She was admitted to the hospital, status post packing bilateral nasal cavities. Patient was also found to have A-fib with RVR at the time of admission. Patient has been seen by ENT and cleared to resume Xarelto today. Patient states that she simply blew her nose and it started bleeding. She is complaining of weakness generalized and no stamina. She gets early fatigue with minimal activity. She states she sometimes has palpitations. She feels that her condition is slowly getting worse over time. She also has some difficulty in breathing that is also worsening. She denies any fluid retention, no lower extremity edema. Discussed atrial fibrillation and patient has not had any previous electrocardioversion's done. She thinks that she had a Cardiolite stre ss test done at [facility] a number of years ago. She has no chest pain at this time. Blood pressure 111/68, heart rate 72-102, pulse ox 99% on face tent. Chest x-ray: #1 mild cardiomegaly and diffuse interstitial prominence possibly reflecting mild pulmonary congestion. No airspace consolidation, pleural effusion or pneumothorax. #2 no acute process. Correlate for chronic interstitial lung disease or bronchitis. Laboratory studies: WBC was 11.9 now 8.8, hemoglobin 11.7. Platelet count 178. Sodium 141, potassium 3.6, BUN 26 creatinine 1.04. proBNP 2429. Home cardiac medications: Atorvastatin 40 mg daily, Jardiance 10 mg daily, Lasix 40 mg daily, Toprol-XL 100 mg daily, potassium chloride 20 mill equivalents twice daily, Xarelto 20 mg daily with supper. Echocardiogram performed 10/03/2023 revealed normal EF, mild pulmonary hypertension, estimated RVSP 42 mmHg. Review Of Systems: At the time of my exam: CONSTITUTIONAL: Denies fever or chills. HEENT: Denies blurred vision, vision changes, or eye pain. Denies hemoptysis CARDIOVASCULAR: Denies chest pain. Denies orthopnea. Denies PND. Denies palpitations RESPIRATORY: Denies shortness of breath. GASTROINTESTINAL: Denies abdominal pain. Denies nausea or vomiting. HEMATOLOGIC: Denies bleeding disorders. GENITOURINARY: Denies any blood in urine. SKIN: Denies puritis. Denies rash. Physical examination: Gen: This is a 68-year-old obese female in no acute distress VS: reviewed HEENT: Head is atraumatic, normocephalic. Nasal packing. Pupils equal, round. Sclerae is anicteric. NECK: Supple. No JVD. LUNGS: Clear to auscultation. No wheezes or rhonchi. No intercostal retractions. HEART: Regular rate and rhythm. No murmur. ABDOMEN: Soft No tenderness. EXTREMITIES: No pedal edema. No calf tenderness. NEUROLOGICAL: Patient is awake, alert and oriented x3. Assessment: Epistaxis COPD Chronic hypoxic respiratory failure on home O2 Chronic atrial fibrillation History of CVA Hypertension Hyperlipidemia Plan: Continue patient's home cardiac medications Patient has been resumed on Xarelto as this has been cleared by ENT No need to repeat echocardiogram echocardiogram performed 10/03/2023 revealed normal EF, mild pulmonary hypertension, estimated RVSP 42 mmHg Schedule patient for Lexiscan stress test in the morning N.p.o. status Further recommendations to follow based upon clinical course Thank you kindly for this consultation. Nurse practitioner note has been reviewed, I agree with documented findings and plan of care. Patient was seen and examined. Past Medical History Past Medical History: Atrial Fibrillation, Asthma, Coronary Artery Disease (CAD), Heart Failure, COPD, GERD/Reflux, Hyperlipidemia, Hypertension, Myocardial Infarction (CT), Osteoarthritis (OA), Skin Disorder Additional Past Medical History / Comment(s): migraines, stroke 2003-no residual effects, IBS, osteoporosis, psoriasis, "prediabetic"- dr ruano, lower back p ain Last Myocardial Infarction Date:: 1985 History of Any Multi-Drug Resistant Organisms: None Reported Past Surgical History: Heart Catheterization, Tubal Ligation Past Anesthesia/Blood Transfusion Reactions: No Reported Reaction Past Psychological History: Anxiety, Depression, PTSD Smoking Status: Former smoker Past Alcohol Use History: Occasional Additional Past Alcohol Use History / Comment(s): quit smoking < 1 yr ago, smoked since age 20, 1 1/2 PPD Past Drug Use History: None Reported - Past Family History Brother(s) Family Medical History: Cancer Sister(s) Family Medical History: Cancer, Congestive Heart Failure (CHF), Deep Vein Thrombosis (DVT) Mother Family Medical History: Pulmonary Embolus Medications and Allergies Home Medications Medication Instructions Recorded Confirmed Type Albuterol Inhaler [Ventolin Hfa 2 puff INHALATION RT-QID PRN 08/22/20 01/20/24 History Inhaler] Potassium Chloride [Klor-Con 20] 20 meq PO BID 08/22/20 01/20/24 History Rivaroxaban [Xarelto] 20 mg PO W/SUPPER 08/22/20 01/20/24 History Tiotropium 2.5 Mcg/Puff [Spiriva 2 puff INHALATION RT-DAILY 08/22/20 01/20/24 History Respimat 2.5 Mcg] Atorvastatin [Lipitor] 40 mg PO DAILY 10/01/23 01/20/24 History PARoxetine HCL 40 mg PO HS 10/01/23 01/20/24 History Empagliflozin [Jardiance] 10 mg PO DAILY #30 tablet 10/04/23 01/20/24 Rx Metoprolol Succinate (ER) [Toprol 100 mg PO DAILY #0 tab 10/04/23 01/20/24 Rx XL] Budesonide/Formoterol Fumarate 2 puff INHALATION RT-BID 12/07/23 01/20/24 History [Breyna 160-4.5 Mcg Inhaler] Carboxymethylcellulose Sodium 1 drop BOTH EYES QID PRN 12/07/23 01/20/24 History [Refresh Tears] Acetaminophen Tab [Tylenol Tab] 1,000 mg PO Q6HR PRN 01/20/24 01/20/24 History Furosemide [Lasix] 40 mg PO DAILY 01/20/24 01/20/24 History Ipratropium-Albuterol Nebulize 3 ml INHALATION RT-QID PRN 01/20/24 01/20/24 History [Duoneb 0.5 mg-3 mg/3 ml Soln] Allergies Allergy/AdvReac Type Severity Reaction Status Date / Time fluticasone AdvReac Cough Verified 01/20/24 19:47 [From Kristin Campos] salmeterol AdvReac Cough Verified 01/20/24 19:47 [From Hanhbrendan Andres] Physical Exam Vitals: Vital Signs Temp Pulse Pulse Resp BP Pulse Ox FiO2 01/23/24 08:52 101 H 01/23/24 08:39 102 H 99 35 01/23/24 07:00 97.7 F 72 16 111/68 100 01/23/24 01:06 98.2 F 70 17 124/93 98 01/22/24 19:15 97.7 F 101 H 18 117/84 93 L 01/22/24 16:17 68 01/22/24 16:01 62 01/22/24 15:00 97.4 F L 60 16 128/84 95 Intake and Output 01/22/24 01/23/24 01/23/24 22:59 06:59 14:59 Intake Total 480 118 Balance 480 118 Intake: Oral 480 118 Other: # Voids 1 4 # Bowel Movements 2 1 Results 01/23/24 11:11 01/23/24 11:11 CBC 01/23/24 Range/Units 11:11 WBC 8.8 (3.8-10.6) k/uL RBC 3.95 (3.80-5.40) m/uL Hgb 11.7 (11.4-16.0) gm/dL Hct 39.0 (34.0-46.0) % Plt Count 178 (150-450) k/uL Comprehensive Metabolic Panel 01/23/24 Range/Units 11:11 Sodium 141 (137-145) mmol/L Potassium 3.6 (3.5-5.1) mmol/L Chloride 103 (98-107) mmol/L Carbon Dioxide 32 H (22-30) mmol/L BUN 26 H (7-17) mg/dL Creatinine 1.04 (0.52-1.04) mg/dL Glucose 148 H (74-99) mg/dL Calcium 9.0 (8.4-10.2) mg/dL Current Medications Generic Name Dose Route Start Last Admin Trade Name Freq PRN Reason Stop Dose Admin Acetaminophen 650 mg 01/20/24 18:41 01/21/24 08:18 Acetaminophen Tab 325 Mg Tab PO 650 mg Q6HR PRN Administration Mild Pain or Fever > 100.5 Acetaminophen 1,000 mg 01/21/24 07:54 01/22/24 15:41 Acetaminophen Tab 500 Mg Tab PO 1,000 mg Q6HR PRN Administration Headache Albuterol/Ipratropium 3 ml 01/21/24 07:54 01/23/24 08:39 Ipratropium-Albuterol 3 Ml Neb INHALATION 3 ml RT-QID PRN Administration Shortness Of Breath Or Wheezing Artificial Tears 1 drops 01/21/24 07:54 Artificial Tears-Hypromellose Drops 15 Ml Btl BOTH EYES QID PRN Dry Eye(s) Atorvastatin Calcium 40 mg 01/21/24 09:00 01/23/24 09:40 Atorvastatin 40 Mg Tab PO 40 mg DAILY CARLITA Administration Budesonide/Formoterol Fumarate 2 puff 01/21/24 08:00 01/23/24 08:39 Symbicort 160-4.5 Mcg Inhaler INHALATION 2 puff RT-BID CARLITA Administration Dapagliflozin 5 mg 01/21/24 09:00 01/23/24 09:40 Dapagliflozin Propanediol 5 Mg Tablet PO 5 mg DAILY CARLITA Administration Famotidine 20 mg 01/23/24 09:00 01/23/24 09:39 Famotidine 20 Mg Tab PO 20 mg DAILY CARLITA Administration Furosemide 40 mg 01/21/24 09:00 01/23/24 09:40 Furosemide 40 Mg Tab PO 40 mg DAILY CARLITA Administration Cefazolin Sodium 1,000 mg/ 50 mls @ 100 mls/hr 01/21/24 16:00 01/23/24 09:39 Sodium Chloride IVPB 100 mls/hr Q8HR CARLITA Administration Protocol Metoprolol Succinate 100 mg 01/21/24 09:00 01/23/24 09:40 Metoprolol Succinate (Er) 100 Mg Tab.Er.24h PO 100 mg DAILY CARLITA Administration Morphine Sulfate 4 mg 01/20/24 18:41 01/21/24 01:17 Morphine Sulfate 4 Mg/Ml Syringe IV 4 mg Q4HR PRN Administration Severe Pain (Scale 7 to 10) Naloxone HCl 0.2 mg 01/20/24 18:41 Naloxone 0.4 Mg/Ml 1 Ml Vial IV Q2M PRN Opioid Reversal Oxymetazoline HCl 2 spray 01/22/24 16:00 01/23/24 09:41 Oxymetazoline 0.05% Nasl Courtenay 1 Courtenay Bottle NASAL 2 spray TID CARLITA Administration Paroxetine HCl 40 mg 01/21/24 21:00 01/22/24 08:46 Paroxetine 20 Mg Tab PO 40 mg HS CARLITA Administration Potassium Chloride 20 meq 01/21/24 09:00 01/23/24 09:40 Potassium Chloride Er 20 Meq Tab.Er PO 20 meq BID CARLITA Administration Rivaroxaban 20 mg 01/23/24 17:30 Rivaroxaban 20 Mg Tab PO W/SUPPER CARLITA Protocol Intake and Output 01/22/24 01/23/24 01/23/24 22:59 06:59 14:59 Intake Total 480 118 Balance 480 118 Intake: Oral 480 118 Other: # Voids 1 4 # Bowel Movements 2 1 01/23/24 11:11 01/23/24 11:11
[2024-01-24 09:26] LABS: Basophils # (A) 0.04 X 10*3/uL (0.00-0.10); Basophils % (A) 0.4 %; Eosinophils # (A) 0.13 X 10*3/uL (0.04-0.35); Eosinophils % (A) 1.2 %; HCT 35.9 % (37.2-46.3); HGB 10.7 g/dL (12.0-15.0); Lymphocytes # (A) 0.62 X 10*3/uL (0.90-5.00); Lymphocytes % (A) 5.9 %; MCH 28.8 pg (27.0-32.0); MCHC 29.8 g/dL (32.0-37.0); MCV 96.8 FL (80.0-97.0); Mean Platelet Volume 11.2 FL (9.5-12.2); Monocytes # (A) 0.91 X 10*3/uL (0.20-1.00); Monocytes % (A) 8.7 %; NRBC Per 100 WBC 0.02 X 10*3/uL (0.00-0.01); Neutrophils # (A) 8.75 X 10*3/uL (1.80-7.70); Neutrophils % (A) 83.4 %; Platelet Count 166 X 10*3/uL (140-440); RBC 3.71 X 10*6/uL (4.10-5.20); RDW 16.5 % (11.5-14.5); WBC 10.49 X 10*3/uL (4.50-10.00)
[2024-01-24 09:30] LABS: BUN/Creat Ratio 17.83 Ratio (12.00-20.00); Blood Urea Nitrogen 21.4 mg/dL (9.0-27.0); Carbon Dioxide 30.2 mmol/L (21.6-31.8); Chloride 100 mmol/L (96-109); Glucose 105 mg/dL (70-110); Potassium 3.7 mmol/L (3.5-5.5); Sodium 143 mmol/L (135-145)
[2024-01-24] MEDS: METOPROLOL SUCCINATE (ER) 50 MG TAB.ER.24H PO STA (12:18)
[2024-01-24] MEDS ORDERED: DEXTROSE 5% IN WATER 100 ML with AMIODARONE 150 MG IV ONE (14:30)
[2024-01-24] MEDS ORDERED: AMIODARONE 360 MG in DEXTROSE 5% IN WATER 200 ML IV ONE (14:40)
[2024-01-24] MEDS: DEXTROSE 5% IN WATER 100 ML with AMIODARONE 150 MG IV ONE (15:28)
[2024-01-24] MEDS: AMIODARONE 360 MG in DEXTROSE 5% IN WATER 200 ML IV ONE (15:36)
--- NOTE | 2024-01-24 19:40 | P.PN ---
Subjective This is a pleasant 68 years old female with past medical history of multiple medical problems including history of atrial fibrillation on Xarelto, CHF, currently euvolemic. She follows up with Dr. Irwin. She has history of COPD her commercial producer is Dr. Wynn, she is on 4 L oxygen via nasal cannula. She denies trauma or falling. Patient presents because of episodes of epistaxis started Tuesday morning at 3:00 AM, she woke up and blew her nose after the start of bleeding, she used personal packing with no much help so she came to the emergency room. Bilateral nasal packing has to be placed. Patient on Xarelto at home which is held now She was admitted with a ENT consultation Because she cannot use nasal cannula she was placed on Ventimask/nonrebreather, she is currently denies any dyspnea. Although she has chronic shortness of vik ath and mild dry coughing, there is no recent worsening and on examination there is no evidence of wheezing or basal crepitation. Also has no leg edema. No chest pain. No other GI/ symptoms. She states she quit smoking about 2 months ago. Also she saw her commercial producer Dr. Wynn about 2 months ago. She denies alcohol or illicit drugs. She has a chronic headache which is told it is related to her degenerative cervical disc disease, she states she is using Tylenol Extra Strength but she de nies using any NSAIDs Motrin or any other blood thinner On examination she is hemodynamically stable. She is tachycardic with heart rate around 118-122. She is afebrile. No labs during this admission, however labs done yesterday morning showing WBC of 11.2, rest of CBC is unremarkable. INR is 1.4 INR is 1.3, baseline 0.8-0.9. High lactic acid came back to normal. Troponin x 2 are negative. Liver enzymes mildly elevated but bilirubin is normal. Urine analysis showing glucosuria but no ketonuria. However there is infection suspected in her urine analysis. Echo on 09/2023 showing ejection fraction 55 to 60% 01/21 Patient with no more epistaxis, nasal packing in place Patient evaluated by ENT service, pack removed, no evidence of nasal bleeding ENT service cleared the patient to resume Xarelto tomorrow Creatinine stable at 1.2 01/22 Patient will bilateral intranasal PET scan were discontinued yesterday by ENT service team, she has external nasal packing which is in place, no soaked with blood, no bleeding which is stopped now, Xarelto was resumed tonight per ENT team recommendation Patient today however she did not feel comfortable, she is complaining from little tachypnea and exertional dyspnea, she is on mask for mouth breather as she has nasal packing, she is requiring 8 liters per minute, compared to 4 L/min at home via nasal cannula. Chest x-ray is suspicious for prominence of interstitial markings, CHF exacerbation is suspected, 1 dose of IV Lasix provided. Patient continued on oral Lasix 40 mg daily, proBNP is elevated. Cardiology team consulted who requested stress test tomorrow. Bronchitis also suspected per radiologist, we will check pro- Calcitonin on consult commercial producer as well. 01/23 Patient today was getting more complication. She underwent stress test but she could not finish the test because of her tachycardia and she was to be transferred to higher level [facility] care at [facility] because her tachycardia switched to A-fib and RVR, she was started on amiodarone drip and currently heart rate is better. Xarelto is already resumed. All this care done with cardiology team on the case She had low-grade fever today of 100.4. But procalcitonin is negative indicating away from pneumonia. Most likely the source is her nasal lesion status post packing which is removed now. She is already on cefazolin and will continue monitoring for now. She remains close monitoring Review of systems CONSTITUTIONAL: No fever, no malaise, no fatigue. HEENT: No recent visual problems or hearing problems. Denied any sore throat. CARDIOVASCULAR: No orthopnea, PND, no palpitations, no syncope. GENITOURINARY: Denies any burning micturition, frequency, or urgency. MUSCULOSKELETAL/RHEUMATOLOGICAL: Denies any joint pain, swelling, or any muscle pain. ENDOCRINE: Denies any polyuria or polydipsia. Active Medications Generic Name Dose Route Start Last Admin Trade Name Freq PRN Reason Stop Dose Admin Acetaminophen 650 mg 01/20/24 18:41 01/21/24 08:18 Acetaminophen Tab 325 Mg Tab PO 650 mg Q6HR PRN Administration Mild Pain or Fever > 100.5 Acetaminophen 1,000 mg 01/21/24 07:54 01/24/24 12:20 Acetaminophen Tab 500 Mg Tab PO 1,000 mg Q6HR PRN Administration Headache Albuterol/Ipratropium 3 ml 01/21/24 07:54 01/24/24 12:17 Ipratropium-Albuterol 3 Ml Neb INHALATION 3 ml RT-QID PRN Administration Shortness Of Breath Or Wheezing Aminophylline 100 mg 01/25/24 06:00 Aminophylline 500 Mg/20 Ml Vial IV 01/25/24 23:00 ONCE PRN Patient Response Artificial Tears 1 drops 01/21/24 07:54 Artificial Tears-Hypromellose Drops 15 Ml Btl BOTH EYES QID PRN Dry Eye(s) Atorvastatin Calcium 40 mg 01/21/24 09:00 01/24/24 12:19 Atorvastatin 40 Mg Tab PO 40 mg DAILY CARLITA Administration Budesonide/Formoterol Fumarate 2 puff 01/21/24 08:00 01/24/24 08:28 Symbicort 160-4.5 Mcg Inhaler INHALATION Not Given RT-BID CARLITA Caffeine Citrate 60 mg 01/25/24 06:00 Caffeine Citrate 60 Mg/3 Ml Vial IV 01/25/24 23:00 ONCE PRN Patient Response Dapagliflozin 5 mg 01/21/24 09:00 01/24/24 12:20 Dapagliflozin Propanediol 5 Mg Tablet PO 5 mg DAILY CARLITA Administration Famotidine 20 mg 01/23/24 09:00 01/24/24 12:21 Famotidine 20 Mg Tab PO 20 mg DAILY CARLITA Administration Cefazolin Sodium 1,000 mg/ 50 mls @ 100 mls/hr 01/21/24 16:00 01/24/24 15:35 Sodium Chloride IVPB 100 mls/hr Q8HR CARLITA Administration Protocol Amiodarone HCl 360 mg/ 200 mls @ 33.333 mls/hr 01/24/24 15:30 01/24/24 15:36 Dextrose/Water IV 01/24/24 21:29 1 mg/min .Q6H ONE 33.333 mls/hr Administration Protocol 1 MG/MIN Amiodarone HCl 450 mg/ 250 mls @ 16.667 mls/hr 01/24/24 21:30 Dextrose/Water IV 01/25/24 15:29 .Q15H CARLITA Protocol 0.5 MG/MIN Metoprolol Succinate 150 mg 01/25/24 09:00 Metoprolol Succinate (Er) 100 Mg Tab.Er.24h PO DAILY CARLITA Morphine Sulfate 4 mg 01/20/24 18:41 01/21/24 01:17 Morphine Sulfate 4 Mg/Ml Syringe IV 4 mg Q4HR PRN Administration Severe Pain (Scale 7 to 10) Naloxone HCl 0.2 mg 01/20/24 18:41 Naloxone 0.4 Mg/Ml 1 Ml Vial IV Q2M PRN Opioid Reversal Oxymetazoline HCl 2 spray 01/22/24 16:00 01/24/24 16:55 Oxymetazoline 0.05% Nasl Turner 1 Turner Bottle NASAL 2 spray TID CARLITA Administration Paroxetine HCl 40 mg 01/21/24 21:00 01/23/24 21:03 Paroxetine 20 Mg Tab PO 40 mg HS CARLITA Administration Potassium Chloride 20 meq 01/21/24 09:00 01/24/24 12:20 Potassium Chloride Er 20 Meq Tab.Er PO 20 meq BID CARLITA Administration Regadenoson 0.4 mg 01/25/24 06:00 Regadenoson 0.4 Mg/5 Ml Syringe IV 01/25/24 22:00 ONCE PRN Per Protocol Rivaroxaban 20 mg 01/23/24 17:30 01/24/24 16:54 Rivaroxaban 20 Mg Tab PO 20 mg W/SUPPER CARLITA Administration Protocol Objective - Vital Signs Vital signs: Vital Signs Temp 98.2 F 01/24/24 15:39 Pulse 83 01/24/24 15:47 Resp 16 01/24/24 15:39 BP 87/58 01/24/24 15:47 Pulse Ox 98 01/24/24 15:47 FiO2 35 01/23/24 16:15 Intake & Output 01/23/24 01/24/24 01/24/24 18:59 06:59 18:59 Intake Total 354 Balance 354 Intake: Oral 354 Other: Voiding Method Bedside Commode # Voids 7 2 1 # Bowel Movements 1 1 1 - Exam GENERAL: The patient is alert and oriented x3, not in any acute distress. Well developed, well nourished. HEENT: Pupils are round and equally reacting to light. EOMI. No scleral icterus. No conjunctival pallor. Normocephalic, atraumatic. No pharyngeal erythema. No thyromegaly. CARDIOVASCULAR: S1 and S2 present. No murmurs, rubs, or gallops. PULMONARY: Chest is clear to auscultation, no wheezing , no crackles. ABDOMEN: Soft, nontender, nondistended, normoactive bowel sounds. No palpable organomegaly. MUSCULOSKELETAL: No joint swelling or deformity. EXTREMITIES: No cyanosis, clubbing, or pedal edema. NEUROLOGICAL: Gross neurological examination did not reveal any focal deficits. SKIN: No rashes. no petechiae. - Labs CBC & Chem 7: 01/24/24 05:32 01/24/24 05:32 Labs: Abnormal Lab Results - Last 24 Hours (Table) 01/24/24 01/24/24 Range/Units 05:32 05:32 WBC 10.49 H (4.50-10.00) X 10*3/uL RBC 3.71 L (4.10-5.20) X 10*6/uL Hgb 10.7 L (12.0-15.0) g/dL Hct 35.9 L (37.2-46.3) % MCHC 29.8 L (32.0-37.0) g/dL RDW 16.5 H (11.5-14.5) % Neutrophils # 8.75 H (1.80-7.70) X 10*3/uL Lymphocytes # 0.62 L (0.90-5.00) X 10*3/uL NRBC/100 WBC Diff 0.02 H (0.00-0.01) X 10*3/uL Anion Gap 12.80 H (4.00-12.00) mmol/L Est GFR (CKD-EPI) 50 L (>=60) Assessment and Plan Assessment: Bilateral epistaxis status post bilateral nasal packing which is removed. Bleeding stopped now Acute kidney injury could be secondary to above, Dyspnea could be acute CHF versus coronary artery disease versus bronchitis A-fib with RVR, present on admission. Also happened after stress test Chest pain, wine sales representative on the case to rule out cardiac causes Acute on chronic CHF without acute exacerbation. ejection fraction is preserved COPD without acute exacerbation Acute on chronic chronic hypoxic respiratory failure Chronic leukocytosis Obesity with BMI 39.1 Plan: Status post IV Lasix x 1 Check pro- Calcitonin Cardiology consult is on the case, patient did not tolerate stress test Continue with amiodarone per wine sales representative resumed Xarelto on 01/22 continue with oxygen ENT consult for epistaxis which is stopped now Pulmonary team consult Resume her heartache medication. Labs and medication were reviewed.. Continue same treatment. Continue with symptomatic treatment. Resume home medication. Monitor labs and vitals. DVT and GI prophylaxis. Further recommendations as per clinical course of the patient DVT prophylaxis: Xarelto GI Prophylaxis: Pepcid PT/OT: Pending Prognosis is guarded
[2024-01-24] MEDS ORDERED: AMIODARONE 450 MG in DEXTROSE 5% IN WATER 250 ML IV SCH (20:40)
[2024-01-24] MEDS: FUROSEMIDE 10 MG/ML 2 ML VIAL IV ONE (21:01)
[2024-01-24] MEDS: AMIODARONE 450 MG in DEXTROSE 5% IN WATER 250 ML IV SCH (21:12)
--- NOTE | 2024-01-24 21:17 | P.PN ---
Subjective Progress Note Date: 01/24/24 Reason for Consult (text): Shortness of breath History of present illness: This is a 68-year-old female patient of Dr. Irwin with past medical history of stage III COPD, chronic hypoxic respiratory failure on home O2, chronic atrial fibrillation, history of CVA in 2003, hyperlipidemia, hypertension. We have been asked to evaluate patient for shortness of breath. Patient presented to the hospital on 01/20/2024 due to epistaxis as her second ER visit for the same. She was admitted to the hospital, status post packing bilateral nasal cavities. Patient was also found to have A-fib with RVR at the time of admission. Patient has been seen by ENT and cleared to resume Xarelto today. Patient states that she simply blew her nose and it started bleeding. She is complaining of weakness generalized and no stamina. She gets early fatigue with minimal activity. She states she sometimes has palpitations. She feels that her condition is slowly getting worse over time. She also has some difficulty in breathing that is also worsening. She denies any fluid retention, no lower extremity edema. Discussed atrial fibrillation and patient has not had any previous electrocardioversion's done. She thinks that she had a Cardiolite stress test done at [facility] a number of years ago. She has no chest pain at this time. Blood pressure 111/68, heart rate 72-102, pulse ox 99% on face tent. Chest x-ray: #1 mild cardiomegaly and diffuse interstitial prominence possibly reflecting mild pulmonary congestion. No airspace consolidation, pleural e ffusion or pneumothorax. #2 no acute process. Correlate for chronic interstitial lung disease or bronchitis. Laboratory studies: WBC was 11.9 now 8.8, hemoglobin 11.7. Platelet count 178. Sodium 141, potassium 3.6, BUN 26 creatinine 1.04. proBNP 2429. Home cardiac medications: Atorvastatin 40 mg daily, Jardiance 10 mg daily, Lasix 40 mg daily, Toprol-XL 100 mg daily, potassium chloride 20 mill equivalents twice daily, Xarelto 20 mg daily with supper. Echocardiogram performed 10/03/2023 revealed normal EF, mild pulmonary hypertension, estimated RVSP 42 mmHg. 01/23 Patient is scheduled today for Lexiscan stress test. Blood pressure 135/90, heart rate 73, temperature max 100.4. Patient feels tired and breathing seems the same. She had an episode during the night of afib 150 bpm which resolved and was controlled rate. Once she arrived in the stress lab, her heart rates were in the 120-140. Patient was given her usual dose of BB but heart rate did not improve and patient was returned to her room. Since then, nasal packing has been removed and she is now on O2 via n/c. Discussed plan for stress test, amiodarone, and possible cardioversion. Physical examination: Gen: This is a 68-year-old obese female in no acute distress VS: reviewed HEENT: Head is atraumatic, normocephalic.Pupils equal, round. Sclerae is anicteric. NECK: Supple. No JVD. LUNGS: Clear to auscultation. No wheezes or rhonchi. No intercostal retractions. HEART: Regular rate and rhythm. No murmur. ABDOMEN: Soft No tenderness. EXTREMITIES: No pedal edema. No calf tenderness. NEUROLOGICAL: Patient is awake, alert and oriented x3. Assessment: Epistaxis COPD Chronic hypoxic respiratory failure on home O2 Persistent atrial fibrillation unsure if this is chronic HERNANDEZ and early fatigue possibly related to afib and or cad History of CVA Hypertension Hyperlipidemia Plan: Continue patient's home cardiac medications Patient has been resumed on Xarelto as this has been cleared by ENT No need to repeat echocardiogram echocardiogram performed 10/03/2023 revealed normal EF, mild pulmonary hypertension, estimated RVSP 42 mmHg Schedule patient for Lexiscan stress test today N.p.o. status after midnight Start patient on Amiodarone bolus and drip per protocol to attempt rhythm control Transfer patient to Further recommendations to follow based upon clinical course Nurse practitioner note has been reviewed, I agree with documented findings and plan of care. Patient was seen and examined. Objective - Vital Signs Vital signs: Vital Signs Temp 100.4 F H 01/24/24 01:23 Pulse 73 01/24/24 01:23 Resp 18 01/24/24 01:23 BP 135/90 01/24/24 01:23 Pulse Ox 98 01/24/24 01:23 FiO2 35 01/23/24 16:15 Intake & Output 01/23/24 01/24/24 01/24/24 18:59 06:59 18:59 Intake Total 354 Balance 354 Intake: Oral 354 Other: # Voids 7 2 # Bowel Movements 1 1 - Labs CBC & Chem 7: 01/24/24 05:32 01/24/24 05:32 Labs: Abnormal Lab Results - Last 24 Hours (Table) 01/23/24 01/23/24 Range/Units 11:11 11:11 MCHC 30.1 L (31.0-37.0) g/dL RDW 16.8 H (11.5-15.5) % Lymphocytes # 0.6 L (1.0-4.8) k/uL Carbon Dioxide 32 H (22-30) mmol/L BUN 26 H (7-17) mg/dL Glucose 148 H (74-99) mg/dL
[2024-01-25] MEDS ORDERED: AMINOPHYLLINE 500 MG/20 ML VIAL IV PRN (06:00)
[2024-01-25] MEDS ORDERED: CAFFEINE CITRATE 60 MG/3 ML VIAL IV PRN (06:00)
[2024-01-25] MEDS ORDERED: REGADENOSON 0.4 MG/5 ML SYRINGE IV PRN (06:00)
[2024-01-25] MEDS: METOPROLOL SUCCINATE (ER) 100 MG TAB.ER.24H PO SCH (07:23)
--- NOTE | 2024-01-25 10:10 | NM ---
EXAMINATION TYPE: NM stress lexiscan cardiolite DATE OF EXAM: 01/25/2024 COMPARISON: NONE CLINICAL INDICATION: Female, 68 years old with history of chest pain; TECHNIQUE: After the intravenous administration of 10.59 mCi Tc 99m Sestamibi - Cardiolite resting S PECT images acquired 45 minutes post injection. The patient received 0.4mg Lexiscan, 26.7 mCi Tc 99m Sestamibi - Stress images obtained [address] injection FINDINGS: Review of stress and rest SPECT images demonstrates questionable reversibility involving the apical l ateral myocardium which may be artifactual. Recommend correlation clinically.. Gated analysis shows normal wall motion with an estimated left ventricular ejection fraction of 93 %. IMPRESSION: Question of a small area of stress-induced reversibility involving the apical lateral myocardium whic h could be artifactual. Correlate clinically. [facility], , 01/25/2024 10:08 AM
--- NOTE | 2024-01-25 10:22 | P.PN ---
Subjective HISTORY OF PRESENT ILLNESS: This is a 68-year-old female patient of Dr. Irwin with past medical history of stage III COPD, chronic hypoxic respiratory failure on home O2, chronic atrial fibrillation, history of CVA in 2003, hyperlipidemia, hypertension. We have been asked to evaluate patient for shortness of breath. Patient presented to the hospital on 01/20/2024 due to epistaxis as her second ER visit for the same. She was admitted to the hospital, status post packing bilateral nasal cavities. Patient was also found to have A-fib with RVR at the time of admission. Patient has been seen by ENT and cleared to resume Xarelto today. Patient states that she simply blew her nose and it started bleeding. She is complaining of weakness generalized and no stamina. She gets early fatigue with minimal activity. She states she sometimes has palpitations. She feels that her condition is slowly getting worse over time. She also has some difficulty in breathing that is also worsening. She denies any fluid retention, no lower extremity edema. Discussed atrial fibrillation and patient has not had any previous electrocardioversion's done. She thinks that she had a Cardiolite stress test done at [facility] a number of years ago. She has no chest pain at this time. Blood pressure 111/68, heart rate 72-102, pulse ox 99% on face tent. Chest x-ray: #1 mild cardiomegaly and diffuse interstitial prominence possibly reflecting mild pulmonary congestion. No airspace consolidation, pleural effusion or pneumothorax. #2 no acute process. Correlate for chronic interstitial lung disease or bronchitis. Laboratory studies: WBC was 11.9 now 8.8, hemoglobin 11.7. Platelet count 178. Sodium 141, potassium 3.6, BUN 26 creatinine 1.04. proBNP 2429. Home cardiac medications: Atorvastatin 40 mg daily, Jardiance 10 mg daily, Lasix 40 mg daily, Toprol-XL 100 mg daily, potassium chloride 20 mill equivalents twice daily, Xarelto 20 mg daily with supper. Echocardiogram performed 10/03/2023 revealed normal EF, mild pulmonary hypertens ion, estimated RVSP 42 mmHg. 01/23 Patient is scheduled today for Lexiscan stress test. Blood pressure 135/90, heart rate 73, temperature max 100.4. Patient feels tired and breathing seems the same. She had an episode during the night of afib 150 bpm which resolved and was controlled rate. Once she arrived in the stress lab, her heart rates were in the 120-140. Patient was given her usual dose of BB but heart rate did not improve and patient was returned to her room. Since then, nasal packing has been removed and she is now on O2 via n/c. Discussed plan for stress test, amiodarone, and possible cardioversion. 01/25/2024 Patient examined this morning at the bedside. Patient currently denies any chest pain or pressure. She reports improvement in her shortness of breath. She is currently receiving a breathing treatment at the time of examination. She remains in atrial fibrillation with controlled ventricular rate in the 70s. She remains on IV amiodarone. She is scheduled for Lexiscan stress test today. PHYSICAL EXAM: VITAL SIGNS: Reviewed. GENERAL: Well-developed in no acute distress. NECK: Supple. No JVD or thyromegaly LUNGS: Respirations even and unlabored. Lungs essentially clear to auscultation bilaterally. HEART: Irregular rate and rhythm. S1 and S2 heard. EXTREMITIES: Normal range of motion. No clubbing or cyanosis. Peripheral pulses intact. No lower extremity edema ASSESSMENT: Epistaxis Permanent atrial fibrillation with RVR, currently rate controlled Dyspnea on exertion and early fatigue, suspect pulmonary related worsened by Afib with RVR, can not rule out underlying CAD Chronic hypoxic respiratory failure on home O2 History of COPD Hypertension Hyperlipidemia History of CVA PLAN: No need to repeat echocardiogram as this was performed in September 2023 Patient has been evaluated by ENT and has been resumed on Xarelto Continue IV amiodarone infusion. When completed, begin oral amiodarone 400 mg twice a day Continue additional cardiac medications Patient is scheduled to undergo Lexiscan stress test this morning. Await results Further recommendations pending patient course Nurse practitioner note has been reviewed by physician. Signing provider agrees with the documented findings, assessment, and plan of care documented by BAKER BISCUIT as a scribe. Objective - Vital Signs Vital signs: Vital Signs Temp 98.6 F 01/25/24 07:33 Pulse 78 01/25/24 08:13 Resp 18 01/25/24 07:33 BP 115/80 01/25/24 07:33 Pulse Ox 100 01/25/24 08:00 FiO2 35 01/23/24 16:15 Intake & Output 01/24/24 01/25/24 01/25/24 18:59 06:59 18:59 Weight 88 kg Other: Voiding Method Bedside Commode Bedside Commode # Voids 2 1 # Bowel Movements 1 - Labs CBC & Chem 7: 01/24/24 05:32 01/24/24 05:32
--- NOTE | 2024-01-25 11:43 | CA ---
Lexiscan Nuclear Stress Test Report Name: Maria Del Carmen Ford Exam Date: 01/25/2024 08:29 Exam Location: [place] Stress Ht (in): 60 Wt (lb): 200 BSA: 1.87 Ordering Phys: Sofie Strickland Referring Phys: TAZ Technologist: Merlin Aj Age: 68 Gender: F : 1955 Procedure CPT: Indications: Reflex order-Stress test ICD-10 Codes: Patient History: Medications: SEE CHART Meds past 24 hrs: Pretest Chest Pain: STRESS TEST Lexiscan Protocol Exercise Duration (min:sec): 01:[address] Depressions (mm): Angina Score: Valenzuela Score: Resting HR (bpm): 79 Peak HR (bpm): 87 Resting BP (mmHg): 118 / 67 Peak BP (mmHg): 116 / 67 MPHR: 154 Target HR: 131 % MPHR: 56 METS: 1.0 Total Dose: Peak Dose: Atropine: Double Product: 86246 BP Response: Stress Termination: INFUSION COMPLETE Stress Symptoms: NO SYMPTOMS Stress Summary: ECG ANALYSIS Resting ECG: Stress ECG: CONCLUSIONS At baseline EKG showed atrial fibrillation with controlled ventricular rate with normal axis and minimal 0.[address] depressions in the inferior lateral leads Patient recieved IV infusion of Lexiscan 0.4mg and at peak infusion EKG showed no change from baseline. Conclusions: 1. Nonspecific stress EKG portion secondary to baseline EKG abnormalities 2. Nuclear imaging to be reported separately. Dr. Boston Pavon DO (Electronically Signed) Final Date: 25 January 2024 11:43
[2024-01-25] MEDS: SODIUM CHLORIDE 0.65% NASAL SPRAY 44 ML BTL NASAL PRN (15:49)
[2024-01-25] MEDS: AMIODARONE 200 MG TAB PO SCH (15:50)
--- NOTE | 2024-01-25 16:26 | P.PN ---
Subjective Progress Note Date: 01/25/24 Patient is a 68-year-old female with past medical history significant for COPD, chronic oxygen dependence, atrial fibrillation anticoagulated on Xarelto, coronary artery disease, hypertension, hyperlipidemia, obesity. Patient actually presented the emergency department back on 01/20/2024. Reportedly blew her nose and started to have profuse epistaxis bilateral nares. She is anticoagulated on Xarelto for her atrial fibrillation. She was packed in the emergency department. She has been evaluated by ENT. We were consulted as the patient is reporting worsening exertional dyspnea. She is known to have severe COPD with an FEV1 42% of predicted. She is normally maintained on 4 L/min nasal cannula at home. She is currently being evaluated on the observation unit. She has a face tent on with 8 L blow-by. Bilateral nares are packed. No further epistaxis. She denies any wheezing, chest tightness, fevers, cough, sputum production, chest pain. Denies sick contacts. She does report some associated epigastric discomfort which last 10 to 15 minutes mostly with exertion. She becomes lightheaded with exertion as well. No significant lower extremity edema. Recent echocardiogram available September, showing preserved left ventricular ejection fraction of 55 to 60%. Mild elevated RVSP of 40 to. No significant valvular abnormalities reported. Chest x-ray does not show any acute cardiopu lmonary process, some chronic interstitial changes. No pleural effusions, pneumothoraces, or focal infiltrates. CBC: WBC count 8.8, hemoglobin 11.7, hematocrit 39, platelets 178. BMP: Sodium 141, potassium 3.6, chloride 103, serum bicarb 32, BUN 26, creatinine 1.04, glucose 148. NT proBNP was elevated at 2429. EKG: Atrial fibrillation with controlled ventricular response, rate 87 bpm, nonspecific ST/T wave changes. Patient is currently being worked up by cardiology, reportedly going to undergo a Lexiscan stress test in the morning. 01/25/2024, the patient is being seen for a follow-up. She is complaining of nasal congestion and stuffiness. No chest pain. No significant shortness of breath. The cardiac stress test was done this morning and the patient has questionable area of stress-induced reversibility in the apical lateral myocardium and this could be potentially artifactual. The patient has atrial fibrillation. Rate is under better control for now. She remains on antico agulation. Cardiac enzymes are negative and the patient is currently on diuretics. Cardiac catheterization is being considered to be done as an outpatient basis. No significant epistaxis at this point in time. The patient remains on IV amiodarone and this will be switched to oral amiodarone 4 mg p.o. twice a day. The patient remains on metoprolol 150 mg XL 1 tablet a day. She remains on anticoagulation with Xarelto. Objective - Vital Signs Vital signs: Vital Signs Temp 98.1 F 01/25/24 10:40 Pulse 91 01/25/24 10:42 Resp 18 01/25/24 10:42 BP 129/79 01/25/24 10:40 Pulse Ox 95 01/25/24 10:40 FiO2 35 01/23/24 16:15 Intake & Output 01/24/24 01/25/24 01/25/24 18:59 06:59 18:59 Intake Total 226.116 Balance 226.116 Weight 88 kg Intake: Intake, IV Titration 226.116 Amount Amiodarone 450 mg In 226.116 Dextrose 5% in Water 250 ml @ 0.5 MG/MIN 16.667 mls/hr IV .[facility] Rx#: [id number] Other: Voiding Method Bedside Commode Bedside Commode # Voids 2 1 1 # Bowel Movements 1 - Exam GENERAL EXAM: Alert, 68-year-old obese female, with bilateral nasal packing and face tent with blow-by oxygen, comfortable in no apparent distress. HEAD: Normocephalic and atraumatic EYES: Normal reaction of pupils, equal size. NOSE: Nasal packing bilateral naris, no further bleeding THROAT: No erythema or exudates. NECK: No masses, no JVD. CHEST: No chest wall deformity. LUNGS: Equal air entry with no crackles, wheeze, rhonchi or dullness. On 8 L blow-by face tent, no conversational dyspnea or accessory muscle use.. CVS: S1 and S2 normal with no audible murmur, irregular rhythm. No extra heart sounds ABDOMEN: No hepatosplenomegaly, active bowel sounds, no guarding or rigidity. SPINE: No scoliosis or deformity SKIN: No rashes CENTRAL NERVOUS SYSTEM: No focal deficits, tone is normal in all 4 extremities. EXTREMITIES: There is no peripheral edema, clubbing, or cyanosis. Peripheral pulses are intact. Missing digits 2 and 3 on left hand - Labs CBC & Chem 7: 01/24/24 05:32 01/24/24 05:32 Assessment and Plan Assessment: Epistaxis, without current bleeding. Nares remain packed. ENT following. The patient is complaining of nasal stuffiness. No evidence of any bleeding. Will offer nasal saline Acute on chronic dyspnea, stable for now, improved Chest pain with questionable induced reversible ischemia on Lexiscan and the patient is being considered for an outpatient cardiac catheterization. Currently she is free of any chest pain troponins have been negative. Severe chronic obstructive pulmonary disease, with an FEV1 41% of predicted, appears stable on my examination Chronic hypoxemic respiratory failure, normally maintained on 4 L/min nasal cannula while at home Chronic atrial fibrillation, on anticoagulated on Xarelto, which has been resumed History of coronary artery disease History of hypertension History of hyperlipidemia Obesity, with a BMI of 39.1 kg/m Plan: Oxygenation is stable and the patient remains on 4 L of oxygen by nasal cannula COPD appears stable on my evaluation. Cardiac stress has been noted and the patient may require outpatient cardiac catheterization Atrial fibrillation is under better control and the patient will be kept on amiodarone 4 mg p.o. twice a day, metoprolol XL 150 mg p.o. daily and anticoagulation with Xarelto She is also on Symbicort on outpatient basis and Spiriva regarding her COPD.. While in the hospital, she is still on Symbicort. Will continue to follow.
--- NOTE | 2024-01-25 22:10 | P.PN ---
Subjective This is a pleasant 68 years old female with past medical history of multiple medical problems including history of atrial fibrillation on Xarelto, CHF, currently euvolemic. She follows up with Dr. Irwin. She has history of COPD her mattress stripper is Dr. Wynn, she is on 4 L oxygen via nasal cannula. She denies trauma or falling. Patient presents because of episodes of epistaxis started Tuesday morning at 3:00 AM, she woke up and blew her nose after the start of bleeding, she used personal packing with no much help so she came to the emergency room. Bilateral nasal packing has to be placed. Patient on Xarelto at home which is held now She was admitted with a ENT consultation Because she cannot use nasal cannula she was placed on Ventimask/nonrebreather, she is currently denies any dyspnea. Although she has chronic shortness of vik ath and mild dry coughing, there is no recent worsening and on examination there is no evidence of wheezing or basal crepitation. Also has no leg edema. No chest pain. No other GI/ symptoms. She states she quit smoking about 2 months ago. Also she saw her mattress stripper Dr. Wynn about 2 months ago. She denies alcohol or illicit drugs. She has a chronic headache which is told it is related to her degenerative cervical disc disease, she states she is using Tylenol Extra Strength but she de nies using any NSAIDs Motrin or any other blood thinner On examination she is hemodynamically stable. She is tachycardic with heart rate around 118-122. She is afebrile. No labs during this admission, however labs done yesterday morning showing WBC of 11.2, rest of CBC is unremarkable. INR is 1.4 INR is 1.3, baseline 0.8-0.9. High lactic acid came back to normal. Troponin x 2 are negative. Liver enzymes mildly elevated but bilirubin is normal. Urine analysis showing glucosuria but no ketonuria. However there is infection suspected in her urine analysis. Echo on 09/2023 showing ejection fraction 55 to 60% 01/21 Patient with no more epistaxis, nasal packing in place Patient evaluated by ENT service, pack removed, no evidence of nasal bleeding ENT service cleared the patient to resume Xarelto tomorrow Creatinine stable at 1.2 01/22 Patient will bilateral intranasal PET scan were discontinued yesterday by ENT service team, she has external nasal packing which is in place, no soaked with blood, no bleeding which is stopped now, Xarelto was resumed tonight per ENT team recommendation Patient today however she did not feel comfortable, she is complaining from little tachypnea and exertional dyspnea, she is on mask for mouth breather as she has nasal packing, she is requiring 8 liters per minute, compared to 4 L/min at home via nasal cannula. Chest x-ray is suspicious for prominence of interstitial markings, CHF exacerbation is suspected, 1 dose of IV Lasix provided. Patient continued on oral Lasix 40 mg daily, proBNP is elevated. Cardiology team consulted who requested stress test tomorrow. Bronchitis also suspected per radiologist, we will check pro- Calcitonin on consult mattress stripper as well. 01/23 Patient today was getting more complication. She underwent stress test but she could not finish the test because of her tachycardia and she was to be transferred to higher level of care [facility] because her tachycardia switched to A-fib and RVR, she was started on amiodarone drip and currently heart rate is better. Xarelto is already resumed. All this care done with cardiology team on the case She had low-grade fever today of 100.4. But procalcitonin is negative indicating away from pneumonia. Most likely the source is her nasal lesion status post packing which is removed now. She is already on cefazolin and will continue monitoring for now. She remains close monitoring 01/24 Patient today she is mildly tachypneic while at rest, she is back to nasal cannula with oxygen requirement about 4 L. No evidence of wheezing She underwent Lexiscan stress test today: Reviewing of the stress test showing questionable reversibility involving the apical lateral myocardium which may be artifactual. Recommend correlation clinically. Normal wall motion with estimated EF 93% per report cardiology team decided to treat the patient medically and follow-up with Dr. Irwin in 1 week if she still symptomatic then may consider cardiac cath I discussed the case with pulmonary service, no active pulmonary disease right now Patient amiodarone drip was stopped and started on pill form for an milligram twice daily Possible discharge in 24 to 48 hours Review of systems CONSTITUTIONAL: No fever, no malaise, no fatigue. HEENT: No recent visual problems or hearing problems. Denied any sore throat. CARDIOVASCULAR: No orthopnea, PND, no palpitations, no syncope. GENITOURINARY: Denies any burning micturition, frequency, or urgency. MUSCULOSKELETAL/RHEUMATOLOGICAL: Denies any joint pain, swelling, or any muscle pain. ENDOCRINE: Denies any polyuria or polydipsia. Active Medications Generic Name Dose Route Start Last Admin Trade Name Freq PRN Reason Stop Dose Admin Acetaminophen 650 mg 01/20/24 18:41 01/25/24 20:02 Acetaminophen Tab 325 Mg Tab PO 650 mg Q6HR PRN Administration Mild Pain or Fever > 100.5 Acetaminophen 1,000 mg 01/21/24 07:54 01/25/24 10:46 Acetaminophen Tab 500 Mg Tab PO 1,000 mg Q6HR PRN Administration Headache Albuterol/Ipratropium 3 ml 01/21/24 07:54 01/25/24 21:13 Ipratropium-Albuterol 3 Ml Neb INHALATION 3 ml RT-QID PRN Administration Shortness Of Breath Or Wheezing Aminophylline 100 mg 01/25/24 06:00 Aminophylline 500 Mg/20 Ml Vial IV 01/25/24 23:00 ONCE PRN Patient Response Amiodarone HCl 400 mg 01/25/24 15:00 01/25/24 20:02 Amiodarone 200 Mg Tab PO 400 mg BID [facility] Administration Artificial Tears 1 drops 01/21/24 07:54 Artificial Tears-Hypromellose Drops 15 Ml Btl BOTH EYES QID PRN Dry Eye(s) Atorvastatin Calcium 40 mg 01/21/24 09:00 01/25/24 07:23 Atorvastatin 40 Mg Tab PO 40 mg DAILY [facility] Administration Budesonide/Formoterol Fumarate 2 puff 01/21/24 08:00 01/25/24 21:12 Symbicort 160-4.5 Mcg Inhaler INHALATION 2 puff RT-BID [facility] Administration Caffeine Citrate 60 mg 01/25/24 06:00 Caffeine Citrate 60 Mg/3 Ml Vial IV 01/25/24 23:00 ONCE PRN Patient Response Dapagliflozin 5 mg 01/21/24 09:00 01/25/24 07:23 Dapagliflozin Propanediol 5 Mg Tablet PO 5 mg DAILY [facility] Administration Famotidine 20 mg 01/23/24 09:00 01/25/24 07:28 Famotidine 20 Mg Tab PO 20 mg DAILY [facility] Administration Cefazolin Sodium 1,000 mg/ 50 mls @ 100 mls/hr 01/21/24 16:00 01/25/24 15:49 Sodium Chloride IVPB 100 mls/hr Q8HR [facility] Administration Protocol Metoprolol Succinate 150 mg 01/25/24 09:00 01/25/24 07:23 Metoprolol Succinate (Er) 100 Mg Tab.Er.24h PO 150 mg DAILY [facility] Administration Morphine Sulfate 4 mg 01/20/24 18:41 01/21/24 01:17 Morphine Sulfate 4 Mg/Ml Syringe IV 4 mg Q4HR PRN Administration Severe Pain (Scale 7 to 10) Naloxone HCl 0.2 mg 01/20/24 18:41 Naloxone 0.4 Mg/Ml 1 Ml Vial IV Q2M PRN Opioid Reversal Oxymetazoline HCl 2 spray 01/22/24 16:00 01/25/24 21:15 Oxymetazoline 0.05% Nasl [place] 1 [place] Bottle NASAL 2 spray TID [facility] Administration Paroxetine HCl 40 mg 01/21/24 21:00 01/25/24 20:02 Paroxetine 20 Mg Tab PO 40 mg HS [facility]ITA Administration Potassium Chloride 20 meq 01/21/24 09:00 01/25/24 20:04 Potassium Chloride Er 20 Meq Tab.Er PO 20 meq BID [facility] Administration Rivaroxaban 20 mg 01/23/24 17:30 01/25/24 16:53 Rivaroxaban 20 Mg Tab PO 20 mg W/SUPPER [facility] Administration Protocol Sodium Chloride 2 spray 01/25/24 15:06 01/25/24 15:49 Sodium Chloride 0.65% Nasal [place] 44 Ml Btl NASAL 2 spray QID PRN Administration Nasal Congestion Objective - Vital Signs Vital signs: Vital Signs Temp 97.5 F L 01/25/24 16:00 Pulse 82 01/25/24 16:00 Resp 22 01/25/24 16:00 BP 94/69 01/25/24 16:00 Pulse Ox 100 01/25/24 16:00 FiO2 35 01/23/24 16:15 Intake & Output 01/25/24 01/25/24 01/26/24 06:59 18:59 06:59 Intake Total 606.116 Balance 606.116 Weight 88 kg Intake: Intake, IV Titration 226.116 Amount Amiodarone 450 mg In 226.116 Dextrose 5% in Water 250 ml @ 0.5 MG/MIN 16.667 mls/hr IV .Q[facility] Rx#: [id number] Oral 380 Other: Voiding Method Bedside Commode Bedside Commode # Voids 1 1 # Bowel Movements 1 - Exam GENERAL: The patient is alert and oriented x3, not in any acute distress. Well developed, well nourished. HEENT: Pupils are round and equally reacting to light. EOMI. No scleral icterus. No conjunctival pallor. Normocephalic, atraumatic. No pharyngeal erythema. No thyromegaly. CARDIOVASCULAR: S1 and S2 present. No murmurs, rubs, or gallops. PULMONARY: Chest is clear to auscultation, no wheezing , no crackles. ABDOMEN: Soft, nontender, nondistended, normoactive bowel sounds. No palpable organomegaly. MUSCULOSKELETAL: No joint swelling or deformity. EXTREMITIES: No cyanosis, clubbing, or pedal edema. NEUROLOGICAL: Gross neurological examination did not reveal any focal deficits. SKIN: No rashes. no petechiae. - Labs CBC & Chem 7: 01/24/24 05:32 01/24/24 05:32 Assessment and Plan Assessment: Bilateral epistaxis status post bilateral nasal packing which is removed. Bleeding stopped now Acute kidney injury could be secondary to above, Dyspnea could be acute CHF versus coronary artery disease versus bronchitis A-fib with RVR, present on admission. Also happened after stress test Chest pain, ent surgeon on the case to rule out cardiac causes Acute on chronic CHF without acute exacerbation. ejection fraction is preserved COPD without acute exacerbation Acute on chronic chronic hypoxic respiratory failure Chronic leukocytosis Obesity with BMI 39.1 Plan: She reports stress test possible reversibility versus artifact. Patient to to be treated medically per ent surgeon and follow-up with Dr. Irwin in 1 week to assess the need for cardiac cath if symptoms persist Cardiology consult is on the case, Continue with amiodarone orally per ent surgeon resumed Xarelto on 01/22 continue with oxygen ENT consult for epistaxis which is stopped now Pulmonary team consult Resume her heartache medication. Labs and medication were reviewed.. Continue same treatment. Continue with symptomatic treatment. Resume home medication. Monitor labs and vitals. DVT and GI prophylaxis. Further recommendations as per clinical course of the patient DVT prophylaxis: Xarelto GI Prophylaxis: Pepcid PT/OT: Pending Prognosis is guarded
--- NOTE | 2024-01-25 23:29 | PN ---
PROGRESS NOTE DATE OF SERVICE: 01/25/2024 SUBJECTIVE: Vital signs are stable. The patient has not had any further active bleeding since removal of all packing yesterday. I am seeing the patient today on 01/25/2024 and I spent approximately 15 minutes with her. OBJECTIVE: HEENT: The patient is normocephalic. Intranasal examination reveals no evidence of any active bleeding. Examination of oropharynx reveals no evidence of any bleeding down the posterior pharyngeal wall. The remainder of the head and neck exam is unremarkable. Chest, cardiovascular, and the remainder of the physical exam is unchanged since her original visit. ASSESSMENT: Anterior-posterior bilateral epistaxis. PLAN: At this point, the patient can be discharged home from an ENT standpoint. I have dictated discharge instructions for her, which include reminding her not to blow her nose and also if she has to sneeze, she should do so with her mouth open. In addition to this, I have written a prescription for a home-going antibiotic and Keflex capsules 500 mg p.o. b.i.d., which she should take until they are completely gone. My office will call the floor and make arrangements for a followup with this patient next week. I have asked the nursing staff to print the home-going discharge instructions that I dictated. At this point, I will sign off on this patient. I want to take this opportunity to thank you for allowing me to assist in the care of your patient. MUSA / BREANNA: [phone] /
[2024-01-26 08:47] LABS: Anisocytosis Slight; Basophils % (A) 0 %; Eosinophils # (A) 0.1 k/uL (0-0.7); Eosinophils % (A) 1 %; HCT 34.8 % (34.0-46.0); Hypochromasia Moderate; Lymphocytes # (A) 0.8 k/uL (1.0-4.8); Lymphocytes % (A) 13 %; MCH 30.4 pg (25.0-35.0); MCHC 31.5 g/dL (31.0-37.0); MCV 96.7 fL (80.0-100.0); Macrocytosis Slight; Monocytes # (A) 0.5 k/uL (0-1.0); Monocytes % (A) 8 %; Neutrophils # (A) 4.7 k/uL (1.3-7.7); Neutrophils % (A) 75 %; Platelet Count 143 k/uL (150-450); RDW 17.2 % (11.5-15.5); WBC 6.2 k/uL (3.8-10.6)
[2024-01-26 09:12] LABS: African American GFR (CKD) 46 (>60 ml/min/1.73 sqM); Anion Gap 4 mmol/L; Blood Urea Nitrogen 35 mg/dL (7-17); Calcium 8.2 mg/dL (8.4-10.2); Carbon Dioxide 26 mmol/L (22-30); Chloride 101 mmol/L (98-107); Glucose 97 mg/dL (74-99); Non-African American GFR(CKD) 40 (>60 ml/min/1.73 sqM); Potassium 3.7 mmol/L (3.5-5.1); Sodium 131 mmol/L (137-145)
--- NOTE | 2024-01-26 10:28 | P.PN ---
Subjective This is a pleasant 68 years old female with past medical history of multiple medical problems including history of atrial fibrillation on Xarelto, CHF, currently euvolemic. She follows up with Dr. Irwin. 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 Wynn, she is on 4 L oxygen via nasal cannula. She denies trauma or falling. Patient presents because of episodes of epistaxis started Tuesday morning at 3:00 AM, she woke up and blew her nose after the start of bleeding, she used personal packing with no much help so she came to the emergency room. Bilateral nasal packing has to be placed. Patient on Xarelto at home which is held now She was admitted with a ENT consultation Because she cannot use nasal cannula she was placed on Ventimask/nonrebreather, she is currently denies any dyspnea. Although she has chronic shortness of vik ath and mild dry coughing, there is no recent worsening and on examination there is no evidence of wheezing or basal crepitation. Also has no leg edema. No chest pain. No other GI/ symptoms. She states she quit smoking about 2 months ago. Also she saw her fisheries inspector Dr. Wynn about 2 months ago. She denies alcohol or illicit drugs. She has a chronic headache which is told it is related to her degenerative cervical disc disease, she states she is using Tylenol Extra Strength but she de nies using any NSAIDs Motrin or any other blood thinner On examination she is hemodynamically stable. She is tachycardic with heart rate around 118-122. She is afebrile. No labs during this admission, however labs done yesterday morning showing WBC of 11.2, rest of CBC is unremarkable. INR is 1.4 INR is 1.3, baseline 0.8-0.9. High lactic acid came back to normal. Troponin x 2 are negative. Liver enzymes mildly elevated but bilirubin is normal. Urine analysis showing glucosuria but no ketonuria. However there is infection suspected in her urine analysis. Echo on 09/2023 showing ejection fraction 55 to 60% 01/21 Patient with no more epistaxis, nasal packing in place Patient evaluated by ENT service, pack removed, no evidence of nasal bleeding ENT service cleared the patient to resume Xarelto tomorrow Creatinine stable at 1.2 01/22 Patient will bilateral intranasal PET scan were discontinued yesterday by ENT service team, she has external nasal packing which is in place, no soaked with blood, no bleeding which is stopped now, Xarelto was resumed tonight per ENT team recommendation Patient today however she did not feel comfortable, she is complaining from little tachypnea and exertional dyspnea, she is on mask for mouth breather as she has nasal packing, she is requiring 8 liters per minute, compared to 4 L/min at home via nasal cannula. Chest x-ray is suspicious for prominence of interstitial markings, CHF exacerbation is suspected, 1 dose of IV Lasix provided. Patient continued on oral Lasix 40 mg daily, proBNP is elevated. Cardiology team consulted who requested stress test tomorrow. Bronchitis also suspected per radiologist, we will check pro- Calcitonin on consult fisheries inspector as well. 01/23 Patient today was getting more complication. She underwent stress test but she could not finish the test because of her tachycardia and she was to be transferred to [facility] because her tachycardia switched to A-fib and RVR, she was started on amiodarone drip and currently heart rate is better. Xarelto is already resumed. All this care done with cardiology team on the case She had low-grade fever today of 100.4. But procalcitonin is negative indicating away from pneumonia. Most likely the source is her nasal lesion status post packing which is removed now. She is already on cefazolin and will continue monitoring for now. She remains close monitoring 01/24 Patient today she is mildly tachypneic while at rest, she is back to nasal cannula with oxygen requirement about 4 L. No evidence of wheezing She underwent Lexiscan stress test today: Reviewing of the stress test showing questionable reversibility involving the apical lateral myocardium which may be artifactual. Recommend correlation clinically. Normal wall motion with estimated EF 93% per report cardiology team decided to treat the patient medically and follow-up with Dr. Irwin in 1 week if she still symptomatic then may consider cardiac cath I discussed the case with pulmonary service, no active pulmonary disease right now Patient amiodarone drip was stopped and started on pill form for an milligram twice daily Possible discharge in 24 to 48 hours 01/25 Patient today she states to still not feeling better, her main concerns are dizziness with exertion, she describes like presyncope. However patient explains to me today that she forgot to tell us she has dizziness for months about 2 months now and she has some tinnitus in both ears with some degree of hearing loss and ringing sound for several months. She even forgot to mention that to Dr. Tavera from ENT. But her exertional dizziness that she is worried about now. Also she feels like her breathing is still little bit difficult. She denies chest pain. She denies any other new complaint Vitals look stable, blood pressure is borderline and she was little hypotensive in the last few days. Her creatinine bumped up a little at 1.38. Urine analysis was unremarkable other than little glucose. Bladder scan checked twice and there is no retention. There is no nephrotoxic agents when I reviewed the medication. Patient currently heart rate controlled with amiodarone and metoprolol. Review of systems CONSTITUTIONAL: No fever, no malaise, no fatigue. HEENT: No recent visual problems or hearing problems. Denied any sore throat. CARDIOVASCULAR: No orthopnea, PND, no palpitations, no syncope. GENITOURINARY: Denies any burning micturition, frequency, or urgency. MUSCULOSKELETAL/RHEUMATOLOGICAL: Denies any joint pain, swelling, or any muscle pain. ENDOCRINE: Denies any polyuria or polydipsia. Active Medications Generic Name Dose Route Start Last Admin Trade Name Freq PRN Reason Stop Dose Admin Acetaminophen 650 mg 01/20/24 18:41 01/26/24 05:37 Acetaminophen Tab 325 Mg Tab PO 650 mg Q6HR PRN Administration Mild Pain or Fever > 100.5 Acetaminophen 1,000 mg 01/21/24 07:54 01/25/24 10:46 Acetaminophen Tab 500 Mg Tab PO 1,000 mg Q6HR PRN Administration Headache Albuterol/Ipratropium 3 ml 01/21/24 07:54 01/26/24 07:54 Ipratropium-Albuterol 3 Ml Neb INHALATION 3 ml RT-QID PRN Administration Shortness Of Breath Or Wheezing Amiodarone HCl 400 mg 01/25/24 15:00 01/26/24 08:53 Amiodarone 200 Mg Tab PO 400 mg BID CARLITA Administration Artificial Tears 1 drops 01/21/24 07:54 Artificial Tears-Hypromellose Drops 15 Ml Btl BOTH EYES QID PRN Dry Eye(s) Atorvastatin Calcium 40 mg 01/21/24 09:00 01/26/24 08:53 Atorvastatin 40 Mg Tab PO 40 mg DAILY CARLITA Administration Budesonide/Formoterol Fumarate 2 puff 01/21/24 08:00 01/26/24 07:54 Symbicort 160-4.5 Mcg Inhaler INHALATION 2 puff RT-BID CARLITA Administration Dapagliflozin 5 mg 01/21/24 09:00 01/26/24 08:53 Dapagliflozin Propanediol 5 Mg Tablet PO 5 mg DAILY CARLITA Administration Famotidine 20 mg 01/23/24 09:00 01/26/24 08:53 Famotidine 20 Mg Tab PO 20 mg DAILY CARLITA Administration Cefazolin Sodium 1,000 mg/ 50 mls @ 100 mls/hr 01/21/24 16:00 01/26/24 08:48 Sodium Chloride IVPB 100 mls/hr Q8HR CARLITA Administration Protocol Metoprolol Succinate 150 mg 01/25/24 09:00 01/26/24 08:53 Metoprolol Succinate (Er) 100 Mg Tab.Er.24h PO 150 mg DAILY CARLITA Administration Morphine Sulfate 4 mg 01/20/24 18:41 01/21/24 01:17 Morphine Sulfate 4 Mg/Ml Syringe IV 4 mg Q4HR PRN Administration Severe Pain (Scale 7 to 10) Naloxone HCl 0.2 mg 01/20/24 18:41 Naloxone 0.4 Mg/Ml 1 Ml Vial IV Q2M PRN Opioid Reversal Oxymetazoline HCl 2 spray 01/22/24 16:00 01/26/24 08:54 Oxymetazoline 0.05% Nasl [place] 1 [place] Bottle NASAL 2 spray TID CARLITA Administration Paroxetine HCl 40 mg 01/21/24 21:00 01/25/24 20:02 Paroxetine 20 Mg Tab PO 40 mg HS CARLITA Administration Potassium Chloride 20 meq 01/21/24 09:00 01/26/24 08:53 Potassium Chloride Er 20 Meq Tab.Er PO 20 meq BID CARLITA Administration Rivaroxaban 20 mg 01/23/24 17:30 01/25/24 16:53 Rivaroxaban 20 Mg Tab PO 20 mg W/SUPPER CARLITA Administration Protocol Sodium Chloride 2 spray 01/25/24 15:06 01/26/24 08:52 Sodium Chloride 0.65% Nasal [place] 44 Ml Btl NASAL 2 spray QID PRN Administration Nasal Congestion Objective - Vital Signs Vital signs: Vital Signs Temp 97.2 F L 01/26/24 08:40 Pulse 74 01/26/24 08:40 Resp 17 01/26/24 08:40 BP 128/64 01/26/24 08:40 Pulse Ox 98 01/26/24 08:40 FiO2 35 01/23/24 16:15 Intake & Output 01/25/24 01/26/24 01/26/24 18:59 06:59 18:59 Intake Total 606.116 540 Balance 606.116 540 Weight 90.9 kg Intake: Intake, IV Titration 226.116 Amount Amiodarone 450 mg In 226.116 Dextrose 5% in Water 250 ml @ 0.5 MG/MIN 16.667 mls/hr IV .Q15H [facility] Rx#: [id number] Oral 380 540 Other: Voiding Method Bedside Commode Bedside Commode Bedside Commode External Catheter External Catheter # Voids 1 1 # Bowel Movements 1 1 - Exam GENERAL: The patient is alert and oriented x3, not in any acute distress. Well developed, well nourished. HEENT: Pupils are round and equally reacting to light. EOMI. No scleral icterus. No conjunctival pallor. Normocephalic, atraumatic. No pharyngeal erythema. No thyromegaly. CARDIOVASCULAR: S1 and S2 present. No murmurs, rubs, or gallops. PULMONARY: Chest is clear to auscultation, no wheezing , no crackles. ABDOMEN: Soft, nontender, nondistended, normoactive bowel sounds. No palpable organomegaly. MUSCULOSKELETAL: No joint swelling or deformity. EXTREMITIES: No cyanosis, clubbing, or pedal edema. NEUROLOGICAL: Gross neurological examination did not reveal any focal deficits. SKIN: No rashes. no petechiae. - Labs CBC & Chem 7: 01/26/24 08:25 01/26/24 08:25 Labs: Abnormal Lab Results - Last 24 Hours (Table) 01/26/24 01/26/24 Range/Units 08:25 08:25 RBC 3.60 L (3.80-5.40) m/uL Hgb 11.0 L (11.4-16.0) gm/dL RDW 17.2 H (11.5-15.5) % Plt Count 143 L (150-450) k/uL Lymphocytes # 0.8 L (1.0-4.8) k/uL Sodium 131 L (137-145) mmol/L BUN 35 H (7-17) mg/dL Creatinine 1.38 H (0.52-1.04) mg/dL Calcium 8.2 L (8.4-10.2) mg/dL Assessment and Plan Assessment: Bilateral epistaxis status post bilateral nasal packing which is removed. Bleeding stopped now Acute kidney injury could be secondary to above, Dyspnea could be acute CHF versus coronary artery disease versus bronchitis A-fib with RVR, present on admission. Also happened after stress test Chest pain, human resources designate on the case to rule out cardiac causes Acute on chronic CHF without acute exacerbation. ejection fraction is preserved COPD without acute exacerbation Acute on chronic chronic hypoxic respiratory failure Chronic leukocytosis Obesity with BMI 39.1 Plan: Agriculture Manager will treat the patient conservatively after questionable abnormal stress test with recommendation to follow-up with Dr. Irwin in 1 week to assess for possible cardiac cath Since patient will require cardiac cath and creatinine went up little bit and patient still feels not well we will going to consult nephrology team. Continue with amiodarone orally per human resources designate Check orthostatic vitals resumed Xarelto on 01/22 continue with oxygen ENT consult for epistaxis which is stopped now. Patient describes has some tinnitus which is chronic, patient instructed to follow-up with ENT as an outpa tient and she agrees Pulmonary team consult Resume her heartache medication. Labs and medication were reviewed.. Continue same treatment. Continue with symptomatic treatment. Resume home medication. Monitor labs and vitals. DVT and GI prophylaxis. Further recommendations as per clinical course of the patient DVT prophylaxis: Xarelto GI Prophylaxis: Pepcid PT/OT: Pending Prognosis is guarded
--- NOTE | 2024-01-26 11:25 | P.NPCON ---
History of Present Illness - Reason for Consult acute renal failure - History of Present Illness patient is a 68-year-old female with history of chronic A. fib, CHF, COPD who is admitted to the hospital with epistaxis. Xarelto was held and bleeding has stopped. She has had chest pain on and off and has been evaluated by cardiology. There are plans for possible cardiac catheterization as outpatient as Lexiscan stress test showed small area of stress induced reversibility. No previous history of kidney diseases. Serum creatinine was 1.0 on admission and is 1.38 today. No significant urinary symptoms. Blood pressure was low on 01/24/2024 with systolic blood pressure in the 80s. Patient was maintained on IV Lasix for mild CHF. This is now discontinued. No history of NSAIDs. no ANISHA inhibitor's or angiotensin receptor blockers noted on med list. Past Medical History Past Medical History: Atrial Fibrillation, Asthma, Coronary Artery Disease (CAD), Heart Failure, COPD, GERD/Reflux, Hyperlipidemia, Hypertension, Myocardial Infarction (GA), Osteoarthritis (OA), Skin Disorder Additional Past Medical History / Comment(s): migraines, stroke 2003-no residual effects, IBS, osteoporosis, psoriasis, "prediabetic"- dr watching, lower back pain Last Myocardial Infarction Date:: 1985 History of Any Multi-Drug Resistant Organisms: None Reported Past Surgical History: Heart Catheterization, Tubal Ligation Past Anesthesia/Blood Transfusion Reactions: No Reported Reaction Past Psychological History: Anxiety, Depression, PTSD Smoking Status: Former smoker Past Alcohol Use History: Occasional Additional Past Alcohol Use History / Comment(s): quit smoking < 1 yr ago, smoked since age 20, 1 1/2 PPD Past Drug Use History: None Reported - Past Family History Brother(s) Family Medical History: Cancer Sister(s) Family Medical History: Cancer, Congestive Heart Failure (CHF), Deep Vein Thrombosis (DVT) Mother Family Medical History: Pulmonary Embolus Medications and Allergies Home Medications Medication Instructions Recorded Confirmed Type Albuterol Inhaler [Ventolin Hfa 2 puff INHALATION RT-QID PRN 08/22/20 01/20/24 History Inhaler] Potassium Chloride [Klor-Con 20] 20 meq PO BID 08/22/20 01/20/24 History Rivaroxaban [Xarelto] 20 mg PO W/SUPPER 08/22/20 01/20/24 History Tiotropium 2.5 Mcg/Puff [Spiriva 2 puff INHALATION RT-DAILY 08/22/20 01/20/24 History Respimat 2.5 Mcg] Atorvastatin [Lipitor] 40 mg PO DAILY 10/01/23 01/20/24 History PARoxetine HCL 40 mg PO HS 10/01/23 01/20/24 History Empagliflozin [Jardiance] 10 mg PO DAILY #30 tablet 10/04/23 01/20/24 Rx Metoprolol Succinate (ER) [Toprol 100 mg PO DAILY #0 tab 10/04/23 01/20/24 Rx XL] Budesonide/Formoterol Fumarate 2 puff INHALATION RT-BID 12/07/23 01/20/24 History [Breyna 160-4.5 Mcg Inhaler] Carboxymethylcellulose Sodium 1 drop BOTH EYES QID PRN 12/07/23 01/20/24 History [Refresh Tears] Acetaminophen Tab [Tylenol Tab] 1,000 mg PO Q6HR PRN 01/20/24 01/20/24 History Furosemide [Lasix] 40 mg PO DAILY 01/20/24 01/20/24 History Ipratropium-Albuterol Nebulize 3 ml INHALATION RT-QID PRN 01/20/24 01/20/24 History [Duoneb 0.5 mg-3 mg/3 ml Soln] Allergies Allergy/AdvReac Type Severity Reaction Status Date / Time fluticasone AdvReac Cough Verified 01/20/24 19:47 [From Kristin Campos] salmeterol AdvReac Cough Verified 01/20/24 19:47 [From Kristin Campos] Physical Exam Vitals: Vital Signs Temp Pulse Pulse Resp BP Pulse Ox 01/26/24 08:40 97.2 F L 74 17 128/64 98 01/26/24 08:08 76 01/26/24 07:54 76 01/26/24 04:00 73 18 113/67 99 01/25/24 23:18 89 18 102/59 98 01/25/24 21:24 80 01/25/24 21:14 85 01/25/24 19:54 98.2 F 83 20 124/85 98 01/25/24 16:00 97.5 F L 82 22 94/69 100 01/25/24 14:00 91 18 Intake and Output 01/25/24 01/26/24 01/26/24 22:59 06:59 14:59 Intake Total 200 540 Balance 200 540 Intake: Oral 200 540 Other: Voiding Method External Catheter Bedside Commode Bedside Commode External Catheter External Catheter # Voids 1 1 # Bowel Movements 1 1 Weight 90.9 kg patient is awake, comfortable, no acute distress. Examination of the heart S1 and S2 Examination of the lungs bilateral breath sounds are heard Abdomen is soft nontender obese Examination of lower extremity shows no evidence of edema. HOST/HOSTESS [employer]AURANT exam grossly intact Results - Lab Results Most recent lab results Calcium 8.2 mg/dL (8.4-10.2) L 01/26/24 08:25 01/26/24 08:25 01/26/24 08:25 Assessment and Plan Assessment: 1. Acute kidney injury, ATN, nonoliguric secondary to hypotension. Patient was also recently diuresed. Currently off of diuretics. UA is benign. 2. CHF with preserved ejection fraction status post diuresis. EF was 55-60%. 3. A. fib with RVR, now with controlled ventricular response 4. Severe COPD maintained on home oxygen. Being treated for acute exacerbation 5. Chest pain with evidence of stress induced reversibility on the stress test. There are plans for cardiac catheterization as outpatient. Plan: continue off of diuretics. Repeat labs in a.m. Check ultrasound of the kidneys. Continue with Natasha. Thank you for the consultation. We will continue to follow the patient with you during her hospitalization.
--- NOTE | 2024-01-26 12:02 | P.PN ---
Subjective HISTORY OF PRESENT ILLNESS: This is a 68-year-old female patient of Dr. Irwin with past medical history of stage III COPD, chronic hypoxic respiratory failure on home O2, chronic atrial fibrillation, history of CVA in 2003, hyperlipidemia, hypertension. We have been asked to evaluate patient for shortness of breath. Patient presented to the hospital on 01/20/2024 due to epistaxis as her second ER visit for the same. She was admitted to the hospital, status post packing bilateral nasal cavities. Patient was also found to have A-fib with RVR at the time of admission. Patient has been seen by ENT and cleared to resume Xarelto today. Patient states that she simply blew her nose and it started bleeding. She is complaining of weakness generalized and no stamina. She gets early fatigue with minimal activity. She states she sometimes has palpitations. She feels that her condition is slowly getting worse over time. She also has some difficulty in breathing that is also worsening. She denies any fluid retention, no lower extremity edema. Discussed atrial fibrillation and patient has not had any previous electrocardioversion's done. She thinks that she had a Cardiolite stress test done at [facility] a number of years ago. She has no chest pain at this time. Blood pressure 111/68, heart rate 72-102, pulse ox 99% on face tent. Chest x-ray: #1 mild cardiomegaly and diffuse interstitial prominence possibly reflecting mild pulmonary congestion. No airspace consolidation, pleural effusion or pneumothorax. #2 no acute process. Correlate for chronic interstitial lung disease or bronchitis. Laboratory studies: WBC was 11.9 now 8.8, hemoglobin 11.7. Platelet count 178. Sodium 141, potassium 3.6, BUN 26 creatinine 1.04. proBNP 2429. Home cardiac medications: Atorvastatin 40 mg daily, Jardiance 10 mg daily, Lasix 40 mg daily, Toprol-XL 100 mg daily, potassium chloride 20 mill equivalents twice daily, Xarelto 20 mg daily with supper. Echocardiogram performed 10/03/2023 revealed normal EF, mild pulmonary hypertens ion, estimated RVSP 42 mmHg. 01/23 Patient is scheduled today for Lexiscan stress test. Blood pressure 135/90, heart rate 73, temperature max 100.4. Patient feels tired and breathing seems the same. She had an episode during the night of afib 150 bpm which resolved and was controlled rate. Once she arrived in the stress lab, her heart rates were in the 120-140. Patient was given her usual dose of BB but heart rate did not improve and patient was returned to her room. Since then, nasal packing has been removed and she is now on O2 via n/c. Discussed plan for stress test, amiodarone, and possible cardioversion. 01/25/2024 Patient examined this morning at the bedside. Patient currently denies any chest pain or pressure. She reports improvement in her shortness of breath. She is currently receiving a breathing treatment at the time of examination. She remains in atrial fibrillation with controlled ventricular rate in the 70s. She remains on IV amiodarone. She is scheduled for Lexiscan stress test today. Addendum entered and electronically signed by Fatou Tuttle NP-C 01/25/24 12:45: Lexiscan stress test reveals question of small area of stress-induced reversibility involving the apical lateral myocardium which could be artifactual. Discussed results with Dr. Peterson and patient's primary business development director, Dr. Irwin. Suspect patients SOB is pulmonary related and worsened by her afib with RVR. Patient without complaints of chest pain or pressure. Will continue to manage patient medically at this time. Continue rate control for atrial fibrillation. No plans for cardiac catheterization at this time. Patient may follow-up postdischarge with Dr. Irwin. If patient continues to have symptoms, will consider cardiac catheterization at that time. 01/26/2024 Patient examined this morning at the bedside. Patient currently denies chest pain or pressure. She denies shortness of breath. Telemetry reveals atrial fibrillation with heart in the 60s to 70s. Patient reports "swishing" sensations in her head this morning. She does report a history of tinnitus and is thinking that some of her symptoms may be due to her tinnitus. PHYSICAL EXAM: VITAL SIGNS: Reviewed. GENERAL: Well-developed in no acute distress. NECK: Supple. No JVD or thyromegaly LUNGS: Respirations even and unlabored. Lungs essentially clear to auscultation bilaterally. HEART: Irregular rate and rhythm. S1 and S2 heard. EXTREMITIES: Normal range of motion. No clubbing or cyanosis. Peripheral pulses intact. No lower extremity edema ASSESSMENT: Epistaxis Permanent atrial fibrillation with RVR, currently rate controlled Dyspnea on exertion and early fatigue, suspect pulmonary related worsened by Afib with RVR, can not rule out underlying CAD Chronic hypoxic respiratory failure on home O2 History of COPD Hypertension Hyperlipidemia History of CVA Tinnitus PLAN: Continue current cardiac medications Amiodarone taper at discharge: 400 mg twice a day for 1 week, then decrease to 200 mg twice a day for 1 week, then decrease to 200 mg daily Continue with medical management at this time. No plans for cardiac catheterization Stable for discharge from a cardiac standpoint Patient to follow-up postdischarge with Dr. Irwin Nurse practitioner note has been reviewed by physician. Signing provider agrees with the documented findings, assessment, and plan of care documented by [employer] as a scribe. Objective - Vital Signs Vital signs: Vital Signs Temp 97.2 F L 01/26/24 08:40 Pulse 64 01/26/24 11:19 Resp 18 01/26/24 11:19 BP 95/61 01/26/24 11:19 Pulse Ox 97 01/26/24 11:19 FiO2 35 01/23/24 16:15 Intake & Output 01/25/24 01/26/24 01/26/24 18:59 06:59 18:59 Intake Total 606.116 540 Balance 606.116 540 Weight 90.9 kg Intake: Intake, IV Titration 226.116 Amount Amiodarone 450 mg In 226.116 Dextrose 5% in Water 250 ml @ 0.5 MG/MIN 16.667 mls/hr IV .Q15H [facility] Rx#: [id number] Oral 380 540 Other: Voiding Method Bedside Commode Bedside Commode Bedside Commode External Catheter External Catheter # Voids 1 1 # Bowel Movements 1 1 - Labs CBC & Chem 7: 01/26/24 08:25 01/26/24 08:25 Labs: Abnormal Lab Results - Last 24 Hours (Table) 01/26/24 01/26/24 Range/Units 08:25 08:25 RBC 3.60 L (3.80-5.40) m/uL Hgb 11.0 L (11.4-16.0) gm/dL RDW 17.2 H (11.5-15.5) % Plt Count 143 L (150-450) k/uL Lymphocytes # 0.8 L (1.0-4.8) k/uL Sodium 131 L (137-145) mmol/L BUN 35 H (7-17) mg/dL Creatinine 1.38 H (0.52-1.04) mg/dL Calcium 8.2 L (8.4-10.2) mg/dL
--- NOTE | 2024-01-26 14:22 | CDI ---
Documentation Clarification Form Date: 01/26/2024 02:04:57 PM From: Nemo Jade RN CCDS Phone: [phone] Admit Date: 01/20/2024 08:10:00 PM Patient Name: Maria Del Carmen Ford Visit Number: [id number] Discharge Date: ATTENTION: The Clinical Documentation Specialists (CDI) and [facility] Coding Staff appreciate your assistance in clarifying documentation. Please respond to the clarification below the line at the bottom and electronically sign. The CDI & [facility] Coding staff will review the response and follow-up if needed. Please note: Queries are made part of the Legal Health Record. If you have any questions, please contact the author of this message via ITS. Doctor: Raymond E Sheet Conflicting documentation has been found in the medical record. As attending physician, please provide clarification. Acute on chronic CHF without acute exacerbation. Ejection fraction is preserved Medicine note, 01/25 History/Risk Factors: 68 year old female presents to the ED for epistaxis started on Tuesday morning at 3am used personal packing with not much help. Medical History: Atiral Fibrillation, Asthma, CAD, Heart Failure, COPD, GERD, HLD and HTN. 01/20 Clinical Indicators: CXR, 01/20: Mild cardiomegaly and diffuse interstitial prominence possibly reflecting mild pulmonary vessel congestion. NPBNP, 01/21: 2429 ECHO , 09/2023: Left ventricular ejection fraction is estimated at 55-60%. Mild concentric LVH, No obvious regional wall motion abnormalities. Mild night ventricular dilatation with mildly reduced function. Treatment: 01/20 Lasix 40mg PO Daily; 01/20 01/23 Tropol Xl 100mg PO Daily ; 01/23 Torpol XL PO x 1; 01/20 Farxiga 5mg PO Daily, 01/22 Lasix 40mg IV x 1 ; 01/23 Lasix 20mg IV x 1; 01/24 Toprol Xl 150mg PO Daily; Please clarify which diagnosis is most appropriate: [ x ] Acute on Chronic Diastolic CHF [ ] Chronic Diastolic CHF [ ] Other (please specify) [ ] Unable to determine (Template Last Revised: June 2020) MTDD
--- NOTE | 2024-01-26 14:56 | US ---
EXAMINATION TYPE: US kidneys/renal and bladder DATE OF EXAM: 01/26/2024 COMPARISON: NONE CLINICAL INDICATION: Female, 68 years old with history of sagar; SAGAR, no symptoms TECHNIQUE: Grayscale and color Doppler imaging of the bilateral kidneys and urinary bladder: FINDINGS: EXAM MEASUREMENTS: Right Kidney: 9.3 x 4.5 x 4.3 cm Left Kidney: 10.0 x 4.7 x 5.8 cm Right Kidney: No hydronephrosis, tiny cyts seen mid pole Left Kidney: No hydronephrosis or masses seen Bladder: not distended No nephrolithiasis. Renal cortical thickness and echogenicity maintained. IMPRESSION: No hydronephrosis or nephrolithiasis. [facility], , 01/26/2024 1:36 PM
[2024-01-26] MEDS: BENZOCAINE/MENTHOL LOZENG 1 EACH LOZENGE MUCOUS MEM PRN (15:38)
--- NOTE | 2024-01-26 17:31 | P.PN ---
Subjective Progress Note Date: 01/26/24 Patient is a 68-year-old female with past medical history significant for COPD, chronic oxygen dependence, atrial fibrillation anticoagulated on Xarelto, coronary artery disease, hypertension, hyperlipidemia, obesity. Patient actually presented the emergency department back on 01/20/2024. Reportedly blew her nose and started to have profuse epistaxis bilateral nares. She is anticoagulated on Xarelto for her atrial fibrillation. She was packed in the emergency department. She has been evaluated by ENT. We were consulted as the patient is reporting worsening exertional dyspnea. She is known to have severe COPD with an FEV1 42% of predicted. She is normally maintained on 4 L/min nasal cannula at home. She is currently being evaluated on the observation unit. She has a face tent on with 8 L blow-by. Bilateral nares are packed. No further epistaxis. She denies any wheezing, chest tightness, fevers, cough, sputum production, chest pain. Denies sick contacts. She does report some associated epigastric discomfort which last 10 to 15 minutes mostly with exertion. She becomes lightheaded with exertion as well. No significant lower extremity edema. Recent echocardiogram available September, showing preserved left ventricular ejection fraction of 55 to 60%. Mild elevated RVSP of 40 to. No significant valvular abnormalities reported. Chest x-ray does not show any acute cardiopu lmonary process, some chronic interstitial changes. No pleural effusions, pneumothoraces, or focal infiltrates. CBC: WBC count 8.8, hemoglobin 11.7, hematocrit 39, platelets 178. BMP: Sodium 141, potassium 3.6, chloride 103, serum bicarb 32, BUN 26, creatinine 1.04, glucose 148. NT proBNP was elevated at 2429. EKG: Atrial fibrillation with controlled ventricular response, rate 87 bpm, nonspecific ST/T wave changes. Patient is currently being worked up by cardiology, reportedly going to undergo a Lexiscan stress test in the morning. 01/25/2024, the patient is being seen for a follow-up. She is complaining of nasal congestion and stuffiness. No chest pain. No significant shortness of breath. The cardiac stress test was done this morning and the patient has questionable area of stress-induced reversibility in the apical lateral myocardium and this could be potentially artifactual. The patient has atrial fibrillation. Rate is under better control for now. She remains on antico agulation. Cardiac enzymes are negative and the patient is currently on diuretics. Cardiac catheterization is being considered to be done as an outpatient basis. No significant epistaxis at this point in time. The patient remains on IV amiodarone and this will be switched to oral amiodarone 4 mg p.o. twice a day. The patient remains on metoprolol 150 mg XL 1 tablet a day. She remains on anticoagulation with Xarelto. 01/26/2024, the patient is stable. No new complaints. No interval worsening shortness of breath. She denies having any chest pain or pressure. Her atrial fibrillation is under better control. She is complaining of some tinnitus. She is also used Afrin and nasal saline rinses and this improved her nasal patency. Her breathing seems to be much more comfortable. She is on 3 L of oxygen by nasal cannula with a pulse ox of 98%. She remains on DuoNeb nebulized treat ments [id number]. She is on Symbicort as maintenance. She remains on anticoagulation with Xarelto 20 mg p.o. daily. She remains on amiodarone 4 mg p.o. twice daily and metoprolol 150 mg XL 1 tablet a day. She remains on IV cefazolin given to her by ENT. White cell count is at 6.2 with a hemoglobin of 11 and a platelet count of 143. BUN 35 creatinine 1.38 and a sodium levels at 131. Renal function slightly worse compared to 2 days ago. Objective - Vital Signs Vital signs: Vital Signs Temp 97.2 F L 01/26/24 08:40 Pulse 74 01/26/24 08:40 Resp 17 01/26/24 08:40 BP 128/64 01/26/24 08:40 Pulse Ox 98 01/26/24 08:40 FiO2 35 01/23/24 16:15 Intake & Output 01/25/24 01/26/24 01/26/24 18:59 06:59 18:59 Intake Total 606.116 540 Balance 606.116 540 Weight 90.9 kg Intake: Intake, IV Titration 226.116 Amount Amiodarone 450 mg In 226.116 Dextrose 5% in Water 250 ml @ 0.5 MG/MIN 16.667 mls/hr IV .Q15H [facility] Rx#: [id number] Oral 380 540 Other: Voiding Method Bedside Commode Bedside Commode Bedside Commode External Catheter External Catheter # Voids 1 1 # Bowel Movements 1 1 - Exam GENERAL EXAM: Alert, 68-year-old obese female, with bilateral nasal packing and face tent with blow-by oxygen, comfortable in no apparent distress. The patient is currently on 3 L of oxygen by nasal cannula HEAD: Normocephalic and atraumatic EYES: Normal reaction of pupils, equal size. NOSE: Nasal packing bilateral naris, no further bleeding THROAT: No erythema or exudates. NECK: No masses, no JVD. CHEST: No chest wall deformity. LUNGS: Equal air entry with no crackles, wheeze, rhonchi or dullness. , no conversational dyspnea or accessory muscle use.. CVS: S1 and S2 normal with no audible murmur, irregular rhythm. No extra heart sounds ABDOMEN: No hepatosplenomegaly, active bowel sounds, no guarding or rigidity. SPINE: No scoliosis or deformity SKIN: No rashes CENTRAL NERVOUS SYSTEM: No focal deficits, tone is normal in all 4 extremities. EXTREMITIES: There is no peripheral edema, clubbing, or cyanosis. Peripheral pulses are intact. Missing digits 2 and 3 on left hand - Labs CBC & Chem 7: 01/26/24 08:25 01/26/24 08:25 Labs: Abnormal Lab Results - Last 24 Hours (Table) 01/26/24 01/26/24 Range/Units 08:25 08:25 RBC 3.60 L (3.80-5.40) m/uL Hgb 11.0 L (11.4-16.0) gm/dL RDW 17.2 H (11.5-15.5) % Plt Count 143 L (150-450) k/uL Lymphocytes # 0.8 L (1.0-4.8) k/uL Sodium 131 L (137-145) mmol/L BUN 35 H (7-17) mg/dL Creatinine 1.38 H (0.52-1.04) mg/dL Calcium 8.2 L (8.4-10.2) mg/dL Assessment and Plan Assessment: Epistaxis, without current bleeding. Nares remain packed. ENT following. The patient is complaining of nasal stuffiness. No evidence of any bleeding. Will offer nasal saline. No active bleeding or epistaxis for the time being. Acute on chronic dyspnea, stable for now, improved Chest pain with questionable induced reversible ischemia on Lexiscan and the patient is being considered for an outpatient cardiac catheterization. Currently she is free of any chest pain troponins have been negative. Severe chronic obstructive pulmonary disease, with an FEV1 41% of predicted, appears stable on my examination Chronic hypoxemic respiratory failure, normally maintained on 4 L/min nasal cannula while at home, currently on 2 L of oxygen by nasal cannula Chronic atrial fibrillation, on anticoagulated on Xarelto, which has been resumed History of coronary artery disease History of hypertension History of hyperlipidemia Obesity, with a BMI of 39.1 kg/m Plan: Oxygenation is stable and the patient remains on 3 L of oxygen by nasal cannula COPD appears stable on my evaluation. Cardiac stress has been noted and the patient may require outpatient cardiac catheterization Atrial fibrillation is under better control and the patient will be kept on amiodarone 400 mg p.o. twice a day, metoprolol XL 150 mg p.o. daily and anticoagulation with Xarelto She is also on Symbicort on outpatient basis and Spiriva regarding her COPD.. While in the hospital, she is still on Symbicort. Monitor renal function Will continue to follow.
[2024-01-27 09:54] LABS: African American GFR (CKD) 42 (>60 ml/min/1.73 sqM); Anion Gap 6 mmol/L; Blood Urea Nitrogen 40 mg/dL (7-17); Calcium 8.4 mg/dL (8.4-10.2); Carbon Dioxide 27 mmol/L (22-30); Chloride 101 mmol/L (98-107); Glucose 94 mg/dL (74-99); Non-African American GFR(CKD) 37 (>60 ml/min/1.73 sqM); Potassium 4.7 mmol/L (3.5-5.1); Sodium 134 mmol/L (137-145)
--- NOTE | 2024-01-27 12:08 | P.PN ---
Subjective HISTORY OF PRESENT ILLNESS: This is a 68-year-old female patient of Dr. Irwin with past medical history of stage III COPD, chronic hypoxic respiratory failure on home O2, chronic atrial fibrillation, history of CVA in 2003, hyperlipidemia, hypertension. We have been asked to evaluate patient for shortness of breath. Patient presented to the hospital on 01/20/2024 due to epistaxis as her second ER visit for the same. She was admitted to the hospital, status post packing bilateral nasal cavities. Patient was also found to have A-fib with RVR at the time of admission. Patient has been seen by ENT and cleared to resume Xarelto today. Patient states that she simply blew her nose and it started bleeding. She is complaining of weakness generalized and no stamina. She gets early fatigue with minimal activity. She states she sometimes has palpitations. She feels that her condition is slowly getting worse over time. She also has some difficulty in breathing that is also worsening. She denies any fluid retention, no lower extremity edema. Discussed atrial fibrillation and patient has not had any previous electrocardioversion's done. She thinks that she had a Cardiolite stress test done at [facility] a number of years ago. She has no chest pain at this time. Blood pressure 111/68, heart rate 72-102, pulse ox 99% on face tent. Chest x-ray: #1 mild cardiomegaly and diffuse interstitial prominence possibly reflecting mild pulmonary congestion. No airspace consolidation, pleural effusion or pneumothorax. #2 no acute process. Correlate for chronic interstitial lung disease or bronchitis. Laboratory studies: WBC was 11.9 now 8.8, hemoglobin 11.7. Platelet count 178. Sodium 141, potassium 3.6, BUN 26 creatinine 1.04. proBNP 2429. Home cardiac medications: Atorvastatin 40 mg daily, Jardiance 10 mg daily, Lasix 40 mg daily, Toprol-XL 100 mg daily, potassium chloride 20 mill equivalents twice daily, Xarelto 20 mg daily with supper. Echocardiogram performed 10/03/2023 revealed normal EF, mild pulmonary hypertens ion, estimated RVSP 42 mmHg. 01/23 Patient is scheduled today for Lexiscan stress test. Blood pressure 135/90, heart rate 73, temperature max 100.4. Patient feels tired and breathing seems the same. She had an episode during the night of afib 150 bpm which resolved and was controlled rate. Once she arrived in the stress lab, her heart rates were in the 120-140. Patient was given her usual dose of BB but heart rate did not improve and patient was returned to her room. Since then, nasal packing has been removed and she is now on O2 via n/c. Discussed plan for stress test, amiodarone, and possible cardioversion. 01/25/2024 Patient examined this morning at the bedside. Patient currently denies any chest pain or pressure. She reports improvement in her shortness of breath. She is currently receiving a breathing treatment at the time of examination. She remains in atrial fibrillation with controlled ventricular rate in the 70s. She remains on IV amiodarone. She is scheduled for Lexiscan stress test today. Addendum entered and electronically signed by Fatou Tuttle NP-C 01/25/24 12:45: Lexiscan stress test reveals question of small area of stress-induced reversibility involving the apical lateral myocardium which could be artifactual. Discussed results with Dr. Peterson and patient's primary cloth feeder, Dr. Irwin. Suspect patients SOB is pulmonary related and worsened by her afib with RVR. Patient without complaints of chest pain or pressure. Will continue to manage patient medically at this time. Continue rate control for atrial fibrillation. No plans for cardiac catheterization at this time. Patient may follow-up postdischarge with Dr. Irwin. If patient continues to have symptoms, will consider cardiac catheterization at that time. 01/26/2024 Patient examined this morning at the bedside. Patient currently denies chest pain or pressure. She denies shortness of breath. Telemetry reveals atrial fibrillation with heart in the 60s to 70s. Patient reports "swishing" sensations in her head this morning. She does report a history of tinnitus and is thinking that some of her symptoms may be due to her tinnitus. 01/27/2024 Patient examined this morning at the bedside. Patient currently denies chest pain or pressure. She denies shortness of breath. She complains of feeling sweaty this morning. Telemetry reveals atrial fibrillation with controlled ventricular rate. PHYSICAL EXAM: VITAL SIGNS: Reviewed. GENERAL: Well-developed in no acute distress. NECK: Supple. No JVD or thyromegaly LUNGS: Respirations even and unlabored. Lungs essentially clear to auscultation bilaterally. HEART: Irregular rate and rhythm. S1 and S2 heard. EXTREMITIES: Normal range of motion. No clubbing or cyanosis. Peripheral pulses intact. No lower extremity edema ASSESSMENT: Epistaxis Permanent atrial fibrillation with RVR, currently rate controlled Dyspnea on exertion and early fatigue, suspect pulmonary related worsened by A fib with RVR, can not rule out underlying CAD Chronic hypoxic respiratory failure on home O2 Acute kidney injury History of COPD Hypertension Hyperlipidemia History of CVA Tinnitus PLAN: Continue current cardiac medications Amiodarone taper at discharge: 400 mg twice a day for 1 week, then decrease to 200 mg twice a day for 1 week, then decrease to 200 mg daily Continue with medical management at this time. No plans for cardiac catheterization Stable for discharge from a cardiac standpoint Patient to follow-up postdischarge with Dr. Irwin We will sign off. Please reconsult if needed. Nurse practitioner note has been reviewed by physician. Signing provider agrees with the documented findings, assessment, and plan of care documented by ADVERTISING ASSISTANT MANAGER as a scribe. Objective - Vital Signs Vital signs: Vital Signs Temp 97.5 F L 01/27/24 11:20 Pulse 64 01/27/24 11:20 Resp 17 01/27/24 11:20 BP 113/71 01/27/24 11:20 Pulse Ox 100 01/27/24 11:20 FiO2 35 01/23/24 16:15 Intake & Output 01/26/24 01/27/24 01/27/24 18:59 06:59 18:59 Intake Total 236 540 Output Total 150 Balance 86 540 Weight 93 kg Intake: Oral 236 540 Output: Urine 150 Other: Voiding Method Bedside Commode Bedside Commode Bedside Commode External Catheter External Catheter External Catheter # Voids 1 # Bowel Movements 1 - Labs CBC & Chem 7: 01/26/24 08:25 01/27/24 09:00 Labs: Abnormal Lab Results - Last 24 Hours (Table) 01/27/24 Range/Units 09:00 Sodium 134 L (137-145) mmol/L BUN 40 H (7-17) mg/dL Creatinine 1.48 H (0.52-1.04) mg/dL
[2024-01-27 13:06] VITALS: BMI 40.0
--- NOTE | 2024-01-27 13:29 | P.PN ---
Subjective Progress Note Date: 01/27/24 Patient is a 68-year-old female with past medical history significant for COPD, chronic oxygen dependence, atrial fibrillation anticoagulated on Xarelto, coronary artery disease, hypertension, hyperlipidemia, obesity. Patient actually presented the emergency department back on 01/20/2024. Reportedly blew her nose and started to have profuse epistaxis bilateral nares. She is anticoagulated on Xarelto for her atrial fibrillation. She was packed in the emergency department. She has been evaluated by ENT. We were consulted as the patient is reporting worsening exertional dyspnea. She is known to have severe COPD with an FEV1 42% of predicted. She is normally maintained on 4 L/min nasal cannula at home. She is currently being evaluated on the observation unit. She has a face tent on with 8 L blow-by. Bilateral nares are packed. No further epistaxis. She denies any wheezing, chest tightness, fevers, cough, sputum production, chest pain. Denies sick contacts. She does report some associated epigastric discomfort which last 10 to 15 minutes mostly with exertion. She becomes lightheaded with exertion as well. No significant lower extremity edema. Recent echocardiogram available September, showing preserved left ventricular ejection fraction of 55 to 60%. Mild elevated RVSP of 40 to. No significant valvular abnormalities reported. Chest x-ray does not show any acute cardiopu lmonary process, some chronic interstitial changes. No pleural effusions, pneumothoraces, or focal infiltrates. CBC: WBC count 8.8, hemoglobin 11.7, hematocrit 39, platelets 178. BMP: Sodium 141, potassium 3.6, chloride 103, serum bicarb 32, BUN 26, creatinine 1.04, glucose 148. NT proBNP was elevated at 2429. EKG: Atrial fibrillation with controlled ventricular response, rate 87 bpm, nonspecific ST/T wave changes. Patient is currently being worked up by cardiology, reportedly going to undergo a Lexiscan stress test in the morning. 01/25/2024, the patient is being seen for a follow-up. She is complaining of nasal congestion and stuffiness. No chest pain. No significant shortness of breath. The cardiac stress test was done this morning and the patient has questionable area of stress-induced reversibility in the apical lateral myocardium and this could be potentially artifactual. The patient has atrial fibrillation. Rate is under better control for now. She remains on antico agulation. Cardiac enzymes are negative and the patient is currently on diuretics. Cardiac catheterization is being considered to be done as an outpatient basis. No significant epistaxis at this point in time. The patient remains on IV amiodarone and this will be switched to oral amiodarone 4 mg p.o. twice a day. The patient remains on metoprolol 150 mg XL 1 tablet a day. She remains on anticoagulation with Xarelto. 01/26/2024, the patient is stable. No new complaints. No interval worsening shortness of breath. She denies having any chest pain or pressure. Her atrial fibrillation is under better control. She is complaining of some tinnitus. She is also used Afrin and nasal saline rinses and this improved her nasal patency. Her breathing seems to be much more comfortable. She is on 3 L of oxygen by nasal cannula with a pulse ox of 98%. She remains on DuoNeb nebulized treat ments [id number]. She is on Symbicort as maintenance. She remains on anticoagulation with Xarelto 20 mg p.o. daily. She remains on amiodarone 4 mg p.o. twice daily and metoprolol 150 mg XL 1 tablet a day. She remains on IV cefazolin given to her by ENT. White cell count is at 6.2 with a hemoglobin of 11 and a platelet count of 143. BUN 35 creatinine 1.38 and a sodium levels at 131. Renal function slightly worse compared to 2 days ago. 01/27/2024, the patient is being seen for a follow-up. Resting comfortably in bed. No significant chest pain or shortness of breath. She remains on 4 L of oxygen by nasal cannula. No cough. No sputum production. No other new complaints otherwise for now. White cell count of 6.2 with a hemoglobin 11 and this is from yesterday. Rest of the electrolytes from today shows a BUN of 40 with a creatinine of 1.4 and a potassium level of 4.7 and a sodium levels at 134. Medication remains unchanged. Cardiac rhythm is atrial fibrillation and t he rate is controlled and the patient remains on anticoagulation with Xarelto. The patient remains on amiodarone 4 mg p.o. twice a day metoprolol 150 mg p.o. daily. She remains on Symbicort and DuoNeb updrafts. She is also on nasal saline rinses and Afrin as needed. Objective - Vital Signs Vital signs: Vital Signs Temp 97.3 F L 01/26/24 20:00 Pulse 68 01/27/24 08:34 Resp 16 01/27/24 08:00 BP 107/78 01/27/24 08:00 Pulse Ox 100 01/27/24 08:00 FiO2 35 01/23/24 16:15 Intake & Output 01/26/24 01/27/24 01/27/24 18:59 06:59 18:59 Intake Total 236 540 Output Total 150 Balance 86 540 Weight 93 kg Intake: Oral 236 540 Output: Urine 150 Other: Voiding Method Bedside Commode Bedside Commode Bedside Commode External Catheter External Catheter External Catheter # Voids 1 # Bowel Movements 1 - Exam GENERAL EXAM: Alert, 68-year-old obese female, with bilateral nasal packing and face tent with blow-by oxygen, comfortable in no apparent distress. The patient is currently on 3 L of oxygen by nasal cannula HEAD: Normocephalic and atraumatic EYES: Normal reaction of pupils, equal size. NOSE: Nasal packing bilateral naris, no further bleeding THROAT: No erythema or exudates. NECK: No masses, no JVD. CHEST: No chest wall deformity. LUNGS: Equal air entry with no crackles, wheeze, rhonchi or dullness. , no conversational dyspnea or accessory muscle use.. CVS: S1 and S2 normal with no audible murmur, irregular rhythm. No extra heart sounds ABDOMEN: No hepatosplenomegaly, active bowel sounds, no guarding or rigidity. SPINE: No scoliosis or deformity SKIN: No rashes CENTRAL NERVOUS SYSTEM: No focal deficits, tone is normal in all 4 extremities. EXTREMITIES: There is no peripheral edema, clubbing, or cyanosis. Peripheral pulses are intact. Missing digits 2 and 3 on left hand - Labs CBC & Chem 7: 01/26/24 08:25 01/27/24 09:00 Labs: Abnormal Lab Results - Last 24 Hours (Table) 01/27/24 Range/Units 09:00 Sodium 134 L (137-145) mmol/L BUN 40 H (7-17) mg/dL Creatinine 1.48 H (0.52-1.04) mg/dL Assessment and Plan Assessment: Epistaxis, without current bleeding. Nares remain packed. ENT following. The patient is complaining of nasal stuffiness. No evidence of any bleeding. Will offer nasal saline. No active bleeding or epistaxis for the time being. Acute on chronic dyspnea, stable for now, improved Chest pain with questionable induced reversible ischemia on Lexiscan and the patient is being considered for an outpatient cardiac catheterization. Currently she is free of any chest pain troponins have been negative. Severe chronic obstructive pulmonary disease, with an FEV1 41% of predicted, appears stable on my examination Chronic hypoxemic respiratory failure, normally maintained on 4 L/min nasal cannula while at home, currently on 2 L of oxygen by nasal cannula Chronic atrial fibrillation, on anticoagulated on Xarelto, which has been resumed History of coronary artery disease History of hypertension History of hyperlipidemia Obesity, with a BMI of 39.1 kg/m Plan: No changes in her condition and the patient's condition in general remains stable. No significant shortness of breath at rest. Oxygenation is stable and the patient remains on 3-4 L of oxygen by nasal cannula COPD appears stable on my evaluation. Cardiac stress has been noted and the patient may require outpatient cardiac catheterization Atrial fibrillation is under better control and the patient will be kept on amiodarone 400 mg p.o. twice a day, metoprolol XL 150 mg p.o. daily and anticoagulation with Xarelto She is also on Symbicort on outpatient basis and Spiriva regarding her COPD.. While in the hospital, she is still on Symbicort. Monitor renal function Will continue to follow.
--- NOTE | 2024-01-27 13:49 | P.PN ---
Subjective patient is seen for follow-up for acute kidney injury. No significant complaints today. Currently off of diuretics. Serum creatinine increased to 1.4 mg/dL. Ultrasound is unremarkable. Blood pressure remains on the lower side but not below 100 systolic. Objective - Vital Signs Vital signs: Vital Signs Temp 97.5 F L 01/27/24 11:20 Pulse 64 01/27/24 11:20 Resp 17 01/27/24 11:20 BP 113/71 01/27/24 11:20 Pulse Ox 100 01/27/24 11:20 FiO2 35 01/23/24 16:15 Intake & Output 01/26/24 01/27/24 01/27/24 18:59 06:59 18:59 Intake Total 236 540 Output Total 150 Balance 86 540 Weight 93 kg 93 kg Intake: Oral 236 540 Output: Urine 150 Other: Voiding Method Bedside Commode Bedside Commode Bedside Commode External Catheter External Catheter External Catheter # Voids 1 1 # Bowel Movements 1 1 - Exam patient is awake, comfortable, no acute distress. Examination of the heart S1 and S2 Examination of the lungs bilateral breath sounds are heard Abdomen is soft nontender obese Examination of lower extremity shows no evidence of edema. FILM INSPECTOR exam grossly intact - Labs CBC & Chem 7: 01/26/24 08:25 01/27/24 09:00 Labs: Abnormal Lab Results - Last 24 Hours (Table) 01/27/24 Range/Units 09:00 Sodium 134 L (137-145) mmol/L BUN 40 H (7-17) mg/dL Creatinine 1.48 H (0.52-1.04) mg/dL Assessment and Plan Assessment: 1. Acute kidney injury, ATN, nonoliguric secondary to hypotension. Patient was also recently diuresed. Currently off of diuretics. UA is benign. Ultrasound shows no evidence of obstructive uropathy. 2. CHF with preserved ejection fraction status post diuresis. EF was 55-60%. 3. A. fib with RVR, now with controlled ventricular response 4. Severe COPD maintained on home oxygen. Being treated for acute exacerbation 5. Chest pain with evidence of stress induced reversibility on the stress test. There are plans for cardiac catheterization as outpatient. Plan: continue off of diuretics. Repeat labs in a.m. Continue with Natasha.
[2024-01-28 06:57] LABS: African American GFR (CKD) 47 (>60 ml/min/1.73 sqM); Anion Gap 7 mmol/L; Blood Urea Nitrogen 42 mg/dL (7-17); Calcium 8.5 mg/dL (8.4-10.2); Carbon Dioxide 21 mmol/L (22-30); Chloride 103 mmol/L (98-107); Glucose 83 mg/dL (74-99); Non-African American GFR(CKD) 41 (>60 ml/min/1.73 sqM); Potassium 4.7 mmol/L (3.5-5.1); Sodium 131 mmol/L (137-145)
--- NOTE | 2024-01-28 12:22 | P.PN ---
Subjective patient is seen for follow-up for acute kidney injury. No significant complaints today. Currently off of diuretics. Serum creatinine decreased to 1.3 today. Objective - Vital Signs Vital signs: Vital Signs Temp 97.2 F L 01/28/24 12:00 Pulse 50 L 01/28/24 12:00 Resp 17 01/28/24 12:00 BP 121/80 01/28/24 12:00 Pulse Ox 99 01/28/24 12:00 FiO2 35 01/23/24 16:15 Intake & Output 01/27/24 01/28/24 01/28/24 18:59 06:59 18:59 Intake Total 480 10 Output Total 450 Balance 30 10 Weight 93 kg 92.8 kg Intake: IV 10 Invasive Line 2 10 Oral 480 Output: Urine 450 Other: Voiding Method Bedside Commode Bedside Commode Bedside Commode External Catheter External Catheter External Catheter # Voids 1 # Bowel Movements 1 1 - Exam patient is awake, comfortable, no acute distress. Examination of the heart S1 and S2 Examination of the lungs bilateral breath sounds are heard Abdomen is soft nontender obese Examination of lower extremity shows no evidence of edema. BLADE OPERATOR exam grossly intact - Labs CBC & Chem 7: 01/26/24 08:25 01/28/24 05:44 Labs: Abnormal Lab Results - Last 24 Hours (Table) 01/28/24 Range/Units 05:44 Sodium 131 L (137-145) mmol/L Carbon Dioxide 21 L (22-30) mmol/L BUN 42 H (7-17) mg/dL Creatinine 1.35 H (0.52-1.04) mg/dL Assessment and Plan Assessment: 1. Acute kidney injury, ATN, nonoliguric secondary to hypotension. Patient was also recently diuresed. Currently off of diuretics. UA is benign. Ultrasound shows no evidence of obstructive uropathy. 2. CHF with preserved ejection fraction status post diuresis. EF was 55-60%. 3. A. fib with RVR, now with controlled ventricular response 4. Severe COPD maintained on home oxygen. Being treated for acute exacerbation 5. Chest pain with evidence of stress induced reversibility on the stress test. There are plans for cardiac catheterization as outpatient. Plan: continue off of diuretics. Repeat labs in a.m. Continue with Natasha.
--- NOTE | 2024-01-28 14:04 | P.PN ---
Subjective This is a pleasant 68 years old female with past medical history of multiple medical problems including history of atrial fibrillation on Xarelto, CHF, currently euvolemic. She follows up with Dr. Irwin. She has history of COPD her cop breaker is Dr. Wynn, she is on 4 L oxygen via nasal cannula. She denies trauma or falling. Patient presents because of episodes of epistaxis started Tuesday morning at 3:00 AM, she woke up and blew her nose after the start of bleeding, she used personal packing with no much help so she came to the emergency room. Bilateral nasal packing has to be placed. Patient on Xarelto at home which is held now She was admitted with a ENT consultation Because she cannot use nasal cannula she was placed on Ventimask/nonrebreather, she is currently denies any dyspnea. Although she has chronic shortness of vik ath and mild dry coughing, there is no recent worsening and on examination there is no evidence of wheezing or basal crepitation. Also has no leg edema. No chest pain. No other GI/ symptoms. She states she quit smoking about 2 months ago. Also she saw her cop breaker Dr. Wynn about 2 months ago. She denies alcohol or illicit drugs. She has a chronic headache which is told it is related to her degenerative cervical disc disease, she states she is using Tylenol Extra Strength but she de nies using any NSAIDs Motrin or any other blood thinner On examination she is hemodynamically stable. She is tachycardic with heart rate around 118-122. She is afebrile. No labs during this admission, however labs done yesterday morning showing WBC of 11.2, rest of CBC is unremarkable. INR is 1.4 INR is 1.3, baseline 0.8-0.9. High lactic acid came back to normal. Troponin x 2 are negative. Liver enzymes mildly elevated but bilirubin is normal. Urine analysis showing glucosuria but no ketonuria. However there is infection suspected in her urine analysis. Echo on 09/2023 showing ejection fraction 55 to 60% 01/21 Patient with no more epistaxis, nasal packing in place Patient evaluated by ENT service, pack removed, no evidence of nasal bleeding ENT service cleared the patient to resume Xarelto tomorrow Creatinine stable at 1.2 01/22 Patient will bilateral intranasal PET scan were discontinued yesterday by ENT service team, she has external nasal packing which is in place, no soaked with blood, no bleeding which is stopped now, Xarelto was resumed tonight per ENT team recommendation Patient today however she did not feel comfortable, she is complaining from little tachypnea and exertional dyspnea, she is on mask for mouth breather as she has nasal packing, she is requiring 8 liters per minute, compared to 4 L/min at home via nasal cannula. Chest x-ray is suspicious for prominence of interstitial markings, CHF exacerbation is suspected, 1 dose of IV Lasix provided. Patient continued on oral Lasix 40 mg daily, proBNP is elevated. Cardiology team consulted who requested stress test tomorrow. Bronchitis also suspected per radiologist, we will check pro- Calcitonin on consult cop breaker as well. 01/23 Patient today was getting more complication. She underwent stress test but she could not finish the test because of her tachycardia and she was to be transferred to higher level of care at [facility] because her tachycardia switched to A-fib and RVR, she was started on amiodarone drip and currently heart rate is better. Xarelto is already resumed. All this care done with cardiology team on the case She had low-grade fever today of 100.4. But procalcitonin is negative indicating away from pneumonia. Most likely the source is her nasal lesion status post packing which is removed now. She is already on cefazolin and will continue monitoring for now. She remains close monitoring 01/24 Patient today she is mildly tachypneic while at rest, she is back to nasal cannula with oxygen requirement about 4 L. No evidence of wheezing She underwent Lexiscan stress test today: Reviewing of the stress test showing questionable reversibility involving the apical lateral myocardium which may be artifactual. Recommend correlation clinically. Normal wall motion with estimated EF 93% per report cardiology team decided to treat the patient medically and follow-up with Dr. Irwin in 1 week if she still symptomatic then may consider cardiac cath I discussed the case with pulmonary service, no active pulmonary disease right now Patient amiodarone drip was stopped and started on pill form for an milligram twice daily Possible discharge in 24 to 48 hours 01/25 Patient today she states to still not feeling better, her main concerns are dizziness with exertion, she describes like presyncope. However patient explains to me today that she forgot to tell us she has dizziness for months about 2 months now and she has some tinnitus in both ears with some degree of hearing loss and ringing sound for several months. She even forgot to mention that to Dr. Tavera from ENT. But her exertional dizziness that she is worried about now. Also she feels like her breathing is still little bit difficult. She denies chest pain. She denies any other new complaint Vitals look stable, blood pressure is borderline and she was little hypotensive in the last few days. Her creatinine bumped up a little at 1.38. Urine analysis was unremarkable other than little glucose. Bladder scan checked twice and there is no retention. There is no nephrotoxic agents when I reviewed the medication. Patient currently heart rate controlled with amiodarone and metoprolol. 01/26 I called her insurance provider and i did peer to peer review , and discussed the case with them 01/28/2024 Yesterday patient was rejected by peer to peer review Today she is breathing quietly, no specific complaint Her creatinine is going down slowly 1.4 down to 1.3, she does not need diuretics today She is currently on amiodarone 400 mg twice daily and metoprolol 150 mg, she is switched to sinus rhythm and then developed bradycardia with heart rate in the 30s. Therefore we are going to consult cardiology again because they signed off the case already. Objective - Vital Signs Vital signs: Vital Signs Temp 97.2 F L 01/28/24 12:00 Pulse 50 L 01/28/24 12:00 Resp 17 01/28/24 12:00 BP 121/80 01/28/24 12:00 Pulse Ox 99 01/28/24 12:00 FiO2 35 01/23/24 16:15 Intake & Output 01/27/24 01/28/24 01/28/24 18:59 06:59 18:59 Intake Total 480 20 Output Total 450 Balance 30 20 Weight 93 kg 92.8 kg Intake: IV 20 Invasive Line 2 20 Oral 480 Output: Urine 450 Other: Voiding Method Bedside Commode Bedside Commode Bedside Commode External Catheter External Catheter External Catheter # Voids 1 # Bowel Movements 1 1 - Exam GENERAL: The patient is alert and oriented x3, not in any acute distress. Well developed, well nourished. HEENT: Pupils are round and equally reacting to light. EOMI. No scleral icterus. No conjunctival pallor. Normocephalic, atraumatic. No pharyngeal erythema. No thyromegaly. CARDIOVASCULAR: S1 and S2 present. No murmurs, rubs, or gallops. PULMONARY: Chest is clear to auscultation, no wheezing , no crackles. ABDOMEN: Soft, nontender, nondistended, normoactive bowel sounds. No palpable organomegaly. MUSCULOSKELETAL: No joint swelling or deformity. EXTREMITIES: No cyanosis, clubbing, or pedal edema. NEUROLOGICAL: Gross neurological examination did not reveal any focal deficits. SKIN: No rashes. no petechiae. - Labs CBC & Chem 7: 01/26/24 08:25 01/28/24 05:44 Labs: Abnormal Lab Results - Last 24 Hours (Table) 01/28/24 Range/Units 05:44 Sodium 131 L (137-145) mmol/L Carbon Dioxide 21 L (22-30) mmol/L BUN 42 H (7-17) mg/dL Creatinine 1.35 H (0.52-1.04) mg/dL Assessment and Plan Assessment: Bilateral epistaxis status post bilateral nasal packing which is removed. Bleeding stopped now Acute kidney injury could be secondary to above, Dyspnea could be acute CHF versus coronary artery disease versus bronchitis A-fib with RVR, present on admission. Also happened after stress test Chest pain, assistant branch manager on the case to rule out cardiac causes Acute on chronic CHF without acute exacerbation. ejection fraction is preserved COPD without acute exacerbation Acute on chronic chronic hypoxic respiratory failure Chronic leukocytosis Obesity with BMI 39.1 Plan: Data Conversion Analyst will treat the patient conservatively after questionable abnormal stress test with recommendation to follow-up with Dr. Irwin in 1 week to assess for possible cardiac cath Since patient will require cardiac cath and creatinine went up little bit and patient still feels not well we will going to consult nephrology team. Continue with amiodarone orally per assistant branch manager Check orthostatic vitals resumed Xarelto on 01/22 continue with oxygen ENT consult for epistaxis which is stopped now. Patient describes has some tinnitus which is chronic, patient instructed to follow-up with ENT as an o utpatient and she agrees Pulmonary team consult Resume her heartache medication. Labs and medication were reviewed.. Continue same treatment. Continue with symptomatic treatment. Resume home medication. Monitor labs and vitals. DVT and GI prophylaxis. Further recommendations as per clinical course of the patient DVT prophylaxis: Xarelto GI Prophylaxis: Pepcid PT/OT: Pending Prognosis is guarded
--- NOTE | 2024-01-28 15:41 | P.PN ---
Subjective Progress Note Date: 01/28/24 Patient is a 68-year-old female with past medical history significant for COPD, chronic oxygen dependence, atrial fibrillation anticoagulated on Xarelto, coronary artery disease, hypertension, hyperlipidemia, obesity. Patient actually presented the emergency department back on 01/20/2024. Reportedly blew her nose and started to have profuse epistaxis bilateral nares. She is anticoagulated on Xarelto for her atrial fibrillation. She was packed in the emergency department. She has been evaluated by ENT. We were consulted as the patient is reporting worsening exertional dyspnea. She is known to have severe COPD with an FEV1 42% of predicted. She is normally maintained on 4 L/min nasal cannula at home. She is currently being evaluated on the observation unit. She has a face tent on with 8 L blow-by. Bilateral nares are packed. No further epistaxis. She denies any wheezing, chest tightness, fevers, cough, sputum production, chest pain. Denies sick contacts. She does report some associated epigastric discomfort which last 10 to 15 minutes mostly with exertion. She becomes lightheaded with exertion as well. No significant lower extremity edema. Recent echocardiogram available September, showing preserved left ventricular ejection fraction of 55 to 60%. Mild elevated RVSP of 40 to. No significant valvular abnormalities reported. Chest x-ray does not show any acute cardiopu lmonary process, some chronic interstitial changes. No pleural effusions, pneumothoraces, or focal infiltrates. CBC: WBC count 8.8, hemoglobin 11.7, hematocrit 39, platelets 178. BMP: Sodium 141, potassium 3.6, chloride 103, serum bicarb 32, BUN 26, creatinine 1.04, glucose 148. NT proBNP was elevated at 2429. EKG: Atrial fibrillation with controlled ventricular response, rate 87 bpm, nonspecific ST/T wave changes. Patient is currently being worked up by cardiology, reportedly going to undergo a Lexiscan stress test in the morning. 01/25/2024, the patient is being seen for a follow-up. She is complaining of nasal congestion and stuffiness. No chest pain. No significant shortness of breath. The cardiac stress test was done this morning and the patient has questionable area of stress-induced reversibility in the apical lateral myocardium and this could be potentially artifactual. The patient has atrial fibrillation. Rate is under better control for now. She remains on antico agulation. Cardiac enzymes are negative and the patient is currently on diuretics. Cardiac catheterization is being considered to be done as an outpatient basis. No significant epistaxis at this point in time. The patient remains on IV amiodarone and this will be switched to oral amiodarone 4 mg p.o. twice a day. The patient remains on metoprolol 150 mg XL 1 tablet a day. She remains on anticoagulation with Xarelto. 01/26/2024, the patient is stable. No new complaints. No interval worsening shortness of breath. She denies having any chest pain or pressure. Her atrial fibrillation is under better control. She is complaining of some tinnitus. She is also used Afrin and nasal saline rinses and this improved her nasal patency. Her breathing seems to be much more comfortable. She is on 3 L of oxygen by nasal cannula with a pulse ox of 98%. She remains on DuoNeb nebulized treat ments [id number]. She is on Symbicort as maintenance. She remains on anticoagulation with Xarelto 20 mg p.o. daily. She remains on amiodarone 4 mg p.o. twice daily and metoprolol 150 mg XL 1 tablet a day. She remains on IV cefazolin given to her by ENT. White cell count is at 6.2 with a hemoglobin of 11 and a platelet count of 143. BUN 35 creatinine 1.38 and a sodium levels at 131. Renal function slightly worse compared to 2 days ago. 01/27/2024, the patient is being seen for a follow-up. Resting comfortably in bed. No significant chest pain or shortness of breath. She remains on 4 L of oxygen by nasal cannula. No cough. No sputum production. No other new complaints otherwise for now. White cell count of 6.2 with a hemoglobin 11 and this is from yesterday. Rest of the electrolytes from today shows a BUN of 40 with a creatinine of 1.4 and a potassium level of 4.7 and a sodium levels at 134. Medication remains unchanged. Cardiac rhythm is atrial fibrillation and t he rate is controlled and the patient remains on anticoagulation with Xarelto. The patient remains on amiodarone 4 mg p.o. twice a day metoprolol 150 mg p.o. daily. She remains on Symbicort and DuoNeb updrafts. She is also on nasal saline rinses and Afrin as needed. 01/28/2024, the patient is feeling weak and debilitated. Overall respiratory status remains unchanged. No interval worsening shortness of breath. She remains on 4 L of oxygen by nasal cannula. She remains on Symbicort and DuoNebs about treatments [id number]. She remains on anticoagulation with Eliquis. Labs from today shows a stable creatinine of 1.35 with a BUN of 42. Serum bicarb is at 21. Sodium levels at 131. No other significant events over the past 24 hours. Objective - Vital Signs Vital signs: Vital Signs Temp 97.5 F L 01/28/24 09:15 Pulse 50 L 01/28/24 09:15 Resp 21 01/28/24 09:15 BP 130/66 01/28/24 09:15 Pulse Ox 95 01/28/24 09:15 FiO2 35 01/23/24 16:15 Intake & Output 01/27/24 01/28/24 01/28/24 18:59 06:59 18:59 Intake Total 480 10 Output Total 450 Balance 30 10 Weight 93 kg 92.8 kg Intake: IV 10 Invasive Line 2 10 Oral 480 Output: Urine 450 Other: Voiding Method Bedside Commode Bedside Commode External Catheter External Catheter # Voids 1 # Bowel Movements 1 1 - Exam GENERAL EXAM: Alert, 68-year-old obese female, with bilateral nasal packing and face tent with blow-by oxygen, comfortable in no apparent distress. The patient is currently on 3 L of oxygen by nasal cannula HEAD: Normocephalic and atraumatic EYES: Normal reaction of pupils, equal size. NOSE: Nasal packing bilateral naris, no further bleeding THROAT: No erythema or exudates. NECK: No masses, no JVD. CHEST: No chest wall deformity. LUNGS: Equal air entry with no crackles, wheeze, rhonchi or dullness. , no conversational dyspnea or accessory muscle use.. CVS: S1 and S2 normal with no audible murmur, irregular rhythm. No extra heart sounds ABDOMEN: No hepatosplenomegaly, active bowel sounds, no guarding or rigidity. SPINE: No scoliosis or deformity SKIN: No rashes CENTRAL NERVOUS SYSTEM: No focal deficits, tone is normal in all 4 extremities. EXTREMITIES: There is no peripheral edema, clubbing, or cyanosis. Peripheral pulses are intact. Missing digits 2 and 3 on left hand - Labs CBC & Chem 7: 01/26/24 08:25 01/28/24 05:44 Labs: Abnormal Lab Results - Last 24 Hours (Table) 01/28/24 Range/Units 05:44 Sodium 131 L (137-145) mmol/L Carbon Dioxide 21 L (22-30) mmol/L BUN 42 H (7-17) mg/dL Creatinine 1.35 H (0.52-1.04) mg/dL Assessment and Plan Assessment: Epistaxis, without current bleeding. Nares remain packed. ENT following. The patient is complaining of nasal stuffiness. No evidence of any bleeding. Will offer nasal saline. No active bleeding or epistaxis for the time being. Acute on chronic dyspnea, stable for now, improved, and overall respiratory status is stable for now. The patient is complaining of generalized body weakness. Chest pain with questionable induced reversible ischemia on Lexiscan and the patient is being considered for an outpatient cardiac catheterization. Currently she is free of any chest pain troponins have been negative. Severe chronic obstructive pulmonary disease, with an FEV1 41% of predicted, ap pears stable on my examination Chronic hypoxemic respiratory failure, normally maintained on 4 L/min nasal cannula while at home, currently on 4 L of oxygen by nasal cannula Chronic atrial fibrillation, on anticoagulated on Xarelto, which has been resumed History of coronary artery disease History of hypertension History of hyperlipidemia Obesity, with a BMI of 39.1 kg/m Plan: The patient is quite debilitated and may benefit from rehabilitation. No changes in her condition and the patient's condition in general remains stable. No significant shortness of breath at rest. Oxygenation is stable and the patient remains on 3-4 L of oxygen by nasal cannula COPD appears stable on my evaluation. Cardiac stress has been noted and the patient may require outpatient cardiac catheterization Atrial fibrillation is under better control and the patient will be kept on amiodarone 400 mg p.o. twice a day, metoprolol XL 150 mg p.o. daily and anticoagulation with Xarelto She is also on Symbicort on outpatient basis and Spiriva regarding her COPD.. While in the hospital, she is still on Symbicort. Monitor renal function Will continue to follow.
[2024-01-28] MEDS ORDERED: ONDANSETRON 4 MG/2 ML VIAL IVP PRN (18:53)
[2024-01-29] MEDS: AMIODARONE 200 MG TAB PO SCH (09:25)
[2024-01-29] MEDS: METOPROLOL SUCCINATE (ER) 25 MG TAB.ER.24H PO SCH (09:26)
[2024-01-29] MEDS: AMIODARONE 100 MG TAB PO SCH (09:38)
--- NOTE | 2024-01-29 11:55 | P.PN ---
Subjective patient is seen for follow-up for acute kidney injury. No significant complaints today. Currently off of diuretics. Serum creatinine decreased to 1.3 yesterday. Awaiting discharge to rehab Objective - Vital Signs Vital signs: Vital Signs Temp 97.4 F L 01/29/24 09:20 Pulse 96 01/29/24 09:20 Resp 17 01/29/24 09:20 BP 139/76 01/29/24 09:20 Pulse Ox 97 01/29/24 09:20 FiO2 35 01/23/24 16:15 Intake & Output 01/28/24 01/29/24 01/29/24 18:59 06:59 18:59 Intake Total 138 20 10 Output Total 1 380 Balance 137 -360 10 Weight 92.8 kg Intake: IV 20 20 10 Invasive Line 2 20 20 10 Oral 118 Output: Urine 380 Emesis 1 Other: Voiding Method Bedside Commode Bedside Commode Bedside Commode External Catheter External Catheter External Catheter # Voids 1 # Bowel Movements 1 1 - Exam patient is awake, comfortable, no acute distress. Examination of the heart S1 and S2 Examination of the lungs bilateral breath sounds are heard Abdomen is soft nontender obese Examination of lower extremity shows no evidence of edema. FORESTRY PROFESSOR exam grossly intact - Labs CBC & Chem 7: 01/26/24 08:25 01/28/24 05:44 Assessment and Plan Assessment: 1. Acute kidney injury, ATN, nonoliguric secondary to hypotension. Patient was also recently diuresed. Currently off of diuretics. UA is benign. Ultrasound shows no evidence of obstructive uropathy. 2. CHF with preserved ejection fraction status post diuresis. EF was 55-60%. 3. A. fib with RVR, now with controlled ventricular response 4. Severe COPD maintained on home oxygen. Being treated for acute exacerbation 5. Chest pain with evidence of stress induced reversibility on the stress test. There are plans for cardiac catheterization as outpatient. Plan: consider restarting oral diuretics tomorrow Repeat labs in a.m. Continue with Natasha.
--- NOTE | 2024-01-29 12:30 | P.PN ---
Subjective Progress Note Date: 01/29/24 Patient is a 68-year-old female with past medical history significant for COPD, chronic oxygen dependence, atrial fibrillation anticoagulated on Xarelto, coronary artery disease, hypertension, hyperlipidemia, obesity. Patient actually presented the emergency department back on 01/20/2024. Reportedly blew her nose and started to have profuse epistaxis bilateral nares. She is anticoagulated on Xarelto for her atrial fibrillation. She was packed in the emergency department. She has been evaluated by ENT. We were consulted as the patient is reporting worsening exertional dyspnea. She is known to have severe COPD with an FEV1 42% of predicted. She is normally maintained on 4 L/min nasal cannula at home. She is currently being evaluated on the observation unit. She has a face tent on with 8 L blow-by. Bilateral nares are packed. No further epistaxis. She denies any wheezing, chest tightness, fevers, cough, sputum production, chest pain. Denies sick contacts. She does report some associated epigastric discomfort which last 10 to 15 minutes mostly with exertion. She becomes lightheaded with exertion as well. No significant lower extremity edema. Recent echocardiogram available September, showing preserved left ventricular ejection fraction of 55 to 60%. Mild elevated RVSP of 40 to. No significant valvular abnormalities reported. Chest x-ray does not show any acute cardiopu lmonary process, some chronic interstitial changes. No pleural effusions, pneumothoraces, or focal infiltrates. CBC: WBC count 8.8, hemoglobin 11.7, hematocrit 39, platelets 178. BMP: Sodium 141, potassium 3.6, chloride 103, serum bicarb 32, BUN 26, creatinine 1.04, glucose 148. NT proBNP was elevated at 2429. EKG: Atrial fibrillation with controlled ventricular response, rate 87 bpm, nonspecific ST/T wave changes. Patient is currently being worked up by cardiology, reportedly going to undergo a Lexiscan stress test in the morning. 01/25/2024, the patient is being seen for a follow-up. She is complaining of nasal congestion and stuffiness. No chest pain. No significant shortness of breath. The cardiac stress test was done this morning and the patient has questionable area of stress-induced reversibility in the apical lateral myocardium and this could be potentially artifactual. The patient has atrial fibrillation. Rate is under better control for now. She remains on antico agulation. Cardiac enzymes are negative and the patient is currently on diuretics. Cardiac catheterization is being considered to be done as an outpatient basis. No significant epistaxis at this point in time. The patient remains on IV amiodarone and this will be switched to oral amiodarone 4 mg p.o. twice a day. The patient remains on metoprolol 150 mg XL 1 tablet a day. She remains on anticoagulation with Xarelto. 01/26/2024, the patient is stable. No new complaints. No interval worsening shortness of breath. She denies having any chest pain or pressure. Her atrial fibrillation is under better control. She is complaining of some tinnitus. She is also used Afrin and nasal saline rinses and this improved her nasal patency. Her breathing seems to be much more comfortable. She is on 3 L of oxygen by nasal cannula with a pulse ox of 98%. She remains on DuoNeb nebulized treat ments [id number]. She is on Symbicort as maintenance. She remains on anticoagulation with Xarelto 20 mg p.o. daily. She remains on amiodarone 4 mg p.o. twice daily and metoprolol 150 mg XL 1 tablet a day. She remains on IV cefazolin given to her by ENT. White cell count is at 6.2 with a hemoglobin of 11 and a platelet count of 143. BUN 35 creatinine 1.38 and a sodium levels at 131. Renal function slightly worse compared to 2 days ago. 01/27/2024, the patient is being seen for a follow-up. Resting comfortably in bed. No significant chest pain or shortness of breath. She remains on 4 L of oxygen by nasal cannula. No cough. No sputum production. No other new complaints otherwise for now. White cell count of 6.2 with a hemoglobin 11 and this is from yesterday. Rest of the electrolytes from today shows a BUN of 40 with a creatinine of 1.4 and a potassium level of 4.7 and a sodium levels at 134. Medication remains unchanged. Cardiac rhythm is atrial fibrillation and t he rate is controlled and the patient remains on anticoagulation with Xarelto. The patient remains on amiodarone 4 mg p.o. twice a day metoprolol 150 mg p.o. daily. She remains on Symbicort and DuoNeb updrafts. She is also on nasal saline rinses and Afrin as needed. 01/28/2024, the patient is feeling weak and debilitated. Overall respiratory status remains unchanged. No interval worsening shortness of breath. She remains on 4 L of oxygen by nasal cannula. She remains on Symbicort and DuoNebs about treatments [id number]. She remains on anticoagulation with Eliquis. Labs from today shows a stable creatinine of 1.35 with a BUN of 42. Serum bicarb is at 21. Sodium levels at 131. No other significant events over the past 24 hours. 01/29/2024, no new complaints. Oxygenation remains stable on 4 L with a pulse ox of 98%. No significant tachypnea or shortness of breath at rest. Afebrile. No chest pain. Electrolytes remain stable with a BUN of 42 and a creatinine of 1.35 and a sodium levels at 131. Still feeling weak. Maintains anticoagulation with Xarelto. Maintains on amiodarone 100 mg p.o. daily and rest of the medications remain unchanged. Objective - Vital Signs Vital signs: Vital Signs Temp 97.4 F L 01/29/24 09:20 Pulse 96 01/29/24 09:20 Resp 17 01/29/24 09:20 BP 139/76 01/29/24 09:20 Pulse Ox 97 01/29/24 09:20 FiO2 35 01/23/24 16:15 Intake & Output 01/28/24 01/29/24 01/29/24 18:59 06:59 18:59 Intake Total 138 20 10 Output Total 1 380 Balance 137 -360 10 Weight 92.8 kg Intake: IV 20 20 10 Invasive Line 2 20 20 10 Oral 118 Output: Urine 380 Emesis 1 Other: Voiding Method Bedside Commode Bedside Commode External Catheter External Catheter # Voids 1 # Bowel Movements 1 1 - Exam GENERAL EXAM: Alert, 68-year-old obese female, with bilateral nasal packing and face tent with blow-by oxygen, comfortable in no apparent distress. The patient is currently on 3 L of oxygen by nasal cannula HEAD: Normocephalic and atraumatic EYES: Normal reaction of pupils, equal size. NOSE: Nasal packing bilateral naris, no further bleeding THROAT: No erythema or exudates. NECK: No masses, no JVD. CHEST: No chest wall deformity. LUNGS: Equal air entry with no crackles, wheeze, rhonchi or dullness. , no conversational dyspnea or accessory muscle use.. CVS: S1 and S2 normal with no audible murmur, irregular rhythm. No extra heart sounds ABDOMEN: No hepatosplenomegaly, active bowel sounds, no guarding or rigidity. SPINE: No scoliosis or deformity SKIN: No rashes CENTRAL NERVOUS SYSTEM: No focal deficits, tone is normal in all 4 extremities. EXTREMITIES: There is no peripheral edema, clubbing, or cyanosis. Peripheral pulses are intact. Missing digits 2 and 3 on left hand - Labs CBC & Chem 7: 01/26/24 08:25 01/28/24 05:44 Assessment and Plan Assessment: Epistaxis, without current bleeding. Nares remain packed. ENT following. The patient is complaining of nasal stuffiness. No evidence of any bleeding. Will offer nasal saline. No active bleeding or epistaxis for the time being. Acute on chronic dyspnea, stable for now, improved, and overall respiratory status is stable for now. The patient is complaining of generalized body weakness. Chest pain with questionable induced reversible ischemia on Lexiscan and the patient is being considered for an outpatient cardiac catheterization. Currently she is free of any chest pain troponins have been negative. Severe chronic obstructive pulmonary disease, with an FEV1 41% of predicted, appears stable on my examination Chronic hypoxemic respiratory failure, normally maintained on 4 L/min nasal ca nnula while at home, currently on 4 L of oxygen by nasal cannula Chronic atrial fibrillation, on anticoagulated on Xarelto, which has been resumed History of coronary artery disease History of hypertension History of hyperlipidemia Obesity, with a BMI of 39.1 kg/m Plan: The patient is quite debilitated and may benefit from rehabilitation. No changes in her condition and the patient's condition in general remains stable. No significant shortness of breath at rest. Oxygenation is stable and the patient remains on 3-4 L of oxygen by nasal cannula COPD appears stable on my evaluation. Cardiac stress has been noted and the patient may require outpatient cardiac catheterization Atrial fibrillation is under better control and the patient will be kept on amiodarone 400 mg p.o. twice a day, metoprolol has been held and discontinued as the patient's rate is controlled, and anticoagulation with Xarelto She is also on Symbicort on outpatient basis and Spiriva regarding her COPD.. While in the hospital, she is still on Symbicort. Monitor renal function No active issues for now and will sign off the case.
--- NOTE | 2024-01-29 15:08 | P.PN ---
Subjective This is a pleasant 68 years old female with past medical history of multiple medical problems including history of atrial fibrillation on Xarelto, CHF, currently euvolemic. She follows up with Dr. Irwin. She has history of COPD her operations director is Dr. Wynn, she is on 4 L oxygen via nasal cannula. She denies trauma or falling. Patient presents because of episodes of epistaxis started Tuesday morning at 3:00 AM, she woke up and blew her nose after the start of bleeding, she used personal packing with no much help so she came to the emergency room. Bilateral nasal packing has to be placed. Patient on Xarelto at home which is held now She was admitted with a ENT consultation Because she cannot use nasal cannula she was placed on Ventimask/nonrebreather, she is currently denies any dyspnea. Although she has chronic shortness of vik ath and mild dry coughing, there is no recent worsening and on examination there is no evidence of wheezing or basal crepitation. Also has no leg edema. No chest pain. No other GI/ symptoms. She states she quit smoking about 2 months ago. Also she saw her operations director Dr. Wynn about 2 months ago. She denies alcohol or illicit drugs. She has a chronic headache which is told it is related to her degenerative cervical disc disease, she states she is using Tylenol Extra Strength but she de nies using any NSAIDs Motrin or any other blood thinner On examination she is hemodynamically stable. She is tachycardic with heart rate around 118-122. She is afebrile. No labs during this admission, however labs done yesterday morning showing WBC of 11.2, rest of CBC is unremarkable. INR is 1.4 INR is 1.3, baseline 0.8-0.9. High lactic acid came back to normal. Troponin x 2 are negative. Liver enzymes mildly elevated but bilirubin is normal. Urine analysis showing glucosuria but no ketonuria. However there is infection suspected in her urine analysis. Echo on 09/2023 showing ejection fraction 55 to 60% 01/21 Patient with no more epistaxis, nasal packing in place Patient evaluated by ENT service, pack removed, no evidence of nasal bleeding ENT service cleared the patient to resume Xarelto tomorrow Creatinine stable at 1.2 01/22 Patient will bilateral intranasal PET scan were discontinued yesterday by ENT service team, she has external nasal packing which is in place, no soaked with blood, no bleeding which is stopped now, Xarelto was resumed tonight per ENT team recommendation Patient today however she did not feel comfortable, she is complaining from little tachypnea and exertional dyspnea, she is on mask for mouth breather as she has nasal packing, she is requiring 8 liters per minute, compared to 4 L/min at home via nasal cannula. Chest x-ray is suspicious for prominence of interstitial markings, CHF exacerbation is suspected, 1 dose of IV Lasix provided. Patient continued on oral Lasix 40 mg daily, proBNP is elevated. Cardiology team consulted who requested stress test tomorrow. Bronchitis also suspected per radiologist, we will check pro- Calcitonin on consult operations director as well. 01/23 Patient today was getting more complication. She underwent stress test but she could not finish the test because of her tachycardia and she was to be transferred to higher level of care at [facility] because her tachycardia switched to A-fib and RVR, she was started on amiodarone drip and currently heart rate is better. Xarelto is already resumed. All this care done with cardiology team on the case She had low-grade fever today of 100.4. But procalcitonin is negative indicating away from pneumonia. Most likely the source is her nasal lesion status post packing which is removed now. She is already on cefazolin and will continue monitoring for now. She remains close monitoring 01/24 Patient today she is mildly tachypneic while at rest, she is back to nasal cannula with oxygen requirement about 4 L. No evidence of wheezing She underwent Lexiscan stress test today: Reviewing of the stress test showing questionable reversibility involving the apical lateral myocardium which may be artifactual. Recommend correlation clinically. Normal wall motion with estimated EF 93% per report cardiology team decided to treat the patient medically and follow-up with Dr. Irwin in 1 week if she still symptomatic then may consider cardiac cath I discussed the case with pulmonary service, no active pulmonary disease right now Patient amiodarone drip was stopped and started on pill form for an milligram twice daily Possible discharge in 24 to 48 hours 01/25 Patient today she states to still not feeling better, her main concerns are dizziness with exertion, she describes like presyncope. However patient explains to me today that she forgot to tell us she has dizziness for months about 2 months now and she has some tinnitus in both ears with some degree of hearing loss and ringing sound for several months. She even forgot to mention that to Dr. Tavera from ENT. But her exertional dizziness that she is worried about now. Also she feels like her breathing is still little bit difficult. She denies chest pain. She denies any other new complaint Vitals look stable, blood pressure is borderline and she was little hypotensive in the last few days. Her creatinine bumped up a little at 1.38. Urine analysis was unremarkable other than little glucose. Bladder scan checked twice and there is no retention. There is no nephrotoxic agents when I reviewed the medication. Patient currently heart rate controlled with amiodarone and metoprolol. 01/26 I called her insurance provider and i did peer to peer review , and discussed the case with them 01/28/2024 Yesterday patient was rejected by peer to peer review Today she is breathing quietly, no specific complaint Her creatinine is going down slowly 1.4 down to 1.3, she does not need diuretics today She is currently on amiodarone 400 mg twice daily and metoprolol 150 mg, she is switched to sinus rhythm and then developed bradycardia with heart rate in the 30s. Therefore we are going to consult cardiology again because they signed off the case already. Patient looks fatigued and tired and exhausted She is still suffering from fluctuating heart rate regarding her A-fib. Amiodarone 100 mg was started today by business liaison officer Community Organization Director recommend to start diuretic tomorrow Patient feels weak to go home. I did peer to peer with her medical insurance provider and case was rejected because she did well on her last therapy. We going to reconsult physical therapy evaluation tomorrow did not is any changes. Objective - Vital Signs Vital signs: Vital Signs Temp 97.1 F L 01/29/24 12:00 Pulse 50 L 01/29/24 12:00 Resp 17 01/29/24 12:00 BP 124/71 01/29/24 12:00 Pulse Ox 98 01/29/24 12:00 FiO2 35 01/23/24 16:15 Intake & Output 01/28/24 01/29/24 01/29/24 18:59 06:59 18:59 Intake Total 138 20 20 Output Total 1 380 Balance 137 -360 20 Weight 92.8 kg Intake: IV 20 20 20 Invasive Line 2 20 20 20 Oral 118 Output: Urine 380 Emesis 1 Other: Voiding Method Bedside Commode Bedside Commode Bedside Commode External Catheter External Catheter External Catheter # Voids 1 # Bowel Movements 1 1 - Exam GENERAL: The patient is alert and oriented x3, not in any acute distress. Well developed, well nourished. HEENT: Pupils are round and equally reacting to light. EOMI. No scleral icterus. No conjunctival pallor. Normocephalic, atraumatic. No pharyngeal erythema. No thyromegaly. CARDIOVASCULAR: S1 and S2 present. No murmurs, rubs, or gallops. PULMONARY: Chest is clear to auscultation, no wheezing , no crackles. ABDOMEN: Soft, nontender, nondistended, normoactive bowel sounds. No palpable organomegaly. MUSCULOSKELETAL: No joint swelling or deformity. EXTREMITIES: No cyanosis, clubbing, or pedal edema. NEUROLOGICAL: Gross neurological examination did not reveal any focal deficits. SKIN: No rashes. no petechiae. - Labs CBC & Chem 7: 01/26/24 08:25 01/28/24 05:44 Assessment and Plan Assessment: Bilateral epistaxis status post bilateral nasal packing which is removed. Bleeding stopped now Acute kidney injury could be secondary to above, Dyspnea could be acute CHF versus coronary artery disease versus bronchitis A-fib with RVR, present on admission. Also happened after stress test Chest pain, business liaison officer on the case to rule out cardiac causes Acute on chronic CHF without acute exacerbation. ejection fraction is preserved COPD without acute exacerbation Acute on chronic chronic hypoxic respiratory failure Chronic leukocytosis Obesity with BMI 39.1 Plan: Shop Coordinator will treat the patient conservatively after questionable abnormal stress test with recommendation to follow-up with Dr. Irwin in 1 week to assess for possible cardiac cath Since patient will require cardiac cath and creatinine went up little bit and patient still feels not well we will going to consult nephrology team. Continue with amiodarone orally per business liaison officer Check orthostatic vitals resumed Xarelto on 01/22 continue with oxygen ENT consult for epistaxis which is stopped now. Patient describes has some tinnitus which is chronic, patient instructed to follow-up with ENT as an outpatient and she agrees Pulmonary team consult Resume her heartache medication. Labs and medication were reviewed.. Continue same treatment. Continue with symptomatic treatment. Resume home medication. Monitor labs and vitals. DVT and GI prophylaxis. Further recommendations as per clinical course of the patient DVT prophylaxis: Xarelto GI Prophylaxis: Pepcid PT/OT: Pending Prognosis is guarded
[2024-01-30 06:35] LABS: Anisocytosis Slight; Basophils % (A) 0 %; Eosinophils # (A) 0.2 k/uL (0-0.7); Eosinophils % (A) 2 %; HGB 10.4 gm/dL (11.4-16.0); Hypochromasia Marked; Lymphocytes # (A) 1.2 k/uL (1.0-4.8); Lymphocytes % (A) 11 %; MCH 29.3 pg (25.0-35.0); MCHC 29.8 g/dL (31.0-37.0); MCV 98.3 fL (80.0-100.0); Macrocytosis Slight; Mean Platelet Volume 9.7; Monocytes % (A) 9 %; Neutrophils # (A) 8.3 k/uL (1.3-7.7); Neutrophils % (A) 75 %; Platelet Count 137 k/uL (150-450); RBC 3.55 m/uL (3.80-5.40); RDW 17.3 % (11.5-15.5); WBC 11.1 k/uL (3.8-10.6)
[2024-01-30 06:46] LABS: African American GFR (CKD) 47 (>60 ml/min/1.73 sqM); Anion Gap 7 mmol/L; Blood Urea Nitrogen 44 mg/dL (7-17); Calcium 8.7 mg/dL (8.4-10.2); Carbon Dioxide 25 mmol/L (22-30); Chloride 100 mmol/L (98-107); Glucose 89 mg/dL (74-99); Non-African American GFR(CKD) 40 (>60 ml/min/1.73 sqM); Potassium 4.6 mmol/L (3.5-5.1); Sodium 132 mmol/L (137-145)
--- NOTE | 2024-01-30 11:06 | P.PN ---
Subjective Patient is seen in follow-up for acute kidney injury. Renal function stable. Now on 3 L nasal cannula. Blood pressure stable. Admits to good urine output. Denies chest pain. Vital signs are stable. General: No acute distress. HEENT: Head exam is unremarkable. On nasal cannula. LUNGS: Wheezing present. HEART: Rate and Rhythm are regular. ABDOMEN: Nontender. EXTREMITITES: Trace edema. Objective - Vital Signs Vital signs: Vital Signs Temp 97.5 F L 01/30/24 04:00 Pulse 51 L 01/30/24 08:00 Resp 18 01/30/24 08:00 BP 129/84 01/30/24 08:00 Pulse Ox 95 01/30/24 08:00 FiO2 35 01/23/24 16:15 Intake & Output 01/29/24 01/30/24 01/30/24 18:59 06:59 18:59 Intake Total 20 20 250 Output Total 700 Balance 20 -680 250 Intake: IV 20 20 10 Invasive Line 2 20 20 10 Oral 240 Output: Urine 700 Other: Voiding Method Bedside Commode Bedside Commode Bedside Commode External Catheter External Catheter External Catheter # Voids 1 # Bowel Movements 1 - Labs CBC & Chem 7: 01/30/24 05:59 01/30/24 05:59 Labs: Abnormal Lab Results - Last 24 Hours (Table) 01/30/24 01/30/24 Range/Units 05:59 05:59 WBC 11.1 H (3.8-10.6) k/uL RBC 3.55 L (3.80-5.40) m/uL Hgb 10.4 L (11.4-16.0) gm/dL MCHC 29.8 L (31.0-37.0) g/dL RDW 17.3 H (11.5-15.5) % Plt Count 137 L (150-450) k/uL Neutrophils # 8.3 H (1.3-7.7) k/uL Sodium 132 L (137-145) mmol/L BUN 44 H (7-17) mg/dL Creatinine 1.37 H (0.52-1.04) mg/dL Assessment and Plan Plan: Assessment: 1. Acute kidney injury secondary to ATN secondary to hypotension. Renal f unction stable. Creatinine 1.37. UA benign. No hydronephrosis noted on kidney ultrasound. 2. Acute on chronic diastolic CHF. 3. A-fib with RVR. Now rate controlled. 4. Acute COPD exacerbation. Now on 3 L nasal cannula. 5. Chest pain with evidence of stress-induced reversibility noted on stress test. Plans for cardiac cath outpatient. Plan: Maintain Farxiga. Add Lasix 20 mg once daily. Avoid nephrotoxins. Continue to monitor renal function and urine output. Follow-up outpatient 1 week postdischarge.
[2024-01-30] MEDS: FUROSEMIDE 20 MG TAB PO SCH (11:37)
[2024-01-30] MEDS: ALPRAZolam 0.25 MG TAB PO STA (11:37)
[2024-01-30] MEDS ORDERED: ALPRAZolam 0.25 MG TAB PO PRN (12:18)
--- NOTE | 2024-01-30 13:00 | P.PN ---
Subjective Progress Note Date: 01/30/24 HISTORY OF PRESENT ILLNESS: This is a 68-year-old female patient of Dr. Irwin with past medical history of stage III COPD, chronic hypoxic respiratory failure on home O2, chronic atrial fibrillation, history of CVA in 2003, hyperlipidemia, hypertension. We have been asked to evaluate patient for shortness of breath. Patient presented to the hospital on 01/20/2024 due to epistaxis as her second ER visit for the same. She was admitted to the hospital, status post packing bilateral nasal cavities. Patient was also found to have A-fib with RVR at the time of admission. Patient has been seen by ENT and cleared to resume Xarelto today. Patient states that she simply blew her nose and it started bleeding. She is complaining of weakness generalized and no stamina. She gets early fatigue with minimal activity. She states she sometimes has palpitations. She feels that her condition is slowly getting worse over time. She also has some difficulty in breathing that is also worsening. She denies any fluid retention, no lower extremity edema. Discussed atrial fibrillation and patient has not had any previous electrocardioversion's done. She thinks that she had a Cardiolite stress test done at [facility] a number of years ago. She has no chest pain at this time. Blood pressure 111/68, heart rate 72-102, pulse ox 99% on face tent. Chest x-ray: #1 mild cardiomegaly and diffuse interstitial prominence possibly reflecting mild pulmonary congestion. No airspace consolidation, pleural effusion or pneumothorax. #2 no acute process. Correlate for chronic interstitial lung disease or bronchitis. Laboratory studies: WBC was 11.9 now 8.8, hemoglobin 11.7. Platelet count 178. Sodium 141, potassium 3.6, BUN 26 creatinine 1.04. proBNP 2429. Home cardiac medications: Atorvastatin 40 mg daily, Jardiance 10 mg daily, Lasix 40 mg daily, Toprol-XL 100 mg daily, potassium chloride 20 mill equivalents twice daily, Xarelto 20 mg daily with supper. Echocardiogram performed 10/03/2023 revealed normal EF, mild pulmonary hypertension, estimated RVSP 42 mmHg. 01/23 Patient is scheduled today for Lexiscan stress test. Blood pressure 135/90, heart rate 73, temperature max 100.4. Patient feels tired and breathing seems the same. She had an episode during the night of afib 150 bpm which resolved and was controlled rate. Once she arrived in the stress lab, her heart rates were in the 120-140. Patient was given her usual dose of BB but heart rate did not improve and patient was returned to her room. Since then, nasal packing has been removed and she is now on O2 via n/c. Discussed plan for stress test, amiodarone, and possible cardioversion. 01/25/2024 Patient examined this morning at the bedside. Patient currently denies any chest pain or pressure. She reports improvement in her shortness of breath. She is currently receiving a breathing treatment at the time of examination. She remains in atrial fibrillation with controlled ventricular rate in the 70s. She remains on IV amiodarone. She is scheduled for Lexiscan stress test today. Addendum entered and electronically signed by Fatou Tuttle NP-C 01/25/24 12:45: Lexiscan stress test reveals question of small area of stress-induced reversibility involving the apical lateral myocardium which could be artifactual. Discussed results with Dr. Peterson and patient's primary advanced practice rn, Dr. Irwin. Suspect patients SOB is pulmonary related and worsened by her afib with RVR. Patient without complaints of chest pain or pressure. Will continue to manage patient medically at this time. Continue rate control for atrial fibrillation. No plans for cardiac catheterization at this time. Patient may follow-up postdischarge with Dr. Irwin. If patient continues to have symptoms, will consider cardiac catheterization at that time. 01/26/2024 Patient examined this morning at the bedside. Patient currently denies chest pain or pressure. She denies shortness of breath. Telemetry reveals atrial fibrillation with heart in the 60s to 70s. Patient reports "swishing" sensations in her head this morning. She does report a history of tinnitus and is thinking that some of her symptoms may be due to her tinnitus. 01/27/2024 Patient examined this morning at the bedside. Patient currently denies chest pain or pressure. She denies shortness of breath. She complains of feeling sweaty this morning. Telemetry reveals atrial fibrillation with controlled ventricular rate. 01/29 Cardiology signed off on 1018 but we have been reconsulted due to bradycardia. Patient still complains of shortness of breath and headache. She felt like she had palpitations during the night but she was having bradycardia. Heart rates have been in the high 40s. She is not currently on a beta-oanh. Patient is on amiodarone that was started yesterday at 100 mg daily. PHYSICAL EXAM: VITAL SIGNS: Reviewed. GENERAL: Well-developed in no acute distress. NECK: Supple. No JVD or thyromegaly LUNGS: Respirations even and unlabored. Lungs essentially clear to auscultation bilaterally. HEART: Irregular rate and rhythm. S1 and S2 heard. EXTREMITIES: Normal range of motion. No clubbing or cyanosis. Peripheral pulses intact. No lower extremity edema ASSESSMENT: Epistaxis Permanent atrial fibrillation with RVR, currently rate controlled Bradycardia while sleeping Dyspnea on exertion and early fatigue, suspect pulmonary related worsened by Afib with RVR, can not rule out underlying CAD Chronic hypoxic respiratory failure on home O2 Acute kidney injury History of COPD Hypertension Hyperlipidemia History of CVA Tinnitus PLAN: Continue current cardiac medications Amiodarone t 200 mg daily for 1 week, then decrease to 100 mg Tuesday Avoid AV renetta agents Check TSH level Continue with medical management at this time. No plans for cardiac catheterization Stable for discharge from a cardiac standpoint Patient to follow-up postdischarge with Dr. Irwin We will sign off. Please reconsult if needed. Nurse practitioner note has been reviewed by physician. Signing provider agrees with the documented findings, assessment, and plan of care documented by [employer] as a scribe. Objective - Vital Signs Vital signs: Vital Signs Temp 97.5 F L 01/30/24 04:00 Pulse 49 L 01/30/24 04:00 Resp 19 01/30/24 04:00 BP 115/54 01/30/24 04:00 Pulse Ox 94 L 01/30/24 07:55 FiO2 35 01/23/24 16:15 Intake & Output 01/29/24 01/30/24 01/30/24 18:59 06:59 18:59 Intake Total 20 20 Output Total 700 Balance 20 -680 Intake: IV 20 20 Invasive Line 2 20 20 Output: Urine 700 Other: Voiding Method Bedside Commode Bedside Commode External Catheter External Catheter # Voids 1 # Bowel Movements 1 - Labs CBC & Chem 7: 01/30/24 05:59 01/30/24 05:59 Labs: Abnormal Lab Results - Last 24 Hours (Table) 01/30/24 01/30/24 Range/Units 05:59 05:59 WBC 11.1 H (3.8-10.6) k/uL RBC 3.55 L (3.80-5.40) m/uL Hgb 10.4 L (11.4-16.0) gm/dL MCHC 29.8 L (31.0-37.0) g/dL RDW 17.3 H (11.5-15.5) % Plt Count 137 L (150-450) k/uL Neutrophils # 8.3 H (1.3-7.7) k/uL Sodium 132 L (137-145) mmol/L BUN 44 H (7-17) mg/dL Creatinine 1.37 H (0.52-1.04) mg/dL
--- NOTE | 2024-01-30 15:00 | P.PN ---
Subjective Progress Note Date: 01/30/24 Principal diagnosis: Acute epistaxis Patient is a 68-year-old female with past medical history significant for COPD, chronic oxygen dependence, atrial fibrillation anticoagulated on Xarelto, coronary artery disease, hypertension, hyperlipidemia, obesity. Patient actually presented the emergency department back on 01/20/2024. Reportedly blew her nose and started to have profuse epistaxis bilateral nares. She is anticoagulated on Xarelto for her atrial fibrillation. She was packed in the emergency department. She has been evaluated by ENT. We were consulted as the patient is reporting worsening exertional dyspnea. She is known to have severe COPD with an FEV1 42% of predicted. She is normally maintained on 4 L/min nasal cannula at home. She is currently being evaluated on the observation unit. She has a face tent on with 8 L blow-by. Bilateral nares are packed. No further epistaxis. She denies any wheezing, chest tightness, fevers, cough, sputum production, chest pain. Denies sick contacts. She does report some associated epigastric discomfort which last 10 to 15 minutes mostly with exertion. She becomes lightheaded with exertion as well. No significant lower extremity edema. Recent echocardiogram available September, showing preserved left ventricular ejection fraction of 55 to 60%. Mild elevated RVSP of 40 to. No significant valvular abnormalities reported. Chest x-ray does not show any acute cardiopulmonary process, some chronic interstitial changes. No pleural effusions, pneumothoraces, or focal infiltrates. CBC: WBC count 8.8, hemoglobin 11.7, hematocrit 39, platelets 178. BMP: Sodium 141, potassium 3.6, chloride 103, serum bicarb 32, BUN 26, creatinine 1.04, glucose 148. NT proBNP was elevated at 2429. EKG: Atrial fibrillation with controlled ventricular response, rate 87 bpm, nonspecific ST/T wave changes. Patient is currently being worked up by cardiology, reportedly going to undergo a Lexiscan stress test in the morning. 01/25/2024, the patient is being seen for a follow-up. She is complaining of nasal congestion and stuffiness. No chest pain. No significant shortness of breath. The cardiac stress test was done this morning and the patient has questionable area of stress-induced reversibility in the apical lateral myocardium and this could be potentially artifactual. The patient has atrial fibrillation. Rate is under better control for now. She remains on anticoagulation. Cardiac enzymes are negative and the patient is currently on diuretics. Cardiac catheterization is being considered to be done as an outpatient basis. No significant epistaxis at this point in time. The patient remains on IV amiodarone and this will be switched to oral amiodarone 4 mg p.o. twice a day. The patient remains on metoprolol 150 mg XL 1 tablet a day. She remains on anticoagulation with Xarelto. 01/26/2024, the patient is stable. No new complaints. No interval worsening shortness of breath. She denies having any chest pain or pressure. Her atrial fibrillation is under better control. She is complaining of some tinnitus. She is also used Afrin and nasal saline rinses and this improved her nasal patency. Her breathing seems to be much more comfortable. She is on 3 L of oxygen by nasal cannula with a pulse ox of 98%. She remains on DuoNeb nebulized treatments [id number]. She is on Symbicort as maintenance. She remains on anticoagulation with Xarelto 20 mg p.o. daily. She remains on amiodarone 4 mg p.o. twice daily and metoprolol 150 mg XL 1 tablet a day. She remains on IV cefazolin given to her by ENT. White cell count is at 6.2 with a hemoglobin of 11 and a platelet count of 143. BUN 35 creatinine 1.38 and a sodium levels at 131. Renal function slightly worse compared to 2 days ago. 01/27/2024, the patient is being seen for a follow-up. Resting comfortably in bed. No significant chest pain or shortness of breath. She remains on 4 L of oxygen by nasal cannula. No cough. No sputum production. No other new complaints otherwise for now. White cell count of 6.2 with a hemoglobin 11 and this is from yesterday. Rest of the electrolytes from today shows a BUN of 40 with a creatinine of 1.4 and a potassium level of 4.7 and a sodium levels at 134. Medication remains unchanged. Cardiac rhythm is atrial fibrillation and the rate is controlled and the patient remains on anticoagulation with Xarelto. The patient remains on amiodarone 4 mg p.o. twice a day metoprolol 150 mg p.o. daily. She remains on Symbicort and DuoNeb updrafts. She is also on nasal s audi rinses and Afrin as needed. 01/28/2024, the patient is feeling weak and debilitated. Overall respiratory status remains unchanged. No interval worsening shortness of breath. She remains on 4 L of oxygen by nasal cannula. She remains on Symbicort and DuoNebs about treatments [id number]. She remains on anticoagulation with Eliquis. Labs from today shows a stable creatinine of 1.35 with a BUN of 42. Serum bicarb is at 21. Sodium levels at 131. No other significant events over the past 24 hours. 01/29/2024, no new complaints. Oxygenation remains stable on 4 L with a pulse o x of 98%. No significant tachypnea or shortness of breath at rest. Afebrile. No chest pain. Electrolytes remain stable with a BUN of 42 and a creatinine of 1.35 and a sodium levels at 131. Still feeling weak. Maintains anticoagulation with Xarelto. Maintains on amiodarone 100 mg p.o. daily and rest of the medications remain unchanged. Patient was evaluated today on 01/30/2024, she seems to be quite comfortable, not in distress, however the patient is quite weak and complaining of profound weakness and cannot do much of anything. As [id number] she is so weak that she is requesting hospice evaluation. Patient is not so crazy about the idea of going to rehab. WBC count is 11.1 hemoglobin 10.4 basic metabolic profile is normal renal profile is normal except for creatinine of 1.37 her GFR is in the range of 40, patient had an equivocal stress test, cardiology is addressing acco rdingly. Cardiology is addressing her bradycardia and atrial fibrillation, patient does have underlying history of COPD. Severity of which is not clear to me at this point Objective - Vital Signs Vital signs: Vital Signs Temp 97.5 F L 01/30/24 04:00 Pulse 56 L 01/30/24 12:00 Resp 18 01/30/24 12:00 BP 126/74 01/30/24 12:00 Pulse Ox 95 01/30/24 12:00 FiO2 35 01/23/24 16:15 Intake & Output 01/29/24 01/30/24 01/30/24 18:59 06:59 18:59 Intake Total 20 20 490 Output Total 700 Balance 20 -680 490 Intake: IV 20 20 10 Invasive Line 2 20 20 10 Oral 480 Output: Urine 700 Other: Voiding Method Bedside Commode Bedside Commode Bedside Commode External Catheter External Catheter External Catheter # Voids 1 # Bowel Movements 1 - Exam GENERAL EXAM: 68-year-old in no distress, on 4 L nasal cannula with O2 sat is 95% HEAD: Normocephalic and atraumatic EYES: Normal reaction of pupils, equal size. NOSE: Nasal packing bilateral naris, no further bleeding THROAT: No erythema or exudates. NECK: No masses, no JVD. CHEST: No chest wall deformity. LUNGS: Diminished breath sounds at the bases no crackles rhonchi or wheezes CVS: S1 and S2 normal with no audible murmur, irregular rhythm. No extra heart sounds ABDOMEN: No hepatosplenomegaly, active bowel sounds, no guarding or rigidity. SKIN: No rashes CENTRAL NERVOUS SYSTEM: Alert and oriented x 3 no gross focal deficit EXTREMITIES: No clubbing edema or cyanosis, patient had some digits missing second and third on the left hand - Labs CBC & Chem 7: 01/30/24 05:59 01/30/24 05:59 Labs: Abnormal Lab Results - Last 24 Hours (Table) 01/30/24 01/30/24 Range/Units 05:59 05:59 WBC 11.1 H (3.8-10.6) k/uL RBC 3.55 L (3.80-5.40) m/uL Hgb 10.4 L (11.4-16.0) gm/dL MCHC 29.8 L (31.0-37.0) g/dL RDW 17.3 H (11.5-15.5) % Plt Count 137 L (150-450) k/uL Neutrophils # 8.3 H (1.3-7.7) k/uL Sodium 132 L (137-145) mmol/L BUN 44 H (7-17) mg/dL Creatinine 1.37 H (0.52-1.04) mg/dL Assessment and Plan Assessment: Impression: Epistaxis, resolved Acute on chronic dyspnea, patient has underlying COPD Chest pain with questionable induced reversible ischemia on Lexiscan and the patient is being considered for an outpatient cardiac catheterization. Cardiology is reevaluating Severe chronic obstructive pulmonary disease, with an FEV1 41% of predicted, appears stable on my examination Chronic hypoxemic respiratory failure, normally maintained on 4 L/min nasal cannula while at home, currently on 4 L of oxygen by nasal cannula Chronic atrial fibrillation, on anticoagulated on Xarelto, which has been resumed History of coronary artery disease History of hypertension History of hyperlipidemia Obesity, with a BMI of 39.1 kg/m Recommendation: Continue present supportive care measures Continue bronchodilators for her severe COPD Continue amiodarone for atrial fibrillation Consider ECF placement Continue to monitor renal profile Will continue to follow. Time with Patient: Less than 30
[2024-01-31 07:11] LABS: African American GFR (CKD) 61 (>60 ml/min/1.73 sqM); Anion Gap 5 mmol/L; Blood Urea Nitrogen 35 mg/dL (7-17); Calcium 8.3 mg/dL (8.4-10.2); Carbon Dioxide 29 mmol/L (22-30); Chloride 102 mmol/L (98-107); Glucose 88 mg/dL (74-99); Magnesium 1.8 mg/dL (1.6-2.3); Non-African American GFR(CKD) 53 (>60 ml/min/1.73 sqM); Potassium 3.8 mmol/L (3.5-5.1); Sodium 136 mmol/L (137-145)
--- NOTE | 2024-01-31 10:26 | P.PN ---
Subjective Patient is seen in follow-up for acute kidney injury. Renal function better. Now on 3 L nasal cannula. Blood pressure stable. Admits to good urine output. Denies chest pain. Vital signs are stable. General: No acute distress. HEENT: Head exam is unremarkable. On nasal cannula. LUNGS: Wheezing present. HEART: Rate and Rhythm are regular. ABDOMEN: Nontender. EXTREMITITES: Trace edema. Objective - Vital Signs Vital signs: Vital Signs Temp 97.3 F L 01/31/24 08:10 Pulse 51 L 01/31/24 08:10 Resp 17 01/31/24 08:10 BP 110/61 01/31/24 08:10 Pulse Ox 97 01/31/24 08:49 FiO2 35 01/23/24 16:15 Intake & Output 01/30/24 01/31/24 01/31/24 18:59 06:59 18:59 Intake Total 500 10 Output Total 700 Balance 500 -690 Weight 93 kg Intake: IV 20 10 Invasive Line 2 20 10 Oral 480 Output: Urine 700 Other: Voiding Method Bedside Commode Bedside Commode Bedside Commode External Catheter External Catheter External Catheter # Voids 3 - Labs CBC & Chem 7: 01/30/24 05:59 01/31/24 06:26 Labs: Abnormal Lab Results - Last 24 Hours (Table) 01/31/24 Range/Units 06:26 Sodium 136 L (137-145) mmol/L BUN 35 H (7-17) mg/dL Creatinine 1.09 H (0.52-1.04) mg/dL Calcium 8.3 L (8.4-10.2) mg/dL Assessment and Plan Plan: Assessment: 1. Acute kidney injury secondary to ATN secondary to hypotension. Renal function better. Creatinine 1.09. UA benign. No hydronephrosis noted on kidney ultrasound. 2. Acute on chronic diastolic CHF. 3. A-fib with RVR. Now rate controlled. 4. Acute COPD exacerbation. Now on 3 L nasal cannula. 5. Chest pain with evidence of stress-induced reversibility noted on stress test. Plans for cardiac cath outpatient. Plan: Maintain Farxiga. Maintain Lasix. Add maintenance potassium supplementation. Avoid nephrotoxins. Continue to monitor renal function and urine output. Follow-up outpatient 1 week postdischarge. Repeat BMP and magnesium level 2 to 3 days postdischarge.
--- NOTE | 2024-01-31 10:32 | P.PN ---
Subjective Progress Note Date: 01/30/24 This is a pleasant 68 years old female with past medical history of multiple medical problems including history of atrial fibrillation on Xarelto, CHF, currently euvolemic. She follows up with Dr. Irwin. 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 Wynn, she is on 4 L oxygen via nasal cannula. She denies trauma or falling. Patient presents because of episodes of epistaxis started Tuesday morning at 3:00 AM, she woke up and blew her nose after the start of bleeding, she used personal packing with no much help so she came to the emergency room. Bilateral nasal packing has to be placed. Patient on Xarelto at home which is held now She was admitted with a ENT consultation Because she cannot use nasal cannula she was placed on Ventimask/nonrebreather, she is currently denies any dyspnea. Although she has chronic shortness of breath and mild dry coughing, there is no recent worsening and on examination there is no evidence of wheezing or basal crepitation. Also has no leg edema. No chest pain. No other GI/ symptoms. She states she quit smoking about 2 months ago. Also she saw her tire worker Dr. Wynn about 2 months ago. She denies alcohol or illicit drugs. She has a chronic headache which is told it is related to her degenerative cervical disc disease, she states she is using Tylenol Extra Strength but she denies using any NSAIDs Motrin or any other blood thinner On examination she is hemodynamically stable. She is tachycardic with heart rate around 118-122. She is afebrile. No labs during this admission, however labs done yesterday morning showing WBC of 11.2, rest of CBC is unremarkable. INR is 1.4 INR is 1.3, baseline 0.8-0.9. High lactic acid came back to normal. Troponin x 2 are negative. Liver enzymes mildly elevated but bilirubin is normal. Urine analysis showing glucosuria but no ketonuria. However there is infection suspected in her urine analysis. Echo on 09/2023 showing ejection fraction 55 to 60% 01/21 Patient with no more epistaxis, nasal packing in place Patient evaluated by ENT service, pack removed, no evidence of nasal bleeding ENT service cleared the patient to resume Xarelto tomorrow Creatinine stable at 1.2 01/22 Patient will bilateral intranasal PET scan were discontinued yesterday by ENT service team, she has external nasal packing which is in place, no soaked with blood, no bleeding which is stopped now, Xarelto was resumed tonight per ENT team recommendation Patient today however she did not feel comfortable, she is complaining from little tachypnea and exertional dyspnea, she is on mask for mouth breather as she has nasal packing, she is requiring 8 liters per minute, compared to 4 L/min at home via nasal cannula. Chest x-ray is suspicious for prominence of interstitial markings, CHF exacerbation is suspected, 1 dose of IV Lasix provided. Patient continued on oral Lasix 40 mg daily, proBNP is elevated. Cardiology team consulted who requested stress test tomorrow. Bronchitis also suspected per radiologist, we will check pro- Calcitonin on consult tire worker as well. 01/23 Patient today was getting more complication. She underwent stress test but she could not finish the test because of her tachycardia and she was to be transferred to higher level of care at [facility] because her tachycardia switched to A-fib and RVR, she was started on amiodarone drip and currently heart rate is better. Xarelto is already resumed. All this care done with cardiology team on the case She had low-grade fever today of 100.4. But procalcitonin is negative indicating away from pneumonia. Most likely the source is her nasal lesion status post packing which is removed now. She is already on cefazolin and will continue monitoring for now. She remains close monitoring 01/24 Patient today she is mildly tachypneic while at rest, she is back to nasal cannula with oxygen requirement about 4 L. No evidence of wheezing She underwent Lexiscan stress test today: Reviewing of the stress test showing questionable reversibility involving the apical lateral myocardium which may be artifactual. Recommend correlation clinically. Normal wall motion with estimated EF 93% per report cardiology team decided to treat the patient medically and follow-up with Dr. Irwin in 1 week if she still symptomatic then may consider cardiac cath I discussed the case with pulmonary service, no active pulmonary disease right now Patient amiodarone drip was stopped and started on pill form for an milligram twice daily Possible discharge in 24 to 48 hours 01/25 Patient today she states to still not feeling better, her main concerns are dizziness with exertion, she describes like presyncope. However patient explains to me today that she forgot to tell us she has dizziness for months about 2 months now and she has some tinnitus in both ears with some degree of hearing loss and ringing sound for several months. She even forgot to mention that to Dr. Tavera from ENT. But her exertional dizziness that she is worried about now. Also she feels like her breathing is still little bit difficult. She denies chest pain. She denies any other new complaint Vitals look stable, blood pressure is borderline and she was little hypotensive in the last few days. Her creatinine bumped up a little at 1.38. Urine analysis was unremarkable other than little glucose. Bladder scan checked twice and there is no retention. There is no nephrotoxic agents when I reviewed the medication. Patient currently heart rate controlled with amiodarone and metoprolol. 01/26 I called her insurance provider and i did peer to peer review , and discussed the case with them 01/28/2024 Yesterday patient was rejected by peer to peer review Today she is breathing quietly, no specific complaint Her creatinine is going down slowly 1.4 down to 1.3, she does not need diuretics today She is currently on amiodarone 400 mg twice daily and metoprolol 150 mg, she is switched to sinus rhythm and then developed bradycardia with heart rate in the 30s. Therefore we are going to consult cardiology again because they signed off the case already. Patient looks fatigued and tired and exhausted She is still suffering from fluctuating heart rate regarding her A-fib. Amiodarone 100 mg was started today by returned item clerk [facility] recommend to start diuretic tomorrow Patient feels weak to go home. I did peer to peer with her medical insurance provider and case was rejected because she did well on her last therapy. We going to reconsult physical therapy evaluation tomorrow did not is any changes. 01/30/2024 Patient is seen and evaluated in follow-up with multiple consultations following including cardiology and pulmonary. Patient and nursing staff reports cardiology made adjustments to medications recommending to continue with current medications and has signed off of the case recommending outpatient follow-up. Patient continues to have episodes of bradycardia and reports continued symptoms of dizziness, lightheadedness, weakness. Patient was evaluated by physical therapy recommending rehab and patient was agreeable although insurance rejected the insurance authorization. Case management is following working on appeal as patient lives alone and is a high risk for falls and would benefit from some strength and mobility. Patient also reports she has not been sleeping very well at night and has had some diarrhea. Nursing staff reports there was no diarrhea noted. Patient is afebrile continues with shortness of breath although reports it is slightly improved from admission although did report she continues to become extremely dyspneic requiring breaks and rest periods when getting up to the side of the bed and position changes. Will discuss with other consultations regarding discharge planning. Probable discharge in the next 24 to 48 hours. Continue to hold anticoagulation for now and will follow-up with cardiology outpatient. ENT follow-up as well. Diuretics are on hold. Review of systems: Constitutional: No reports of fatigue, fever, or chills Cardiovascular: No reports of chest pain or palpitations Respiratory: No reports of shortness of breath or cough GI: No reports of nausea, vomiting, or diarrhea : No reports of dysuria or retention Neurovascular: reports of weakness and inability to ambulate All medications have been reviewed Physical exam: GENERAL: The patient is alert and oriented x3, not in any acute distress. Well developed, well nourished. HEENT: Pupils are round and equally reacting to light. EOMI. No scleral icterus. No conjunctival pallor. Normocephalic, atraumatic. No pharyngeal erythema. No thyromegaly. CARDIOVASCULAR: S1 and S2 present. No murmurs, rubs, or gallops. PULMONARY: Chest is clear to auscultation, no wheezing , no crackles. ABDOMEN: Soft, nontender, nondistended, normoactive bowel sounds. No palpable organomegaly. MUSCULOSKELETAL: No joint swelling or deformity. EXTREMITIES: No cyanosis, clubbing, or pedal edema. NEUROLOGICAL: Gross neurological examination did not reveal any focal deficits. SKIN: No rashes. no petechiae. Assessment: Bilateral epistaxis status post bilateral nasal packing which is removed. Bleeding stopped now hemoglobin remained stable Acute kidney injury could be secondary to above, Dyspnea could be acute CHF versus coronary artery disease versus bronchitis A-fib with RVR, present on admission. Also happened after stress test, currently rate controlled Chest pain, ruled out ACS Acute on chronic CHF without acute exacerbation. ejection fraction is preserved COPD without acute exacerbation Acute on chronic chronic hypoxic respiratory failure Chronic leukocytosis Obesity with BMI 39.1 GI prophylaxis DVT prophylaxis Full code Plan: Life Educator will treat the patient conservatively after questionable abnormal stress test with recommendation to follow-up with Dr. Irwin in 1 week to assess for possible cardiac cath Since patient will require cardiac cath and creatinine went up little bit and patient still feels not well we will going to consult nephrology team. Nephrology following continued to hold diuretics at this time and will follow-up with cardiology in the outpatient setting. Cardiology has signed off of the case recommending to continue with current medication regimen. resumed Xarelto on 01/22 with no further bleeding noted continue with oxygen as she chronically wears oxygen ENT consult for epistaxis which is stopped now. Patient describes has some tinnitus which is chronic, patient instructed to follow-up with ENT as an outpatient and she agrees Pulmonary team consult Patient initially evaluated by PT/OT therapy recommending rehab and patient was agreeable although was denied by insurance and attempted a peer to peer which was denied and case management is following and has submitted for appeal. Patient is now discussing not wanting to go to rehab and possibly discussing hospice with residential home care which she is already established. Hospice consult placed for informational and will follow-up with patient in the a.m. Due to multiple complex medical issues, overall prognosis is guarded The impression and plan of care has been dictated by Nataliia Schmidt, Nurse Practitioner as directed. Dr. Romel MD I have performed a history and examination and MDM of this patient, discussed th e same with the dictator, and agree with the dictator's assessment and plan as written ,documented as a scribe. Based on total visit time, I have performed more than 50% of the visit. Objective - Vital Signs Vital signs: Vital Signs Temp 97.5 F L 01/30/24 04:00 Pulse 52 L 01/30/24 08:00 Resp 19 01/30/24 08:00 BP 129/84 01/30/24 08:00 Pulse Ox 95 01/30/24 08:00 FiO2 35 01/23/24 16:15 Intake & Output 01/29/24 01/30/24 01/30/24 18:59 06:59 18:59 Intake Total 20 20 Output Total 700 Balance 20 -680 Intake: IV 20 20 Invasive Line 2 20 20 Output: Urine 700 Other: Voiding Method Bedside Commode Bedside Commode External Catheter External Catheter # Voids 1 # Bowel Movements 1 - Labs CBC & Chem 7: 01/30/24 05:59 01/31/24 06:26 Labs: Abnormal Lab Results - Last 24 Hours (Table) 01/30/24 01/30/24 Range/Units 05:59 05:59 WBC 11.1 H (3.8-10.6) k/uL RBC 3.55 L (3.80-5.40) m/uL Hgb 10.4 L (11.4-16.0) gm/dL MCHC 29.8 L (31.0-37.0) g/dL RDW 17.3 H (11.5-15.5) % Plt Count 137 L (150-450) k/uL Neutrophils # 8.3 H (1.3-7.7) k/uL Sodium 132 L (137-145) mmol/L BUN 44 H (7-17) mg/dL Creatinine 1.37 H (0.52-1.04) mg/dL
[2024-01-31] MEDS: POTASSIUM CHLORIDE ER 10 MEQ TAB.ER.PRT PO SCH (11:27)
--- NOTE | 2024-01-31 14:36 | P.PN ---
Subjective Progress Note Date: 01/31/24 Principal diagnosis: Acute epistaxis Patient is a 68-year-old female with past medical history significant for COPD, chronic oxygen dependence, atrial fibrillation anticoagulated on Xarelto, coronary artery disease, hypertension, hyperlipidemia, obesity. Patient actually presented the emergency department back on 01/20/2024. Reportedly blew her nose and started to have profuse epistaxis bilateral nares. She is anticoagulated on Xarelto for her atrial fibrillation. She was packed in the emergency department. She has been evaluated by ENT. We were consulted as the patient is reporting worsening exertional dyspnea. She is known to have severe COPD with an FEV1 42% of predicted. She is normally maintained on 4 L/min nasal cannula at home. She is currently being evaluated on the observation unit. She has a face tent on with 8 L blow-by. Bilateral nares are packed. No further epistaxis. She denies any wheezing, chest tightness, fevers, cough, sputum production, chest pain. Denies sick contacts. She does report some associated epigastric discomfort which last 10 to 15 minutes mostly with exertion. She becomes lightheaded with exertion as well. No significant lower extremity edema. Recent echocardiogram available September, showing preserved left ventricular ejection fraction of 55 to 60%. Mild elevated RVSP of 40 to. No significant valvular abnormalities reported. Chest x-ray does not show any acute cardiopulmonary process, some chronic interstitial changes. No pleural effusions, pneumothoraces, or focal infiltrates. CBC: WBC count 8.8, hemoglobin 11.7, hematocrit 39, platelets 178. BMP: Sodium 141, potassium 3.6, chloride 103, serum bicarb 32, BUN 26, creatinine 1.04, glucose 148. NT proBNP was elevated at 2429. EKG: Atrial fibrillation with controlled ventricular response, rate 87 bpm, nonspecific ST/T wave changes. Patient is currently being worked up by cardiology, reportedly going to undergo a Lexiscan stress test in the morning. 01/25/2024, the patient is being seen for a follow-up. She is complaining of nasal congestion and stuffiness. No chest pain. No significant shortness of breath. The cardiac stress test was done this morning and the patient has questionable area of stress-induced reversibility in the apical lateral myocardium and this could be potentially artifactual. The patient has atrial fibrillation. Rate is under better control for now. She remains on anticoagulation. Cardiac enzymes are negative and the patient is currently on diuretics. Cardiac catheterization is being considered to be done as an outpatient basis. No significant epistaxis at this point in time. The patient remains on IV amiodarone and this will be switched to oral amiodarone 4 mg p.o. twice a day. The patient remains on metoprolol 150 mg XL 1 tablet a day. She remains on anticoagulation with Xarelto. 01/26/2024, the patient is stable. No new complaints. No interval worsening shortness of breath. She denies having any chest pain or pressure. Her atrial fibrillation is under better control. She is complaining of some tinnitus. She is also used Afrin and nasal saline rinses and this improved her nasal patency. Her breathing seems to be much more comfortable. She is on 3 L of oxygen by nasal cannula with a pulse ox of 98%. She remains on DuoNeb nebulized treatments [id number]. She is on Symbicort as maintenance. She remains on anticoagulation with Xarelto 20 mg p.o. daily. She remains on amiodarone 4 mg p.o. twice daily and metoprolol 150 mg XL 1 tablet a day. She remains on IV cefazolin given to her by ENT. White cell count is at 6.2 with a hemoglobin of 11 and a platelet count of 143. BUN 35 creatinine 1.38 and a sodium levels at 131. Renal function slightly worse compared to 2 days ago. 01/27/2024, the patient is being seen for a follow-up. Resting comfortably in bed. No significant chest pain or shortness of breath. She remains on 4 L of oxygen by nasal cannula. No cough. No sputum production. No other new complaints otherwise for now. White cell count of 6.2 with a hemoglobin 11 and this is from yesterday. Rest of the electrolytes from today shows a BUN of 40 with a creatinine of 1.4 and a potassium level of 4.7 and a sodium levels at 134. Medication remains unchanged. Cardiac rhythm is atrial fibrillation and the rate is controlled and the patient remains on anticoagulation with Xarelto. The patient remains on amiodarone 4 mg p.o. twice a day metoprolol 150 mg p.o. daily. She remains on Symbicort and DuoNeb updrafts. She is also on nasal s audi rinses and Afrin as needed. 01/28/2024, the patient is feeling weak and debilitated. Overall respiratory status remains unchanged. No interval worsening shortness of breath. She remains on 4 L of oxygen by nasal cannula. She remains on Symbicort and DuoNebs about treatments [id number]. She remains on anticoagulation with Eliquis. Labs from today shows a stable creatinine of 1.35 with a BUN of 42. Serum bicarb is at 21. Sodium levels at 131. No other significant events over the past 24 hours. 01/29/2024, no new complaints. Oxygenation remains stable on 4 L with a pulse o x of 98%. No significant tachypnea or shortness of breath at rest. Afebrile. No chest pain. Electrolytes remain stable with a BUN of 42 and a creatinine of 1.35 and a sodium levels at 131. Still feeling weak. Maintains anticoagulation with Xarelto. Maintains on amiodarone 100 mg p.o. daily and rest of the medications remain unchanged. Patient was evaluated today on 01/30/2024, she seems to be quite comfortable, not in distress, however the patient is quite weak and complaining of profound weakness and cannot do much of anything. As [id number] she is so weak that she is requesting hospice evaluation. Patient is not so crazy about the idea of going to rehab. WBC count is 11.1 hemoglobin 10.4 basic metabolic profile is normal renal profile is normal except for creatinine of 1.37 her GFR is in the range of 40, patient had an equivocal stress test, cardiology is addressing acco rdingly. Cardiology is addressing her bradycardia and atrial fibrillation, patient does have underlying history of COPD. Severity of which is not clear to me at this point Patient was seen today on 01/31/2024, she has no active pulmonary symptoms but she feels generally weak and tired, and tells me that she is so weak that she cannot get out of bed. Explained to the patient that she does have COPD FEV1 is in the range of 42%, but that does not explain her weakness. And I believe the patient will benefit from rehab placement however she was declined to go to rehab by her insurance. In the meantime I am recommending that she remains on bronchodilators as she already is, and pulmonary angel I will clear the patient for discharge if cleared by other consultants including cardiology and ne phrology on the case. Labs today were reviewed she had a relatively normal basic metabolic profile creatinine is down to 1.09, thyroid profile is normal. CBC yesterday was unremarkable except for anemia with a hemoglobin of 10.4. Objective - Vital Signs Vital signs: Vital Signs Temp 97.3 F L 01/31/24 08:10 Pulse 55 L 01/31/24 12:00 Resp 18 01/31/24 12:00 BP 113/80 01/31/24 12:00 Pulse Ox 98 01/31/24 12:00 FiO2 35 01/23/24 16:15 Intake & Output 01/30/24 01/31/24 01/31/24 18:59 06:59 18:59 Intake Total 500 10 358 Output Total 700 Balance 500 -690 358 Weight 93 kg Intake: IV 20 10 Invasive Line 2 20 10 Oral 480 358 Output: Urine 700 Other: Voiding Method Bedside Commode Bedside Commode Bedside Commode External Catheter External Catheter External Catheter # Voids 3 - Exam GENERAL EXAM: 68-year-old in no distress, on 3 L nasal cannula with O2 sats of 98 to 99% HEAD: Normocephalic and atraumatic EYES: Normal reaction of pupils, equal size. NOSE: Unremarkable. THROAT: No erythema or exudates. NECK: No masses, no JVD. CHEST: No chest wall deformity. LUNGS: Diminished breath sound bilaterally no rackles rhonchi or wheezes CVS: S1 and S2 normal with no audible murmur, irregular rhythm. No extra heart sounds ABDOMEN: No hepatosplenomegaly, active bowel sounds, no guarding or rigidity. SKIN: No rashes CENTRAL NERVOUS SYSTEM: Alert and oriented x 3 no gross focal deficit EXTREMITIES: No clubbing edema or cyanosis, patient had some digits missing second and third on the left hand - Labs CBC & Chem 7: 01/30/24 05:59 01/31/24 06:26 Labs: Abnormal Lab Results - Last 24 Hours (Table) 01/31/24 Range/Units 06:26 Sodium 136 L (137-145) mmol/L BUN 35 H (7-17) mg/dL Creatinine 1.09 H (0.52-1.04) mg/dL Calcium 8.3 L (8.4-10.2) mg/dL Assessment and Plan Assessment: Impression: Generalized weakness patient continues to complain of profoundly weak Epistaxis, resolved Acute on chronic dyspnea, patient has underlying COPD, improved but the patient is complaining of weakness Chest pain with questionable induced reversible ischemia on Lexiscan cardiology is recommending outpatient follow-up with Dr. Irwin Severe chronic obstructive pulmonary disease, with an FEV1 41% of predicted, appears stable on my examination Chronic hypoxemic respiratory failure, on home O2 Chronic atrial fibrillation, on anticoagulated on Xarelto History of coronary artery disease History of hypertension History of hyperlipidemia Obesity, with a BMI of 39.1 kg/m Recommendation: Will clear the patient for discharge if cleared by other consultants Patient will need a weakness workup on outpatient basis by her primary care physician Continue present supportive care measures Continue bronchodilators for her severe COPD, based on physical examination, the patient does not need to be on systemic steroids Continue amiodarone for atrial fibrillation Not much to be added from our perspective, will follow as needed Time with Patient: Less than 30
--- NOTE | 2024-01-31 14:52 | P.PN ---
Subjective Progress Note Date: 01/31/24 This is a pleasant 68 years old female with past medical history of multiple medical problems including history of atrial fibrillation on Xarelto, CHF, currently euvolemic. She follows up with Dr. Irwin. She has history of COPD her drum sprayer is Dr. Wynn, she is on 4 L oxygen via nasal cannula. She denies trauma or falling. Patient presents because of episodes of epistaxis started Tuesday morning at 3:00 AM, she woke up and blew her nose after the start of bleeding, she used personal packing with no much help so she came to the emergency room. Bilateral nasal packing has to be placed. Patient on Xarelto at home which is held now She was admitted with a ENT consultation Because she cannot use nasal cannula she was placed on Ventimask/nonrebreather, she is currently denies any dyspnea. Although she has chronic shortness of breath and mild dry coughing, there is no recent worsening and on examination there is no evidence of wheezing or basal crepitation. Also has no leg edema. No chest pain. No other GI/ symptoms. She states she quit smoking about 2 months ago. Also she saw her drum sprayer Dr. Wynn about 2 months ago. She denies alcohol or illicit drugs. She has a chronic headache which is told it is related to her degenerative cervical disc disease, she states she is using Tylenol Extra Strength but she denies using any NSAIDs Motrin or any other blood thinner On examination she is hemodynamically stable. She is tachycardic with heart rate around 118-122. She is afebrile. No labs during this admission, however labs done yesterday morning showing WBC of 11.2, rest of CBC is unremarkable. INR is 1.4 INR is 1.3, baseline 0.8-0.9. High lactic acid came back to normal. Troponin x 2 are negative. Liver enzymes mildly elevated but bilirubin is normal. Urine analysis showing glucosuria but no ketonuria. However there is infection suspected in her urine analysis. Echo on 09/2023 showing ejection fraction 55 to 60% 01/21 Patient with no more epistaxis, nasal packing in place Patient evaluated by ENT service, pack removed, no evidence of nasal bleeding ENT service cleared the patient to resume Xarelto tomorrow Creatinine stable at 1.2 01/22 Patient will bilateral intranasal PET scan were discontinued yesterday by ENT service team, she has external nasal packing which is in place, no soaked with blood, no bleeding which is stopped now, Xarelto was resumed tonight per ENT team recommendation Patient today however she did not feel comfortable, she is complaining from little tachypnea and exertional dyspnea, she is on mask for mouth breather as she has nasal packing, she is requiring 8 liters per minute, compared to 4 L/min at home via nasal cannula. Chest x-ray is suspicious for prominence of interstitial markings, CHF exacerbation is suspected, 1 dose of IV Lasix provided. Patient continued on oral Lasix 40 mg daily, proBNP is elevated. Cardiology team consulted who requested stress test tomorrow. Bronchitis also suspected per radiologist, we will check pro- Calcitonin on consult drum sprayer as well. 01/23 Patient today was getting more complication. She underwent stress test but she could not finish the test because of her tachycardia and she was to be transferred to higher level of care at [facility] because her tachycardia switched to A-fib and RVR, she was started on amiodarone drip and currently heart rate is better. Xarelto is already resumed. All this care done with cardiology team on the case She had low-grade fever today of 100.4. But procalcitonin is negative indicating away from pneumonia. Most likely the source is her nasal lesion status post packing which is removed now. She is already on cefazolin and will continue monitoring for now. She remains close monitoring 01/24 Patient today she is mildly tachypneic while at rest, she is back to nasal cannula with oxygen requirement about 4 L. No evidence of wheezing She underwent Lexiscan stress test today: Reviewing of the stress test showing questionable reversibility involving the apical lateral myocardium which may be artifactual. Recommend correlation clinically. Normal wall motion with estimated EF 93% per report cardiology team decided to treat the patient medically and follow-up with Dr. Irwin in 1 week if she still symptomatic then may consider cardiac cath I discussed the case with pulmonary service, no active pulmonary disease right now Patient amiodarone drip was stopped and started on pill form for an milligram twice daily Possible discharge in 24 to 48 hours 01/25 Patient today she states to still not feeling better, her main concerns are dizziness with exertion, she describes like presyncope. However patient explains to me today that she forgot to tell us she has dizziness for months about 2 months now and she has some tinnitus in both ears with some degree of hearing loss and ringing sound for several months. She even forgot to mention that to Dr. Tavera from ENT. But her exertional dizziness that she is worried about now. Also she feels like her breathing is still little bit difficult. She denies chest pain. She denies any other new complaint Vitals look stable, blood pressure is borderline and she was little hypotensive in the last few days. Her creatinine bumped up a little at 1.38. Urine analysis was unremarkable other than little glucose. Bladder scan checked twice and there is no retention. There is no nephrotoxic agents when I reviewed the medication. Patient currently heart rate controlled with amiodarone and metoprolol. 01/26 I called her insurance provider and i did peer to peer review , and discussed the case with them 01/28/2024 Yesterday patient was rejected by peer to peer review Today she is breathing quietly, no specific complaint Her creatinine is going down slowly 1.4 down to 1.3, she does not need diuretics today She is currently on amiodarone 400 mg twice daily and metoprolol 150 mg, she is switched to sinus rhythm and then developed bradycardia with heart rate in the 30s. Therefore we are going to consult cardiology again because they signed off the case already. Patient looks fatigued and tired and exhausted She is still suffering from fluctuating heart rate regarding her A-fib. 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 I did peer to peer with her medical insurance provider and case was rejected because she did well on her last therapy. We going to reconsult physical therapy evaluation tomorrow did not is any changes. 01/30/2024 Patient is seen and evaluated in follow-up with multiple consultations following including cardiology and pulmonary. Patient and nursing staff reports cardiology made adjustments to medications recommending to continue with current medications and has signed off of the case recommending outpatient follow-up. Patient continues to have episodes of bradycardia and reports continued symptoms of dizziness, lightheadedness, weakness. Patient was evaluated by physical therapy recommending rehab and patient was agreeable although insurance rejected the insurance authorization. Case management is following working on appeal as patient lives alone and is a high risk for falls and would benefit from some strength and mobility. Patient also reports she has not been sleeping very well at night and has had some diarrhea. Nursing staff reports there was no diarrhea noted. Patient is afebrile continues with shortness of breath although reports it is slightly improved from admission although did report she continues to become extremely dyspneic requiring breaks and rest periods when getting up to the side of the bed and position changes. Will discuss with other consultations regarding discharge planning. Probable discharge in the next 24 to 48 hours. Continue to hold anticoagulation for now and will follow-up with cardiology outpatient. ENT follow-up as well. Diuretics are on hold. 01/31/2024 Patient is seen in follow-up today reporting she feels about the same although slightly improved and her breathing. Patient will be following up and has requested a hospice consult with her residential home care. Patient plans on going home with hospice and will arrange for other services at home. Patient does not want to go to rehab. Insurance authorization has denied the patient to go to rehab and appeal was in place and pending at this time. Patient is afebrile with no reports of worsening shortness of breath and denies any chest pain or palpitations. Patient reports to tolerating diet although reports not much of an appetite. Plan for discharge in the next 24 hours or so. Review of systems: Constitutional: No reports of fatigue, fever, or chills Cardiovascular: No reports of chest pain or palpitations Respiratory: No reports of worsening shortness of breath or cough GI: No reports of nausea, vomiting, or diarrhea, reports not much of an appetite : No reports of dysuria or retention Neurovascular: reports of weakness and inability to ambulate very far without becoming short of breath All medications have been reviewed Physical exam: GENERAL: The patient is alert and oriented x3, not in any acute distress. Well developed, elderly appearing, ill-appearing, obese HEENT: Pupils are round and equally reacting to light. EOMI. No scleral icterus. No conjunctival pallor. Normocephalic, atraumatic. No pharyngeal erythema. No thyromegaly. CARDIOVASCULAR: S1 and S2 muffled, irregular PULMONARY: Diminished breath sounds bilaterally with minimal expiratory wheezing , coarse rhonchi noted ABDOMEN: Soft, obese. Nontender, nondistended, normoactive bowel sounds. No palpable organomegaly. MUSCULOSKELETAL: No joint swelling or deformity. EXTREMITIES: No cyanosis, clubbing, or pedal edema. NEUROLOGICAL: Gross neurological examination did not reveal any focal deficits. Diffusely weak SKIN: No rashes. no petechiae. Assessment: Bilateral epistaxis status post bilateral nasal packing which is removed. Bleeding stopped now hemoglobin remained stable, has been resumed on Xarelto Acute kidney injury could be secondary to above, Dyspnea could be acute CHF versus coronary artery disease versus bronchitis A-fib with RVR, present on admission. Also happened after stress test, currently rate controlled Chest pain, ruled out ACS Acute on chronic CHF without acute exacerbation. 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 Irwin in 1 week to assess for possible cardiac cath Since patient will require cardiac cath and creatinine went up little bit and patient still feels not well we will going to consult nephrology team. Nephrology following continued to hold diuretics at this time and will follow-up with cardiology in the outpatient setting. Cardiology has signed off of the case recommending to continue with current medication regimen. resumed Xarelto on 01/22 with no further bleeding noted continue with oxygen as she chronically wears oxygen ENT consult for epistaxis which is stopped now. Patient describes has some tinnitus which is chronic, patient instructed to follow-up with ENT as an outpatient and she agrees Patient initially evaluated by PT/OT therapy recommending rehab and patient was agreeable although was denied by insurance and attempted a peer to peer which was denied and case management is following and has submitted for appeal. Patient is now discussing not wanting to go to rehab and possibly discussing hospice with residential home care which she is already established. Patient is agreeable to hospice at home and wants to be discharged home tomorrow. Possible discharge planning in the next 24 hours Due to multiple complex medical issues, overall prognosis is guarded The impression and plan of care has been dictated by Nataliia Schmidt, Nurse Practitioner as directed. Dr. Romel MD I have performed a history and examination and MDM of this patient, discussed the same with the dictator, and agree with the dictator's assessment and plan as written ,documented as a scribe. Based on total visit time, I have performed more than 50% of the visit. Objective - Vital Signs Vital signs: Vital Signs Temp 97.3 F L 01/31/24 08:10 Pulse 51 L 01/31/24 08:10 Resp 17 01/31/24 08:10 BP 110/61 01/31/24 08:10 Pulse Ox 97 01/31/24 08:49 FiO2 35 01/23/24 16:15 Intake & Output 01/30/24 01/31/24 01/31/24 18:59 06:59 18:59 Intake Total 500 10 Output Total 700 Balance 500 -690 Weight 93 kg Intake: IV 20 10 Invasive Line 2 20 10 Oral 480 Output: Urine 700 Other: Voiding Method Bedside Commode Bedside Commode Bedside Commode External Catheter External Catheter External Catheter # Voids 3 - Labs CBC & Chem 7: 01/30/24 05:59 01/31/24 06:26 Labs: Abnormal Lab Results - Last 24 Hours (Table) 01/31/24 Range/Units 06:26 Sodium 136 L (137-145) mmol/L BUN 35 H (7-17) mg/dL Creatinine 1.09 H (0.52-1.04) mg/dL Calcium 8.3 L (8.4-10.2) mg/dL
--- NOTE | 2024-02-01 10:02 | P.PN ---
Subjective Patient is seen in follow-up for acute kidney injury. Renal function better. Creatinine 1.09 yesterday. Now on 3 L nasal cannula. Blood pressure stable. Admits to good urine output. Denies chest pain. Vital signs are stable. General: No acute distress. HEENT: Head exam is unremarkable. On nasal cannula. LUNGS: Wheezing present. HEART: Rate and Rhythm are regular. ABDOMEN: Nontender. EXTREMITITES: Trace edema. Objective - Vital Signs Vital signs: Vital Signs Temp 97.5 F L 02/01/24 08:00 Pulse 80 02/01/24 08:13 Resp 16 02/01/24 08:13 BP 118/56 02/01/24 08:00 Pulse Ox 100 02/01/24 08:04 FiO2 35 01/23/24 16:15 Intake & Output 01/31/24 02/01/24 02/01/24 18:59 06:59 18:59 Intake Total 598 240 Output Total 1400 500 Balance -802 -500 240 Weight 96.5 kg Intake: Oral 598 240 Output: Urine 1400 500 Other: Voiding Method Bedside Commode Bedside Commode Bedside Commode External Catheter External Catheter External Catheter - Labs CBC & Chem 7: 01/30/24 05:59 01/31/24 06:26 Assessment and Plan Plan: Assessment: 1. Acute kidney injury secondary to ATN secondary to hypotension. Renal function better. Creatinine 1.09 yesterday. UA benign. No hydronephrosis noted on kidney ultrasound. 2. Acute on chronic diastolic CHF. 3. A-fib with RVR. Now rate controlled. 4. Acute COPD exacerbation. Now on 3 L nasal cannula. 5. Chest pain with evidence of stress-induced reversibility noted on stress test. Plans for cardiac cath outpatient. Plan: Maintain current meds. Patient will be going home on hospice. I will sign off. Please call with any questions or concerns.
[2024-02-01 11:29] VITALS: BP 128/59; PULSE 68; RESP 20; TEMP 97.9
--- NOTE | 2024-02-08 13:58 | P.DS ---
Providers Date of admission: 01/20/24 20:10 Expected date of discharge: 01/31/24 Attending physician: Birdie Chi Consults: 01/20/24 18:41 Consult Physician Urgent Consulting Provider: Owen Tavera Consult Reason/Comments: Epistaxis with bilateral nasal packing Do you want consulting provider notified?: Yes 01/23/24 11:43 Consult Physician Urgent Consulting Provider: Boston Pavon Consult Reason/Comments: sob Do you want consulting provider notified?: Yes 01/23/24 16:03 Consult Physician Routine Consulting Provider: Andrew Nazario Consult Reason/Comments: sob Do you want consulting provider notified?: Yes 01/26/24 10:07 Consult Physician Routine Consulting Provider: Valery Crowell Consult Reason/Comments: mars Do you want consulting provider notified?: Already Contacted 01/28/24 14:06 Consult Physician Routine Consulting Provider: Boy Obando Consult Reason/Comments: sinus rae 30s-40s post emergency medicine Do you want consulting provider notified?: Yes Primary care physician: [facility] Course: Final diagnosis Bilateral epistaxis status post bilateral nasal packing which is removed. Bleeding stopped now hemoglobin remained stable, has been resumed on Xarelto Acute kidney injury could be secondary to above, Dyspnea could be acute CHF versus coronary artery disease versus bronchitis A-fib with RVR, present on admission. Also happened after stress test, currently rate controlled Chest pain, ruled out ACS Acute on chronic CHF without acute exacerbation. ejection fraction is preserved COPD without acute exacerbation Acute on chronic chronic hypoxic respiratory failure Chronic leukocytosis Obesity with BMI 39.1 GI prophylaxis DVT prophylaxis: Xarelto No code Discharge disposition Patient is being discharged in a stable condition with guarded prognosis to home with hospice. Patient will follow-up with [facility] in the outpatient setting upon discharge. Patient is to continue with current medications and outpatient follow-up with cardiology as well as nephrology as scheduled. Total time taken is greater than 35 minutes. Hospital course This is a 68-year-old female who was recently admitted with initially bilateral nosebleeds noted to have epistaxis and evaluated by ENT underwent intervention and Xarelto was on hold. Patient has been cleared and instructed to follow-up with outpatient and has been resumed on Xarelto with no active bleeding noted. Patient also with history of CHF with acute exacerbation. Patient with multiple significant comorbidities reports to feeling weak and unable to care for self initially wanting rehab although was denied and underwent peer to peer which was also denied recommending home with home care. Patient reports she does have home care and also has been looking into hospice. Patient will follow with her home care services who also have hospice services available and will be meeting with them on discharge. Patient has been instructed to follow-up with primary care provider to discuss this as well as cardiology. Patient has been cleared by consultations. Please refer to other consultation notes for further HPI. Currently no reports of chest pain, shortness of breath, or palpitations. Patient is afebrile. No reports of nausea or vomiting and patient is tolerating diet. Patient will be discharged home today. Overall guarded prognosis and high risk for readmissions given significant comorbidities. Physical exam: Gen: This is a 68-year-old female who is awake, alert and oriented x 3, well- developed, elderly appearing, morbidly obese HEENT: Head is atraumatic, normocephalic. Pupils equal, round. Sclerae is anicteric. NECK: Supple. No JVD. No lymphadenopathy. No thyromegaly. LUNGS: Diminished breath sounds bilaterally with some coarse scattered rhonchi. No intercostal retractions. HEART: S1, S2 are muffled ABDOMEN: Soft. Obese. Bowel sounds are present. No masses. No tenderness. EXTREMITIES: No pedal edema. No calf tenderness. NEUROLOGICAL: Patient is awake, alert and oriented x3. Cranial nerves 2 through 12 are grossly intact. Please refer to medication reconciliation sheet for a list of medications. The impression and plan of care has been dictated by Nataliia Schmidt, Nurse Practitioner as directed. Dr. Romel MD I have performed a history and examination and MDM of this patient, discussed the same with the dictator, and agree with the dictator's assessment and plan as written ,documented as a scribe. Based on total visit time, I have performed more than 50% of the visit. Patient Condition at Discharge: Fair Plan - Discharge Summary Discharge Rx Participant: Yes New Discharge Prescriptions: New Oxymetazoline 0.05% Nasl [place] [Afrin 0.05% Nasal [place]] 2 spray NASAL BID #5 ml Sodium Chloride 0.65% Nasal [Deep Sea (Saline)] 2 spray NASAL QID PRN #5 ml PRN Reason: Nasal Congestion Furosemide [Lasix] 20 mg PO DAILY #30 tab Acetaminophen Tab [Tylenol] 650 mg PO Q6HR PRN tab PRN Reason: Mild Pain Or Fever > 100.5 Amiodarone [Cordarone] 100 mg PO DAILY #30 tab Dapagliflozin Propanediol [Farxiga] 5 mg PO DAILY #30 tab Famotidine [Pepcid] 20 mg PO DAILY #30 tab Continue Rivaroxaban [Xarelto] 20 mg PO W/SUPPER Potassium Chloride [Klor-Con 20] 20 meq PO BID Albuterol Inhaler [Ventolin Hfa Inhaler] 2 puff INHALATION RT-QID PRN PRN Reason: Shortness Of Breath Atorvastatin [Lipitor] 40 mg PO DAILY Budesonide/Formoterol Fumarate [Breyna 160-4.5 Mcg Inhaler] 2 puff INHALATION RT-BID Ipratropium-Albuterol Nebulize [Duoneb 0.5 mg-3 mg/3 ml Soln] 3 ml INHALATION RT-QID PRN PRN Reason: Shortness Of Breath Or Wheezing Tiotropium 2.5 Mcg/Puff [Spiriva Respimat 2.5 Mcg] 2 puff INHALATION RT-DAILY PARoxetine HCL 40 mg PO HS Carboxymethylcellulose Sodium [Refresh Tears] 1 drop BOTH EYES QID PRN PRN Reason: Dry Eye(S) Acetaminophen Tab [Tylenol] 1,000 mg PO Q6HR PRN PRN Reason: Headache Discontinued Metoprolol Succinate (ER) [Toprol XL] 100 mg PO DAILY #0 tab Empagliflozin [Jardiance] 10 mg PO DAILY #30 tablet Furosemide [Lasix] 40 mg PO DAILY Discharge Medication List Albuterol Inhaler [Ventolin Hfa Inhaler] 2 puff INHALATION RT-QID PRN 08/22/20 [History] Potassium Chloride [Klor-Con 20] 20 meq PO BID 08/22/20 [History] Rivaroxaban [Xarelto] 20 mg PO W/SUPPER 08/22/20 [History] Tiotropium 2.5 Mcg/Puff [Spiriva Respimat 2.5 Mcg] 2 puff INHALATION RT-DAILY 08/22/20 [History] Atorvastatin [Lipitor] 40 mg PO DAILY 10/01/23 [History] PARoxetine HCL 40 mg PO HS 10/01/23 [History] Budesonide/Formoterol Fumarate [Breyna 160-4.5 Mcg Inhaler] 2 puff INHALATION RT-BID 12/07/23 [History] Carboxymethylcellulose Sodium [Refresh Tears] 1 drop BOTH EYES QID PRN 12/07/23 [History] Acetaminophen Tab [Tylenol] 1,000 mg PO Q6HR PRN 01/20/24 [History] Ipratropium-Albuterol Nebulize [Duoneb 0.5 mg-3 mg/3 ml Soln] 3 ml INHALATION RT-QID PRN 01/20/24 [History] Acetaminophen Tab [Tylenol] 650 mg PO Q6HR PRN tab 02/01/24 [Rx] Amiodarone [Cordarone] 100 mg PO DAILY #30 tab 02/01/24 [Rx] Dapagliflozin Propanediol [Farxiga] 5 mg PO DAILY #30 tab 02/01/24 [Rx] Famotidine [Pepcid] 20 mg PO DAILY #30 tab 02/01/24 [Rx] Furosemide [Lasix] 20 mg PO DAILY #30 tab 02/01/24 [Rx] Oxymetazoline 0.05% Nasl [place] [Afrin 0.05% Nasal [place]] 2 spray NASAL BID #5 ml 02/01/24 [Rx] Sodium Chloride 0.65% Nasal [Deep Sea (Saline)] 2 spray NASAL QID PRN #5 ml 02/01/24 [Rx] Follow up Appointment(s)/Referral(s): Elli Irwin MD [STAFF PHYSICIAN] - 1 Week [facility] [NON-STAFF] - 1 Week Owen Tavera MD [STAFF PHYSICIAN] - 02/02/24 11:15 am ,Health [NON-STAFF] - 1 Week [facility] [Primary Care Provider] - 1-2 days Activity/Diet/Wound Care/Special Instructions: 1. Special ENT discharge instructions: 1. Please carefully review/read all discharge instructions. 2. You may resume a normal diet, and all home medications including: Xarelto, Tylenol, ibuprofen, Motrin, Advil, etc. However, do not resume taking aspirin until further notice. It is okay for you to shower, shampoo your hair, and take baths as usual. Until you see Dr. Tavera for your follow-up appointment you should avoid blowing your nose. Blowing your nose may cause it to start bleeding. If you feel there is something in your nose you may sniff it back and spit it out. Also, if you have to sneeze, you should do so with your mouth open so that the force of the sneeze comes through your mouth. Avoid any strenuous exercise or activity. If possible it is best that you remain home until you see Dr. Tavera at his office for your follow-up visit. If you do have to go out for some reason, it should only be for a brief period of time. 3. It is normal for you to have a slight amount of bleeding from either side of your nose for the next 7 to 10 days. You will be given supplies to take home such as tape, eye patches, and a bottle of Afrin nasal spray. You should spray 2 puffs of the Afrin nasal spray in each nostril 3 times daily (morning, dinner, before going to bed) until you see Dr. Tavera at his office for your follow-up visit. Dr. Tavera has demonstrated the proper way for you to spray your nose while you were in the hospital. In addition, if you should notice any significant bleeding you may either is spray Afrin nasal spray in your nose or you may spray Afrin on on piece of cotton and placed that in your nostril and then apply a nasal clamp (you were given one by the emergency room on one of your emergency room visits). Leave the clamp on for at least 7 minutes before removing it. You will also be given a prescription for an antibiotic capsule, Keflex 500 mg, which you should take twice daily beginning on the evening after your discharge from the hospital and continue until it is completely gone. 4. Since you use supplemental oxygen at home it is okay for you to use your nasal cannulas. If you feel your nose is tender or sore you may take Tylenol. 5. If you start bleeding at home and you cannot get it stopped, then you will have to return to [facility] emergency room for treatment. heart healthy diet activity is restricted till you see your doctor Discharge Disposition: HOME WITH HOSPICE
== END 2024-02-01 15:10 | disposition hospice, home (50) | DRG 150 ==
LOC: EC 14:41 → OBSVTOIN 20:10 → 6NMEDSUR 20:10 → 3SCARD 01-24 15:06
PROVIDERS: ADMIT Hospitalist; ATTEND Hospitalist
PROC: 3E033RZ Introduction of Antiarrhythmic into Peripheral Vein, Percutaneous Approach (ICD-10-PCS; principal; 2024-01-24)
DX: R04.0 Epistaxis (principal); I50.33 Acute on chronic diastolic (congestive) heart failure; J96.21 Acute and chronic respiratory failure with hypoxia; N17.0 Acute kidney failure with tubular necrosis; I48.21 Permanent atrial fibrillation; Z66 Do not resuscitate; Z51.5 Encounter for palliative care; J43.9 Emphysema, unspecified; I11.0 Hypertensive heart disease with heart failure; I27.20 Pulmonary hypertension, unspecified; E11.9 Type 2 diabetes mellitus without complications; Z99.81 Dependence on supplemental oxygen; Z68.39 Body mass index [BMI] 39.0-39.9, adult; E66.9 Obesity, unspecified; R94.39 Abnormal result of other cardiovascular function study; H91.93 Unspecified hearing loss, bilateral; H93.13 Tinnitus, bilateral; I25.10 Atherosclerotic heart disease of native coronary artery without angina pectoris; R53.81 Other malaise; E78.00 Pure hypercholesterolemia, unspecified; D72.828 Other elevated white blood cell count; Z79.01 Long term (current) use of anticoagulants; Z79.84 Long term (current) use of oral hypoglycemic drugs; Z53.8 Procedure and treatment not carried out for other reasons; I95.9 Hypotension, unspecified; R00.0 Tachycardia, unspecified; R81 Glycosuria; M50.30 Other cervical disc degeneration, unspecified cervical region; D64.9 Anemia, unspecified; R00.1 Bradycardia, unspecified; R19.7 Diarrhea, unspecified; Z86.73 Personal history of transient ischemic attack (TIA), and cerebral infarction without residual deficits; I25.2 Old myocardial infarction; Z79.899 Other long term (current) drug therapy; Z87.891 Personal history of nicotine dependence
CPT/HCPCS: 71045; 71046; 76770; 78452; 80048; 81003; 82533; 83735; 83880; 84145; 84443; 84484; 85025; 93005; 93017; 94640; 94760; 96372; 99285